=== PATIENT | female | born 1930 | race Caucasian/White ===

== ENCOUNTER 2016-10-18 18:51 | Emergency (ER) | payer MEDICARE, BC ==
[~2016-10-18 18:51] MED LIST: ALPR0.5T PO; ATOR10TA PO; CARV3.122 PO; CLON0.5T PO; CLON0.5T3 PO; DIGO125T PO; DILT180C2 PO; DILT240C2 PO; DOCU-27 PO; DULO60CA6 PO; FAMO-63 PO; FENT1PAT13 TD; FURO-69 PO; HYDR-2666 PO; HYDR-971 PO; Hydrocodone/Acetaminophen PO; IPRA3AMP NEB; LEVO100T PO; LEVO137T2 PO; LEVO150T PO; METO25TA4 PO; METO50TA2 PO; OLAN5TAB9 PO; ONDA4TAB7 PO; PANT40TA3 PO; PARO40TA45 PO; POTA20TA12 PO; PRAV40TA2 PO; PREG25CA PO; SUCR1TAB29 PO; TRAZ50TA15 PO; WARF1TAB PO; WARF2.5T PO; WARF3TAB PO
[2016-10-18] MEDS ORDERED: TRAMADOL 50 MG TABLET. PO ONE (19:30)
--- NOTE | 2016-10-18 20:33 | PHYS DOC ---
Past Medical History Past Medical History: A-Fib, Anxiety, Depression, High Cholesterol, Hypertension, TIA Additional Past Medical Histor: HOME O2 AT NIGHT Past Surgical History: Other Additional Past Surgical Histo: Thyroid Alcohol Use: None Drug Use: None Adult General Chief Complaint Chief Complaint: LOWER EXTREMITY SWELLING HPI HPI Patient is a 86 year old female with history of chronic peripheral edema, A. fib, hypertension, TIA, anxiety who presents with multiple complaints which all appear to be relatively chronic. She complains of lower extremity swelling and pain and is been going on for approximately one year. She feels short of breath intermittently, and feels short of breath with exertion. This is not really a new development. He had an episode of heartburn earlier and felt that her stomach was upset, but this feels better currently. She also complains of a hoarse voice and some nasal congestion and drainage for the last couple of weeks. She denies fever, cough, nausea, vomiting, diarrhea, dysuria, hematuria , or flank pain. Review of Systems Review of Systems Constitutional: Denies fever or chills Eyes: Denies change in visual acuity, redness, or eye pain HENT: Reports mild nasal congestion/drainage and hoarse voice. Denies sore throat. Respiratory: Denies cough. Her porch chronic intermittent shortness of breath on exertion. Cardiovascular: Denies chest pain or palpitations. GI: Denies abdominal pain, nausea, vomiting, bloody stools or diarrhea. 4 steps of heartburn earlier today that has resolved. : Denies dysuria or hematuria Musculoskeletal: Denies back pain or joint pain. Chronic lower extremity pain, worse with walking. Reports chronic lower extremity edema. Integument: Denies rash or skin lesions Neurologic: Denies headache, focal weakness or sensory changes Current Medications Current Medications Current Medications Medications (Trade) Dose Ordered Sig/Dori Start Time Stop Time Status Last Admin Dose Admin Tramadol HCl (Ultram) 50 mg 1X ONCE 10/18/16 19:30 10/18/16 19:33 DC Allergies Allergies Allergies Coded Allergies Type Severity Reaction Last Updated Verified Iodinated Contrast Media - Oral and Allergy Intermediate SWELLING 04/19/16 Yes Penicillins Allergy Intermediate Rash 04/19/16 Yes adhesive Allergy Intermediate rash 04/19/16 Yes iodine Allergy Intermediate Rash 04/19/16 Yes tramadol Allergy Intermediate 10/18/16 Yes Physical Exam Physical Exam Constitutional: Well developed, well nourished, no acute distress, non-toxic appearance. HENT: Normocephalic, atraumatic, bilateral external ears normal, oropharynx moist, no oral exudates, nose normal. Voice sounds normal Eyes: PERRLA, EOMI, conjunctiva normal, no discharge. Neck: Normal range of motion, no tenderness, supple, no stridor. No JVD. Cardiovascular: Irregularly irregular. No murmur or gallop. Lungs & Thorax: Bilateral breath sounds clear to auscultation Abdomen: Bowel sounds normal, soft, no tenderness, no masses, no pulsatile masses. Skin: Warm, dry, no erythema, no rash. Back: No tenderness, no CVA tenderness. Extremities: No tenderness, no cyanosis, no clubbing, ROM intact. Trace pitting edema bilateral lower legs. Neurologic: Alert and oriented X 3, normal motor function, normal sensory function, no focal deficits noted. Psychologic: Anxious. Current Patient Data Vital Signs Vital Signs Date Time Temp Pulse Resp B/P Pulse Ox O2 Delivery O2 Flow Rate FiO2 10/18/16 21:30 76 20 124/68 95 Room Air 10/18/16 18:53 98.8 98.8 Lab Values Laboratory Tests Test 10/18/16 20:15 White Blood Count 5.9x10^3/uL (4.0-11.0) Red Blood Count 3.95x10^6/uL (3.50-5.40) Hemoglobin 8.7g/dL (12.0-15.5) L Hematocrit 27.7% (36.0-47.0) L Mean Corpuscular Volume 70fL (79-100) L Mean Corpuscular Hemoglobin 22pg (25-35) L Mean Corpuscular Hemoglobin Concent 31g/dL (31-37) Red Cell Distribution Width 23.0% (11.5-14.5) H Platelet Count 258x10^3/uL (140-400) Neutrophils (%) (Auto) 43% (31-73) Lymphocytes (%) (Auto) 45% (24-48) Monocytes (%) (Auto) 9% (0-9) Eosinophils (%) (Auto) 3% (0-3) Basophils (%) (Auto) 0% (0-3) Neutrophils # (Auto) 2.5x10^3uL (1.8-7.7) Lymphocytes # (Auto) 2.6x10^3/uL (1.0-4.8) Monocytes # (Auto) 0.5x10^3/uL (0.0-1.1) Eosinophils # (Auto) 0.1x10^3/uL (0.0-0.7) Basophils # (Auto) 0.0x10^3/uL (0.0-0.2) Platelet Estimate Adequate (ADEQUATE) Polychromasia Slight Hypochromasia Mod Anisocytosis Mod Microcytosis Mod Ovalocytes Mod Sodium Level 143mmol/L (136-145) Potassium Level 3.9mmol/L (3.5-5.1) Chloride Level 107mmol/L (98-107) Carbon Dioxide Level 28mmol/L (21-32) Anion Gap 8 (6-14) Blood Urea Nitrogen 9mg/dL (7-20) Creatinine 0.8mg/dL (0.6-1.0) Estimated GFR (Cockcroft-Gault) 68.0 Glucose Level 96mg/dL (70-99) Calcium Level 8.4mg/dL (8.5-10.1) L Troponin I Quantitative < 0.017ng/mL (0.000-0.055) PV-Amc-C-Type Natriuretic Peptide 3565pg/mL (0-449) H Laboratory Tests 10/18/16 20:15 Laboratory Tests 10/18/16 20:15 EKG EKG EKG: Atrial fibrillation. Rate 80 bpm. Normal axis and intervals. No ST segment changes or acute abnormalities. EKG interpreted by me. Radiology/Procedures Radiology/Procedures Chest x-ray, AP single view: Cardiomegaly. Hiatal hernia. Aortic arthrosclerosis. No acute infiltrate, effusion, or pneumothorax. No acute findings in chest. X-ray interpreted by me. Course & Med Decision Making Course & Med Decision Making Pertinent Labs and Imaging studies reviewed. (See chart for details) Patient has stable vitals and looks well. She is a very anxious lady, most of her complaints seem to be chronic. She has some mild trace edema, but otherwise her exam is unremarkable. Labs are also fairly stable, she does have chronic microcytic anemia. BNP is very elevated, as it always is. There is no evidence of acute volume overload on her chest x-ray. I have advised compression stockings, feet elevation, and that she continue taking her prescribed pain medication. She has follow-up appointment on Friday with her primary physician. Patient was reassured. Return precautions were discussed and all questions were answered prior to discharge. Dragon Disclaimer Dragon Disclaimer This electronic medical record was generated, in whole or in part, using a voice recognition dictation system. Departure Departure Impression: Primary Impression: Lower extremity edema Additional Impression: Chronic pain of lower extremity, bilateral Disposition: HOME, SELF-CARE Condition: STABLE Referrals: KAMALJIT AL MD (PCP) Patient Instructions: Chronic Pain, Peripheral Edema Additional Instructions: Take your previously prescribed pain medications as directed. Wear compression stockings on her lower extremities for the next few days while you are up on her feet, and at night elevate your legs when you are resting or sleeping. Follow up with your primary doctor as scheduled next week. Problem Qualifiers Primary Impression: Lower extremity edema Laterality: bilateral Qualified Code: R60.0 - Localized edema KATJA WITT MD Oct 18, 2016 19:24
[2016-10-18 20:47] LABS: BASO % 0 % (0-3); EOS % 3 % (0-3); HEMATOCRIT 27.7 % (36.0-47.0); HEMOGLOBIN 8.7 g/dL (12.0-15.5); LYMPH # 2.6 x10^3/uL (1.0-4.8); LYMPH % 45 % (24-48); MEAN CORPUSCULAR HEMOGLOBIN 22 pg (25-35); MEAN CORPUSCULAR HGB CONC 31 g/dL (31-37); MEAN CORPUSCULAR VOLUME 70 fL (79-100); MONO % 9 % (0-9); NEUT % 43 % (31-73); PLATELET COUNT 258 x10^3/uL (140-400); RED BLOOD COUNT 3.95 x10^6/uL (3.50-5.40); WHITE BLOOD COUNT 5.9 x10^3/uL (4.0-11.0)
[2016-10-18 20:51] LABS: CALCIUM 8.4 mg/dL (8.5-10.1); CREATININE 0.8 mg/dL (0.6-1.0); POTASSIUM 3.9 mmol/L (3.5-5.1)
[2016-10-18 21:43] LABS: ANISOCYTOSIS MOD; HYPOCHROMIA MOD; MICROCYTOSIS MOD; OVALOCYTES MOD; PLT ESTIMATE ADEQUATE (ADEQUATE); POLYCHROMASIA SLIGHT
[2016-10-18 22:00] VITALS: BP 141/81
--- NOTE | 2016-10-19 08:28 | RAD ---
EXAM: Chest, single view. HISTORY: Shortness of breath. COMPARISON: 09/04/2016. FINDINGS: A frontal view of the chest is obtained. There is stable diffuse increased interstitial opacity likely due to trace congestion. There is stable cardiomegaly. There is a hiatal hernia. There is no effusion or pneumothorax. IMPRESSION: 1. Stable diffuse increased interstitial opacity suggesting trace congestion. 2. Stable cardiomegaly. 3. Hiatal hernia.
--- NOTE | 2016-10-19 09:15 | EKG ---
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
== END 2016-10-18 22:40 | disposition home or self-care (01) ==
LOC: ER 18:51
DX: G89.29 Other chronic pain (principal); R60.0 Localized edema; M79.604 Pain in right leg; M79.605 Pain in left leg; E78.00 Pure hypercholesterolemia, unspecified; I10 Essential (primary) hypertension; R06.02 Shortness of breath; Z86.73 Personal history of transient ischemic attack (TIA), and cerebral infarction without residual deficits
CPT/HCPCS: 36415; 71010; 80048; 83880; 84484; 85007; 85027; 93005; 99285-25

== ENCOUNTER 2016-11-08 15:31 | Inpatient (IN) | payer MEDICARE, BC ==
[~2016-11-08] VITALS: Ht 162.6 cm; Wt 69.1 kg
[2016-11-08 16:05] VITALS: BP 135/80
[2016-11-08] MEDS ORDERED: WARFARIN 10 MG TABLET. PO ONE (16:30)
[2016-11-08 16:46] LABS: OBC FLU VALID
[2016-11-08] MEDS ORDERED: PARO20TA2 PO (16:54)
[2016-11-08] MEDS ORDERED: HYDR7.5S PO (16:54)
[2016-11-08] MEDS ORDERED: ACET500T68 PO (16:54)
[2016-11-08] MEDS ORDERED: DIGOXIN 500 MCG/2 ML AMPUL. IV ONE (17:15)
[2016-11-08] MEDS ORDERED: FUROSEMIDE 40 MG/4 ML VIAL IVP ONE (17:15)
[2016-11-08] MEDS ORDERED: ONDANSETRON ODT 4 MG TAB.RAPDIS PO PRN (17:30)
[2016-11-08] MEDS ORDERED: ACETAMINOPHEN 325 MG TABLET. PO PRN (17:45)
--- NOTE | 2016-11-08 17:53 | EKG ---
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
[2016-11-08 17:59] LABS: INR 1.5 (0.8-1.1); PROTHROMBIN TIME PATIENT 16.9 SEC (11.7-14.0)
[2016-11-08] MEDS ORDERED: ACETAMINOPHEN 500 MG TABLET PO SCH (18:00)
--- NOTE | 2016-11-08 18:01 | PDOC ---
OBJECTIVE Vital Signs Vital Signs Date Time Temp Pulse Resp B/P Pulse Ox O2 Delivery O2 Flow Rate FiO2 11/08/16 16:05 100.3 110 20 135/80 94 Room Air 100.3 ASSESSMENT/PLAN Assessment/Plan [id number] H&P dictated Problems: COMMENT Lab Laboratory Tests Test 11/08/16 16:11 11/08/16 17:30 Influenza Type A Antigen Positive (NEGATIVE) Influenza Type B Antigen Negative (NEGATIVE) Prothrombin Time 16.9SEC (11.7-14.0) Prothromb Time International Ratio 1.5 (0.8-1.1) KAMALJIT AL MD Nov 08, 2016 18:01
[2016-11-08 18:07] VITALS: BP 121/78
[2016-11-08] MEDS: OSELTAMIVIR 75 MG CAPSULE PO SCH (18:10)
[2016-11-08 18:12] LABS: HEMATOCRIT 27.8 % (36.0-47.0); HEMOGLOBIN 8.4 g/dL (12.0-15.5); RED BLOOD COUNT 3.85 x10^6/uL (3.50-5.40); RED CELL DISTRIBUTION WIDTH 21.8 % (11.5-14.5); WHITE BLOOD COUNT 5.5 x10^3/uL (4.0-11.0)
[2016-11-08 18:22] LABS: ALBUMIN 3.4 g/dL (3.4-5.0); ALBUMIN/GLOBULIN RATIO 1.1 (1.0-1.7); CALCIUM 8.7 mg/dL (8.5-10.1); CREATININE 0.8 mg/dL (0.6-1.0); POTASSIUM 3.9 mmol/L (3.5-5.1); TOTAL BILIRUBIN 0.4 mg/dL (0.2-1.0); TOTAL PROTEIN 6.4 g/dL (6.4-8.2)
--- NOTE | 2016-11-08 19:23 | RAD ---
PROCEDURE AP chest radiograph. HISTORY Shortness of air. COMPARISON October 18, 2016. FINDINGS Cardiac silhouette appears within normal limits. There is evidence of large hiatal hernia. No pneumothorax or pleural effusion is seen. No focal consolidation is identified. Pulmonary vascularity appears near the upper limits of normal. IMPRESSION 1. No acute cardiopulmonary process. 2. Hiatal hernia. Electronically signed by: Navdeep Rhoades MD (Nov 08, 2016 19:22:56)
[2016-11-08 19:35] LABS: BACTERIA,URINE 0 /HPF (0-FEW); BILIRUBIN,URINE NEGATIVE (NEG); GLUCOSE,URINE NEGATIVE (NEG); NITRITE,URINE NEGATIVE (NEG); PROTEIN,URINE NEGATIVE (NEG-TRACE); SQUAMOUS EPITHELIAL CELL,UR OCC /LPF; UROBILINOGEN,URINE 0.2 mg/dL (0.2 mg/dL); WBC,URINE 0 /HPF (0-4)
[2016-11-08] MEDS: IPRATRPIUM/ALBUTEROL 0.5/2.5MG 3 ML NEBU. NEB SCH (20:14)
[2016-11-08] MEDS: traZODone 50 MG TABLET. PO PRN (21:05)
[2016-11-08] MEDS: ENOXAPARIN ** NOTE DOSE ** SYRINGE SQ SCH (21:05)
[2016-11-08] MEDS: ATORVASTATIN CALCIUM 10 MG TABLET. PO SCH (21:05)
[2016-11-08] MEDS: FAMOTIDINE 20 MG TABLET. PO SCH (21:05)
[2016-11-08] MEDS: ALPRAZOLAM 0.5 MG TABLET PO PRN (21:07)
[2016-11-09] VITALS (7 sets, daily range): BP systolic 96–143; BP diastolic 47–71
--- NOTE | 2016-11-09 01:06 | PREOP HP ---
DATE OF SERVICE: 11/08/2016 HISTORY OF PRESENT ILLNESS: The patient is an 86-year-old lady who was admitted to room 209. She presented to the office complaining of not feeling good. She is running a temperature, she is having headache, she is weak all over, feels pain all over. She also has been having more problem breathing and shortness of breath and increasing swelling in the lower extremities. She also complained of palpitations. PAST MEDICAL HISTORY: Significant for atrial fibrillation. She is on chronic anticoagulation and her INR was subtherapeutic. 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 She also has a history of depression and anxiety. SOCIAL HISTORY: She recently moved to assisted living. She has received her flu shot and pneumonia vaccine in the past. She does not smoke or drink alcohol or use drugs. FAMILY HISTORY: Positive for hypertension. PHYSICAL EXAMINATION: VITAL SIGNS: Her temperature was 100.3, pulse was ranging 110-130, respiratory rate 20, blood pressure 135/80. Oximetry was 94 on room air. GENERAL: She feels tired and looks exhausted. HEENT: Her tympanic membranes were clear. Pharynx is clear. NECK: Supple. LUNGS: Fairly clear to auscultation. HEART: Irregularly irregular. Rate is tachycardic. ABDOMEN: Soft, no tenderness, no organomegaly, no masses, no bruits, no ascites. EXTREMITIES: She does have +1 edema in bilateral lower extremities. IMPRESSION: 1. Acute influenza infection. 2. Upper respiratory infection due to the flu. 3. Atrial fibrillation with rapid RVR. We will increase her dose of Cardizem, give her a dose of Lanoxin, and start Lovenox is therapeutic again. 4. History of transient ischemic attack and cerebrovascular accident. 5. Congestive heart failure. 6. Hyperlipidemia. 7. Hypertension, hypertensive cardiovascular disease. 8. Large hiatal hernia. 9. Gastroesophageal reflux disease. 10. Urinary incontinence. 11. Chronic back pain. KAMALJIT AL MD DR: DAYRON/radha JOB#: [id number] / [id number]
[2016-11-09 03:05] LABS: HEMATOCRIT 28.3 % (36.0-47.0); HEMOGLOBIN 8.6 g/dL (12.0-15.5); RED BLOOD COUNT 3.93 x10^6/uL (3.50-5.40); RED CELL DISTRIBUTION WIDTH 21.8 % (11.5-14.5)
[2016-11-09 03:15] LABS: INR 1.5 (0.8-1.1); PROTHROMBIN TIME PATIENT 17.4 SEC (11.7-14.0)
[2016-11-09 03:21] LABS: ALBUMIN 3.3 g/dL (3.4-5.0); CALCIUM 8.6 mg/dL (8.5-10.1); CREATININE 0.8 mg/dL (0.6-1.0); POTASSIUM 3.2 mmol/L (3.5-5.1); TOTAL BILIRUBIN 0.4 mg/dL (0.2-1.0); TOTAL PROTEIN 6.5 g/dL (6.4-8.2)
[2016-11-09] MEDS: OSELTAMIVIR 75 MG CAPSULE PO SCH (06:14)
[2016-11-09] MEDS: ALPRAZOLAM 0.5 MG TABLET PO PRN ×2 (06:26→17:49)
[2016-11-09] MEDS: IPRATRPIUM/ALBUTEROL 0.5/2.5MG 3 ML NEBU. NEB SCH ×4 (07:41→18:56)
[2016-11-09] MEDS: LEVOTHYROXINE 137 MCG TABLET PO SCH (08:39)
[2016-11-09] MEDS: PAROXETINE 20 MG TABLET. PO SCH (08:39)
[2016-11-09] MEDS: SUCRALFATE 1 GM TABLET. PO SCH (08:39)
[2016-11-09] MEDS: POTASSIUM CHLORIDE 20 MEQ TABLET.ER. PO SCH (08:39)
[2016-11-09] MEDS: DOCUSATE SODIUM 100 MG CAPSULE PO PRN (08:40)
[2016-11-09] MEDS: FUROSEMIDE 20 MG TABLET PO SCH (08:40)
[2016-11-09] MEDS: DILTIAZEM HCL 180 MG CAP.ER.24H PO SCH (08:40)
[2016-11-09] MEDS: PANTOPRAZOLE 40 MG TABLET. PO SCH (08:41)
[2016-11-09] MEDS: ENOXAPARIN ** NOTE DOSE ** SYRINGE SQ SCH ×2 (08:41→20:09)
[2016-11-09] MEDS ORDERED: POTASSIUM CHLORIDE 20 MEQ TABLET.ER. PO ONE (08:45)
--- NOTE | 2016-11-09 08:49 | PDOC2 ---
CARDIAC CONSULT DATE OF CONSULT Date of Consult DATE: 11/09/16 TIME: 08:33 REASON FOR CONSULT Reason for Consult: AFIB REFERRING PHYSICIAN Referring Physician: Dr. Hoang SOURCE Source: Chart review, Patient HISTORY OF PRESENT ILLNESS HISTORY OF PRESENT ILLNESS This is an 86 yo female, with a history of AFIB, HTN, HLP, CHF, and CVA, who initially presented to PCP office with complaints of overall not feeling well. Patient was admitted directly to hospital from office. Patient reports non- productive cough and fevers over the last couple of days along with weakness and fatigue. Denies any CP, palpitations, dizziness, diaphoresis, syncope, orthopnea, or LE edema. Reports compliance with medications. PAST MEDICAL HISTORY Past Medical History Cardiovascular: AFIB (chronic), CHF, HTN, Hyperlipidemia Pulmonary: Other (home oxygen) CENTRAL NERVOUS SYSTEM: TIA, CVA GI: Other (hiatal hernia - large), GERD Heme/Onc: No pertinent hx Hepatobiliary: No pertinent hx Psych: Anxiety, Depression Musculoskeletal: Osteoarthritis, back pain Rheumatologic: No pertinent hx Infectious disease: No pertinent hx ENT: No pertinent hx Renal/: No pertinent hx Endocrine: hypothyroidism Dermatology: No pertinent hx PAST SURGICAL HISTORY Past Surgical History: Other (thyroidectomy ) FAMILY HISTORY Family History: Hypertension SOCIAL HISTORY Smoke: No ALCOHOL: none Drugs: None Lives: Skilled Nursing (assisted living ) CURRENT MEDICATIONS CURRENT MEDICATIONS Current Medications Medications (Trade) Dose Ordered Sig/Dori Route PRN Reason Start Time Stop Time Status Last Admin Dose Admin Alprazolam (Xanax) 0.5 mg PRN TID PRN PO ANXIETY 11/08/16 17:15 11/09/16 06:26 Atorvastatin Calcium (Lipitor) 10 mg QHS PO 11/08/16 21:00 11/08/16 21:05 Famotidine (Pepcid) 20 mg HS PO 11/08/16 21:00 11/08/16 21:05 Albuterol/ Ipratropium (Duoneb) 3 ml RTQID NEB 11/08/16 20:00 11/09/16 07:41 Trazodone HCl (Desyrel) 50 mg PRN DAILY PRN PO INSOMNIA 11/08/16 17:15 11/08/16 21:05 Enoxaparin Sodium (Lovenox 80mg Syringe) 80 mg Q12HR SQ 11/08/16 19:00 11/08/16 21:05 Warfarin Sodium (Coumadin) 10 mg 1X ONCE PO 11/08/16 16:30 11/08/16 18:04 DC 11/08/16 16:30 Furosemide (Lasix) 40 mg 1X ONCE IVP 11/08/16 17:15 11/08/16 17:48 DC 11/08/16 18:19 Digoxin (Lanoxin) 250 mcg 1X ONCE IV 11/08/16 17:15 11/08/16 17:48 DC 11/08/16 18:19 Oseltamivir Phosphate (Tamiflu) 75 mg Q12H PO 11/08/16 18:00 11/13/16 18:00 11/09/16 06:14 Acetaminophen (Tylenol) 650 mg PRN Q6HRS PRN PO MILD PAIN / TEMP 11/08/16 17:45 11/08/16 18:10 ALLERGIES ALLERGIES: Coded Allergies: Iodinated Contrast Media - Oral and (Verified Allergy, Intermediate, SWELLING, 04/19/16) Penicillins (Verified Allergy, Intermediate, Rash, 04/19/16) adhesive (Verified Allergy, Intermediate, rash, 04/19/16) iodine (Verified Allergy, Intermediate, Rash, 04/19/16) PT HAS NEVER BEEN PREMEDICATED tramadol (Verified Allergy, Intermediate, 11/09/16) Tolerates hydrocodone ROS Review of System 14 point ROS conducted with pertinent positives noted above in HPI. PHYSICAL EXAM General: Alert, Oriented X3, Cooperative, No acute distress HEENT: Atraumatic, Mucous membr. moist/pink Lungs: Other (diminised bases ) Heart: Normal S1, Normal S2, Other (IRRR; tele AFIB) Abdomen: Soft, No tenderness Extremities: No edema, Normal pulses Skin: No breakdown, No significant lesion Neuro: Normal speech, Sensation intact Psych/Mental Status: Mental status NL, Mood NL MUSCULOSKELETAL: Osteoarthritic changes both hands VITALS VITALS Vital Signs Date Time Temp Pulse Resp B/P Pulse Ox O2 Delivery O2 Flow Rate FiO2 11/09/16 07:42 95 Nasal Cannula 2.0 11/09/16 07:30 98.8 101 24 140/62 98.8 LABS Lab: Laboratory Tests Test 11/08/16 16:11 11/08/16 17:30 11/08/16 19:00 11/09/16 01:00 Influenza Type A Antigen Positive (NEGATIVE) Influenza Type B Antigen Negative (NEGATIVE) White Blood Count 5.5x10^3/uL (4.0-11.0) Red Blood Count 3.85x10^6/uL (3.50-5.40) Hemoglobin 8.4g/dL (12.0-15.5) Hematocrit 27.8% (36.0-47.0) Mean Corpuscular Volume 72fL (79-100) Mean Corpuscular Hemoglobin 22pg (25-35) Mean Corpuscular Hemoglobin Concent 30g/dL (31-37) Red Cell Distribution Width 21.8% (11.5-14.5) Platelet Count 238x10^3/uL (140-400) Prothrombin Time 16.9SEC (11.7-14.0) Prothromb Time International Ratio 1.5 (0.8-1.1) Sodium Level 141mmol/L (136-145) Potassium Level 3.9mmol/L (3.5-5.1) Chloride Level 104mmol/L (98-107) Carbon Dioxide Level 26mmol/L (21-32) Anion Gap 11 (6-14) Blood Urea Nitrogen 8mg/dL (7-20) Creatinine 0.8mg/dL (0.6-1.0) Estimated GFR (Cockcroft-Gault) 68.0 BUN/Creatinine Ratio 10 (6-20) Glucose Level 99mg/dL (70-99) Calcium Level 8.7mg/dL (8.5-10.1) Total Bilirubin 0.4mg/dL (0.2-1.0) Aspartate Amino Transf (AST/SGOT) 15U/L (15-37) Alanine Aminotransferase (ALT/SGPT) 13U/L (14-59) Alkaline Phosphatase 50U/L (46-116) Troponin I Quantitative < 0.017ng/mL (0.000-0.055) < 0.017ng/mL (0.000-0.055) CQ-Cbs-A-Type Natriuretic Peptide 4310pg/mL (0-449) Total Protein 6.4g/dL (6.4-8.2) Albumin 3.4g/dL (3.4-5.0) Albumin/Globulin Ratio 1.1 (1.0-1.7) Urine Collection Type Unknown Urine Color Yellow Urine Clarity Clear Urine pH 7.0 Urine Specific Bailey <=1.005 Urine Protein Negativemg/dL (NEG-TRACE) Urine Glucose (UA) Negativemg/dL (NEG) Urine Ketones (Stick) Negativemg/dL (NEG) Urine Blood Moderate (NEG) Urine Nitrite Negative (NEG) Urine Bilirubin Negative (NEG) Urine Urobilinogen Dipstick 0.2mg/dL (0.2 mg/dL) Urine Leukocyte Esterase Negative (NEG) Urine RBC 6-10/HPF (0-2) Urine WBC 0/HPF (0-4) Urine Squamous Epithelial Cells Occ/LPF Urine Bacteria 0/HPF (0-FEW) Test 11/09/16 02:30 White Blood Count 5.0x10^3/uL (4.0-11.0) Red Blood Count 3.93x10^6/uL (3.50-5.40) Hemoglobin 8.6g/dL (12.0-15.5) Hematocrit 28.3% (36.0-47.0) Mean Corpuscular Volume 72fL (79-100) Mean Corpuscular Hemoglobin 22pg (25-35) Mean Corpuscular Hemoglobin Concent 31g/dL (31-37) Red Cell Distribution Width 21.8% (11.5-14.5) Platelet Count 237x10^3/uL (140-400) Erythrocyte Sedimentation Rate 32 (0-25) Prothrombin Time 17.4SEC (11.7-14.0) Prothromb Time International Ratio 1.5 (0.8-1.1) Sodium Level 143mmol/L (136-145) Potassium Level 3.2mmol/L (3.5-5.1) Chloride Level 104mmol/L (98-107) Carbon Dioxide Level 31mmol/L (21-32) Anion Gap 8 (6-14) Blood Urea Nitrogen 9mg/dL (7-20) Creatinine 0.8mg/dL (0.6-1.0) Estimated GFR (Cockcroft-Gault) 68.0 BUN/Creatinine Ratio 11 (6-20) Glucose Level 91mg/dL (70-99) Calcium Level 8.6mg/dL (8.5-10.1) Total Bilirubin 0.4mg/dL (0.2-1.0) Aspartate Amino Transf (AST/SGOT) 14U/L (15-37) Alanine Aminotransferase (ALT/SGPT) 11U/L (14-59) Alkaline Phosphatase 49U/L (46-116) Total Protein 6.5g/dL (6.4-8.2) Albumin 3.3g/dL (3.4-5.0) Albumin/Globulin Ratio 1.0 (1.0-1.7) ECHOCARDIOGRAM ECHOCARDIOGRAM <Conclusion> The left ventricular systolic function is normal and the ejection fraction is within normal range. The Ejection Fraction is 55%. There is normal LV segmental wall motion. The left atrium is mild to moderately dilated. Doppler and Color Flow revealed mild aortic regurgitation. Doppler and Color Flow revealed mild mitral regurgitation. Doppler and Color Flow revealed moderate tricuspid regurgitation. The PA pressure was estimated at 50 mmHg suggestive of mild to moderate pulmonary HTN. DATE: 11/28/15 1129 STRESS TEST STRESS TEST Conclusion 1. No evidence of EKG changes with stress. 2. Normal myocardial perfusion with stress and rest. 3. Normal EF with stress. 4. Low risk study. DATE: 08/01/15 1637 ASSESSMENT/PLAN ASSESSMENT/PLAN 1. chronic atrial fib episode of RVR yesterday evening. Responded well to IV Dig. RVR likely induced by acute infectious process. TSH normal 11/2015; echo 11/2015 with preserved LVEF and mild AR and MR OAC with warfarin. rate controlled; continue Cardizem. Dig PRN for RVR 2. Mild NT Pro BNP elevated but based upon age adjustment is insignificant. CXR without significant pleural fluid. No JVD continue with routine oral diuresis 3. Influenza A 3. HTN well-controlled continue with current therapy 4. HLD continue medications 5. anxiety and depression per PCP 6. moderate pulmonary HTN PA 50 mm Hg by echo 11/2015 7. Hypokalemia replace. check Mg. Monitor lytes. 8. Subtherapeutic INR INR 1.5 Lovenox for stroke prophylaxis Problems: MEENAKSHI LIMON APRN Nov 09, 2016 08:49
[2016-11-09] MEDS: OLANZAPINE 5 MG TABLET. PO SCH (09:00)
[2016-11-09] MEDS: HYDROCODONE/APAP 7.5/325MG TABLET. PO SCH ×4 (11:35→20:10)
--- NOTE | 2016-11-09 12:54 | PDOC ---
Provider Note Provider Note low grade temp, af rate better- still diffuse wheezes- microcytic anemia same as in 08/08, she does not know etiology- check roque, same meds, watch hb on anticoags MARTHA AGUIAR MD Nov 09, 2016 12:54
[2016-11-09] MEDS ORDERED: DIGOXIN 500 MCG/2 ML AMPUL. IV PRN (13:00)
[2016-11-09] MEDS: WARFARIN 3 MG TABLET. PO SCH (17:49)
[2016-11-09] MEDS: traZODone 50 MG TABLET. PO PRN (20:09)
[2016-11-09] MEDS: FAMOTIDINE 20 MG TABLET. PO SCH (20:09)
[2016-11-09] MEDS: OSELTAMIVIR 30 MG CAPSULE PO SCH (20:09)
[2016-11-09] MEDS: ATORVASTATIN CALCIUM 10 MG TABLET. PO SCH (20:09)
[2016-11-10 03:30] VITALS: BP 100/50
[2016-11-10 04:14] LABS: HEMOGLOBIN 9.2 g/dL (12.0-15.5); RED BLOOD COUNT 4.13 x10^6/uL (3.50-5.40); RED CELL DISTRIBUTION WIDTH 21.7 % (11.5-14.5); WHITE BLOOD COUNT 4.3 x10^3/uL (4.0-11.0)
[2016-11-10 04:19] LABS: PROTHROMBIN TIME PATIENT 21.9 SEC (11.7-14.0)
[2016-11-10 07:00] VITALS: BP 126/66
[2016-11-10] MEDS: IPRATRPIUM/ALBUTEROL 0.5/2.5MG 3 ML NEBU. NEB SCH ×4 (07:16→19:11)
[2016-11-10] MEDS: LEVOTHYROXINE 137 MCG TABLET PO SCH (07:33)
[2016-11-10] MEDS: SUCRALFATE 1 GM TABLET. PO SCH (07:33)
[2016-11-10] MEDS: OSELTAMIVIR 30 MG CAPSULE PO SCH ×2 (08:27→20:28)
[2016-11-10] MEDS: DILTIAZEM HCL 180 MG CAP.ER.24H PO SCH (08:27)
[2016-11-10] MEDS: ALPRAZOLAM 0.5 MG TABLET PO PRN ×3 (08:27→20:55)
[2016-11-10] MEDS: POTASSIUM CHLORIDE 20 MEQ TABLET.ER. PO SCH ×3 (08:28→18:00)
[2016-11-10] MEDS: PANTOPRAZOLE 40 MG TABLET. PO SCH (08:28)
[2016-11-10] MEDS: FUROSEMIDE 20 MG TABLET PO SCH (08:28)
[2016-11-10] MEDS: ENOXAPARIN ** NOTE DOSE ** SYRINGE SQ SCH (08:28)
[2016-11-10] MEDS: PAROXETINE 20 MG TABLET. PO SCH (09:00)
[2016-11-10] MEDS: HYDROCODONE/APAP 7.5/325MG TABLET. PO SCH ×4 (09:00→20:32)
[2016-11-10] MEDS: OLANZAPINE 5 MG TABLET. PO SCH (09:00)
--- NOTE | 2016-11-10 09:36 | PDOC ---
Provider Note Provider Note vss, no temp, bp low but stable- inr 2 now- wK+ 3 so will repeat- AF rate better, 105 now MARTHA AGUIAR MD Nov 10, 2016 09:36
--- NOTE | 2016-11-10 09:38 | PDOC ---
Provider Note Provider Note dc lovenox re inr, kcl to bid, sleeping w/out dyspnea MARTHA AGUIAR MD Nov 10, 2016 09:38
[2016-11-10 11:00] VITALS: BP 124/56
--- NOTE | 2016-11-10 11:41 | PDOC ---
PROGRESS NOTES Subjective Subjective The patient is more comfortable today. Objective Objective Vital Signs Date Time Temp Pulse Resp B/P Pulse Ox O2 Delivery O2 Flow Rate FiO2 11/10/16 11:22 Nasal Cannula 2.0 11/10/16 11:02 18 96 11/10/16 08:27 110 126/66 11/10/16 07:00 98.1 98.1 Intake and Output 11/10/16 07:00 Intake Total 100 ml Balance 100 ml Intake Oral 100 ml # Voids 4 # Bowel Movements 1 Physical Exam Abdomen: Normal bowel sounds Heart: Regular rate General: mild distress Lungs: Other (mildly decreased breath sounds) Assessment Assessment ASSESSMENT/PLAN 1. chronic atrial fib RVR likely induced by acute infectious process. TSH normal 11/2015; echo 11/2015 with preserved LVEF and mild AR and MR OAC with warfarin. INR now 2.0. rate controlled; continue Cardizem. Dig PRN for RVR 2. Mild NT Pro BNP elevated but based upon age adjustment is insignificant. CXR without significant pleural fluid. No JVD continue with routine oral diuresis K of 3.2. KCL has been increased. 3. Influenza A 3. HTN well-controlled continue with current therapy 4. HLD continue medications 5. anxiety and depression per PCP 6. moderate pulmonary HTN PA 50 mm Hg by echo 11/2015 7. Hypokalemia replace. check Mg. Monitor lytes. Comment Review of Relevant I have reviewed the following items mignon (where applicable) has been applied. Labs Laboratory Tests Test 11/08/16 16:11 11/08/16 17:30 11/08/16 19:00 11/09/16 01:00 Influenza Type A Antigen Positive (NEGATIVE) Influenza Type B Antigen Negative (NEGATIVE) White Blood Count 5.5x10^3/uL (4.0-11.0) Red Blood Count 3.85x10^6/uL (3.50-5.40) Hemoglobin 8.4g/dL (12.0-15.5) Hematocrit 27.8% (36.0-47.0) Mean Corpuscular Volume 72fL (79-100) Mean Corpuscular Hemoglobin 22pg (25-35) Mean Corpuscular Hemoglobin Concent 30g/dL (31-37) Red Cell Distribution Width 21.8% (11.5-14.5) Platelet Count 238x10^3/uL (140-400) Prothrombin Time 16.9SEC (11.7-14.0) Prothromb Time International Ratio 1.5 (0.8-1.1) Sodium Level 141mmol/L (136-145) Potassium Level 3.9mmol/L (3.5-5.1) Chloride Level 104mmol/L (98-107) Carbon Dioxide Level 26mmol/L (21-32) Anion Gap 11 (6-14) Blood Urea Nitrogen 8mg/dL (7-20) Creatinine 0.8mg/dL (0.6-1.0) Estimated GFR (Cockcroft-Gault) 68.0 BUN/Creatinine Ratio 10 (6-20) Glucose Level 99mg/dL (70-99) Calcium Level 8.7mg/dL (8.5-10.1) Total Bilirubin 0.4mg/dL (0.2-1.0) Aspartate Amino Transf (AST/SGOT) 15U/L (15-37) Alanine Aminotransferase (ALT/SGPT) 13U/L (14-59) Alkaline Phosphatase 50U/L (46-116) Troponin I Quantitative < 0.017ng/mL (0.000-0.055) < 0.017ng/mL (0.000-0.055) VP-Tdf-I-Type Natriuretic Peptide 4310pg/mL (0-449) Total Protein 6.4g/dL (6.4-8.2) Albumin 3.4g/dL (3.4-5.0) Albumin/Globulin Ratio 1.1 (1.0-1.7) Urine Collection Type Unknown Urine Color Yellow Urine Clarity Clear Urine pH 7.0 Urine Specific [place] <=1.005 Urine Protein Negativemg/dL (NEG-TRACE) Urine Glucose (UA) Negativemg/dL (NEG) Urine Ketones (Stick) Negativemg/dL (NEG) Urine Blood Moderate (NEG) Urine Nitrite Negative (NEG) Urine Bilirubin Negative (NEG) Urine Urobilinogen Dipstick 0.2mg/dL (0.2 mg/dL) Urine Leukocyte Esterase Negative (NEG) Urine RBC 6-10/HPF (0-2) Urine WBC 0/HPF (0-4) Urine Squamous Epithelial Cells Occ/LPF Urine Bacteria 0/HPF (0-FEW) Test 11/09/16 02:30 11/10/16 03:30 White Blood Count 5.0x10^3/uL (4.0-11.0) 4.3x10^3/uL (4.0-11.0) Red Blood Count 3.93x10^6/uL (3.50-5.40) 4.13x10^6/uL (3.50-5.40) Hemoglobin 8.6g/dL (12.0-15.5) 9.2g/dL (12.0-15.5) Hematocrit 28.3% (36.0-47.0) 30.0% (36.0-47.0) Mean Corpuscular Volume 72fL (79-100) 73fL (79-100) Mean Corpuscular Hemoglobin 22pg (25-35) 22pg (25-35) Mean Corpuscular Hemoglobin Concent 31g/dL (31-37) 31g/dL (31-37) Red Cell Distribution Width 21.8% (11.5-14.5) 21.7% (11.5-14.5) Platelet Count 237x10^3/uL (140-400) 220x10^3/uL (140-400) Erythrocyte Sedimentation Rate 32 (0-25) Prothrombin Time 17.4SEC (11.7-14.0) 21.9SEC (11.7-14.0) Prothromb Time International Ratio 1.5 (0.8-1.1) 2.0 (0.8-1.1) Sodium Level 143mmol/L (136-145) Potassium Level 3.2mmol/L (3.5-5.1) Chloride Level 104mmol/L (98-107) Carbon Dioxide Level 31mmol/L (21-32) Anion Gap 8 (6-14) Blood Urea Nitrogen 9mg/dL (7-20) Creatinine 0.8mg/dL (0.6-1.0) Estimated GFR (Cockcroft-Gault) 68.0 BUN/Creatinine Ratio 11 (6-20) Glucose Level 91mg/dL (70-99) Calcium Level 8.6mg/dL (8.5-10.1) Magnesium Level 1.9mg/dL (1.8-2.4) Ferritin 18ng/mL (8-252) Total Bilirubin 0.4mg/dL (0.2-1.0) Aspartate Amino Transf (AST/SGOT) 14U/L (15-37) Alanine Aminotransferase (ALT/SGPT) 11U/L (14-59) Alkaline Phosphatase 49U/L (46-116) Total Protein 6.5g/dL (6.4-8.2) Albumin 3.3g/dL (3.4-5.0) Albumin/Globulin Ratio 1.0 (1.0-1.7) Laboratory Tests Test 11/10/16 03:30 White Blood Count 4.3x10^3/uL (4.0-11.0) Red Blood Count 4.13x10^6/uL (3.50-5.40) Hemoglobin 9.2g/dL (12.0-15.5) Hematocrit 30.0% (36.0-47.0) Mean Corpuscular Volume 73fL (79-100) Mean Corpuscular Hemoglobin 22pg (25-35) Mean Corpuscular Hemoglobin Concent 31g/dL (31-37) Red Cell Distribution Width 21.7% (11.5-14.5) Platelet Count 220x10^3/uL (140-400) Prothrombin Time 21.9SEC (11.7-14.0) Prothromb Time International Ratio 2.0 (0.8-1.1) Medications Current Medications Acetaminophen (Tylenol) 500 mg Q6HRS PO ; Start 11/08/16 at 18:00; Status Cancel Alprazolam (Xanax) 0.5 mg PRN TID PRN PO ANXIETY Last administered on 08:27; Start 11/08/16 at 17:15 Atorvastatin Calcium (Lipitor) 10 mg QHS PO Last administered on 11/09/16 20: 09; Start 11/08/16 at 21:00 Diltiazem HCl (Cardizem 24hr Cd) 360 mg DAILY PO Last administered on 08:27; Start 11/09/16 at 09:00 Docusate Sodium (Colace) 100 mg PRN BID PRN PO CONSTIPATION 1ST CHOICE Last administered on 11/09/16 08:40; Start 11/08/16 at 17:15 Famotidine (Pepcid) 20 mg HS PO Last administered on 11/09/16 20:09; Start at 21:00 Furosemide (Lasix) 40 mg DAILY PO Last administered on 11/10/16 08:28; Start 11/09/16 at 09:00 Albuterol/ Ipratropium (Duoneb) 3 ml RTQID NEB Last administered on 11/10/16 11:21; Start 11/08/16 at 20:00 Levothyroxine Sodium (Synthroid) 137 mcg DAILY PO Last administered on 07:33; Start 11/09/16 at 09:00 Olanzapine (Zyprexa) 5 mg DAILY PO ; Start 11/09/16 at 09:00 Pantoprazole Sodium (Protonix) 40 mg DAILY PO Last administered on 11/10/16 08 :28; Start 11/09/16 at 09:00 Paroxetine HCl (Paxil) 20 mg DAILY PO Last administered on 11/09/16 08:39; Start 11/09/16 at 09:00 Potassium Chloride (Klor-Con) 20 meq DAILY PO Last administered on 11/10/16 08 :28; Start 11/09/16 at 09:00; Stop 11/10/16 at 09:38; Status DC Sucralfate (Carafate) 1 gm DAILYAC PO Last administered on 11/10/16 07:33; Start 11/09/16 at 07:30 Trazodone HCl (Desyrel) 50 mg PRN DAILY PRN PO INSOMNIA Last administered on 20:09; Start 11/08/16 at 17:15 Warfarin Sodium (Coumadin) 3 mg DAILY16 PO Last administered on 11/09/16 17:49 ; Start 11/09/16 at 16:00 Ondansetron HCl (Zofran Odt) 4 mg PRN Q12HRS PRN PO NAUSEA/VOMITING; Start at 17:30 Enoxaparin Sodium (Lovenox 80mg Syringe) 80 mg Q12HR SQ Last administered on 08:28; Start 11/08/16 at 19:00; Stop 11/10/16 at 09:38; Status DC Warfarin Sodium (Coumadin) 10 mg 1X ONCE PO Last administered on 11/08/16 16: 30; Start 11/08/16 at 16:30; Stop 11/08/16 at 18:04; Status DC Furosemide (Lasix) 40 mg 1X ONCE IVP Last administered on 11/08/16 18:19; Start 11/08/16 at 17:15; Stop 11/08/16 at 17:48; Status DC Digoxin (Lanoxin) 250 mcg 1X ONCE IV Last administered on 11/08/16 18:19; Start 11/08/16 at 17:15; Stop 11/08/16 at 17:48; Status DC Oseltamivir Phosphate (Tamiflu) 75 mg Q12H PO Last administered on 11/09/16 06 :14; Start 11/08/16 at 18:00; Stop 11/09/16 at 09:08; Status DC Acetaminophen (Tylenol) 650 mg PRN Q6HRS PRN PO MILD PAIN / TEMP Last administered on 11/08/16 18:10; Start 11/08/16 at 17:45 Warfarin Sodium (Coumadin Per Physician) 1 each PRN DAILY PRN MC SEE COMMENTS Last administered on 11/09/16 09:04; Start 11/09/16 at 07:15 Potassium Chloride (Klor-Con) 20 meq 1X ONCE PO Last administered on 11:35; Start 11/09/16 at 08:45; Stop 11/09/16 at 08:46; Status DC Oseltamivir Phosphate (Tamiflu) 30 mg BID PO Last administered on 11/10/16 08: 27; Start 11/09/16 at 21:00; Stop 11/13/16 at 20:59 Acetaminophen/ Hydrocodone Bitart (Lortab 7.5/325) 1 tab [id number] PO Last administered on 11/10/16 11:02; Start 11/09/16 at 10:30 Digoxin (Lanoxin) 250 mcg 1X PRN PRN IV PER PROTOCOL; Start 11/09/16 at 13:00 Potassium Chloride (Klor-Con) 20 meq BIDAFTMEAL PO Last administered on 10:57; Start 11/10/16 at 10:00 Active Scripts Active Xanax (Alprazolam) 0.5 Mg Tablet 1 Tab PO TID PRN Zofran (Ondansetron Hcl) 4 Mg Tablet 4 Mg PO BID PRN Pepcid (Famotidine) 20 Mg Tablet 20 Mg PO HS Lyrica (Pregabalin) 25 Mg Capsule 50 Mg PO BID 28 Days Duoneb 0.5-3(2.5) Mg/3 Ml (Albuterol/Ipratropium) 3 Ml Ampul.neb 3 Ml NEB RTQID 28 Days FENTANYL 12mcg/hr (Fentanyl) 1 Each Patch.td72 1 Patch TD Q3DAYS 30 Days Colace (Docusate Sodium) 100 Mg Capsule 100 Mg PO PRN BID PRN Reported Acetaminophen 500 Mg Tablet 1 Tab PO Q6HRS Paroxetine Hcl 20 Mg Tablet 1 Tab PO DAILY Synthroid (Levothyroxine Sodium) 137 Mcg Tablet 1 Tab PO DAILY Cardizem Cd (Diltiazem Hcl) 240 Mg Cap.er.24h 1 Cap PO DAILY Lipitor (Atorvastatin Calcium) 10 Mg Tablet 1 Tab PO QHS Carafate (Sucralfate) 1 Gm Tablet 1 Tab PO DAILYAC Lasix (Furosemide) 20 Mg Tablet 1 Tab PO DAILY Coumadin (Warfarin Sodium) 3 Mg Tablet 1 Tab PO DAILY Olanzapine 5 Mg Tablet 5 Mg PO DAILY Potassium Chloride 20 Meq Tab.er.prt 1 Tab PO DAILY Trazodone Hcl 50 Mg Tablet 50 Mg PO PRN DAILY PRN Protonix (Pantoprazole Sodium) 40 Mg Tablet. 1 Tab PO DAILY Vitals/I & O Vital Sign - Last 24 Hours 11/09/16 11/09/16 11/09/16 11/09/16 11:52 15:40 16:13 17:49 Temp 97.9 97.9 Pulse 97 Resp 18 18 B/P 98/54 Pulse Ox 98 98 98 O2 Delivery Nasal Cannula Nasal Cannula Nasal Cannula Nasal Cannula O2 Flow Rate 2.0 2.0 2.0 2.0 11/09/16 11/09/16 11/09/16 11/09/16 18:53 18:58 20:00 20:10 Temp 98.0 98.0 Pulse 84 Resp 19 20 B/P 114/57 Pulse Ox 95 99 99 O2 Delivery Nasal Cannula Nasal Cannula Nasal Cannula Nasal Cannula O2 Flow Rate 2.0 2.0 2.0 2.0 11/09/16 11/09/16 11/10/16 11/10/16 21:15 23:05 03:30 07:00 Temp 98.9 98.2 98.1 98.9 98.2 98.1 Pulse 85 78 101 Resp 20 18 18 18 B/P 96/47 100/50 126/66 Pulse Ox 99 97 99 96 O2 Delivery Nasal Cannula Nasal Cannula Nasal Cannula Nasal Cannula O2 Flow Rate 2.0 2.0 2.0 2.0 11/10/16 11/10/16 11/10/16 11/10/16 07:18 08:00 08:27 11:02 Pulse 110 Resp 18 B/P 126/66 Pulse Ox 98 96 O2 Delivery Nasal Cannula Nasal Cannula Nasal Cannula O2 Flow Rate 2.0 2.0 2.0 11/10/16 11:22 O2 Delivery Nasal Cannula O2 Flow Rate 2.0 Intake and Output 11/09/16 11/09/16 11/10/16 15:00 23:00 07:00 Intake Total 100 ml Balance 100 ml AMY WHITE MD Nov 10, 2016 11:41
[2016-11-10 15:00] VITALS: BP 120/56
[2016-11-10] MEDS: WARFARIN 3 MG TABLET. PO SCH (16:14)
[2016-11-10 19:00] VITALS: BP 121/60
[2016-11-10] MEDS: ATORVASTATIN CALCIUM 10 MG TABLET. PO SCH (20:28)
[2016-11-10] MEDS: FAMOTIDINE 20 MG TABLET. PO SCH (20:28)
[2016-11-10] MEDS: traZODone 50 MG TABLET. PO PRN (20:28)
[2016-11-10 22:46] VITALS: BP 102/56
[2016-11-11] MEDS: HYDROCODONE/APAP 7.5/325MG TABLET. PO SCH ×5 (00:34→20:43)
[2016-11-11 04:00] VITALS: BP 92/56
[2016-11-11] MEDS: IPRATRPIUM/ALBUTEROL 0.5/2.5MG 3 ML NEBU. NEB SCH ×4 (07:18→18:04)
[2016-11-11 07:38] LABS: INR 2.1 (0.8-1.1); PROTHROMBIN TIME PATIENT 22.3 SEC (11.7-14.0)
[2016-11-11 07:49] VITALS: BP 123/64
[2016-11-11] MEDS: PANTOPRAZOLE 40 MG TABLET. PO SCH (08:08)
[2016-11-11] MEDS: OSELTAMIVIR 30 MG CAPSULE PO SCH ×2 (08:08→20:41)
[2016-11-11] MEDS: SUCRALFATE 1 GM TABLET. PO SCH (08:08)
[2016-11-11] MEDS: LEVOTHYROXINE 137 MCG TABLET PO SCH (08:09)
[2016-11-11] MEDS: DILTIAZEM HCL 180 MG CAP.ER.24H PO SCH (08:14)
[2016-11-11] MEDS: ALPRAZOLAM 0.5 MG TABLET PO PRN ×3 (08:42→20:47)
[2016-11-11] MEDS: DOCUSATE SODIUM 100 MG CAPSULE PO PRN (08:43)
[2016-11-11] MEDS: POTASSIUM CHLORIDE 20 MEQ TABLET.ER. PO SCH ×2 (08:43→17:37)
[2016-11-11] MEDS: OLANZAPINE 5 MG TABLET. PO SCH (08:43)
[2016-11-11] MEDS: PAROXETINE 20 MG TABLET. PO SCH (08:43)
[2016-11-11] MEDS: FUROSEMIDE 20 MG TABLET PO SCH (08:43)
--- NOTE | 2016-11-11 08:48 | PDOC ---
Provider Note Provider Note no temp, rate 90-110, feels ok- K+ was 3.2, repeat pending- inr 2.2- lungs clear, af same, i encouraged more walking in advance of likely dc 11/12 MARTHA AGUIAR MD Nov 11, 2016 08:48
[2016-11-11 10:40] VITALS: BP 113/59
--- NOTE | 2016-11-11 11:35 | PDOC ---
CARDIO Progress Notes Date and Time Date of Service 11/11/2016 Time of Evaluation 1010 Subjective Subjective: No Chest Pain, No shortness of breath, No Palpitations, No Dizziness, Other (wants to walk in hallway) Vitals Vitals Vital Signs Date Time Temp Pulse Resp B/P Pulse Ox O2 Delivery O2 Flow Rate FiO2 11/11/16 10:40 99.0 98 18 113/59 96 Nasal Cannula 2.0 99.0 Weight Weight [ ] Input and Output Intake and Output Intake and Output 11/11/16 07:00 Intake Total 1700 ml Output Total 825 ml Balance 875 ml Intake Oral 1700 ml Output Urine Total 825 ml Laboratory Labs Laboratory Tests Test 11/11/16 05:58 Prothrombin Time 22.3SEC (11.7-14.0) Prothromb Time International Ratio 2.1 (0.8-1.1) Potassium Level 4.0mmol/L (3.5-5.1) Physical Exam HEENT: Neck Supple W Full Motion Chest: Symmetric LUNGS: Clear to Auscultation Heart: S1S2, irregularly irregular Abdomen: Soft N/T Extremities: No Calf Tenderness, Other (1+ bilateral LE pitting edema) Neurology: alert, oriented, follow commands Assessment Assessment 1. Chronic atrial fib: rate controlled 80s. 2. Chronic diastolic CHF: compensated 3. Influenza A 4. HTN: controlled 5. HLD 6. Anxiety and depression Recommendations 1. Continue cardizem, warfarin, INR 2.1 2. Continue po diuretic therapy 3. Ambulate today and note HR control 4. Dig PRN 5. No further cardiac recommendation, will follow as needed. EMILY OCHOA APRN Nov 11, 2016 11:35
[2016-11-11 14:37] VITALS: BP 112/56
[2016-11-11] MEDS: WARFARIN 3 MG TABLET. PO SCH (16:13)
[2016-11-11 19:05] VITALS: BP 124/58
[2016-11-11] MEDS: FAMOTIDINE 20 MG TABLET. PO SCH (20:42)
[2016-11-11] MEDS: ATORVASTATIN CALCIUM 10 MG TABLET. PO SCH (20:42)
[2016-11-11] MEDS: traZODone 50 MG TABLET. PO PRN (21:52)
[2016-11-11 22:25] VITALS: BP 102/61
[2016-11-12 03:00] VITALS: BP 91/53
[2016-11-12] MEDS: SUCRALFATE 1 GM TABLET. PO SCH ×2 (06:12→08:50)
[2016-11-12 06:43] VITALS: BP 119/63
[2016-11-12] MEDS: IPRATRPIUM/ALBUTEROL 0.5/2.5MG 3 ML NEBU. NEB SCH ×2 (07:35→11:21)
[2016-11-12] MEDS: PANTOPRAZOLE 40 MG TABLET. PO SCH (08:51)
[2016-11-12] MEDS: OSELTAMIVIR 30 MG CAPSULE PO SCH ×2 (08:51→09:00)
[2016-11-12] MEDS: POTASSIUM CHLORIDE 20 MEQ TABLET.ER. PO SCH (08:51)
[2016-11-12] MEDS: FUROSEMIDE 20 MG TABLET PO SCH (08:51)
[2016-11-12] MEDS: OLANZAPINE 5 MG TABLET. PO SCH ×2 (08:51→09:00)
[2016-11-12] MEDS: PAROXETINE 20 MG TABLET. PO SCH (08:57)
[2016-11-12] MEDS: LEVOTHYROXINE 137 MCG TABLET PO SCH (08:58)
[2016-11-12] MEDS: HYDROCODONE/APAP 7.5/325MG TABLET. PO SCH ×2 (08:58→14:14)
[2016-11-12] MEDS: DILTIAZEM HCL 180 MG CAP.ER.24H PO SCH (08:59)
[2016-11-12] MEDS ORDERED: HYDR-2762 PO (09:21)
[2016-11-12] MEDS ORDERED: OSEL30CA PO (09:21)
[2016-11-12] MEDS ORDERED: DILT360C PO (09:21)
[2016-11-12] MEDS ORDERED: FURO40TA4 PO (09:21)
--- NOTE | 2016-11-12 09:23 | PDOC3 ---
Discharge Summary* Date of Admission: Nov 08, 2016 Date of Discharge: Nov 12, 2016 Admitting Diagnosis Problems Medical Problems: (1) Atrial fibrillation with RVR Status: Acute (2) Influenza Status: Acute Final Diagnosis 1. Acute influenza infection. 2. Upper respiratory infection due to the flu. 3. Atrial fibrillation with rapid RVR. We will increase her dose of Cardizem, give her a dose of Lanoxin, and start Lovenox is therapeutic again. 4. History of transient ischemic attack and cerebrovascular accident. 5. Congestive heart failure. 6. Hyperlipidemia. 7. Hypertension, hypertensive cardiovascular disease. 8. Large hiatal hernia. 9. Gastroesophageal reflux disease. 10. Urinary incontinence. 11. Chronic back pain. Problems Medical Problems: (1) Atrial fibrillation with RVR Status: Acute (2) Influenza Status: Acute CONSULTS cardiology Procedures CXR Brief Hospital Course Ms. Soriano is a 86 old [sex] who presented with [ ] Disposition/Orders: D/C to Another Facility CONDITION AT DISCHARGE: Improved Diet: Cardiac Scheduled Acetaminophen (Acetaminophen) 1 TAB PO Q6HRS (Reported) Atorvastatin Calcium (Lipitor) 1 TAB PO QHS (Reported) Diltiazem Hcl (Cardizem Cd) 1 CAP PO DAILY Famotidine (Pepcid) 20 MG PO HS Fentanyl (FENTANYL 12mcg/hr) 1 PATCH TD Q3DAYS Furosemide (Furosemide) 1 TAB PO DAILY Ipratropium/Albuterol Sulfate (Duoneb 0.5-3(2.5) Mg/3 Ml) 3 ML NEB RTQID Levothyroxine Sodium (Synthroid) 1 TAB PO DAILY (Reported) Olanzapine (Olanzapine) 5 MG PO DAILY (Reported) Oseltamivir Phosphate (Tamiflu) 30 MG PO BID Pantoprazole Sodium (Protonix) 1 TAB PO DAILY (Reported) Paroxetine Hcl (Paroxetine Hcl) 1 TAB PO DAILY (Reported) Potassium Chloride (Potassium Chloride) 1 TAB PO DAILY (Reported) Pregabalin (Lyrica) 50 MG PO BID Sucralfate (Carafate) 1 TAB PO DAILYAC (Reported) Warfarin Sodium (Coumadin) 1 TAB PO DAILY (Reported) Scheduled PRN Alprazolam (Xanax) 1 TAB PO TID PRN PRN ANXIETY Docusate Sodium (Colace) 100 MG PO PRN BID PRN PRN CONSTIPATION 1ST CHOICE Hydrocodone Bit/Acetaminophen (Hydrocodone-Apap 7.5-325 ) 1 TAB PO [id number] PRN PRN PAIN Ondansetron Hcl (Zofran) 4 MG PO BID PRN PRN NAUSEA/VOMITING Trazodone Hcl (Trazodone Hcl) 50 MG PO PRN DAILY PRN PRN INSOMNIA (Reported) Discontinued Medications Alprazolam (Xanax) 1 TAB PO PRN Q6HRS PRN PRN ANXIETY / AGITATION (Reported) Diltiazem Hcl (Cardizem Cd) 1 CAP PO DAILY (Reported) Furosemide (Lasix) 1 TAB PO DAILY (Reported) Hydrocodone/Acetaminophen (Hydrocodone-Acetamin 5-163/7.5) 7.5 ML PO Q6HRS PRN PRN PAIN (Reported) Hydrocodone/Apap 5-325 ([place] 5-325 Tablet) 1-2 TAB PO PRN BID PRN PRN PAIN ( Reported) Paroxetine Hcl (Paxil) 1 TAB PO DAILY (Reported) Pravastatin Sodium (Pravastatin Sodium) 1 TAB PO QHS (Reported) FOLLOW UP APPOINTMENT: [address] Al Time Spent Total time spent with patient [] minutes for coordination of care, counseling, and education. KAMALJIT AL MD Nov 12, 2016 09:23
--- NOTE | 2016-11-12 09:23 | PDOC ---
SUBJECTIVE Subjective c/o dry cough, feels better in general OBJECTIVE Vital Signs Vital Signs Date Time Temp Pulse Resp B/P Pulse Ox O2 Delivery O2 Flow Rate FiO2 11/12/16 08:59 74 119/63 11/12/16 08:58 Room Air 11/12/16 07:38 93 Room Air 11/12/16 06:43 98.5 74 16 119/63 95 Nasal Cannula 2.0 98.5 11/12/16 03:00 98.8 66 16 91/53 95 Nasal Cannula 2.0 98.8 11/11/16 22:25 98.8 89 16 102/61 96 Nasal Cannula 2.0 98.8 11/11/16 21:52 16 96 Nasal Cannula 2.0 11/11/16 20:43 16 95 Nasal Cannula 2.0 11/11/16 19:05 99.0 93 18 124/58 90 Room Air 99.0 11/11/16 19:00 Room Air 11/11/16 18:04 Room Air 11/11/16 17:00 Nasal Cannula 2.0 11/11/16 15:21 90 Room Air 11/11/16 14:37 99.4 91 20 112/56 95 Nasal Cannula 2.0 99.4 11/11/16 13:08 Nasal Cannula 2.0 11/11/16 11:48 Nasal Cannula 2.0 11/11/16 10:40 99.0 98 18 113/59 96 Nasal Cannula 2.0 99.0 I & O Intake and Output 11/12/16 07:00 Intake Total 1890 ml Output Total 1175 ml Balance 715 ml Intake Oral 1890 ml Output Urine Total 1175 ml PHYSICAL EXAM Physical Exam lungs clear heart irreg, rate ok abd soft ext no edema ASSESSMENT/PLAN Assessment/Plan INR therapeutic, Flu better, Breathing better, heart rate controlled now, home today to SNU at her assisted living facility Problems: KAMALJIT AL MD Nov 12, 2016 09:23
[2016-11-12] MEDS: ALPRAZOLAM 0.5 MG TABLET PO PRN ×2 (09:38→14:14)
[2016-11-12 10:46] VITALS: BP 117/64
== END 2016-11-12 15:28 | disposition home or self-care (01) | DRG 193 ==
LOC: 2 NORTH 15:40
PROVIDERS: ADMIT Internal Medicine; ATTEND Internal Medicine
DX: J10.1 Influenza due to other identified influenza virus with other respiratory manifestations (principal); I50.31 Acute diastolic (congestive) heart failure; I48.0 Paroxysmal atrial fibrillation; I27.2 Other secondary pulmonary hypertension; E78.5 Hyperlipidemia, unspecified; E87.6 Hypokalemia; E89.0 Postprocedural hypothyroidism; F32.9 Major depressive disorder, single episode, unspecified; F41.9 Anxiety disorder, unspecified; G89.29 Other chronic pain; I11.0 Hypertensive heart disease with heart failure; I48.2 Chronic atrial fibrillation; K21.9 Gastro-esophageal reflux disease without esophagitis; K44.9 Diaphragmatic hernia without obstruction or gangrene; E05.90 Thyrotoxicosis, unspecified without thyrotoxic crisis or storm; M54.9 Dorsalgia, unspecified; M19.90 Unspecified osteoarthritis, unspecified site; R32 Unspecified urinary incontinence; Z79.01 Long term (current) use of anticoagulants; Z82.49 Family history of ischemic heart disease and other diseases of the circulatory system; Z86.73 Personal history of transient ischemic attack (TIA), and cerebral infarction without residual deficits; Z88.5 Allergy status to narcotic agent; Z88.0 Allergy status to penicillin; Z88.8 Allergy status to other drugs, medicaments and biological substances; Z91.041 Radiographic dye allergy status
CPT/HCPCS: 36415; 71010; 80053; 81001; 82728; 83735; 83880; 84132; 84484; 85027; 85610; 85651; 87804; 93005; 94250; 94640; 94760; J1160; J1650; J1940; J7620

== ENCOUNTER 2017-09-13 02:01 | Emergency (ER) | payer MEDICARE, BC ==
[2017-09-13 02:25] LABS: ADD MAN DIFF? NO
[2017-09-13 02:27] LABS: BASO # 0.1 x10^3/uL (0.0-0.2); BASO % 1 % (0-3); EOS % 1 % (0-3); HEMATOCRIT 42.3 % (36.0-47.0); HEMOGLOBIN 14.1 g/dL (12.0-15.5); LYMPH # 2.8 x10^3/uL (1.0-4.8); LYMPH % 28 % (24-48); MEAN CORPUSCULAR HEMOGLOBIN 32 pg (25-35); MEAN CORPUSCULAR HGB CONC 33 g/dL (31-37); MEAN CORPUSCULAR VOLUME 96 fL (79-100); MONO % 8 % (0-9); NEUT % 62 % (31-73); PLATELET COUNT 252 x10^3/uL (140-400)
[2017-09-13 02:36] LABS: ANION GAP 10 (6-14); BLOOD UREA NITROGEN 12 mg/dL (7-20); BUN/CREATININE RATIO 13 (6-20); CALCIUM 8.7 mg/dL (8.5-10.1); CARBON DIOXIDE 28 mmol/L (21-32); CHLORIDE 103 mmol/L (98-107); CREATININE 0.9 mg/dL (0.6-1.0); GFR 59.2; GLUCOSE 121 mg/dL (70-99); POTASSIUM 3.7 mmol/L (3.5-5.1); SODIUM 141 mmol/L (136-145)
[2017-09-13 02:41] LABS: ALBUMIN 3.9 g/dL (3.4-5.0); ALBUMIN/GLOBULIN RATIO 1.1 (1.0-1.7); ALK PHOS 46 U/L (46-116); ALT (SGPT) 18 U/L (14-59); AST (SGOT) 16 U/L (15-37); TOTAL BILIRUBIN 0.6 mg/dL (0.2-1.0); TOTAL PROTEIN 7.4 g/dL (6.4-8.2)
[2017-09-13 03:35] LABS: BILIRUBIN,URINE NEGATIVE (NEG); GLUCOSE,URINE NEGATIVE (NEG); NITRITE,URINE NEGATIVE (NEG); PROTEIN,URINE NEGATIVE (NEG-TRACE); UROBILINOGEN,URINE 0.2 mg/dL (0.2 mg/dL)
[2017-09-13 03:40] LABS: BACTERIA,URINE 0 /HPF (0-FEW); RBC,URINE OCC /HPF (0-2); SQUAMOUS EPITHELIAL CELL,UR OCC /LPF
[2017-09-13] MEDS: ONDANSETRON PF 4 MG/2 ML VIAL. IV (04:24)
[2017-09-13] MEDS: IV NORMAL SALINE 1000ML BAG 1,000 ML IV (04:25)
== END 2017-09-13 05:02 | disposition home or self-care (01) ==
LOC: ER 02:01
DX: R10.13 Epigastric pain (principal); R11.0 Nausea; E78.00 Pure hypercholesterolemia, unspecified; I10 Essential (primary) hypertension; I48.91 Unspecified atrial fibrillation; Z86.73 Personal history of transient ischemic attack (TIA), and cerebral infarction without residual deficits; Z79.01 Long term (current) use of anticoagulants; Z88.0 Allergy status to penicillin; Z88.8 Allergy status to other drugs, medicaments and biological substances; Z88.6 Allergy status to analgesic agent; Z91.041 Radiographic dye allergy status
CPT/HCPCS: 36415; 80053; 81001; 85025; 87086; 96361; 96374; 99284-25; J2405; J7030

== ENCOUNTER 2018-04-10 20:36 | Inpatient (IN) | payer MEDICARE, BC ==
[2018-04-10 22:12] LABS: BILIRUBIN,URINE NEGATIVE (NEG); CLARITY,URINE CLEAR; COLOR,URINE YELLOW; GLUCOSE,URINE NEGATIVE (NEG); NITRITE,URINE NEGATIVE (NEG); PROTEIN,URINE NEGATIVE (NEG-TRACE); UROBILINOGEN,URINE 0.2 mg/dL (0.2 mg/dL)
[2018-04-10 22:18] LABS: RBC,URINE OCC /HPF (0-2)
[2018-04-10 22:19] LABS: BACTERIA,URINE 0 /HPF (0-FEW); SQUAMOUS EPITHELIAL CELL,UR OCC /LPF
[2018-04-10 22:25] LABS: ADD MAN DIFF? NO
[2018-04-10 22:26] LABS: BASO # 0.1 x10^3/uL (0.0-0.2); BASO % 1 % (0-3); EOS # 0.2 x10^3/uL (0.0-0.7); EOS % 2 % (0-3); HEMATOCRIT 44.8 % (36.0-47.0); HEMOGLOBIN 15.3 g/dL (12.0-15.5); LYMPH # 2.9 x10^3/uL (1.0-4.8); LYMPH % 32 % (24-48); MEAN CORPUSCULAR HEMOGLOBIN 32 pg (25-35); MEAN CORPUSCULAR HGB CONC 34 g/dL (31-37); MEAN CORPUSCULAR VOLUME 94 fL (79-100); MONO # 0.8 x10^3/uL (0.0-1.1); MONO % 9 % (0-9); NEUT % 56 % (31-73); PLATELET COUNT 225 x10^3/uL (140-400); RED BLOOD COUNT 4.78 x10^6/uL (3.50-5.40); RED CELL DISTRIBUTION WIDTH 14.2 % (11.5-14.5); WHITE BLOOD COUNT 8.9 x10^3/uL (4.0-11.0)
[2018-04-10 22:34] LABS: INR 2.7 (0.8-1.1); PROTHROMBIN TIME PATIENT 28.3 SEC (11.7-14.0)
[2018-04-10 22:36] LABS: ANION GAP 7 (6-14); BLOOD UREA NITROGEN 9 mg/dL (7-20); BUN/CREATININE RATIO 10 (6-20); CALCIUM 8.8 mg/dL (8.5-10.1); CARBON DIOXIDE 31 mmol/L (21-32); CHLORIDE 102 mmol/L (98-107); CREATININE 0.9 mg/dL (0.6-1.0); GFR 59.2; GLUCOSE 105 mg/dL (70-99); SODIUM 140 mmol/L (136-145)
[2018-04-10 22:42] LABS: ALBUMIN 3.8 g/dL (3.4-5.0); ALBUMIN/GLOBULIN RATIO 1.1 (1.0-1.7); ALK PHOS 39 U/L (46-116); ALT (SGPT) 17 U/L (14-59); AST (SGOT) 13 U/L (15-37); TOTAL BILIRUBIN 0.5 mg/dL (0.2-1.0); TOTAL PROTEIN 7.4 g/dL (6.4-8.2)
[2018-04-10 22:43] LABS: TROPONINI < 0.017 ng/mL (0.000-0.055)
[2018-04-10 23:13] LABS: CKMB MASS < 0.5 ng/mL (0.0-3.6); CREATINE KINASE 38 U/L (26-192)
[2018-04-10 23:13] LABS: NT-PRO BNP 2160 pg/mL (0-449)
[2018-04-10] MEDS ORDERED: ONDANSETRON PF 4 MG/2 ML VIAL. IV (23:15)
[2018-04-10] MEDS ORDERED: ACETAMINOPHEN 325 MG TABLET. PO (23:15)
[2018-04-11 05:16] LABS: ANION GAP 8 (6-14); BLOOD UREA NITROGEN 8 mg/dL (7-20); CALCIUM 8.7 mg/dL (8.5-10.1); CARBON DIOXIDE 29 mmol/L (21-32); CHLORIDE 105 mmol/L (98-107); CREATININE 0.7 mg/dL (0.6-1.0); GFR 79.2; GLUCOSE 93 mg/dL (70-99); POTASSIUM 3.3 mmol/L (3.5-5.1); SODIUM 142 mmol/L (136-145)
[2018-04-11] MEDS ORDERED: BISMUTH SUBSALICYLATE 262 MG/15 ML ORAL.SUSP 236ML BOTTLE. PO (11:45)
[2018-04-11] MEDS ORDERED: HYDROcodone/APAP 7.5/325MG 1 TAB TABLET PO (11:45)
[2018-04-11] MEDS ORDERED: ACETAMINOPHEN 325 MG TABLET. PO (11:45)
[2018-04-11] MEDS ORDERED: DOCUSATE SODIUM 100 MG CAPSULE. PO (11:45)
[2018-04-11] MEDS ORDERED: hydrALAZINE 20 MG/ML VIAL. IVP (11:45)
[2018-04-11] MEDS ORDERED: NON FORMULARY ITEM (Albuterol Sulfate (Proair Hfa Inhaler) 2 PUFF) INH (11:45)
[2018-04-11] MEDS ORDERED: BISACODYL 10 MG SUPP.RECT. RC (11:45)
[2018-04-11] MEDS ORDERED: ONDANSETRON PF 4 MG/2 ML VIAL. IV (11:45)
[2018-04-11] MEDS ORDERED: SODIUM PHOSPHATES 19/7GM 133 ML ENEMA. RC (11:45)
[2018-04-11] MEDS ORDERED: LOPERAMIDE 2 MG CAPSULE PO (12:00)
[2018-04-11] MEDS ORDERED: MAG HYDROX/ALUMINUM HYD/SIMETH 30 ML ORAL.SUSP PO (12:00)
[2018-04-11] MEDS ORDERED: MAGNESIUM HYDROXIDE 2,400 MG/30 ML ORAL.SUSP. PO (12:00)
[2018-04-11] MEDS ORDERED: ACETAMINOPHEN 500 MG TABLET PO (12:00)
[2018-04-11] MEDS ORDERED: ALBUTEROL SULFATE 2.5 MG/3 ML NEBU. NEB (12:15)
[2018-04-11] MEDS: PARoxetine 20 MG TABLET PO (12:52)
[2018-04-11] MEDS: SENNOSIDES 8.6 MG TABLET PO (12:52)
[2018-04-11] MEDS: CYANOCOBALAMIN (VITAMIN B-12) 1,000 MCG TABLET. PO (12:52)
[2018-04-11] MEDS: FERROUS SULFATE 325 MG TABLET. PO (12:52)
[2018-04-11] MEDS: OLANZapine 2.5 MG TABLET PO (12:52)
[2018-04-11] MEDS: LACTOBACILLUS RHAMNOSUS GG 1 CAPSULE. PO (12:53)
[2018-04-11] MEDS: POTASSIUM CHLORIDE 20 MEQ TABLET.ER. PO (12:53)
[2018-04-11] MEDS: FUROSEMIDE 40 MG TABLET. PO (12:53)
[2018-04-11] MEDS: LEVOTHYROXINE 137 MCG TABLET PO (12:53)
[2018-04-11] MEDS: PANTOPRAZOLE 40 MG TABLET.DR. PO (12:54)
[2018-04-11] MEDS: ALPRAZolam 0.5 MG TABLET PO (12:54)
[2018-04-11] MEDS: DIGOXIN 125 MCG TABLET. PO (12:54)
[2018-04-11] MEDS: POTASSIUM CHLORIDE 10 MEQ TABLET.ER. PO (12:54)
[2018-04-11] MEDS: LOSARTAN POTASSIUM 50 MG TABLET. PO (12:54)
[2018-04-11] MEDS: CHOLECALCIFEROL (VITAMIN D3) 1,000 UNIT TABLET PO (12:54)
[2018-04-11] MEDS: SUCRALFATE 1 GM TABLET. PO (17:34)
[2018-04-11] MEDS: WARFARIN 3 MG TABLET. PO (17:34)
[2018-04-11] MEDS ORDERED: ATORVASTATIN CALCIUM 10 MG TABLET. PO (21:00)
[2018-04-11] MEDS ORDERED: cefTRIAXone IV Push 1 GM VIAL. IVP (22:00)
[2018-04-13 12:15] LABS: MRSA BY PCR Positive (Negative)
== END 2018-04-11 18:35 | disposition home or self-care (01) | DRG 641 ==
LOC: ER 20:36 → 6 SOUTH 23:55
DX: E87.6 Hypokalemia (principal); J96.11 Chronic respiratory failure with hypoxia; R53.1 Weakness; I48.2 Chronic atrial fibrillation; I11.0 Hypertensive heart disease with heart failure; F41.9 Anxiety disorder, unspecified; E78.00 Pure hypercholesterolemia, unspecified; K21.9 Gastro-esophageal reflux disease without esophagitis; F32.9 Major depressive disorder, single episode, unspecified; E78.5 Hyperlipidemia, unspecified; R32 Unspecified urinary incontinence; G89.29 Other chronic pain; M54.9 Dorsalgia, unspecified; E03.9 Hypothyroidism, unspecified; I50.9 Heart failure, unspecified; Z79.01 Long term (current) use of anticoagulants; Z86.73 Personal history of transient ischemic attack (TIA), and cerebral infarction without residual deficits; Z82.49 Family history of ischemic heart disease and other diseases of the circulatory system; K44.9 Diaphragmatic hernia without obstruction or gangrene; Z88.0 Allergy status to penicillin; Z91.041 Radiographic dye allergy status; Z91.040 Latex allergy status; Z82.5 Family history of asthma and other chronic lower respiratory diseases; Z83.2 Family history of diseases of the blood and blood-forming organs and certain disorders involving the immune mechanism
CPT/HCPCS: 36415; 70450; 70551; 71045; 80048; 80053; 81001; 82553; 83735; 83880; 84484; 85025; 85610; 87086; 87641; 93005; 96365; 97161-GP; 97165-GO; 99285; 99285-25; G8978-CI-GP; G8979-CI-GP; G8980-CI-GP; G8987-CI-GO; G8988-CI-GO; G8989-CI-GO; J0690

== ENCOUNTER 2018-07-13 16:04 | Emergency (ER) | payer MEDICARE, BC ==
[~2018-07-13 16:04] MED LIST changes: +ACET500T68 PO; +BISA10SU55 RC; +BISM262O20 PO; +CHOL10003 PO; +CLON0.5T11 PO; -CLON0.5T3 PO; +CYAN10005 PO; +DILT360C PO; +DOCU-109 PO; -DOCU-27 PO; +FERR325T14 PO; +FURO40TA4 PO; -HYDR-2666 PO; +HYDR-2758 PO; +HYDR-2762 PO; +HYDR7.5S PO; -IPRA3AMP NEB; +IPRA3AMP29 NEB; +LOPE2CAP PO; +LOSA50TA7 PO; +MAG355OR11 PO; +MAGN2400 PO; -METO50TA2 PO; +METO50TA6 PO; +NA P133E2 RC; +OLAN2.5T11 PO; +OLAN7.5T5 PO; +ONDA4TAB10 SL; +OSEL30CA PO; +PARO20TA3 PO; -PARO40TA45 PO; +PARO40TA61 PO; +POTA10TA12 PO; +PROAIR HFA8.5 GM INH; +SENN-79 PO; -SUCR1TAB29 PO; +SUCR1TAB35 PO; +TRAZ-85 PO; -TRAZ50TA15 PO; -WARF1TAB PO; +WARF1TAB74 PO; -WARF2.5T PO; +WARF2.5T83 PO; -WARF3TAB PO; +WARF3TAB50 PO; +WARF3TAB54 PO; +WARF4TAB64 PO
[2018-07-13 16:15] VITALS: BP 136/91
[2018-07-13] MEDS ORDERED: ACYC800T PO (16:27)
--- NOTE | 2018-07-13 16:27 | PHYS DOC ---
Past Medical History Past Medical History: A-Fib, Anxiety, Depression, High Cholesterol, Hypertension, Hypothyroid, TIA Additional Past Medical Histor: HOME O2 AT NIGHT Past Surgical History: Other Additional Past Surgical Histo: Thyroid Alcohol Use: None Drug Use: None Adult General Chief Complaint Chief Complaint: SKIN RASH/ABSCESS HPI HPI Patient is a 87 year old female who presents with blisters to her right lower abdomen that wraps around to her right mid back. The patient states that the chest first started noting the blisters today. States she states they burn and hurt. She rates her pain a 4 out of 10. Patient denies any kind of fever or nausea or vomiting. Review of Systems Review of Systems Constitutional: Denies fever or chills [] Eyes: Denies change in visual acuity, redness, or eye pain [] HENT: Denies nasal congestion or sore throat [] Respiratory: Denies cough or shortness of breath [] Cardiovascular: No additional information not addressed in HPI [] GI: Denies abdominal pain, nausea, vomiting, bloody stools or diarrhea [] : Denies dysuria or hematuria [] Musculoskeletal: Denies back pain or joint pain [] Integument: Right lower abdomen wraps around to right lower back. Denies skin lesions [] Neurologic: Denies headache, focal weakness or sensory changes [] Endocrine: Denies polyuria or polydipsia [] All other systems were reviewed and found to be within normal limits, except as documented in this note. Allergies Allergies Allergies Coded Allergies Type Severity Reaction Last Updated Verified Iodinated Contrast- Oral and IV Dye Allergy Intermediate SWELLING 04/19/16 Yes Penicillins Allergy Intermediate Rash 04/19/16 Yes adhesive Allergy Intermediate rash 04/19/16 Yes iodine Allergy Intermediate Rash 04/19/16 Yes tramadol Allergy Intermediate 11/09/16 Yes I S O L A T I O N *CONTACT* Allergy Unknown 01/12/18 Yes latex Adverse Reaction Intermediate Rash 01/09/18 Yes Physical Exam Physical Exam Constitutional: Well developed, well nourished, no acute distress, non-toxic appearance. [] HENT: Normocephalic, atraumatic, bilateral external ears normal, oropharynx moist, no oral exudates, nose normal. [] Eyes: PERRLA, EOMI, conjunctiva normal, no discharge. [] Neck: Normal range of motion, no tenderness, supple, no stridor. [] Cardiovascular:Heart rate regular rhythm, no murmur [] Lungs & Thorax: Bilateral breath sounds clear to auscultation [] Abdomen: Bowel sounds normal, soft, no tenderness, no masses, no pulsatile masses. [] Skin: Warm, dry, no erythema, Blistery rash to right lower abdomen that wraps around low back. [] Back: No tenderness, no CVA tenderness. [] Extremities: No tenderness, no cyanosis, no clubbing, ROM intact, no edema. [] Neurologic: Alert and oriented X 3, normal motor function, normal sensory function, no focal deficits noted. [] Psychologic: Affect normal, judgement normal, mood normal. [] Current Patient Data Vital Signs Vital Signs Date Time Temp Pulse Resp B/P (MAP) Pulse Ox O2 Delivery O2 Flow Rate FiO2 07/13/18 16:15 97.9 63 18 93 Room Air 97.9 EKG EKG [] Radiology/Procedures Radiology/Procedures [] Course & Med Decision Making Course & Med Decision Making Patient is a 87 year old female who presents with blisters to her right lower abdomen that wraps around to her right mid back. The patient states that the chest first started noting the blisters today. States she states they burn and hurt. She rates her pain a 4 out of 10. Patient denies any kind of fever or nausea or vomiting. Patient states that she's had shingles last in the 1980s. Patient has had a history of chickenpox, hypertension, cholesterol, stroke, A. fib. Urgent to penicillin, iodine and tape. Lungs are clear to auscultation all lobes. Patient denies any chest pain or shortness of air. Skin is pink warm and dry. Patient does have red blisters that wraps around from her lower right abdomen to her right mid back. Patient is given a prescription for a cecal veer 800 mg and is to follow-up with her primary care doctor within 4-5 days to make sure is getting better. [] Dragon Disclaimer Dragon Disclaimer This electronic medical record was generated, in whole or in part, using a voice recognition dictation system. Departure Departure Impression: Primary Impression: Shingles Disposition: 01 HOME, SELF-CARE Condition: STABLE Referrals: CHERYL BARTON (PCP) Patient Instructions: Shingles Additional Instructions: Follow up with your primary care doctor. Take medications as prescribed. Take Tylenol for pain. Scripts Acyclovir (ACYCLOVIR) 800 Mg Tablet 1 TAB PO 5XDAY for 7 Days, #35 TAB Prov: KAMI BARR APRN 07/13/18 Problem Qualifiers Primary Impression: Shingles Herpes zoster complications: without complications Qualified Codes: B02.9 - Zoster without complications KAMI BARR APRN Jul 13, 2018 16:27
== END 2018-07-13 17:06 | disposition home or self-care (01) ==
LOC: ER 16:04
DX: B02.9 Zoster without complications (principal); I48.91 Unspecified atrial fibrillation; E78.00 Pure hypercholesterolemia, unspecified; I10 Essential (primary) hypertension; E03.9 Hypothyroidism, unspecified; Z86.73 Personal history of transient ischemic attack (TIA), and cerebral infarction without residual deficits; Z88.0 Allergy status to penicillin; Z88.5 Allergy status to narcotic agent; Z91.041 Radiographic dye allergy status; Z88.8 Allergy status to other drugs, medicaments and biological substances
CPT/HCPCS: 99283

== ENCOUNTER → 2018-12-31 | Outpatient (CLI) | payer MEDICARE, BC ==
[~2018-12-31] MED LIST changes: +ACYC800T PO; +ALBU2.5V8 INH; +CARV3.1210 PO; -CARV3.122 PO; -HYDR-2758 PO; +HYDR-2761 PO; -HYDR-2762 PO; +HYDR-2765 PO; +HYDR-3164 PO; -HYDR-971 PO; +LEVO75TA5 PO; +LOSA-73 PO; -LOSA50TA7 PO; +PREG75CA PO; -PROAIR HFA8.5 GM INH; -SENN-79 PO; +SENN-80 PO; +TRAZ-118 PO; -TRAZ-85 PO; +WARF6TAB47 PO
[2018-12-31 16:14] LABS: BASO # 0.1 x10^3/uL (0.0-0.2); BASO % 1 % (0-3); EOS # 0.2 x10^3/uL (0.0-0.7); EOS % 3 % (0-3); HEMATOCRIT 45.8 % (36.0-47.0); HEMOGLOBIN 15.5 g/dL (12.0-15.5); LYMPH # 2.9 x10^3/uL (1.0-4.8); LYMPH % 33 % (24-48); MEAN CORPUSCULAR HEMOGLOBIN 33 pg (25-35); MEAN CORPUSCULAR HGB CONC 34 g/dL (31-37); MEAN CORPUSCULAR VOLUME 96 fL (79-100); MONO # 0.8 x10^3/uL (0.0-1.1); MONO % 9 % (0-9); NEUT # 4.7 x10^3uL (1.8-7.7); NEUT % 54 % (31-73); PLATELET COUNT 218 x10^3/uL (140-400); RED BLOOD COUNT 4.77 x10^6/uL (3.50-5.40); RED CELL DISTRIBUTION WIDTH 14.5 % (11.5-14.5); WHITE BLOOD COUNT 8.7 x10^3/uL (4.0-11.0)
[2018-12-31 16:23] LABS: PROTHROMBIN TIME PATIENT 32.6 SEC (11.7-14.0)
[2018-12-31 16:47] LABS: ANION GAP 7 (6-14); BLOOD UREA NITROGEN 9 mg/dL (7-20); CALCIUM 9.4 mg/dL (8.5-10.1); CARBON DIOXIDE 33 mmol/L (21-32); CHLORIDE 100 mmol/L (98-107); CREATININE 0.8 mg/dL (0.6-1.0); DIG 0.8 ng/mL (0.9-2.0); GFR 67.7; GLUCOSE 89 mg/dL (70-99); MAGNESIUM 2.1 mg/dL (1.8-2.4); POTASSIUM 3.4 mmol/L (3.5-5.1); SODIUM 140 mmol/L (136-145)
--- NOTE | 2018-12-31 17:23 | RAD ---
CHEST PA LATERAL Clinical indications: heart failure, hypertension COMPARISON: April 10, 2018. Findings: No acute lung infiltrate or pleural effusion or pulmonary edema or lung mass or pneumothorax is seen. The heart size is enlarged but stable. Again seen is a prominent hiatal hernia. The upper mediastinum is stable. The pulmonary vasculature and both mat are unchanged. Scoliosis is seen. Methylmethacrylate treatment of lumbar spine compression fractures are evident. IMPRESSION: No acute radiographic abnormality. Electronically signed by: Myron Bass MD (12/31/2018 5:20 PM) [place] [id number]
== END | disposition home or self-care (01) ==
LOC: RAD 15:28
PROVIDERS: ATTEND Internal Medicine Cardiovascular Disease
DX: I11.0 Hypertensive heart disease with heart failure (principal); I50.9 Heart failure, unspecified; M84.48XA Pathological fracture, other site, initial encounter for fracture; K44.9 Diaphragmatic hernia without obstruction or gangrene; I48.91 Unspecified atrial fibrillation; R63.4 Abnormal weight loss; M41.84 Other forms of scoliosis, thoracic region
CPT/HCPCS: 36415; 71046; 80048; 80162; 83735; 84443; 85025; 85610

== ENCOUNTER 2019-01-06 17:08 | Inpatient (IN) | payer MEDICARE, OTHER, BC ==
[~2019-01-06] VITALS: Ht 154.9 cm; Wt 58.2 kg
[~2019-01-06 17:08] MED LIST changes: -LEVO75TA5 PO; -PREG75CA PO; -WARF6TAB47 PO
[2019-01-06] MEDS ORDERED: FAMOTIDINE 20 MG/2 ML VIAL IVP ONE (18:00)
[2019-01-06 18:04] LABS: BILIRUBIN,URINE NEGATIVE (NEG); CLARITY,URINE CLEAR; COLOR,URINE YELLOW; NITRITE,URINE NEGATIVE (NEG); PH,URINE 7.5; PROTEIN,URINE NEGATIVE (NEG-TRACE); UROBILINOGEN,URINE 0.2 mg/dL (0.2 mg/dL)
[2019-01-06 18:11] LABS: BASO # 0.1 x10^3/uL (0.0-0.2); BASO % 1 % (0-3); EOS # 0.2 x10^3/uL (0.0-0.7); EOS % 3 % (0-3); HEMATOCRIT 45.4 % (36.0-47.0); HEMOGLOBIN 15.1 g/dL (12.0-15.5); LYMPH # 2.5 x10^3/uL (1.0-4.8); LYMPH % 30 % (24-48); MEAN CORPUSCULAR HEMOGLOBIN 32 pg (25-35); MEAN CORPUSCULAR HGB CONC 33 g/dL (31-37); MEAN CORPUSCULAR VOLUME 95 fL (79-100); MONO # 0.6 x10^3/uL (0.0-1.1); MONO % 7 % (0-9); NEUT # 4.9 x10^3uL (1.8-7.7); NEUT % 59 % (31-73); PLATELET COUNT 202 x10^3/uL (140-400); RED BLOOD COUNT 4.76 x10^6/uL (3.50-5.40); RED CELL DISTRIBUTION WIDTH 14.2 % (11.5-14.5); WHITE BLOOD COUNT 8.4 x10^3/uL (4.0-11.0)
[2019-01-06 18:14] LABS: AMORPHOUS SEDIMENT,UR PRESENT /HPF; BACTERIA,URINE FEW /HPF (0-FEW); SQUAMOUS EPITHELIAL CELL,UR FEW /LPF
--- NOTE | 2019-01-06 18:14 | PHYS DOC ---
Past Medical History Past Medical History: COPD, Depression, TIA, Unknown Additional Past Medical Histor: HOME O2 AT NIGHT (BRENDAN JAQUEZ APRN) Past Surgical History: No Surgical History Additional Past Surgical Histo: Thyroid (BRENDAN JAQUEZ APRN) Alcohol Use: None Drug Use: None (BRENDAN JAQUEZ APRN) Adult General Chief Complaint Chief Complaint: ABDOMINAL PAIN HPI HPI Patient is a 88 year old female who presents from a [facility] complaining of 6 out of 10 epigastric abdominal pain for 2 weeks. Patient describes the pain as a sensation of indigestion. She states she's been burping on and off for the last 1 week. She states her bowel movements have been hard and difficult to move though she states she had a BM today. Denies any n/v/or diarrhea. Denies any fever. (BRENDAN JAQUEZ APRN) Review of Systems Review of Systems Constitutional: Denies fever or chills [] Eyes: Denies change in visual acuity, redness, or eye pain [] HENT: Denies nasal congestion or sore throat [] Respiratory: Denies cough or shortness of breath [] Cardiovascular: No additional information not addressed in HPI [] GI:Reports abdominal pain, possible constipation, denies nausea, vomiting, bloody stools or diarrhea [] : Denies dysuria or hematuria [] Musculoskeletal: Denies back pain or joint pain [] Integument: Denies rash or skin lesions [] Neurologic: Denies headache, focal weakness or sensory changes [] All other systems were reviewed and found to be within normal limits, except as documented in this note. (BRENDAN JAQUEZ APRN) Current Medications Current Medications Current Medications Medications (Trade) Dose Ordered Sig/Dori Start Time Stop Time Status Last Admin Dose Admin Ciprofloxacin/ Dextrose 200 ml @ 200 mls/hr 1X ONCE 01/06/19 18:30 01/06/19 19:29 DC 01/06/19 19:05 200 MLS/HR Famotidine (Pepcid Vial) 20 mg 1X ONCE 01/06/19 18:00 01/06/19 18:01 DC 01/06/19 18:46 20 MG Ondansetron HCl (Zofran) 4 mg 1X ONCE 01/06/19 18:15 01/06/19 18:16 DC 01/06/19 18:46 4 MG Sodium Chloride 1,000 ml @ 1,000 mls/hr 1X ONCE 01/06/19 18:30 01/06/19 19:29 DC 01/06/19 18:46 1,000 MLS/HR (JUAN MANUEL MOSLEY) Allergies Allergies Allergies Coded Allergies Type Severity Reaction Last Updated Verified Iodinated Contrast- Oral and IV Dye Allergy Intermediate SWELLING 04/19/16 Yes Penicillins Allergy Intermediate Rash 04/19/16 Yes adhesive Allergy Intermediate rash 04/19/16 Yes iodine Allergy Intermediate Rash 04/19/16 Yes tramadol Allergy Intermediate 11/09/16 Yes I S O L A T I O N *CONTACT* Allergy Unknown 01/12/18 Yes latex Adverse Reaction Intermediate Rash 01/09/18 Yes (JUAN MANUEL MOSLEY) Physical Exam Physical Exam Constitutional: Well developed, well nourished, no acute distress, non-toxic appearance. [] HENT: Normocephalic, atraumatic, bilateral external ears normal, oropharynx moist, no oral exudates, nose normal. [] Eyes: PERRLA, EOMI, conjunctiva normal, no discharge. [] Neck: Normal range of motion, no tenderness, supple, no stridor. [] Cardiovascular:Heart rate regular rhythm, no murmur [] Lungs & Thorax: Bilateral breath sounds clear to auscultation [] Abdomen: Bowel sounds normal, soft, mild epigastric tenderness, no RUQ or RLQ, no masses, no pulsatile masses. Negative Downing's sign, negative Psoas sign, patient is guarding epigastric region, no rebound tenderness. Skin: Warm, dry, no erythema, no rash. [] Back: No tenderness, no CVA tenderness. [] Extremities: No tenderness, no cyanosis, no clubbing, ROM intact, no edema. [] Neurologic: Alert and oriented X 3, normal motor function, normal sensory function, no focal deficits noted. [] Psychologic: Affect normal, judgement normal, mood normal. [] (BRENDAN JAQUEZ APRN) Current Patient Data Vital Signs Vital Signs Date Time Temp Pulse Resp B/P (MAP) Pulse Ox O2 Delivery O2 Flow Rate FiO2 01/06/19 20:00 61 18 143/73 (96) 94 Nasal Cannula 2.0 01/06/19 17:30 98.0 98.0 (JUAN MANUEL MOSLEY) Lab Values Laboratory Tests Test 01/06/19 17:28 01/06/19 18:00 Urine Collection Type Unknown Urine Color Yellow Urine Clarity Clear Urine pH 7.5 Urine Specific [place] 1.010 Urine Protein Negative mg/dL (NEG-TRACE) Urine Glucose (UA) Negative mg/dL (NEG) Urine Ketones (Stick) Negative mg/dL (NEG) Urine Blood Small (NEG) Urine Nitrite Negative (NEG) Urine Bilirubin Negative (NEG) Urine Urobilinogen Dipstick 0.2 mg/dL (0.2 mg/dL) Urine Leukocyte Esterase Large (NEG) Urine RBC 3-5 /HPF (0-2) Urine WBC 11-20 /HPF (0-4) Urine Squamous Epithelial Cells Few /LPF Urine Amorphous Sediment Present /HPF Urine Bacteria Few /HPF (0-FEW) Urine Mucus Slight /LPF White Blood Count 8.4 x10^3/uL (4.0-11.0) Red Blood Count 4.76 x10^6/uL (3.50-5.40) Hemoglobin 15.1 g/dL (12.0-15.5) Hematocrit 45.4 % (36.0-47.0) Mean Corpuscular Volume 95 fL (79-100) Mean Corpuscular Hemoglobin 32 pg (25-35) Mean Corpuscular Hemoglobin Concent 33 g/dL (31-37) Red Cell Distribution Width 14.2 % (11.5-14.5) Platelet Count 202 x10^3/uL (140-400) Neutrophils (%) (Auto) 59 % (31-73) Lymphocytes (%) (Auto) 30 % (24-48) Monocytes (%) (Auto) 7 % (0-9) Eosinophils (%) (Auto) 3 % (0-3) Basophils (%) (Auto) 1 % (0-3) Neutrophils # (Auto) 4.9 x10^3uL (1.8-7.7) Lymphocytes # (Auto) 2.5 x10^3/uL (1.0-4.8) Monocytes # (Auto) 0.6 x10^3/uL (0.0-1.1) Eosinophils # (Auto) 0.2 x10^3/uL (0.0-0.7) Basophils # (Auto) 0.1 x10^3/uL (0.0-0.2) Prothrombin Time 29.5 SEC (11.7-14.0) H Prothrombin Time INR 2.8 (0.8-1.1) H PTT 46 SEC (24-38) H Sodium Level 142 mmol/L (136-145) Potassium Level 3.6 mmol/L (3.5-5.1) Chloride Level 102 mmol/L (98-107) Carbon Dioxide Level 32 mmol/L (21-32) Anion Gap 8 (6-14) Blood Urea Nitrogen 11 mg/dL (7-20) Creatinine 0.9 mg/dL (0.6-1.0) Estimated GFR (Cockcroft-Gault) 59.1 BUN/Creatinine Ratio 12 (6-20) Glucose Level 99 mg/dL (70-99) Calcium Level 9.1 mg/dL (8.5-10.1) Magnesium Level 2.3 mg/dL (1.8-2.4) Total Bilirubin 0.7 mg/dL (0.2-1.0) Aspartate Amino Transferase (AST) 17 U/L (15-37) Alanine Aminotransferase (ALT) 15 U/L (14-59) Alkaline Phosphatase 36 U/L (46-116) L Creatine Kinase 51 U/L (26-192) Creatine Kinase MB (Mass) 0.8 ng/mL (0.0-3.6) Creatine Kinase MB Relative Index % (0-4) Troponin I Quantitative < 0.017 ng/mL (0.000-0.055) OL-Izh-M-Type Natriuretic Peptide 3978 pg/mL (0-449) H Total Protein 6.9 g/dL (6.4-8.2) Albumin 3.9 g/dL (3.4-5.0) Albumin/Globulin Ratio 1.3 (1.0-1.7) Laboratory Tests 01/06/19 18:00 Laboratory Tests 01/06/19 18:00 (JUAN MANUEL MOSLEY) Lab Values Laboratory Tests Test 01/06/19 17:28 01/06/19 18:00 Urine Collection Type Unknown Urine Color Yellow Urine Clarity Clear Urine pH 7.5 Urine Specific [place] 1.010 Urine Protein Negative mg/dL (NEG-TRACE) Urine Glucose (UA) Negative mg/dL (NEG) Urine Ketones (Stick) Negative mg/dL (NEG) Urine Blood Small (NEG) Urine Nitrite Negative (NEG) Urine Bilirubin Negative (NEG) Urine Urobilinogen Dipstick 0.2 mg/dL (0.2 mg/dL) Urine Leukocyte Esterase Large (NEG) Urine RBC 3-5 /HPF (0-2) Urine WBC 11-20 /HPF (0-4) Urine Squamous Epithelial Cells Few /LPF Urine Amorphous Sediment Present /HPF Urine Bacteria Few /HPF (0-FEW) Urine Mucus Slight /LPF White Blood Count 8.4 x10^3/uL (4.0-11.0) Red Blood Count 4.76 x10^6/uL (3.50-5.40) Hemoglobin 15.1 g/dL (12.0-15.5) Hematocrit 45.4 % (36.0-47.0) Mean Corpuscular Volume 95 fL (79-100) Mean Corpuscular Hemoglobin 32 pg (25-35) Mean Corpuscular Hemoglobin Concent 33 g/dL (31-37) Red Cell Distribution Width 14.2 % (11.5-14.5) Platelet Count 202 x10^3/uL (140-400) Neutrophils (%) (Auto) 59 % (31-73) Lymphocytes (%) (Auto) 30 % (24-48) Monocytes (%) (Auto) 7 % (0-9) Eosinophils (%) (Auto) 3 % (0-3) Basophils (%) (Auto) 1 % (0-3) Neutrophils # (Auto) 4.9 x10^3uL (1.8-7.7) Lymphocytes # (Auto) 2.5 x10^3/uL (1.0-4.8) Monocytes # (Auto) 0.6 x10^3/uL (0.0-1.1) Eosinophils # (Auto) 0.2 x10^3/uL (0.0-0.7) Basophils # (Auto) 0.1 x10^3/uL (0.0-0.2) Prothrombin Time 29.5 SEC (11.7-14.0) H Prothrombin Time INR 2.8 (0.8-1.1) H PTT 46 SEC (24-38) H Sodium Level 142 mmol/L (136-145) Potassium Level 3.6 mmol/L (3.5-5.1) Chloride Level 102 mmol/L (98-107) Carbon Dioxide Level 32 mmol/L (21-32) Anion Gap 8 (6-14) Blood Urea Nitrogen 11 mg/dL (7-20) Creatinine 0.9 mg/dL (0.6-1.0) Estimated GFR (Cockcroft-Gault) 59.1 BUN/Creatinine Ratio 12 (6-20) Glucose Level 99 mg/dL (70-99) Calcium Level 9.1 mg/dL (8.5-10.1) Magnesium Level 2.3 mg/dL (1.8-2.4) Total Bilirubin 0.7 mg/dL (0.2-1.0) Aspartate Amino Transferase (AST) 17 U/L (15-37) Alanine Aminotransferase (ALT) 15 U/L (14-59) Alkaline Phosphatase 36 U/L (46-116) L Creatine Kinase 51 U/L (26-192) Creatine Kinase MB (Mass) 0.8 ng/mL (0.0-3.6) Creatine Kinase MB Relative Index % (0-4) Troponin I Quantitative < 0.017 ng/mL (0.000-0.055) PG-Nhu-L-Type Natriuretic Peptide 3978 pg/mL (0-449) H Total Protein 6.9 g/dL (6.4-8.2) Albumin 3.9 g/dL (3.4-5.0) Albumin/Globulin Ratio 1.3 (1.0-1.7) Laboratory Tests 01/06/19 18:00 Laboratory Tests 01/06/19 18:00 (BRENDAN JAQUEZ APRN) EKG EKG [] (BRENDAN JAQUEZ APRN) EKG EKG shows irregular rhythm, no p-waves. No STEMI. compared with previous EKGs on 04/10/18. No acute changes. (JUAN MANUEL MOSLEY) Radiology/Procedures Radiology/Procedures [] (BRENDAN JAQUEZ APRN) Radiology/Procedures CT abdomen and pelvis without contrast: Reason for examination: Epigastric pain for 2 weeks. Frequent indigestion. Comparison is made to previous study dated 06/05/2016. Helical images were obtained through the abdomen and pelvis with no intravenous or oral contrast administered. Reconstruction was performed in sagittal and coronal planes. Exposure: One or more of the following individualized dose reduction techniques were utilized for this examination: 1. Automated exposure control 2. Adjustment of the mA and/or kV according to patient size 3. Use of iterative reconstruction technique. The lung bases are clear. The heart size is enlarged with no pericardial effusion seen. There is a hiatal hernia present which appears contained the stomach and lies in the right lateral inferior mediastinum. No abnormality seen at the liver, spleen, adrenal glands or pancreas. There is cholelithiasis present. The abdominal aorta and inferior vena cava show no acute abnormalities but there is arteriosclerotic vascular calcification in the aorta. No abnormality seen at the appendix. There is no evidence of diverticulosis or diverticulitis. There does appear to be some dilatation in the made small intestinal tract but the proximal jejunum and distal ileum are not dilated. No abnormality seen at the bladder. No pelvic masses are seen. No free fluid or free air is seen in the abdomen or pelvis. IMPRESSION: Large hiatal hernia containing the stomach. Cardiomegaly. Cholelithiasis. Small intestinal tract involving the mid small intestine. This could reflect ileus but early or partial small bowel obstruction cannot be excluded. Recommend follow-up. (JUAN MANUEL MOSLEY) Course & Med Decision Making Course & Med Decision Making Pertinent Labs and Imaging studies reviewed. (See chart for details) This is a 88-year-old female patient presenting to the ED today complaining of epigastric abdominal pain for 2 weeks, also complaining of constipation and frequent burping. CBC with normal WBC. Urine analysis is noted for UTI. Started on Cipro. She is allergic to multiple medications. IV fluids ordered. 1900 Care transferred to Juan Manuel ACE (BRENDAN JAQUEZ APRN) Course & Med Decision Making Discussed case with on-call hospitalist, Dr. Newton. Agrees to admission and further management patient. Patient stable for admission. Requests NPO and general surgery consult. No NG tube at this time. (JUAN MANUEL MOSLEY) Course & Med Decision Making Staff Physician Addendum: I was working in the ER during the course of this patient's visit. I was available for consultation as needed, but I was not directly involved in the care of this patient. (VIVEK NIXON MD) Dragon Disclaimer Dragon Disclaimer This electronic medical record was generated, in whole or in part, using a voice recognition dictation system. (BRENDAN JAQUEZ APRN) Departure Departure Impression: Primary Impression: Urinary tract infection Additional Impression: Epigastric abdominal pain Disposition: ADMITTED INPATIENT Admitting Physician: Other (RICHARD) (JUAN MANUEL MOSLEY) Condition: STABLE Referrals: CHERYL BARTON (PCP) Problem Qualifiers Primary Impression: Urinary tract infection Urinary tract infection type: site unspecified Hematuria presence: without hematuria Qualified Codes: N39.0 - Urinary tract infection, site not specified BRENDAN JAQUEZ APRN Jan 06, 2019 18:14 JUAN MANUEL MOSLEY Jan 06, 2019 20:11 VIVEK NIXON MD Jan 10, 2019 19:32
[2019-01-06] MEDS ORDERED: ONDANSETRON PF 4 MG/2 ML VIAL. IV ONE (18:15)
[2019-01-06 18:19] LABS: CALCIUM 9.1 mg/dL (8.5-10.1); CREATININE 0.9 mg/dL (0.6-1.0); GFR 59.1; POTASSIUM 3.6 mmol/L (3.5-5.1)
[2019-01-06 18:25] LABS: ALBUMIN 3.9 g/dL (3.4-5.0); ALBUMIN/GLOBULIN RATIO 1.3 (1.0-1.7); MAGNESIUM 2.3 mg/dL (1.8-2.4); TOTAL BILIRUBIN 0.7 mg/dL (0.2-1.0); TOTAL PROTEIN 6.9 g/dL (6.4-8.2)
[2019-01-06] MEDS ORDERED: CIPROFLOXACIN 400MG PREMIX 200 ML IV ONE (18:30)
[2019-01-06] MEDS ORDERED: IV NORMAL SALINE 1000ML BAG 1,000 ML IV ONE (18:30)
[2019-01-06 18:34] LABS: CREATINE KINASE 51 U/L (26-192)
[2019-01-06 18:39] LABS: PROTHROMBIN TIME PATIENT 29.5 SEC (11.7-14.0)
--- NOTE | 2019-01-06 20:29 | RAD ---
CT abdomen and pelvis without contrast: Reason for examination: Epigastric pain for 2 weeks. Frequent indigestion. Comparison is made to previous study dated 06/05/2016. Helical images were obtained through the abdomen and pelvis with no intravenous or oral contrast administered. Reconstruction was performed in sagittal and coronal planes. Exposure: One or more of the following individualized dose reduction techniques were utilized for this examination: 1. Automated exposure control 2. Adjustment of the mA and/or kV according to patient size 3. Use of iterative reconstruction technique. The lung bases are clear. The heart size is enlarged with no pericardial effusion seen. There is a hiatal hernia present which appears contained the stomach and lies in the right lateral inferior mediastinum. No abnormality seen at the liver, spleen, adrenal glands or pancreas. There is cholelithiasis present. The abdominal aorta and inferior vena cava show no acute abnormalities but there is arteriosclerotic vascular calcification in the aorta. No abnormality seen at the appendix. There is no evidence of diverticulosis or diverticulitis. There does appear to be some dilatation in the made small intestinal tract but the proximal jejunum and distal ileum are not dilated. No abnormality seen at the bladder. No pelvic masses are seen. No free fluid or free air is seen in the abdomen or pelvis. IMPRESSION: Large hiatal hernia containing the stomach. Cardiomegaly. Cholelithiasis. Small intestinal tract involving the mid small intestine. This could reflect ileus but early or partial small bowel obstruction cannot be excluded. Recommend follow-up. Electronically signed by: Kimberly Valencia MD (01/06/2019 8:26 PM) [facility]
[2019-01-06] MEDS ORDERED: fentaNYL PF VIAL 100 MCG/2 ML VIAL IV ONE (20:45)
[2019-01-06] MEDS ORDERED: ONDANSETRON PF 4 MG/2 ML VIAL. IV PRN (21:00)
[2019-01-06] MEDS ORDERED: fentaNYL PF VIAL 100 MCG/2 ML VIAL IV PRN (21:00)
[2019-01-06] MEDS ORDERED: MORPHINE SULFATE 2 MG/ML VIAL. IV PRN (22:30)
[2019-01-06] MEDS: ALPRAZolam 0.5 MG TABLET PO PRN (22:52)
[2019-01-06] MEDS: ATORVASTATIN CALCIUM 10 MG TABLET. PO SCH (22:52)
[2019-01-06] MEDS: HYDROcodone/APAP 7.5/325MG 1 TAB TABLET PO PRN (22:53)
[2019-01-06 23:00] VITALS: BP 107/72
[2019-01-06] MEDS: IV NORMAL SALINE 1000ML BAG 1,000 ML IV SCH (23:22)
--- NOTE | 2019-01-06 23:30 | NUR ---
The patient, SHANNAN DENNIS, 88 y/o, F admitted by IRMA RAMOS MD, was given written information regarding hospital policies and unit procedures. Pt arrived to unit at 2205 via [place] [place] on 2L O2, afebrile, and c/o moderate pain, family present on admission. Pt admission assessment complete, admit packet reviewed, home medications/allergies verified, and plan of care discussed. Pt resting in bed, call light within reach, and bed in lowest/locked position, will continue to monitor.
[2019-01-07] MEDS ORDERED: PREG75CA PO (00:35)
[2019-01-07] MEDS ORDERED: WARF6TAB47 PO (00:35)
[2019-01-07] MEDS ORDERED: DILT180C2 PO (00:35)
[2019-01-07] MEDS ORDERED: LEVO75TA5 PO (00:35)
[2019-01-07] MEDS ORDERED: PARO20TA3 PO (00:35)
[2019-01-07] MEDS ORDERED: DIGO125T PO (00:35)
[2019-01-07] MEDS ORDERED: SUCR1TAB35 PO (00:35)
[2019-01-07] MEDS ORDERED: ACET500T68 PO (00:35)
[2019-01-07] MEDS ORDERED: WARF3TAB50 PO ×2 (00:35)
[2019-01-07 03:00] VITALS: BP 108/57
[2019-01-07 04:43] LABS: BASO % 1 % (0-3); EOS # 0.2 x10^3/uL (0.0-0.7); EOS % 3 % (0-3); HEMATOCRIT 40.9 % (36.0-47.0); HEMOGLOBIN 13.6 g/dL (12.0-15.5); LYMPH # 2.9 x10^3/uL (1.0-4.8); LYMPH % 40 % (24-48); MEAN CORPUSCULAR HEMOGLOBIN 32 pg (25-35); MEAN CORPUSCULAR HGB CONC 33 g/dL (31-37); MEAN CORPUSCULAR VOLUME 96 fL (79-100); MONO # 0.7 x10^3/uL (0.0-1.1); MONO % 9 % (0-9); NEUT # 3.4 x10^3uL (1.8-7.7); NEUT % 47 % (31-73); PLATELET COUNT 183 x10^3/uL (140-400); RED BLOOD COUNT 4.26 x10^6/uL (3.50-5.40); RED CELL DISTRIBUTION WIDTH 14.6 % (11.5-14.5); WHITE BLOOD COUNT 7.2 x10^3/uL (4.0-11.0)
[2019-01-07 05:00] LABS: ALBUMIN 3.1 g/dL (3.4-5.0); ALBUMIN/GLOBULIN RATIO 1.2 (1.0-1.7); CALCIUM 8.2 mg/dL (8.5-10.1); CREATININE 0.8 mg/dL (0.6-1.0); GFR 67.7; POTASSIUM 3.5 mmol/L (3.5-5.1); TOTAL BILIRUBIN 0.6 mg/dL (0.2-1.0); TOTAL PROTEIN 5.7 g/dL (6.4-8.2)
--- NOTE | 2019-01-07 05:41 | EKG ---
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
[2019-01-07 07:00] VITALS: BP 110/60
--- NOTE | 2019-01-07 08:22 | RAD ---
2 view abdominal series and PA view chest x-ray Clinical indications: Abdominal pain. Constipation. FINDINGS: No obstructive bowel pattern is seen. No significant fecal retention is evident. Small air-fluid levels are seen. No free intraperitoneal air is evident. Methylmethacrylate treatment of compression fractures of L1 and L3 are evident. Chest x-ray is compared to a prior study dated December 31, 2018. No acute lung infiltrate or pleural effusion or pulmonary edema or pneumothorax is seen. Again seen is a large hiatal hernia. Heart size is enlarged but stable. The mediastinum and pulmonary vasculature and both mat are unremarkable. IMPRESSION: Air-fluid levels are seen. This may be seen with enterocolitis. No obstructive bowel pattern or significant fecal retention is seen. No acute lung infiltrate. Electronically signed by: Myron Bass MD (01/07/2019 8:19 AM) [id number]
--- NOTE | 2019-01-07 08:36 | PDOC2 ---
BHARTI ESCOTO [employer] 01/07/19 0836: CONSULT Date of Consult Date of Consult DATE: 01/07/19 TIME: 08:30 Reason for Consult Reason for Consult: sbo/ileus Referring Physician Referring Physician: ER Identification/Chief Complaint Chief Complaint abdominal pain Source Source: Chart review, Patient History of Present Illness Reason for Visit: Reports 2 weeks or more of lower abdominal pain, left side. Loose stools coupled with diarrhea. Decreased PO intake because causes pain, diarrhea. Denies blood in stool. Reports pants size dropped from 12 to 8 in last 2 years. Yesterday 3 small loose stools yesterday. Denies n/v. Past Medical History Cardiovascular: AFIB, HTN, Hyperlipidemia Pulmonary: Other CENTRAL NERVOUS SYSTEM: TIA GI: GERD, Gastritis, Other Heme/Onc: No pertinent hx Hepatobiliary: No pertinent hx Psych: Anxiety, Depression Musculoskeletal: Osteoarthritis Rheumatologic: No pertinent hx Infectious disease: No pertinent hx Renal/: UTI Endocrine: No pertinent hx, Hypothyroidism, Osteopenia Past Surgical History Past Surgical History: No pertinent history Family History Family History: Hypertension Social History No ALCOHOL: none Drugs: None Lives: Custodial Domestic Violence: Neg Current Problem List Problem List Problems Medical Problems: (1) Epigastric abdominal pain Status: Acute (2) Urinary tract infection Status: Acute Current Medications Current Medications Current Medications Famotidine (Pepcid Vial) 20 mg 1X ONCE IVP Last administered on 01/06/19at 18: 46; Start 01/06/19 at 18:00; Stop 01/06/19 at 18:01; Status DC Ondansetron HCl (Zofran) 4 mg 1X ONCE IV Last administered on 01/06/19at 18:46 ; Start 01/06/19 at 18:15; Stop 01/06/19 at 18:16; Status DC Ciprofloxacin/ Dextrose 200 ml @ 200 mls/hr 1X ONCE IV Last administered on at 19:05; Start 01/06/19 at 18:30; Stop 01/06/19 at 19:29; Status DC Sodium Chloride 1,000 ml @ 1,000 mls/hr 1X ONCE IV Last administered on at 18:46; Start 01/06/19 at 18:30; Stop 01/06/19 at 19:29; Status DC Fentanyl Citrate (Fentanyl 2ml Vial) 25 mcg 1X ONCE IV ; Start 01/06/19 at 20: 45; Stop 01/06/19 at 20:52; Status DC Ondansetron HCl (Zofran) 4 mg PRN Q8HRS PRN IV NAUSEA/VOMITING; Start 01/06/19 at 21:00; Stop 01/07/19 at 20:59 Fentanyl Citrate (Fentanyl 2ml Vial) 25 mcg PRN Q1HR PRN IV PAIN; Start at 21:00; Stop 01/06/19 at 21:44; Status DC Acetaminophen/ Hydrocodone Bitart (Lortab 7.5/325) 1 tab PRN Q6HRS PRN PO PAIN Last administered on 01/06/19at 22:53; Start 01/06/19 at 21:45 Morphine Sulfate (Morphine Sulfate) 2 mg PRN Q4HRS PRN IV PAIN; Start 01/06/19 at 22:30 Sodium Chloride 1,000 ml @ 50 mls/hr Q20H IV Last administered on 01/06/19at 23 :22; Start 01/07/19 at 00:00 Alprazolam (Xanax) 0.5 mg PRN TID PRN PO ANXIETY Last administered on at 22:52; Start 01/06/19 at 22:30 Atorvastatin Calcium (Lipitor) 10 mg QHS PO Last administered on 01/06/19at 22: 52; Start 01/06/19 at 23:00 Active Scripts Active Acyclovir 800 Mg Tablet 1 Tab PO 5XDAY 7 Days Zofran Odt (Ondansetron) 4 Mg Tab.rapdis 1 Tab SL Q6HRS PRN Cardizem Cd (Diltiazem Hcl) 360 Mg Cap.er.24h 1 Cap PO DAILY Furosemide 40 Mg Tablet 1 Tab PO DAILY Xanax (Alprazolam) 0.5 Mg Tablet 1 Tab PO TID PRN Reported Cardizem Cd (Diltiazem Hcl) 180 Mg Cap.er.24h 2 Cap PO DAILY Digoxin 125 Mcg Tablet 125 Mcg PO DAILY Carafate (Sucralfate) 1 Gm Tablet 1 Tab PO BIDACLD Acetaminophen 500 Mg Tablet 1 Tab PO Q4HRS PRN Warfarin Sodium 3 Mg Tablet 3 Mg PO QSA Warfarin Sodium 3 Mg Tablet 3 Mg PO QM-F Warfarin Sodium 6 Mg Tablet 6 Mg PO QSU Ferrous Sulfate 325 Mg Tablet 1 Tab PO DAILY Warfarin Sodium 3 Mg Tablet 1 Tab PO UD Olanzapine 7.5 Mg Tablet 7.5 Mg PO DAILY Proair Hfa Inhaler (Albuterol Sulfate) 8.5 Gm Hfa.aer.ad 2 Puff INH PRN Q4HRS PRN Pepto-Bismol (Bismuth Subsalicylate) 262 Mg/15 Ml Oral.susp 30 Ml PO PRN Q1HR PRN Fleet Enema (Na Phos,M-B/Na Phos,Di-Ba) 133 Ml Enema 1 Each RC PRN DAILY PRN Maalox Advanced Suspension (Mag Hydrox/Aluminum Hyd/Simeth) 355 Ml Oral.susp 30 Ml PO PRN Q1HR PRN Loperamide (Loperamide Hcl) 2 Mg Capsule 4 Mg PO UD PRN Hydrocodone-Apap 7.5-325 (Hydrocodone Bit/Acetaminophen) 1 Each Tablet 1 Tab PO PRN Q8HRS PRN Dulcolax (Bisacodyl) 10 Mg Supp.rect 10 Mg RC PRN DAILY PRN Vitamin D3 (Cholecalciferol (Vitamin D3)) 1,000 Unit Tablet 2 Tab PO DAILY Vitamin B-12 (Cyanocobalamin (Vitamin B-12)) 1,000 Mcg Tablet 1 Tab PO DAILY Carafate (Sucralfate) 1 Gm Tablet 1 Tab PO BIDBFRMEAL Senna (Sennosides) 8.6 Mg Tablet 8.6 Mg PO BID Potassium Chloride 10 Meq Tab.sr.24h 10 Meq PO DAILY Milk Of Magnesia (Magnesium Hydroxide) 2,400 Mg/10 Ml Oral.susp 30 Ml PO PRN DAILY PRN Losartan Potassium 50 Mg Tablet 50 Mg PO DAILY Digoxin 125 Mcg Tablet 1 Tab PO DAILY Acetaminophen 500 Mg Tablet 1 Tab PO Q6HRS Paroxetine Hcl 20 Mg Tablet 1 Tab PO DAILY Synthroid (Levothyroxine Sodium) 137 Mcg Tablet 1 Tab PO DAILY Lipitor (Atorvastatin Calcium) 10 Mg Tablet 1 Tab PO QHS Protonix (Pantoprazole Sodium) 40 Mg Tablet.dr 1 Tab PO DAILY Lyrica (Pregabalin) 75 Mg Capsule 1-2 Cap PO BID Paroxetine Hcl 20 Mg Tablet 1 Tab PO DAILY Levothyroxine Sodium 75 Mcg Tablet 75 Mcg PO DAILYAC Allergies Allergies: Coded Allergies: Iodinated Contrast- Oral and IV Dye (Verified Allergy, Intermediate, SWELLING, 04/19/16) Penicillins (Verified Allergy, Intermediate, Rash, 04/19/16) adhesive (Verified Allergy, Intermediate, rash, 04/19/16) iodine (Verified Allergy, Intermediate, Rash, 04/19/16) PT HAS NEVER BEEN PREMEDICATED tramadol (Verified Allergy, Intermediate, 11/09/16) Tolerates hydrocodone I S O L A T I O N *CONTACT* (Verified Allergy, Unknown, 01/12/18) mrsa latex (Verified Adverse Reaction, Intermediate, Rash, 01/09/18) ROS General: No: Chills, Other (fevers) PSYCHOLOGICAL ROS: No: Anxiety, Depression Eyes: No Blurry vision, No Double vision HEENT: No: Heacaches, Sore Throat Hematological and Lymphatic: YES: Bleeding Problems; No: Blood Clots Respiratory: No: Cough, Shortness of breath Cardiovascular: No Chest Pain, No Palpitations Gastrointestinal: Yes Other (see hpi) Genitourinary: No Dysuria, No Hematuria Musculoskeletal: Yes Muscular Weakness; No Joint Pain Neurological: No Impaired Coord/balance, No Numbness/Tingling Skin: No Pruritus, No Rash Physical Exam General: Alert, Oriented X3, Cooperative, No acute distress HEENT: PERRLA, Mucous membr. moist/pink Lungs: Clear to auscultation, Normal air movement Heart: Regular rate, Normal S1, Normal S2, No murmurs Abdomen: Soft, Other (ND, NTTP) Extremities: No clubbing, No cyanosis Skin: No rashes, No breakdown Neuro: Normal gait, Normal speech Psych/Mental Status: Mental status NL, Mood NL MUSCULOSKELETAL: No deformity, No swelling Vitals VITALS Vital Signs Date Time Temp Pulse Resp B/P (MAP) Pulse Ox O2 Delivery O2 Flow Rate FiO2 01/07/19 03:00 98.4 64 18 108/57 (74) 95 Room Air 98.4 01/06/19 23:59 2.0 Labs Labs Laboratory Tests Test 01/06/19 17:28 01/06/19 18:00 01/07/19 03:03 Urine Collection Type Unknown Urine Color Yellow Urine Clarity Clear Urine pH 7.5 Urine Specific [place] 1.010 Urine Protein Negative mg/dL (NEG-TRACE) Urine Glucose (UA) Negative mg/dL (NEG) Urine Ketones (Stick) Negative mg/dL (NEG) Urine Blood Small (NEG) Urine Nitrite Negative (NEG) Urine Bilirubin Negative (NEG) Urine Urobilinogen Dipstick 0.2 mg/dL (0.2 mg/dL) Urine Leukocyte Esterase Large (NEG) Urine RBC 3-5 /HPF (0-2) Urine WBC 11-20 /HPF (0-4) Urine Squamous Epithelial Cells Few /LPF Urine Amorphous Sediment Present /HPF Urine Bacteria Few /HPF (0-FEW) Urine Mucus Slight /LPF White Blood Count 8.4 x10^3/uL (4.0-11.0) 7.2 x10^3/uL (4.0-11.0) Red Blood Count 4.76 x10^6/uL (3.50-5.40) 4.26 x10^6/uL (3.50-5.40) Hemoglobin 15.1 g/dL (12.0-15.5) 13.6 g/dL (12.0-15.5) Hematocrit 45.4 % (36.0-47.0) 40.9 % (36.0-47.0) Mean Corpuscular Volume 95 fL (79-100) 96 fL (79-100) Mean Corpuscular Hemoglobin 32 pg (25-35) 32 pg (25-35) Mean Corpuscular Hemoglobin Concent 33 g/dL (31-37) 33 g/dL (31-37) Red Cell Distribution Width 14.2 % (11.5-14.5) 14.6 % (11.5-14.5) Platelet Count 202 x10^3/uL (140-400) 183 x10^3/uL (140-400) Neutrophils (%) (Auto) 59 % (31-73) 47 % (31-73) Lymphocytes (%) (Auto) 30 % (24-48) 40 % (24-48) Monocytes (%) (Auto) 7 % (0-9) 9 % (0-9) Eosinophils (%) (Auto) 3 % (0-3) 3 % (0-3) Basophils (%) (Auto) 1 % (0-3) 1 % (0-3) Neutrophils # (Auto) 4.9 x10^3uL (1.8-7.7) 3.4 x10^3uL (1.8-7.7) Lymphocytes # (Auto) 2.5 x10^3/uL (1.0-4.8) 2.9 x10^3/uL (1.0-4.8) Monocytes # (Auto) 0.6 x10^3/uL (0.0-1.1) 0.7 x10^3/uL (0.0-1.1) Eosinophils # (Auto) 0.2 x10^3/uL (0.0-0.7) 0.2 x10^3/uL (0.0-0.7) Basophils # (Auto) 0.1 x10^3/uL (0.0-0.2) 0.0 x10^3/uL (0.0-0.2) Prothrombin Time 29.5 SEC (11.7-14.0) Prothromb Time International Ratio 2.8 (0.8-1.1) Activated Partial Thromboplast Time 46 SEC (24-38) Sodium Level 142 mmol/L (136-145) 144 mmol/L (136-145) Potassium Level 3.6 mmol/L (3.5-5.1) 3.5 mmol/L (3.5-5.1) Chloride Level 102 mmol/L (98-107) 107 mmol/L (98-107) Carbon Dioxide Level 32 mmol/L (21-32) 31 mmol/L (21-32) Anion Gap 8 (6-14) 6 (6-14) Blood Urea Nitrogen 11 mg/dL (7-20) 10 mg/dL (7-20) Creatinine 0.9 mg/dL (0.6-1.0) 0.8 mg/dL (0.6-1.0) Estimated GFR (Cockcroft-Gault) 59.1 67.7 BUN/Creatinine Ratio 12 (6-20) 13 (6-20) Glucose Level 99 mg/dL (70-99) 87 mg/dL (70-99) Calcium Level 9.1 mg/dL (8.5-10.1) 8.2 mg/dL (8.5-10.1) Magnesium Level 2.3 mg/dL (1.8-2.4) Total Bilirubin 0.7 mg/dL (0.2-1.0) 0.6 mg/dL (0.2-1.0) Aspartate Amino Transf (AST/SGOT) 17 U/L (15-37) 14 U/L (15-37) Alanine Aminotransferase (ALT/SGPT) 15 U/L (14-59) 11 U/L (14-59) Alkaline Phosphatase 36 U/L (46-116) 28 U/L (46-116) Creatine Kinase 51 U/L (26-192) Creatine Kinase MB (Mass) 0.8 ng/mL (0.0-3.6) Creatine Kinase MB Relative Index % (0-4) Troponin I Quantitative < 0.017 ng/mL (0.000-0.055) XN-Ndu-D-Type Natriuretic Peptide 3978 pg/mL (0-449) Total Protein 6.9 g/dL (6.4-8.2) 5.7 g/dL (6.4-8.2) Albumin 3.9 g/dL (3.4-5.0) 3.1 g/dL (3.4-5.0) Albumin/Globulin Ratio 1.3 (1.0-1.7) 1.2 (1.0-1.7) Laboratory Tests Test 01/06/19 17:28 01/06/19 18:00 01/07/19 03:03 Urine Collection Type Unknown Urine Color Yellow Urine Clarity Clear Urine pH 7.5 Urine Specific [place] 1.010 Urine Protein Negative mg/dL (NEG-TRACE) Urine Glucose (UA) Negative mg/dL (NEG) Urine Ketones (Stick) Negative mg/dL (NEG) Urine Blood Small (NEG) Urine Nitrite Negative (NEG) Urine Bilirubin Negative (NEG) Urine Urobilinogen Dipstick 0.2 mg/dL (0.2 mg/dL) Urine Leukocyte Esterase Large (NEG) Urine RBC 3-5 /HPF (0-2) Urine WBC 11-20 /HPF (0-4) Urine Squamous Epithelial Cells Few /LPF Urine Amorphous Sediment Present /HPF Urine Bacteria Few /HPF (0-FEW) Urine Mucus Slight /LPF White Blood Count 8.4 x10^3/uL (4.0-11.0) 7.2 x10^3/uL (4.0-11.0) Red Blood Count 4.76 x10^6/uL (3.50-5.40) 4.26 x10^6/uL (3.50-5.40) Hemoglobin 15.1 g/dL (12.0-15.5) 13.6 g/dL (12.0-15.5) Hematocrit 45.4 % (36.0-47.0) 40.9 % (36.0-47.0) Mean Corpuscular Volume 95 fL (79-100) 96 fL (79-100) Mean Corpuscular Hemoglobin 32 pg (25-35) 32 pg (25-35) Mean Corpuscular Hemoglobin Concent 33 g/dL (31-37) 33 g/dL (31-37) Red Cell Distribution Width 14.2 % (11.5-14.5) 14.6 % (11.5-14.5) Platelet Count 202 x10^3/uL (140-400) 183 x10^3/uL (140-400) Neutrophils (%) (Auto) 59 % (31-73) 47 % (31-73) Lymphocytes (%) (Auto) 30 % (24-48) 40 % (24-48) Monocytes (%) (Auto) 7 % (0-9) 9 % (0-9) Eosinophils (%) (Auto) 3 % (0-3) 3 % (0-3) Basophils (%) (Auto) 1 % (0-3) 1 % (0-3) Neutrophils # (Auto) 4.9 x10^3uL (1.8-7.7) 3.4 x10^3uL (1.8-7.7) Lymphocytes # (Auto) 2.5 x10^3/uL (1.0-4.8) 2.9 x10^3/uL (1.0-4.8) Monocytes # (Auto) 0.6 x10^3/uL (0.0-1.1) 0.7 x10^3/uL (0.0-1.1) Eosinophils # (Auto) 0.2 x10^3/uL (0.0-0.7) 0.2 x10^3/uL (0.0-0.7) Basophils # (Auto) 0.1 x10^3/uL (0.0-0.2) 0.0 x10^3/uL (0.0-0.2) Prothrombin Time 29.5 SEC (11.7-14.0) Prothromb Time International Ratio 2.8 (0.8-1.1) Activated Partial Thromboplast Time 46 SEC (24-38) Sodium Level 142 mmol/L (136-145) 144 mmol/L (136-145) Potassium Level 3.6 mmol/L (3.5-5.1) 3.5 mmol/L (3.5-5.1) Chloride Level 102 mmol/L (98-107) 107 mmol/L (98-107) Carbon Dioxide Level 32 mmol/L (21-32) 31 mmol/L (21-32) Anion Gap 8 (6-14) 6 (6-14) Blood Urea Nitrogen 11 mg/dL (7-20) 10 mg/dL (7-20) Creatinine 0.9 mg/dL (0.6-1.0) 0.8 mg/dL (0.6-1.0) Estimated GFR (Cockcroft-Gault) 59.1 67.7 BUN/Creatinine Ratio 12 (6-20) 13 (6-20) Glucose Level 99 mg/dL (70-99) 87 mg/dL (70-99) Calcium Level 9.1 mg/dL (8.5-10.1) 8.2 mg/dL (8.5-10.1) Magnesium Level 2.3 mg/dL (1.8-2.4) Total Bilirubin 0.7 mg/dL (0.2-1.0) 0.6 mg/dL (0.2-1.0) Aspartate Amino Transf (AST/SGOT) 17 U/L (15-37) 14 U/L (15-37) Alanine Aminotransferase (ALT/SGPT) 15 U/L (14-59) 11 U/L (14-59) Alkaline Phosphatase 36 U/L (46-116) 28 U/L (46-116) Creatine Kinase 51 U/L (26-192) Creatine Kinase MB (Mass) 0.8 ng/mL (0.0-3.6) Creatine Kinase MB Relative Index % (0-4) Troponin I Quantitative < 0.017 ng/mL (0.000-0.055) PF-Yvi-V-Type Natriuretic Peptide 3978 pg/mL (0-449) Total Protein 6.9 g/dL (6.4-8.2) 5.7 g/dL (6.4-8.2) Albumin 3.9 g/dL (3.4-5.0) 3.1 g/dL (3.4-5.0) Albumin/Globulin Ratio 1.3 (1.0-1.7) 1.2 (1.0-1.7) Assessment/Plan Assessment/Plan abdominal pain, ileus vs SBO--seems has been occurring for at least a few weeks , pt unsure of time frame multiple comorbidities bowel rest will ask GI to eval send stools for cultures, cdiSTEPHEN El MD 01/07/19 0852: CONSULT Assessment/Plan Assessment/Plan Pt seen and examined. Agree with Ms. Escoto's note Pt with c/o LLQ pain. Appears to be an issues over past several weeks. Multiple previous colonoscopy, but several years since last abd soft, mild TTP LLQ will ask GI to evaluate no immediate surgical plan, and pt expresses that she would probably not be able to tolerate surgery. Thanks for consult! BHARTI ESCOTO APRN Jan 07, 2019 08:36 STEPHEN JENSEN MD Jan 07, 2019 08:52
[2019-01-07] MEDS: ALPRAZolam 0.5 MG TABLET PO PRN ×2 (09:40→20:14)
--- NOTE | 2019-01-07 09:41 | NUR ---
IP: Pt has a hx of + mrsa screen 03/2018. Pt to be in contact precautions until there are 2 negative screens 7 days apart.
[2019-01-07 11:00] VITALS: BP 113/55
--- NOTE | 2019-01-07 11:28 | PDOC2 ---
GI CONSULT Reason For Consult: Constipation/loose stools/ileus HPI: HPI: 88 y/o female who has seen Dr. Barahona in the past. Probably not the most reliable historian. She tells me she often awakes w/ LLQ pain radiating to her back - sometimes it's so severe she can't walk. She thinks it gets better w/ stooling and might get worse after eating. Has been ongoing "since before Dr. Hoang left." H/o GERD and hiatal hernia. Denies dysphagia and n/v. Often has LUQ "fullness, " belching, and early satiety. Reports alternating bowel habits - one day has to strain to pass a hard stool, the next day she has to curtis to the restroom w/ urgent/loose stools, then back to straining. With straining, occasional red blood on the toilet tissue "from my hemorrhoids." Last stooled yesterday - ? loose. No melena. Says her appetite hasn't been very good for awhile - food doesn't seem appealing. Has lost weight - says from size 12 to 8 in ~2 years. H/o RITCHIE (on PO iron and previously B12). Colonoscopy and SBCE (Dr. Rios) in 2006 revealed diverticulosis and hemorrhoids. EGD (Dr. Hernandez) in 2013 w/ large hiatal hernia w/ [place] erosions, tortuous esophagus, cratered gastric ulcer w / red spot (s/p epi and clip), and normal duodenum. 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 No GB, liver, or pancreas history. H/ o A Fib on Coumadin, denies NSAIDs. On pantoprazole Q a.m. and Carafate tablet QID. Takes "two stool softeners a day" and says she can't take Miralax (but doesn't remember why). Chart also lists Imodium and Pepto - she doesn't take these. Takes hydrocodone BID-TID. PMH: PMH: A Fib, CHF, HTN, HLD, valvular insufficiency, pulmonary HTN, TIA, CVA, anxiety, depression, OA, back pain, hypothyroidism, thyroidectomy FH: Family History: Cancer, CAD Social History: Smoke: No ALCOHOL: none Drugs: None ROS: GEN: Denies fevers, chills, sweats HEENT: Denies blurred vision, sore throat CV: Denies chest pain RESP: Denies shortness of air, cough GI: Per HPI : Denies hematuria, dysuria ENDO: +weight loss NEURO: Denies confusion, dizziness MSK: Denies weakness, joint pain/swelling SKIN: Denies jaundice, pruritus Vitals: Vitals: Vital Signs Date Time Temp Pulse Resp B/P (MAP) Pulse Ox O2 Delivery O2 Flow Rate FiO2 01/07/19 08:00 Nasal Cannula 2.0 01/07/19 07:00 98.9 64 18 110/60 (77) 98 98.9 Labs: Labs: Laboratory Tests Test 01/06/19 17:28 01/06/19 18:00 01/07/19 03:03 Urine Collection Type Unknown Urine Color Yellow Urine Clarity Clear Urine pH 7.5 Urine Specific [place] 1.010 Urine Protein Negative mg/dL (NEG-TRACE) Urine Glucose (UA) Negative mg/dL (NEG) Urine Ketones (Stick) Negative mg/dL (NEG) Urine Blood Small (NEG) Urine Nitrite Negative (NEG) Urine Bilirubin Negative (NEG) Urine Urobilinogen Dipstick 0.2 mg/dL (0.2 mg/dL) Urine Leukocyte Esterase Large (NEG) Urine RBC 3-5 /HPF (0-2) Urine WBC 11-20 /HPF (0-4) Urine Squamous Epithelial Cells Few /LPF Urine Amorphous Sediment Present /HPF Urine Bacteria Few /HPF (0-FEW) Urine Mucus Slight /LPF White Blood Count 8.4 x10^3/uL (4.0-11.0) 7.2 x10^3/uL (4.0-11.0) Red Blood Count 4.76 x10^6/uL (3.50-5.40) 4.26 x10^6/uL (3.50-5.40) Hemoglobin 15.1 g/dL (12.0-15.5) 13.6 g/dL (12.0-15.5) Hematocrit 45.4 % (36.0-47.0) 40.9 % (36.0-47.0) Mean Corpuscular Volume 95 fL (79-100) 96 fL (79-100) Mean Corpuscular Hemoglobin 32 pg (25-35) 32 pg (25-35) Mean Corpuscular Hemoglobin Concent 33 g/dL (31-37) 33 g/dL (31-37) Red Cell Distribution Width 14.2 % (11.5-14.5) 14.6 % (11.5-14.5) Platelet Count 202 x10^3/uL (140-400) 183 x10^3/uL (140-400) Neutrophils (%) (Auto) 59 % (31-73) 47 % (31-73) Lymphocytes (%) (Auto) 30 % (24-48) 40 % (24-48) Monocytes (%) (Auto) 7 % (0-9) 9 % (0-9) Eosinophils (%) (Auto) 3 % (0-3) 3 % (0-3) Basophils (%) (Auto) 1 % (0-3) 1 % (0-3) Neutrophils # (Auto) 4.9 x10^3uL (1.8-7.7) 3.4 x10^3uL (1.8-7.7) Lymphocytes # (Auto) 2.5 x10^3/uL (1.0-4.8) 2.9 x10^3/uL (1.0-4.8) Monocytes # (Auto) 0.6 x10^3/uL (0.0-1.1) 0.7 x10^3/uL (0.0-1.1) Eosinophils # (Auto) 0.2 x10^3/uL (0.0-0.7) 0.2 x10^3/uL (0.0-0.7) Basophils # (Auto) 0.1 x10^3/uL (0.0-0.2) 0.0 x10^3/uL (0.0-0.2) Prothrombin Time 29.5 SEC (11.7-14.0) Prothromb Time International Ratio 2.8 (0.8-1.1) Activated Partial Thromboplast Time 46 SEC (24-38) Sodium Level 142 mmol/L (136-145) 144 mmol/L (136-145) Potassium Level 3.6 mmol/L (3.5-5.1) 3.5 mmol/L (3.5-5.1) Chloride Level 102 mmol/L (98-107) 107 mmol/L (98-107) Carbon Dioxide Level 32 mmol/L (21-32) 31 mmol/L (21-32) Anion Gap 8 (6-14) 6 (6-14) Blood Urea Nitrogen 11 mg/dL (7-20) 10 mg/dL (7-20) Creatinine 0.9 mg/dL (0.6-1.0) 0.8 mg/dL (0.6-1.0) Estimated GFR (Cockcroft-Gault) 59.1 67.7 BUN/Creatinine Ratio 12 (6-20) 13 (6-20) Glucose Level 99 mg/dL (70-99) 87 mg/dL (70-99) Calcium Level 9.1 mg/dL (8.5-10.1) 8.2 mg/dL (8.5-10.1) Magnesium Level 2.3 mg/dL (1.8-2.4) Total Bilirubin 0.7 mg/dL (0.2-1.0) 0.6 mg/dL (0.2-1.0) Aspartate Amino Transf (AST/SGOT) 17 U/L (15-37) 14 U/L (15-37) Alanine Aminotransferase (ALT/SGPT) 15 U/L (14-59) 11 U/L (14-59) Alkaline Phosphatase 36 U/L (46-116) 28 U/L (46-116) Creatine Kinase 51 U/L (26-192) Creatine Kinase MB (Mass) 0.8 ng/mL (0.0-3.6) Creatine Kinase MB Relative Index % (0-4) Troponin I Quantitative < 0.017 ng/mL (0.000-0.055) VY-Yua-F-Type Natriuretic Peptide 3978 pg/mL (0-449) Total Protein 6.9 g/dL (6.4-8.2) 5.7 g/dL (6.4-8.2) Albumin 3.9 g/dL (3.4-5.0) 3.1 g/dL (3.4-5.0) Albumin/Globulin Ratio 1.3 (1.0-1.7) 1.2 (1.0-1.7) Allergies: Coded Allergies: Iodinated Contrast- Oral and IV Dye (Verified Allergy, Intermediate, SWELLING, 7/29/16) Penicillins (Verified Allergy, Intermediate, Rash, 04/19/16) adhesive (Verified Allergy, Intermediate, rash, 04/19/16) iodine (Verified Allergy, Intermediate, Rash, 04/19/16) PT HAS NEVER BEEN PREMEDICATED tramadol (Verified Allergy, Intermediate, 11/09/16) Tolerates hydrocodone I S O L A T I O N *CONTACT* (Verified Allergy, Unknown, 01/12/18) mrsa latex (Verified Adverse Reaction, Intermediate, Rash, 01/09/18) Medications: Current Medications Medications (Trade) Dose Ordered Sig/Dori Route PRN Reason Start Time Stop Time Status Last Admin Dose Admin Famotidine (Pepcid Vial) 20 mg 1X ONCE IVP 01/06/19 18:00 01/06/19 18:01 DC 01/06/19 18:46 Ondansetron HCl (Zofran) 4 mg 1X ONCE IV 01/06/19 18:15 01/06/19 18:16 DC 01/06/19 18:46 Ciprofloxacin/ Dextrose 200 ml @ 200 mls/hr 1X ONCE IV 01/06/19 18:30 01/06/19 19:29 DC 01/06/19 19:05 Sodium Chloride 1,000 ml @ 1,000 mls/hr 1X ONCE IV 01/06/19 18:30 01/06/19 19:29 DC 01/06/19 18:46 Acetaminophen/ Hydrocodone Bitart (Lortab 7.5/325) 1 tab PRN Q6HRS PRN PO PAIN 01/06/19 21:45 01/06/19 22:53 Sodium Chloride 1,000 ml @ 50 mls/hr Q20H IV 01/07/19 00:00 01/06/19 23:22 Alprazolam (Xanax) 0.5 mg PRN TID PRN PO ANXIETY 01/06/19 22:30 01/07/19 09:40 Atorvastatin Calcium (Lipitor) 10 mg QHS PO 01/06/19 23:00 01/06/19 22:52 Imaging: Imaging: [facility] 01/06 IMPRESSION: Air-fluid levels are seen. This may be seen with enterocolitis. No obstructive bowel pattern or significant fecal retention is seen. No acute lung infiltrate. CT A/P 01/06 (w/o contrast) The lung bases are clear. The heart size is enlarged with no pericardial effusion seen. There is a hiatal hernia present which appears contained the stomach and lies in the right lateral inferior mediastinum. No abnormality seen at the liver, spleen, adrenal glands or pancreas. There is cholelithiasis present. The abdominal aorta and inferior vena cava show no acute abnormalities but there is arteriosclerotic vascular calcification in the aorta. No abnormality seen at the appendix. There is no evidence of diverticulosis or diverticulitis. There does appear to be some dilatation in the made small intestinal tract but the proximal jejunum and distal ileum are not dilated. No abnormality seen at the bladder. No pelvic masses are seen. No free fluid or free air is seen in the abdomen or pelvis. IMPRESSION: Large hiatal hernia containing the stomach. Cardiomegaly. Cholelithiasis. Small intestinal tract involving the mid small intestine. This could reflect ileus but early or partial small bowel obstruction cannot be excluded. Recommend follow-up. PE: GEN: NAD HEENT: Atraumatic, PERRL LUNGS: CTAB HEART: RRR ABD: NABS, S/ND, RLQ pinpoint tenderness EXTREMITY: No edema SKIN: No rashes, no jaundice NEURO/PSYCH: A & O 3, probably forgetful A/P: A/P: Chronic LLQ pain (though RLQ discomfort on exam today) Irregular bowel habits, decreased appetite/early satiety and weight loss Abnormal CT - large hiatal hernia containing stomach, possible ileus/PSBO H/o GERD, , large hiatal hernia w/ Haider lesions - last EGD 2013 Presbyesophagus CRC screen - last in 2006 Diverticulosis, hemorrhoids Cholelithiasis ?UTI - d/w Dr. Newton H/o A Fib on Coumadin Chronic pain on hydrocodone -- Previous GI eval per HPI. Plans to try clears and also orders for stool studies. Will restart PPI and return later w/ Dr. Barahona. ?still needs Carafate - can be constipating ?retry Miralax ?fiber GUMARO-SHELLI SOTOMAYOR Jan 07, 2019 11:28
[2019-01-07] MEDS ORDERED: NON FORMULARY ITEM (Warfarin Sodium 1 TAB) PO SCH (12:41)
[2019-01-07] MEDS ORDERED: NON FORMULARY ITEM (Warfarin Sodium 3 MG) PO SCH (12:41)
[2019-01-07] MEDS ORDERED: ONDANSETRON ODT 4 MG TAB.RAPDIS. PO PRN (12:45)
[2019-01-07] MEDS ORDERED: BISMUTH SUBSALICYLATE 262 MG/15 ML ORAL.SUSP 236ML BOTTLE. PO PRN (12:45)
[2019-01-07] MEDS ORDERED: ALBUTEROL SULFATE 2.5 MG/3 ML NEBU. INH PRN (12:45)
[2019-01-07] MEDS: PANTOPRAZOLE 40 MG TABLET.DR. PO SCH (12:46)
[2019-01-07] MEDS: HYDROcodone/APAP 7.5/325MG 1 TAB TABLET PO PRN ×2 (12:47→20:13)
--- NOTE | 2019-01-07 13:54 | PDOC1 ---
History and Physical Date of Admission Date of Admission DATE: 01/07/19 TIME: 13:32 Identification/Chief Complaint Chief Complaint abdominal pain History of Present Illness History of Present Illness 88 year hx of GERD and hiatal hernia, hx of RITCHIE, hx of afib on coumadin, old with several months f LLQ pain with diarrhea. Patient has had PO intake due to diarrhea. no blood in stool. has Decreased PO intake because causes pain, diarrhea. Denies blood in stool. Reports weight loss, unclear amount. Denies n/v. 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 CT showed dodenitis and UA concerning for UTI so patient admitted for further evaluation and treatment. Past Medical History Cardiovascular: AFIB, HTN, Hyperlipidemia Pulmonary: Other CENTRAL NERVOUS SYSTEM: TIA GI: GERD, Gastritis, Other Heme/Onc: No pertinent hx Hepatobiliary: No pertinent hx Psych: Anxiety, Depression Musculoskeletal: Osteoarthritis Rheumatologic: No pertinent hx Infectious disease: No pertinent hx Renal/: UTI Endocrine: No pertinent hx, Hypothyroidism, Osteopenia Past Surgical History Past Surgical History: No pertinent history Family History Family History: Hypertension Social History Smoke: No ALCOHOL: none Drugs: None Current Problem List Problem List Problems Medical Problems: (1) Epigastric abdominal pain Status: Acute (2) Urinary tract infection Status: Acute Current Medications Current Medications Current Medications Famotidine (Pepcid Vial) 20 mg 1X ONCE IVP Last administered on 01/06/19at 18: 46; Start 01/06/19 at 18:00; Stop 01/06/19 at 18:01; Status DC Ondansetron HCl (Zofran) 4 mg 1X ONCE IV Last administered on 01/06/19at 18:46 ; Start 01/06/19 at 18:15; Stop 01/06/19 at 18:16; Status DC Ciprofloxacin/ Dextrose 200 ml @ 200 mls/hr 1X ONCE IV Last administered on at 19:05; Start 01/06/19 at 18:30; Stop 01/06/19 at 19:29; Status DC Sodium Chloride 1,000 ml @ 1,000 mls/hr 1X ONCE IV Last administered on at 18:46; Start 01/06/19 at 18:30; Stop 01/06/19 at 19:29; Status DC Fentanyl Citrate (Fentanyl 2ml Vial) 25 mcg 1X ONCE IV ; Start 01/06/19 at 20: 45; Stop 01/06/19 at 20:52; Status DC Ondansetron HCl (Zofran) 4 mg PRN Q8HRS PRN IV NAUSEA/VOMITING; Start 01/06/19 at 21:00; Stop 01/07/19 at 20:59 Fentanyl Citrate (Fentanyl 2ml Vial) 25 mcg PRN Q1HR PRN IV PAIN; Start at 21:00; Stop 01/06/19 at 21:44; Status DC Acetaminophen/ Hydrocodone Bitart (Lortab 7.5/325) 1 tab PRN Q6HRS PRN PO PAIN Last administered on 01/07/19at 12:47; Start 01/06/19 at 21:45 Morphine Sulfate (Morphine Sulfate) 2 mg PRN Q4HRS PRN IV PAIN; Start 01/06/19 at 22:30 Sodium Chloride 1,000 ml @ 50 mls/hr Q20H IV Last administered on 01/06/19at 23 :22; Start 01/07/19 at 00:00 Alprazolam (Xanax) 0.5 mg PRN TID PRN PO ANXIETY Last administered on at 09:40; Start 01/06/19 at 22:30 Atorvastatin Calcium (Lipitor) 10 mg QHS PO Last administered on 01/06/19at 22: 52; Start 01/06/19 at 23:00 Pantoprazole Sodium (Protonix) 40 mg DAILYAC PO Last administered on 01/07/19at 12:46; Start 01/07/19 at 11:30 Albuterol Sulfate (Ventolin Neb Soln) 1 mg PRN Q4HRS PRN INH SHORTNESS OF BREATH; Start 01/07/19 at 12:45; Status UNV Bismuth Subsalicylate (Pepto-Bismol) 524 mg PRN Q1HR PRN PO DIARRHEA; Start at 12:45; Status UNV Vitamin D (Vitamin D3) 2,000 unit DAILY PO ; Start 01/08/19 at 09:00; Status UNV Cyanocobalamin (Vitamin B-12) 1,000 mcg DAILY PO ; Start 01/08/19 at 09:00; Status UNV Digoxin (Lanoxin) 125 mcg DAILY PO ; Start 01/08/19 at 09:00; Status UNV Digoxin (Lanoxin) 125 mcg DAILY PO ; Start 01/08/19 at 09:00; Status UNV Ferrous Sulfate (Feosol) 325 mg DAILY PO ; Start 01/08/19 at 09:00; Status UNV Acetaminophen/ Hydrocodone Bitart (Lortab 7.5/325) 1 tab PRN Q8HRS PRN PO PAIN ; Start 01/07/19 at 12:45; Status UNV Levothyroxine Sodium (Synthroid) 75 mcg DAILYAC PO ; Start 01/08/19 at 07:30; Status UNV Levothyroxine Sodium (Synthroid) 137 mcg DAILY PO ; Start 01/08/19 at 09:00; Status UNV Ondansetron HCl (Zofran Odt) 4 mg Q6HRS PRN PO NAUSEA; Start 01/07/19 at 12:45 ; Status UNV Pantoprazole Sodium (Protonix) 40 mg DAILY PO ; Start 01/08/19 at 09:00; Status UNV Pregabalin (Lyrica) 75 mg BID PO ; Start 01/07/19 at 21:00; Status UNV Non-Formulary Medication (Diltiazem Hcl (Cardizem Cd)) 2 cap DAILY PO ; Start at 09:00; Status UNV Non-Formulary Medication (Magnesium Hydroxide (Milk Of Magnesia)) 30 ml PRN DAILY PRN PO CONSTIPATION; Start 01/07/19 at 12:45; Status UNV Non-Formulary Medication (Olanzapine ) 7.5 mg DAILY PO ; Start 01/08/19 at 09:00 ; Status UNV Non-Formulary Medication (Paroxetine Hcl ) 1 tab DAILY PO ; Start 01/08/19 at 09 :00; Status UNV Non-Formulary Medication (Sennosides (Senna)) 8.6 mg BID PO ; Start 01/07/19 at 21:00; Status UNV Non-Formulary Medication (Sucralfate (Carafate)) 1 tab BIDACLD PO ; Start at 16:30; Status UNV Non-Formulary Medication (Sucralfate (Carafate)) 1 tab BIDBFRMEAL PO ; Start at 16:30; Status UNV Non-Formulary Medication (Warfarin Sodium ) 1 tab UD PO ; Start 01/07/19 at 12: 41; Status UNV Non-Formulary Medication (Warfarin Sodium ) 3 mg QM-F PO ; Start 01/07/19 at 12: 41; Status UNV Non-Formulary Medication (Warfarin Sodium ) 3 mg QSA PO ; Start 01/07/19 at 12: 41; Status UNV Non-Formulary Medication (Warfarin Sodium ) 6 mg QSU PO ; Start 01/10/19 at 16: 00; Status UNV Active Scripts Active Acyclovir 800 Mg Tablet 1 Tab PO 5XDAY 7 Days Zofran Odt (Ondansetron) 4 Mg Tab.rapdis 1 Tab SL Q6HRS PRN Cardizem Cd (Diltiazem Hcl) 360 Mg Cap.er.24h 1 Cap PO DAILY Furosemide 40 Mg Tablet 1 Tab PO DAILY Xanax (Alprazolam) 0.5 Mg Tablet 1 Tab PO TID PRN Reported Lyrica (Pregabalin) 75 Mg Capsule 1-2 Cap PO BID Paroxetine Hcl 20 Mg Tablet 1 Tab PO DAILY Levothyroxine Sodium 75 Mcg Tablet 75 Mcg PO DAILYAC Cardizem Cd (Diltiazem Hcl) 180 Mg Cap.er.24h 2 Cap PO DAILY Digoxin 125 Mcg Tablet 125 Mcg PO DAILY Carafate (Sucralfate) 1 Gm Tablet 1 Tab PO BIDACLD Acetaminophen 500 Mg Tablet 1 Tab PO Q4HRS PRN Warfarin Sodium 3 Mg Tablet 3 Mg PO QSA Warfarin Sodium 3 Mg Tablet 3 Mg PO QM-F Warfarin Sodium 6 Mg Tablet 6 Mg PO QSU Ferrous Sulfate 325 Mg Tablet 1 Tab PO DAILY Warfarin Sodium 3 Mg Tablet 1 Tab PO UD Olanzapine 7.5 Mg Tablet 7.5 Mg PO DAILY Proair Hfa Inhaler (Albuterol Sulfate) 8.5 Gm Hfa.aer.ad 2 Puff INH PRN Q4HRS PRN Pepto-Bismol (Bismuth Subsalicylate) 262 Mg/15 Ml Oral.susp 30 Ml PO PRN Q1HR PRN Fleet Enema (Na Phos,M-B/Na Phos,Di-Ba) 133 Ml Enema 1 Each RC PRN DAILY PRN Maalox Advanced Suspension (Mag Hydrox/Aluminum Hyd/Simeth) 355 Ml Oral.susp 30 Ml PO PRN Q1HR PRN Loperamide (Loperamide Hcl) 2 Mg Capsule 4 Mg PO UD PRN Hydrocodone-Apap 7.5-325 (Hydrocodone Bit/Acetaminophen) 1 Each Tablet 1 Tab PO PRN Q8HRS PRN Dulcolax (Bisacodyl) 10 Mg Supp.rect 10 Mg RC PRN DAILY PRN Vitamin D3 (Cholecalciferol (Vitamin D3)) 1,000 Unit Tablet 2 Tab PO DAILY Vitamin B-12 (Cyanocobalamin (Vitamin B-12)) 1,000 Mcg Tablet 1 Tab PO DAILY Carafate (Sucralfate) 1 Gm Tablet 1 Tab PO BIDBFRMEAL Senna (Sennosides) 8.6 Mg Tablet 8.6 Mg PO BID Potassium Chloride 10 Meq Tab.sr.24h 10 Meq PO DAILY Milk Of Magnesia (Magnesium Hydroxide) 2,400 Mg/10 Ml Oral.susp 30 Ml PO PRN DAILY PRN Losartan Potassium 50 Mg Tablet 50 Mg PO DAILY Digoxin 125 Mcg Tablet 1 Tab PO DAILY Acetaminophen 500 Mg Tablet 1 Tab PO Q6HRS Paroxetine Hcl 20 Mg Tablet 1 Tab PO DAILY Synthroid (Levothyroxine Sodium) 137 Mcg Tablet 1 Tab PO DAILY Lipitor (Atorvastatin Calcium) 10 Mg Tablet 1 Tab PO QHS Protonix (Pantoprazole Sodium) 40 Mg Tablet. 1 Tab PO DAILY Allergies Allergies: Coded Allergies: Iodinated Contrast- Oral and IV Dye (Verified Allergy, Intermediate, SWELLING, 04/19/16) Penicillins (Verified Allergy, Intermediate, Rash, 04/19/16) adhesive (Verified Allergy, Intermediate, rash, 04/19/16) iodine (Verified Allergy, Intermediate, Rash, 04/19/16) PT HAS NEVER BEEN PREMEDICATED tramadol (Verified Allergy, Intermediate, 11/09/16) Tolerates hydrocodone I S O L A T I O N *CONTACT* (Verified Allergy, Unknown, 01/12/18) mrsa latex (Verified Adverse Reaction, Intermediate, Rash, 01/09/18) ROS Review of System CONSTITUTIONAL: No fever or chills EYES: No recent changes SKIN: No rash or itching CARDIOVASCULAR: No chest pain, syncope, palpitations, or edema RESPIRATORY: No SOB or cough GASTROINTESTINAL: No nausea, vomiting or abdominal pain NEUROLOGICAL: No headaches or weakness ENDOCRINE: No cold or heat intolerance GENITOURINARY: No urgency or frequency of urination MUSCULOSKELETAL: No back pain or joint pain LYMPHATICS: No enlarged lymph nodes PSYCHIATRIC: No anxiety or depression Physical Exam Physical Exam GENERAL: No apparent distress. Alert and oriented. HEENT: Head normocephalic, atraumatic. NECK: Supple LUNGS: Clear to auscultation. HEART: irregular irregular ABDOMEN: Soft, positive bowel sounds. EXTREMITIES: No cyanosis or edema. NEUROLOGIC: Normal speech, normal tone PSYCHIATRIC: Normal affect, normal mood. SKIN: No ulceration. Vitals Vitals Vital Signs Date Time Temp Pulse Resp B/P (MAP) Pulse Ox O2 Delivery O2 Flow Rate FiO2 01/07/19 12:47 16 Room Air 01/07/19 11:00 97.6 56 113/55 (74) 97 97.6 01/07/19 08:00 2.0 Labs Labs Laboratory Tests Test 01/06/19 17:28 01/06/19 18:00 01/07/19 03:03 Urine Collection Type Unknown Urine Color Yellow Urine Clarity Clear Urine pH 7.5 Urine Specific [place] 1.010 Urine Protein Negative mg/dL (NEG-TRACE) Urine Glucose (UA) Negative mg/dL (NEG) Urine Ketones (Stick) Negative mg/dL (NEG) Urine Blood Small (NEG) Urine Nitrite Negative (NEG) Urine Bilirubin Negative (NEG) Urine Urobilinogen Dipstick 0.2 mg/dL (0.2 mg/dL) Urine Leukocyte Esterase Large (NEG) Urine RBC 3-5 /HPF (0-2) Urine WBC 11-20 /HPF (0-4) Urine Squamous Epithelial Cells Few /LPF Urine Amorphous Sediment Present /HPF Urine Bacteria Few /HPF (0-FEW) Urine Mucus Slight /LPF White Blood Count 8.4 x10^3/uL (4.0-11.0) 7.2 x10^3/uL (4.0-11.0) Red Blood Count 4.76 x10^6/uL (3.50-5.40) 4.26 x10^6/uL (3.50-5.40) Hemoglobin 15.1 g/dL (12.0-15.5) 13.6 g/dL (12.0-15.5) Hematocrit 45.4 % (36.0-47.0) 40.9 % (36.0-47.0) Mean Corpuscular Volume 95 fL (79-100) 96 fL (79-100) Mean Corpuscular Hemoglobin 32 pg (25-35) 32 pg (25-35) Mean Corpuscular Hemoglobin Concent 33 g/dL (31-37) 33 g/dL (31-37) Red Cell Distribution Width 14.2 % (11.5-14.5) 14.6 % (11.5-14.5) Platelet Count 202 x10^3/uL (140-400) 183 x10^3/uL (140-400) Neutrophils (%) (Auto) 59 % (31-73) 47 % (31-73) Lymphocytes (%) (Auto) 30 % (24-48) 40 % (24-48) Monocytes (%) (Auto) 7 % (0-9) 9 % (0-9) Eosinophils (%) (Auto) 3 % (0-3) 3 % (0-3) Basophils (%) (Auto) 1 % (0-3) 1 % (0-3) Neutrophils # (Auto) 4.9 x10^3uL (1.8-7.7) 3.4 x10^3uL (1.8-7.7) Lymphocytes # (Auto) 2.5 x10^3/uL (1.0-4.8) 2.9 x10^3/uL (1.0-4.8) Monocytes # (Auto) 0.6 x10^3/uL (0.0-1.1) 0.7 x10^3/uL (0.0-1.1) Eosinophils # (Auto) 0.2 x10^3/uL (0.0-0.7) 0.2 x10^3/uL (0.0-0.7) Basophils # (Auto) 0.1 x10^3/uL (0.0-0.2) 0.0 x10^3/uL (0.0-0.2) Prothrombin Time 29.5 SEC (11.7-14.0) Prothromb Time International Ratio 2.8 (0.8-1.1) Activated Partial Thromboplast Time 46 SEC (24-38) Sodium Level 142 mmol/L (136-145) 144 mmol/L (136-145) Potassium Level 3.6 mmol/L (3.5-5.1) 3.5 mmol/L (3.5-5.1) Chloride Level 102 mmol/L (98-107) 107 mmol/L (98-107) Carbon Dioxide Level 32 mmol/L (21-32) 31 mmol/L (21-32) Anion Gap 8 (6-14) 6 (6-14) Blood Urea Nitrogen 11 mg/dL (7-20) 10 mg/dL (7-20) Creatinine 0.9 mg/dL (0.6-1.0) 0.8 mg/dL (0.6-1.0) Estimated GFR (Cockcroft-Gault) 59.1 67.7 BUN/Creatinine Ratio 12 (6-20) 13 (6-20) Glucose Level 99 mg/dL (70-99) 87 mg/dL (70-99) Calcium Level 9.1 mg/dL (8.5-10.1) 8.2 mg/dL (8.5-10.1) Magnesium Level 2.3 mg/dL (1.8-2.4) Total Bilirubin 0.7 mg/dL (0.2-1.0) 0.6 mg/dL (0.2-1.0) Aspartate Amino Transf (AST/SGOT) 17 U/L (15-37) 14 U/L (15-37) Alanine Aminotransferase (ALT/SGPT) 15 U/L (14-59) 11 U/L (14-59) Alkaline Phosphatase 36 U/L (46-116) 28 U/L (46-116) Creatine Kinase 51 U/L (26-192) Creatine Kinase MB (Mass) 0.8 ng/mL (0.0-3.6) Creatine Kinase MB Relative Index % (0-4) Troponin I Quantitative < 0.017 ng/mL (0.000-0.055) GD-Vll-E-Type Natriuretic Peptide 3978 pg/mL (0-449) Total Protein 6.9 g/dL (6.4-8.2) 5.7 g/dL (6.4-8.2) Albumin 3.9 g/dL (3.4-5.0) 3.1 g/dL (3.4-5.0) Albumin/Globulin Ratio 1.3 (1.0-1.7) 1.2 (1.0-1.7) Laboratory Tests Test 01/06/19 17:28 01/06/19 18:00 01/07/19 03:03 Urine Collection Type Unknown Urine Color Yellow Urine Clarity Clear Urine pH 7.5 Urine Specific [place] 1.010 Urine Protein Negative mg/dL (NEG-TRACE) Urine Glucose (UA) Negative mg/dL (NEG) Urine Ketones (Stick) Negative mg/dL (NEG) Urine Blood Small (NEG) Urine Nitrite Negative (NEG) Urine Bilirubin Negative (NEG) Urine Urobilinogen Dipstick 0.2 mg/dL (0.2 mg/dL) Urine Leukocyte Esterase Large (NEG) Urine RBC 3-5 /HPF (0-2) Urine WBC 11-20 /HPF (0-4) Urine Squamous Epithelial Cells Few /LPF Urine Amorphous Sediment Present /HPF Urine Bacteria Few /HPF (0-FEW) Urine Mucus Slight /LPF White Blood Count 8.4 x10^3/uL (4.0-11.0) 7.2 x10^3/uL (4.0-11.0) Red Blood Count 4.76 x10^6/uL (3.50-5.40) 4.26 x10^6/uL (3.50-5.40) Hemoglobin 15.1 g/dL (12.0-15.5) 13.6 g/dL (12.0-15.5) Hematocrit 45.4 % (36.0-47.0) 40.9 % (36.0-47.0) Mean Corpuscular Volume 95 fL (79-100) 96 fL (79-100) Mean Corpuscular Hemoglobin 32 pg (25-35) 32 pg (25-35) Mean Corpuscular Hemoglobin Concent 33 g/dL (31-37) 33 g/dL (31-37) Red Cell Distribution Width 14.2 % (11.5-14.5) 14.6 % (11.5-14.5) Platelet Count 202 x10^3/uL (140-400) 183 x10^3/uL (140-400) Neutrophils (%) (Auto) 59 % (31-73) 47 % (31-73) Lymphocytes (%) (Auto) 30 % (24-48) 40 % (24-48) Monocytes (%) (Auto) 7 % (0-9) 9 % (0-9) Eosinophils (%) (Auto) 3 % (0-3) 3 % (0-3) Basophils (%) (Auto) 1 % (0-3) 1 % (0-3) Neutrophils # (Auto) 4.9 x10^3uL (1.8-7.7) 3.4 x10^3uL (1.8-7.7) Lymphocytes # (Auto) 2.5 x10^3/uL (1.0-4.8) 2.9 x10^3/uL (1.0-4.8) Monocytes # (Auto) 0.6 x10^3/uL (0.0-1.1) 0.7 x10^3/uL (0.0-1.1) Eosinophils # (Auto) 0.2 x10^3/uL (0.0-0.7) 0.2 x10^3/uL (0.0-0.7) Basophils # (Auto) 0.1 x10^3/uL (0.0-0.2) 0.0 x10^3/uL (0.0-0.2) Prothrombin Time 29.5 SEC (11.7-14.0) Prothromb Time International Ratio 2.8 (0.8-1.1) Activated Partial Thromboplast Time 46 SEC (24-38) Sodium Level 142 mmol/L (136-145) 144 mmol/L (136-145) Potassium Level 3.6 mmol/L (3.5-5.1) 3.5 mmol/L (3.5-5.1) Chloride Level 102 mmol/L (98-107) 107 mmol/L (98-107) Carbon Dioxide Level 32 mmol/L (21-32) 31 mmol/L (21-32) Anion Gap 8 (6-14) 6 (6-14) Blood Urea Nitrogen 11 mg/dL (7-20) 10 mg/dL (7-20) Creatinine 0.9 mg/dL (0.6-1.0) 0.8 mg/dL (0.6-1.0) Estimated GFR (Cockcroft-Gault) 59.1 67.7 BUN/Creatinine Ratio 12 (6-20) 13 (6-20) Glucose Level 99 mg/dL (70-99) 87 mg/dL (70-99) Calcium Level 9.1 mg/dL (8.5-10.1) 8.2 mg/dL (8.5-10.1) Magnesium Level 2.3 mg/dL (1.8-2.4) Total Bilirubin 0.7 mg/dL (0.2-1.0) 0.6 mg/dL (0.2-1.0) Aspartate Amino Transf (AST/SGOT) 17 U/L (15-37) 14 U/L (15-37) Alanine Aminotransferase (ALT/SGPT) 15 U/L (14-59) 11 U/L (14-59) Alkaline Phosphatase 36 U/L (46-116) 28 U/L (46-116) Creatine Kinase 51 U/L (26-192) Creatine Kinase MB (Mass) 0.8 ng/mL (0.0-3.6) Creatine Kinase MB Relative Index % (0-4) Troponin I Quantitative < 0.017 ng/mL (0.000-0.055) PL-Xvd-O-Type Natriuretic Peptide 3978 pg/mL (0-449) Total Protein 6.9 g/dL (6.4-8.2) 5.7 g/dL (6.4-8.2) Albumin 3.9 g/dL (3.4-5.0) 3.1 g/dL (3.4-5.0) Albumin/Globulin Ratio 1.3 (1.0-1.7) 1.2 (1.0-1.7) VTE Prophylaxis Ordered VTE Prophylaxis Devices: No VTE Pharmacological Prophylaxi: Yes Assessment/Plan Assessment/Plan ASSESSMENT Chronic LLQ pain with large hiatal hernia containing stomach, possible ileus/ PSBO H/o GERD,/Gastric Ulcer Cholelithiasis UTI H/o A Fib on Coumadin Chronic pain multiple previous colos Hypothyroidism Hx of CHF HLD elevated BNP PLAN: start clears check stool studies continue PPI therapy apprec GI and gen sx no plans for sx continue home meds. hold lasix and lisinopril given low normal BP continue cardizem for rate control continue comadin for thromboembolic ppx normal echo 01/07. check echo given elevated BNP dvt ppx: coumadin full code -- IRMA RAMOS MD Jan 07, 2019 13:54
[2019-01-07] MEDS: DIGOXIN 125 MCG TABLET. PO SCH (14:00)
[2019-01-07] MEDS: OLANZapine 5 MG TABLET PO SCH (14:15)
[2019-01-07] MEDS: PARoxetine 20 MG TABLET PO SCH (14:53)
[2019-01-07] MEDS: CYANOCOBALAMIN (VITAMIN B-12) 1,000 MCG TABLET. PO SCH (14:53)
[2019-01-07] MEDS: CHOLECALCIFEROL (VITAMIN D3) 1,000 UNIT TABLET PO SCH (14:53)
[2019-01-07] MEDS: FERROUS SULFATE 325 MG TABLET. PO SCH (14:57)
[2019-01-07 15:00] VITALS: BP 109/57
[2019-01-07] MEDS ORDERED: WARFARIN 3 MG TABLET. PO SCH (16:00)
[2019-01-07] MEDS: SUCRALFATE 1 GM TABLET. PO SCH (16:05)
[2019-01-07] MEDS ORDERED: PANTOPRAZOLE 40 MG TABLET.DR. PO SCH (16:30)
[2019-01-07] MEDS ORDERED: SUCRALFATE PO SCH (16:30)
[2019-01-07 19:15] VITALS: BP 120/58
[2019-01-07] MEDS: IV NORMAL SALINE 1000ML BAG 1,000 ML IV SCH (20:00)
[2019-01-07] MEDS: PREGABALIN 75 MG CAPSULE PO SCH (20:13)
[2019-01-07] MEDS: ATORVASTATIN CALCIUM 10 MG TABLET. PO SCH (20:13)
[2019-01-07] MEDS: CALCIUM POLYCARBOPHIL 625 MG TABLET PO SCH (20:13)
[2019-01-07] MEDS: SMZ/TMP 800/160MG TABLET. PO SCH (20:14)
[2019-01-07] MEDS: SENNOSIDES 8.6 MG TABLET PO SCH (20:14)
[2019-01-07 23:03] VITALS: BP 102/46
[2019-01-08 03:08] VITALS: BP 105/48
[2019-01-08 04:49] LABS: BASO # 0.1 x10^3/uL (0.0-0.2); BASO % 1 % (0-3); EOS # 0.3 x10^3/uL (0.0-0.7); EOS % 5 % (0-3); HEMATOCRIT 41.1 % (36.0-47.0); HEMOGLOBIN 13.5 g/dL (12.0-15.5); LYMPH # 2.5 x10^3/uL (1.0-4.8); LYMPH % 42 % (24-48); MEAN CORPUSCULAR HEMOGLOBIN 32 pg (25-35); MEAN CORPUSCULAR HGB CONC 33 g/dL (31-37); MEAN CORPUSCULAR VOLUME 96 fL (79-100); MONO # 0.6 x10^3/uL (0.0-1.1); MONO % 9 % (0-9); NEUT # 2.5 x10^3uL (1.8-7.7); NEUT % 43 % (31-73); PLATELET COUNT 173 x10^3/uL (140-400); RED BLOOD COUNT 4.26 x10^6/uL (3.50-5.40); RED CELL DISTRIBUTION WIDTH 14.2 % (11.5-14.5); WHITE BLOOD COUNT 5.9 x10^3/uL (4.0-11.0)
[2019-01-08 05:02] LABS: CALCIUM 8.3 mg/dL (8.5-10.1); CREATININE 0.8 mg/dL (0.6-1.0); GFR 67.7; POTASSIUM 3.5 mmol/L (3.5-5.1)
[2019-01-08 05:03] LABS: PROTHROMBIN TIME PATIENT 30.1 SEC (11.7-14.0)
[2019-01-08] MEDS: LEVOTHYROXINE 75 MCG TABLET PO SCH (05:59)
[2019-01-08] MEDS: PANTOPRAZOLE 40 MG TABLET.DR. PO SCH (05:59)
[2019-01-08 07:00] VITALS: BP 123/58
--- NOTE | 2019-01-08 08:23 | PDOC ---
SURGICAL PROGRESS NOTE Subjective Pt feels sleepy this AM, rohit clears, no flatus or stool Vital Signs Vital Signs Date Time Temp Pulse Resp B/P (MAP) Pulse Ox O2 Delivery O2 Flow Rate FiO2 01/08/19 03:08 98.1 48 18 105/48 (67) 93 Nasal Cannula 2.0 98.1 I&O Intake and Output 01/08/19 07:00 Intake Total 980 ml Balance 980 ml Intake Oral 980 ml # Voids 2 General: Alert, Oriented X3, Cooperative, No acute distress Abdomen: Soft, No tenderness Labs Laboratory Tests Test 01/06/19 17:28 01/06/19 18:00 01/06/19 23:12 01/07/19 03:03 Urine Collection Type Unknown Urine Color Yellow Urine Clarity Clear Urine pH 7.5 Urine Specific [place] 1.010 Urine Protein Negative mg/dL (NEG-TRACE) Urine Glucose (UA) Negative mg/dL (NEG) Urine Ketones (Stick) Negative mg/dL (NEG) Urine Blood Small (NEG) Urine Nitrite Negative (NEG) Urine Bilirubin Negative (NEG) Urine Urobilinogen Dipstick 0.2 mg/dL (0.2 mg/dL) Urine Leukocyte Esterase Large (NEG) Urine RBC 3-5 /HPF (0-2) Urine WBC 11-20 /HPF (0-4) Urine Squamous Epithelial Cells Few /LPF Urine Amorphous Sediment Present /HPF Urine Bacteria Few /HPF (0-FEW) Urine Mucus Slight /LPF White Blood Count 8.4 x10^3/uL (4.0-11.0) 7.2 x10^3/uL (4.0-11.0) Red Blood Count 4.76 x10^6/uL (3.50-5.40) 4.26 x10^6/uL (3.50-5.40) Hemoglobin 15.1 g/dL (12.0-15.5) 13.6 g/dL (12.0-15.5) Hematocrit 45.4 % (36.0-47.0) 40.9 % (36.0-47.0) Mean Corpuscular Volume 95 fL (79-100) 96 fL (79-100) Mean Corpuscular Hemoglobin 32 pg (25-35) 32 pg (25-35) Mean Corpuscular Hemoglobin Concent 33 g/dL (31-37) 33 g/dL (31-37) Red Cell Distribution Width 14.2 % (11.5-14.5) 14.6 % (11.5-14.5) Platelet Count 202 x10^3/uL (140-400) 183 x10^3/uL (140-400) Neutrophils (%) (Auto) 59 % (31-73) 47 % (31-73) Lymphocytes (%) (Auto) 30 % (24-48) 40 % (24-48) Monocytes (%) (Auto) 7 % (0-9) 9 % (0-9) Eosinophils (%) (Auto) 3 % (0-3) 3 % (0-3) Basophils (%) (Auto) 1 % (0-3) 1 % (0-3) Neutrophils # (Auto) 4.9 x10^3uL (1.8-7.7) 3.4 x10^3uL (1.8-7.7) Lymphocytes # (Auto) 2.5 x10^3/uL (1.0-4.8) 2.9 x10^3/uL (1.0-4.8) Monocytes # (Auto) 0.6 x10^3/uL (0.0-1.1) 0.7 x10^3/uL (0.0-1.1) Eosinophils # (Auto) 0.2 x10^3/uL (0.0-0.7) 0.2 x10^3/uL (0.0-0.7) Basophils # (Auto) 0.1 x10^3/uL (0.0-0.2) 0.0 x10^3/uL (0.0-0.2) Prothrombin Time 29.5 SEC (11.7-14.0) Prothromb Time International Ratio 2.8 (0.8-1.1) Activated Partial Thromboplast Time 46 SEC (24-38) Sodium Level 142 mmol/L (136-145) 144 mmol/L (136-145) Potassium Level 3.6 mmol/L (3.5-5.1) 3.5 mmol/L (3.5-5.1) Chloride Level 102 mmol/L (98-107) 107 mmol/L (98-107) Carbon Dioxide Level 32 mmol/L (21-32) 31 mmol/L (21-32) Anion Gap 8 (6-14) 6 (6-14) Blood Urea Nitrogen 11 mg/dL (7-20) 10 mg/dL (7-20) Creatinine 0.9 mg/dL (0.6-1.0) 0.8 mg/dL (0.6-1.0) Estimated GFR (Cockcroft-Gault) 59.1 67.7 BUN/Creatinine Ratio 12 (6-20) 13 (6-20) Glucose Level 99 mg/dL (70-99) 87 mg/dL (70-99) Calcium Level 9.1 mg/dL (8.5-10.1) 8.2 mg/dL (8.5-10.1) Magnesium Level 2.3 mg/dL (1.8-2.4) Total Bilirubin 0.7 mg/dL (0.2-1.0) 0.6 mg/dL (0.2-1.0) Aspartate Amino Transf (AST/SGOT) 17 U/L (15-37) 14 U/L (15-37) Alanine Aminotransferase (ALT/SGPT) 15 U/L (14-59) 11 U/L (14-59) Alkaline Phosphatase 36 U/L (46-116) 28 U/L (46-116) Creatine Kinase 51 U/L (26-192) Creatine Kinase MB (Mass) 0.8 ng/mL (0.0-3.6) Creatine Kinase MB Relative Index % (0-4) Troponin I Quantitative < 0.017 ng/mL (0.000-0.055) MP-Ekm-L-Type Natriuretic Peptide 3978 pg/mL (0-449) Total Protein 6.9 g/dL (6.4-8.2) 5.7 g/dL (6.4-8.2) Albumin 3.9 g/dL (3.4-5.0) 3.1 g/dL (3.4-5.0) Albumin/Globulin Ratio 1.3 (1.0-1.7) 1.2 (1.0-1.7) Nasal Screen MRSA (PCR) Positive (Negative) Test 01/08/19 04:00 White Blood Count 5.9 x10^3/uL (4.0-11.0) Red Blood Count 4.26 x10^6/uL (3.50-5.40) Hemoglobin 13.5 g/dL (12.0-15.5) Hematocrit 41.1 % (36.0-47.0) Mean Corpuscular Volume 96 fL (79-100) Mean Corpuscular Hemoglobin 32 pg (25-35) Mean Corpuscular Hemoglobin Concent 33 g/dL (31-37) Red Cell Distribution Width 14.2 % (11.5-14.5) Platelet Count 173 x10^3/uL (140-400) Neutrophils (%) (Auto) 43 % (31-73) Lymphocytes (%) (Auto) 42 % (24-48) Monocytes (%) (Auto) 9 % (0-9) Eosinophils (%) (Auto) 5 % (0-3) Basophils (%) (Auto) 1 % (0-3) Neutrophils # (Auto) 2.5 x10^3uL (1.8-7.7) Lymphocytes # (Auto) 2.5 x10^3/uL (1.0-4.8) Monocytes # (Auto) 0.6 x10^3/uL (0.0-1.1) Eosinophils # (Auto) 0.3 x10^3/uL (0.0-0.7) Basophils # (Auto) 0.1 x10^3/uL (0.0-0.2) Prothrombin Time 30.1 SEC (11.7-14.0) Prothromb Time International Ratio 2.9 (0.8-1.1) Sodium Level 142 mmol/L (136-145) Potassium Level 3.5 mmol/L (3.5-5.1) Chloride Level 105 mmol/L (98-107) Carbon Dioxide Level 33 mmol/L (21-32) Anion Gap 4 (6-14) Blood Urea Nitrogen 7 mg/dL (7-20) Creatinine 0.8 mg/dL (0.6-1.0) Estimated GFR (Cockcroft-Gault) 67.7 Glucose Level 88 mg/dL (70-99) Calcium Level 8.3 mg/dL (8.5-10.1) Laboratory Tests Test 01/08/19 04:00 White Blood Count 5.9 x10^3/uL (4.0-11.0) Red Blood Count 4.26 x10^6/uL (3.50-5.40) Hemoglobin 13.5 g/dL (12.0-15.5) Hematocrit 41.1 % (36.0-47.0) Mean Corpuscular Volume 96 fL (79-100) Mean Corpuscular Hemoglobin 32 pg (25-35) Mean Corpuscular Hemoglobin Concent 33 g/dL (31-37) Red Cell Distribution Width 14.2 % (11.5-14.5) Platelet Count 173 x10^3/uL (140-400) Neutrophils (%) (Auto) 43 % (31-73) Lymphocytes (%) (Auto) 42 % (24-48) Monocytes (%) (Auto) 9 % (0-9) Eosinophils (%) (Auto) 5 % (0-3) Basophils (%) (Auto) 1 % (0-3) Neutrophils # (Auto) 2.5 x10^3uL (1.8-7.7) Lymphocytes # (Auto) 2.5 x10^3/uL (1.0-4.8) Monocytes # (Auto) 0.6 x10^3/uL (0.0-1.1) Eosinophils # (Auto) 0.3 x10^3/uL (0.0-0.7) Basophils # (Auto) 0.1 x10^3/uL (0.0-0.2) Prothrombin Time 30.1 SEC (11.7-14.0) Prothromb Time International Ratio 2.9 (0.8-1.1) Sodium Level 142 mmol/L (136-145) Potassium Level 3.5 mmol/L (3.5-5.1) Chloride Level 105 mmol/L (98-107) Carbon Dioxide Level 33 mmol/L (21-32) Anion Gap 4 (6-14) Blood Urea Nitrogen 7 mg/dL (7-20) Creatinine 0.8 mg/dL (0.6-1.0) Estimated GFR (Cockcroft-Gault) 67.7 Glucose Level 88 mg/dL (70-99) Calcium Level 8.3 mg/dL (8.5-10.1) Problem List Problems Medical Problems: (1) Epigastric abdominal pain Status: Acute (2) Urinary tract infection Status: Acute Assessment/Plan SBO vs ileus cont clears appreciate GI await bowel fxn consider SBFT if not improved soon STEPHEN JENSEN MD Jan 08, 2019 08:23
[2019-01-08] MEDS ORDERED: DIGOXIN 125 MCG TABLET. PO SCH (09:00)
[2019-01-08] MEDS: PREGABALIN 75 MG CAPSULE PO SCH ×3 (09:00→21:00)
[2019-01-08] MEDS: CALCIUM POLYCARBOPHIL 625 MG TABLET PO SCH ×2 (09:00→20:29)
[2019-01-08] MEDS ORDERED: LEVOTHYROXINE 137 MCG TABLET PO SCH (09:00)
[2019-01-08] MEDS: DIGOXIN 125 MCG TABLET. PO SCH (09:23)
[2019-01-08] MEDS: FERROUS SULFATE 325 MG TABLET. PO SCH (09:23)
[2019-01-08] MEDS: PARoxetine 20 MG TABLET PO SCH (09:24)
[2019-01-08] MEDS: SMZ/TMP 800/160MG TABLET. PO SCH ×2 (09:25→20:29)
[2019-01-08] MEDS: SENNOSIDES 8.6 MG TABLET PO SCH ×2 (09:25→20:29)
[2019-01-08] MEDS: OLANZapine 5 MG TABLET PO SCH (09:27)
[2019-01-08] MEDS: CYANOCOBALAMIN (VITAMIN B-12) 1,000 MCG TABLET. PO SCH (09:27)
[2019-01-08] MEDS: CHOLECALCIFEROL (VITAMIN D3) 1,000 UNIT TABLET PO SCH (09:36)
--- NOTE | 2019-01-08 09:41 | CARD ---
MR#: [id number] Date of Study: 01/08/2019 Ordering Physician: IRMA RAMOS, Referring Physician: IRMA RAMOS Tech: Sailaja Collins [facility] APPROVED REPORT EXAM: Two-dimensional and M-mode echocardiogram with Doppler and color Doppler. Other Information Quality : AverageHR: 66bpm Rhythm : NSR INDICATION Elevated BNP 2D DIMENSIONS RVDd4.0 (2.9-3.5cm)Left Atrium(2D)4.6 (1.6-4.0cm) IVSd1.2 (0.7-1.1cm)Aortic Root(2D)2.6 (2.0-3.7cm) LVDd4.7 (3.9-5.9cm)LVOT Diameter1.9 (1.8-2.4cm) PWd0.9 (0.7-1.1cm)LVDs3.3 (2.5-4.0cm) FS (%) 29.6 %SV57.7 ml LVEF(%)56.6 (>50%) M-Mode DIMENSIONS Left Atrium(MM)5.49 (2.5-4.0cm)Aortic Root3.11 (2.2-3.7cm) Aortic Valve AoV Peak Yahir.136.0cm/sAoV VTI27.1cm AO Peak GR.7.4mmHgLVOT Peak Yahir.112.0cm/s AO Mean GR.4mmHgAVA (VMAX)2.41cm2 CHAMP (VTI)2.44pl7FX P 1/2 [id number] Mitral Valve MV E Mwyzikcn898.6cm/sMV E Peak Gr.7mmHg MV DECEL [id number] A Shjromwn14.6cm/s MV E Mean Gr.2mmHgE/A Ratio5.2 Pulmonary Valve PV Peak Pdiiulpe066.4cm/s Tricuspid Valve TR P. Xdrzsoys577xk/sRAP [id number] TR Peak Gr.67kwFsYWCS77xlZt LEFT VENTRICLE The left ventricle is normal size. Proximal septal thickening is noted. The left ventricular systolic function is normal and the ejection fraction is within normal range. The Ejection Fraction is 55-60% . There is normal LV segmental wall motion. Transmitral Doppler flow pattern is Grade III-reversible restrictive diastolic dysfunction. RIGHT VENTRICLE The right ventricle is severely dilated. There is normal right ventricular wall thickness. The right ventricular systolic function is normal. ATRIA The left atrium is moderately dilated. The right atrium is severely dilated. The interatrial septum i s intact with no evidence for an atrial septal defect or patent foramen ovale as noted on 2-D or Dopp ler imaging. AORTIC VALVE The aortic valve is calcified but opens well. The aortic valve is trileaflet. Doppler and Color Flow revealed mild aortic regurgitation. There is no significant aortic valvular stenosis. There is no aor tic valvular vegetation. MITRAL VALVE The anterior mitral valve leaflet appears myxomatous. There is no evidence of mitral valve prolapse. There is no mitral valve stenosis. Doppler and Color-flow revealed mild mitral regurgitation. TRICUSPID VALVE The tricuspid valve is normal in structure and function. Doppler and Color Flow revealed moderate tri cuspid regurgitation. There is moderate pulmonary hypertension. The PA pressure was estimated at 53 m mHg. There is no tricuspid valve prolapse or vegetation. There is no tricuspid valve stenosis. PULMONIC VALVE The pulmonary valve is normal in structure and function. Doppler and Color Flow revealed trace pulmon ic valvular regurgitation. There is no pulmonic valvular stenosis. GREAT VESSELS The aortic root is normal in size. The ascending aorta is normal in size. There is mild to moderate p ulmonary artery dilatation. PERICARDIAL EFFUSION There is no evidence of significant pericardial effusion. Critical Notification Critical Value: No <Conclusion> The left ventricular systolic function is normal and the ejection fraction is within normal range. Th e Ejection Fraction is 55-60%. There is normal LV segmental wall motion. Transmitral Doppler flow pattern is Grade III-reversible restrictive diastolic dysfunction. The right ventricle is severely dilated. The right ventricular systolic function is normal. Doppler and Color Flow revealed moderate tricuspid regurgitation. There is moderate pulmonary hyperte nsion. The PA pressure was estimated at 53 mmHg. There is mild to moderate pulmonary artery dilatation. Signed by : Andrea Guzman, Electronically Approved : 01/08/2019 09:41:23
[2019-01-08 11:00] VITALS: BP 127/62
--- NOTE | 2019-01-08 11:00 | PDOC ---
Subjective: Subjective: Doing okay she thinks. Tolerating liquids. Passed a little flatus. No stool. I asked about pain - gives a vague answer, points to left abdomen and says "it gathers here sometimes." Objective: Objective: D/w RN earlier - gave okay to have coffee. Reviewed surgery note - recs to keep to clears. Vital Signs: Vital Signs Date Time Temp Pulse Resp B/P (MAP) Pulse Ox O2 Delivery O2 Flow Rate FiO2 01/08/19 09:23 53 123/58 01/08/19 07:00 97.7 16 93 Nasal Cannula 2.0 97.7 Labs: Laboratory Tests Test 01/08/19 04:00 White Blood Count 5.9 x10^3/uL Red Blood Count 4.26 x10^6/uL Hemoglobin 13.5 g/dL Hematocrit 41.1 % Mean Corpuscular Volume 96 fL Mean Corpuscular Hemoglobin 32 pg Mean Corpuscular Hemoglobin Concent 33 g/dL Red Cell Distribution Width 14.2 % Platelet Count 173 x10^3/uL Neutrophils (%) (Auto) 43 % Lymphocytes (%) (Auto) 42 % Monocytes (%) (Auto) 9 % Eosinophils (%) (Auto) 5 % Basophils (%) (Auto) 1 % Neutrophils # (Auto) 2.5 x10^3uL Lymphocytes # (Auto) 2.5 x10^3/uL Monocytes # (Auto) 0.6 x10^3/uL Eosinophils # (Auto) 0.3 x10^3/uL Basophils # (Auto) 0.1 x10^3/uL Prothrombin Time 30.1 SEC Prothromb Time International Ratio 2.9 Sodium Level 142 mmol/L Potassium Level 3.5 mmol/L Chloride Level 105 mmol/L Carbon Dioxide Level 33 mmol/L Anion Gap 4 Blood Urea Nitrogen 7 mg/dL Creatinine 0.8 mg/dL Estimated GFR (Cockcroft-Gault) 67.7 Glucose Level 88 mg/dL Calcium Level 8.3 mg/dL PE: GEN: NAD LUNGS: CTAB HEART: RRR ABD: BS+ - a bit more quiet today, soft, non-tender NEURO/PSYCH: A & O 3 A/P: Abnormal CT - large hiatal hernia containing stomach, possible ileus/PSBO Chronic GI issues -h/o GERD, IBS, PUD, large hiatal hernia w/ [place] lesions, presbyesophagus, diverticulosis, hemorrhoids -on PPI and Carafate, started fiber yesterday H/o anemia -Hgb currently normal, on iron and B12 -- Continue same for now. SHELLI CORDERO Jan 08, 2019 11:00
[2019-01-08] MEDS: SUCRALFATE 1 GM TABLET. PO SCH ×2 (11:30→16:30)
--- NOTE | 2019-01-08 12:45 | PDOC ---
PROGRESS NOTES Chief Complaint Chief Complaint CC: Abdominal pain History of Present Illness History of Present Illness Pt is a 88yo F who presented for abdominal pain. Pt seen and examined this morning. States she is still having some abdominal pain on the left side of her abdomen. Tolerating CLD. Vitals Vitals Vital Signs Date Time Temp Pulse Resp B/P (MAP) Pulse Ox O2 Delivery O2 Flow Rate FiO2 01/08/19 09:23 53 123/58 01/08/19 07:00 97.7 16 93 Nasal Cannula 2.0 97.7 Physical Exam General: Alert, Oriented X3, Cooperative, No acute distress Heart: Regular rate, Normal S1, Normal S2, No murmurs, Other (Bradycardia) Lungs: Clear, Other (No crackles or wheezes) Abdomen: Soft, Other (mild abdominal pain ) Extremities: No clubbing, No cyanosis, Normal pulses Skin: No rashes, No breakdown Labs LABS Laboratory Tests Test 01/08/19 04:00 White Blood Count 5.9 x10^3/uL (4.0-11.0) Red Blood Count 4.26 x10^6/uL (3.50-5.40) Hemoglobin 13.5 g/dL (12.0-15.5) Hematocrit 41.1 % (36.0-47.0) Mean Corpuscular Volume 96 fL (79-100) Mean Corpuscular Hemoglobin 32 pg (25-35) Mean Corpuscular Hemoglobin Concent 33 g/dL (31-37) Red Cell Distribution Width 14.2 % (11.5-14.5) Platelet Count 173 x10^3/uL (140-400) Neutrophils (%) (Auto) 43 % (31-73) Lymphocytes (%) (Auto) 42 % (24-48) Monocytes (%) (Auto) 9 % (0-9) Eosinophils (%) (Auto) 5 % (0-3) Basophils (%) (Auto) 1 % (0-3) Neutrophils # (Auto) 2.5 x10^3uL (1.8-7.7) Lymphocytes # (Auto) 2.5 x10^3/uL (1.0-4.8) Monocytes # (Auto) 0.6 x10^3/uL (0.0-1.1) Eosinophils # (Auto) 0.3 x10^3/uL (0.0-0.7) Basophils # (Auto) 0.1 x10^3/uL (0.0-0.2) Prothrombin Time 30.1 SEC (11.7-14.0) Prothromb Time International Ratio 2.9 (0.8-1.1) Sodium Level 142 mmol/L (136-145) Potassium Level 3.5 mmol/L (3.5-5.1) Chloride Level 105 mmol/L (98-107) Carbon Dioxide Level 33 mmol/L (21-32) Anion Gap 4 (6-14) Blood Urea Nitrogen 7 mg/dL (7-20) Creatinine 0.8 mg/dL (0.6-1.0) Estimated GFR (Cockcroft-Gault) 67.7 Glucose Level 88 mg/dL (70-99) Calcium Level 8.3 mg/dL (8.5-10.1) Review of Systems Review of Systems Denies Fevers/Chills Denies Nausea/Vomiting Denies Chest pain, Shortness of Air Assessment and Plan Assessmemt and Plan Assessment: Large hiatal hernia/pSBO? Presbyesophagus GERD UTI Hypothyroidism Osteopenia A-fib: on Coumadin Hx of TIA Anxiety Depression Hemorrhoids Diverticulosis Cholelithiasis Plan: Passing flatus, awaiting BM, appreciate general surgery input D/c to [facility] when okay w/ surgery Cardizem dose reduced to 120 po Qd, 2/2 bradycardia Tolerating CLD, ADAT Pain management Recheck labs in am PT/OT orders Warfarin for a-fib Problems Medical Problems: (1) Epigastric abdominal pain Status: Acute (2) Urinary tract infection Status: Acute Comment Review of Relevant I have reviewed the following items mignon (where applicable) has been applied. Labs Laboratory Tests Test 01/06/19 17:28 01/06/19 18:00 01/06/19 23:12 01/07/19 03:03 Urine Collection Type Unknown Urine Color Yellow Urine Clarity Clear Urine pH 7.5 Urine Specific [place] 1.010 Urine Protein Negative mg/dL (NEG-TRACE) Urine Glucose (UA) Negative mg/dL (NEG) Urine Ketones (Stick) Negative mg/dL (NEG) Urine Blood Small (NEG) Urine Nitrite Negative (NEG) Urine Bilirubin Negative (NEG) Urine Urobilinogen Dipstick 0.2 mg/dL (0.2 mg/dL) Urine Leukocyte Esterase Large (NEG) Urine RBC 3-5 /HPF (0-2) Urine WBC 11-20 /HPF (0-4) Urine Squamous Epithelial Cells Few /LPF Urine Amorphous Sediment Present /HPF Urine Bacteria Few /HPF (0-FEW) Urine Mucus Slight /LPF White Blood Count 8.4 x10^3/uL (4.0-11.0) 7.2 x10^3/uL (4.0-11.0) Red Blood Count 4.76 x10^6/uL (3.50-5.40) 4.26 x10^6/uL (3.50-5.40) Hemoglobin 15.1 g/dL (12.0-15.5) 13.6 g/dL (12.0-15.5) Hematocrit 45.4 % (36.0-47.0) 40.9 % (36.0-47.0) Mean Corpuscular Volume 95 fL (79-100) 96 fL (79-100) Mean Corpuscular Hemoglobin 32 pg (25-35) 32 pg (25-35) Mean Corpuscular Hemoglobin Concent 33 g/dL (31-37) 33 g/dL (31-37) Red Cell Distribution Width 14.2 % (11.5-14.5) 14.6 % (11.5-14.5) Platelet Count 202 x10^3/uL (140-400) 183 x10^3/uL (140-400) Neutrophils (%) (Auto) 59 % (31-73) 47 % (31-73) Lymphocytes (%) (Auto) 30 % (24-48) 40 % (24-48) Monocytes (%) (Auto) 7 % (0-9) 9 % (0-9) Eosinophils (%) (Auto) 3 % (0-3) 3 % (0-3) Basophils (%) (Auto) 1 % (0-3) 1 % (0-3) Neutrophils # (Auto) 4.9 x10^3uL (1.8-7.7) 3.4 x10^3uL (1.8-7.7) Lymphocytes # (Auto) 2.5 x10^3/uL (1.0-4.8) 2.9 x10^3/uL (1.0-4.8) Monocytes # (Auto) 0.6 x10^3/uL (0.0-1.1) 0.7 x10^3/uL (0.0-1.1) Eosinophils # (Auto) 0.2 x10^3/uL (0.0-0.7) 0.2 x10^3/uL (0.0-0.7) Basophils # (Auto) 0.1 x10^3/uL (0.0-0.2) 0.0 x10^3/uL (0.0-0.2) Prothrombin Time 29.5 SEC (11.7-14.0) Prothromb Time International Ratio 2.8 (0.8-1.1) Activated Partial Thromboplast Time 46 SEC (24-38) Sodium Level 142 mmol/L (136-145) 144 mmol/L (136-145) Potassium Level 3.6 mmol/L (3.5-5.1) 3.5 mmol/L (3.5-5.1) Chloride Level 102 mmol/L (98-107) 107 mmol/L (98-107) Carbon Dioxide Level 32 mmol/L (21-32) 31 mmol/L (21-32) Anion Gap 8 (6-14) 6 (6-14) Blood Urea Nitrogen 11 mg/dL (7-20) 10 mg/dL (7-20) Creatinine 0.9 mg/dL (0.6-1.0) 0.8 mg/dL (0.6-1.0) Estimated GFR (Cockcroft-Gault) 59.1 67.7 BUN/Creatinine Ratio 12 (6-20) 13 (6-20) Glucose Level 99 mg/dL (70-99) 87 mg/dL (70-99) Calcium Level 9.1 mg/dL (8.5-10.1) 8.2 mg/dL (8.5-10.1) Magnesium Level 2.3 mg/dL (1.8-2.4) Total Bilirubin 0.7 mg/dL (0.2-1.0) 0.6 mg/dL (0.2-1.0) Aspartate Amino Transf (AST/SGOT) 17 U/L (15-37) 14 U/L (15-37) Alanine Aminotransferase (ALT/SGPT) 15 U/L (14-59) 11 U/L (14-59) Alkaline Phosphatase 36 U/L (46-116) 28 U/L (46-116) Creatine Kinase 51 U/L (26-192) Creatine Kinase MB (Mass) 0.8 ng/mL (0.0-3.6) Creatine Kinase MB Relative Index % (0-4) Troponin I Quantitative < 0.017 ng/mL (0.000-0.055) UZ-Mui-L-Type Natriuretic Peptide 3978 pg/mL (0-449) Total Protein 6.9 g/dL (6.4-8.2) 5.7 g/dL (6.4-8.2) Albumin 3.9 g/dL (3.4-5.0) 3.1 g/dL (3.4-5.0) Albumin/Globulin Ratio 1.3 (1.0-1.7) 1.2 (1.0-1.7) Nasal Screen MRSA (PCR) Positive (Negative) Test 01/08/19 04:00 White Blood Count 5.9 x10^3/uL (4.0-11.0) Red Blood Count 4.26 x10^6/uL (3.50-5.40) Hemoglobin 13.5 g/dL (12.0-15.5) Hematocrit 41.1 % (36.0-47.0) Mean Corpuscular Volume 96 fL (79-100) Mean Corpuscular Hemoglobin 32 pg (25-35) Mean Corpuscular Hemoglobin Concent 33 g/dL (31-37) Red Cell Distribution Width 14.2 % (11.5-14.5) Platelet Count 173 x10^3/uL (140-400) Neutrophils (%) (Auto) 43 % (31-73) Lymphocytes (%) (Auto) 42 % (24-48) Monocytes (%) (Auto) 9 % (0-9) Eosinophils (%) (Auto) 5 % (0-3) Basophils (%) (Auto) 1 % (0-3) Neutrophils # (Auto) 2.5 x10^3uL (1.8-7.7) Lymphocytes # (Auto) 2.5 x10^3/uL (1.0-4.8) Monocytes # (Auto) 0.6 x10^3/uL (0.0-1.1) Eosinophils # (Auto) 0.3 x10^3/uL (0.0-0.7) Basophils # (Auto) 0.1 x10^3/uL (0.0-0.2) Prothrombin Time 30.1 SEC (11.7-14.0) Prothromb Time International Ratio 2.9 (0.8-1.1) Sodium Level 142 mmol/L (136-145) Potassium Level 3.5 mmol/L (3.5-5.1) Chloride Level 105 mmol/L (98-107) Carbon Dioxide Level 33 mmol/L (21-32) Anion Gap 4 (6-14) Blood Urea Nitrogen 7 mg/dL (7-20) Creatinine 0.8 mg/dL (0.6-1.0) Estimated GFR (Cockcroft-Gault) 67.7 Glucose Level 88 mg/dL (70-99) Calcium Level 8.3 mg/dL (8.5-10.1) Laboratory Tests Test 01/08/19 04:00 White Blood Count 5.9 x10^3/uL (4.0-11.0) Red Blood Count 4.26 x10^6/uL (3.50-5.40) Hemoglobin 13.5 g/dL (12.0-15.5) Hematocrit 41.1 % (36.0-47.0) Mean Corpuscular Volume 96 fL (79-100) Mean Corpuscular Hemoglobin 32 pg (25-35) Mean Corpuscular Hemoglobin Concent 33 g/dL (31-37) Red Cell Distribution Width 14.2 % (11.5-14.5) Platelet Count 173 x10^3/uL (140-400) Neutrophils (%) (Auto) 43 % (31-73) Lymphocytes (%) (Auto) 42 % (24-48) Monocytes (%) (Auto) 9 % (0-9) Eosinophils (%) (Auto) 5 % (0-3) Basophils (%) (Auto) 1 % (0-3) Neutrophils # (Auto) 2.5 x10^3uL (1.8-7.7) Lymphocytes # (Auto) 2.5 x10^3/uL (1.0-4.8) Monocytes # (Auto) 0.6 x10^3/uL (0.0-1.1) Eosinophils # (Auto) 0.3 x10^3/uL (0.0-0.7) Basophils # (Auto) 0.1 x10^3/uL (0.0-0.2) Prothrombin Time 30.1 SEC (11.7-14.0) Prothromb Time International Ratio 2.9 (0.8-1.1) Sodium Level 142 mmol/L (136-145) Potassium Level 3.5 mmol/L (3.5-5.1) Chloride Level 105 mmol/L (98-107) Carbon Dioxide Level 33 mmol/L (21-32) Anion Gap 4 (6-14) Blood Urea Nitrogen 7 mg/dL (7-20) Creatinine 0.8 mg/dL (0.6-1.0) Estimated GFR (Cockcroft-Gault) 67.7 Glucose Level 88 mg/dL (70-99) Calcium Level 8.3 mg/dL (8.5-10.1) Medications Current Medications Famotidine (Pepcid Vial) 20 mg 1X ONCE IVP Last administered on 01/06/19at 18: 46; Start 01/06/19 at 18:00; Stop 01/06/19 at 18:01; Status DC Ondansetron HCl (Zofran) 4 mg 1X ONCE IV Last administered on 01/06/19at 18:46 ; Start 01/06/19 at 18:15; Stop 01/06/19 at 18:16; Status DC Ciprofloxacin/ Dextrose 200 ml @ 200 mls/hr 1X ONCE IV Last administered on at 19:05; Start 01/06/19 at 18:30; Stop 01/06/19 at 19:29; Status DC Sodium Chloride 1,000 ml @ 1,000 mls/hr 1X ONCE IV Last administered on at 18:46; Start 01/06/19 at 18:30; Stop 01/06/19 at 19:29; Status DC Fentanyl Citrate (Fentanyl 2ml Vial) 25 mcg 1X ONCE IV ; Start 01/06/19 at 20: 45; Stop 01/06/19 at 20:52; Status DC Ondansetron HCl (Zofran) 4 mg PRN Q8HRS PRN IV NAUSEA/VOMITING; Start 01/06/19 at 21:00; Stop 01/07/19 at 20:59; Status DC Fentanyl Citrate (Fentanyl 2ml Vial) 25 mcg PRN Q1HR PRN IV PAIN; Start at 21:00; Stop 01/06/19 at 21:44; Status DC Acetaminophen/ Hydrocodone Bitart (Lortab 7.5/325) 1 tab PRN Q6HRS PRN PO PAIN Last administered on 01/07/19 12:47; Start 01/06/19 at 21:45; Stop 01/07/19 at 18:30; Status DC Morphine Sulfate (Morphine Sulfate) 2 mg PRN Q4HRS PRN IV PAIN; Start 01/06/19 at 22:30 Sodium Chloride 1,000 ml @ 50 mls/hr Q20H IV Last administered on 01/06/19 23 :22; Start 01/07/19 at 00:00 Alprazolam (Xanax) 0.5 mg PRN TID PRN PO ANXIETY Last administered on 20:14; Start 01/06/19 at 22:30 Atorvastatin Calcium (Lipitor) 10 mg QHS PO Last administered on 01/07/19 20: 13; Start 01/06/19 at 23:00 Pantoprazole Sodium (Protonix) 40 mg DAILYAC PO Last administered on 01/08/19 05:59; Start 01/07/19 at 11:30 Albuterol Sulfate (Ventolin Neb Soln) 2.5 mg PRN Q4HRS PRN INH SHORTNESS OF BREATH; Start 01/07/19 at 12:45 Bismuth Subsalicylate (Pepto-Bismol) 524 mg PRN Q1HR PRN PO DIARRHEA; Start at 12:45 Vitamin D (Vitamin D3) 2,000 unit DAILY PO Last administered on 01/08/19 09:36 ; Start 01/07/19 at 14:00 Cyanocobalamin (Vitamin B-12) 1,000 mcg DAILY PO Last administered on 09:27; Start 01/07/19 at 14:00 Digoxin (Lanoxin) 125 mcg DAILY PO ; Start 01/08/19 at 09:00; Stop 01/08/19 at 09:00; Status DC Digoxin (Lanoxin) 125 mcg DAILY PO Last administered on 01/08/19 09:23; Start 01/07/19 at 14:00 Ferrous Sulfate (Feosol) 325 mg DAILY08 PO Last administered on 01/08/19 09:23 ; Start 01/07/19 at 14:00 Acetaminophen/ Hydrocodone Bitart (Lortab 7.5/325) 1 tab PRN Q8HRS PRN PO MODERATE PAIN Last administered on 01/07/19 20:13; Start 01/07/19 at 12:45 Levothyroxine Sodium (Synthroid) 75 mcg DAILY06 PO Last administered on 05:59; Start 01/08/19 at 06:00 Levothyroxine Sodium (Synthroid) 137 mcg DAILY PO ; Start 01/08/19 at 09:00; Status UNV Ondansetron HCl (Zofran Odt) 4 mg PRN Q6HRS PRN PO NAUSEA; Start 01/07/19 at 12 :45 Pantoprazole Sodium (Protonix) 40 mg DAILY PO Last administered on 01/07/19 16 :05; Start 01/07/19 at 16:30; Stop 01/07/19 at 18:33; Status DC Pregabalin (Lyrica) 75 mg BID PO Last administered on 01/07/19 20:13; Start at 21:00 Diltiazem HCl (Cardizem 24hr Cd) 360 mg DAILY PO ; Start 01/08/19 at 14:15 Magnesium Hydroxide (Milk Of Magnesia) 2,400 mg PRN DAILY PRN PO CONSTIPATION; Start 01/07/19 at 14:15 Olanzapine (ZyPREXA) 7.5 mg DAILY PO Last administered on 01/08/19 09:27; Start 01/07/19 at 14:15 Paroxetine HCl (Paxil) 20 mg DAILY PO Last administered on 01/08/19 09:24; Start 01/07/19 at 14:15 Sennosides (Senna) 8.6 mg BID PO Last administered on 01/08/19 09:25; Start at 21:00 Sucralfate (Carafate) 1 gm BIDACLD PO Last administered on 4/18/19at 16:05; Start 01/07/19 at 16:30 Non-Formulary Medication (Sucralfate (Carafate)) 1 tab BIDBFRMEAL PO ; Start at 16:30; Status UNV Non-Formulary Medication (Warfarin Sodium ) 1 tab UD PO ; Start 01/07/19 at 12: 41; Status UNV Warfarin Sodium (Coumadin) 3 mg MoTuWeThFrSa PO Last administered on 01/07/19at 16:06; Start 01/07/19 at 16:00 Non-Formulary Medication (Warfarin Sodium ) 3 mg QSA PO ; Start 01/07/19 at 12: 41; Status UNV Warfarin Sodium (Coumadin) 6 mg Suero PO ; Start 01/10/19 at 16:00 Warfarin Sodium (Coumadin Per Physician) 1 each PRN DAILY PRN MC SEE COMMENTS Last administered on 01/07/19at 18:38; Start 01/07/19 at 14:00 Trimethoprim/ Sulfamethoxazole (Bactrim Ds) 1 tab BID PO Last administered on at 09:25; Start 01/07/19 at 21:00 Calcium Polycarbophil (Fibercon) 625 mg BID PO Last administered on 01/07/19at 20:13; Start 01/07/19 at 21:00 Active Scripts Active Acyclovir 800 Mg Tablet 1 Tab PO 5XDAY 7 Days Zofran Odt (Ondansetron) 4 Mg Tab.rapdis 1 Tab SL Q6HRS PRN Cardizem Cd (Diltiazem Hcl) 360 Mg Cap.er.24h 1 Cap PO DAILY Furosemide 40 Mg Tablet 1 Tab PO DAILY Xanax (Alprazolam) 0.5 Mg Tablet 1 Tab PO TID PRN Reported Lyrica (Pregabalin) 75 Mg Capsule 1-2 Cap PO BID Paroxetine Hcl 20 Mg Tablet 1 Tab PO DAILY Levothyroxine Sodium 75 Mcg Tablet 75 Mcg PO DAILYAC Cardizem Cd (Diltiazem Hcl) 180 Mg Cap.er.24h 2 Cap PO DAILY Digoxin 125 Mcg Tablet 125 Mcg PO DAILY Carafate (Sucralfate) 1 Gm Tablet 1 Tab PO BIDACLD Acetaminophen 500 Mg Tablet 1 Tab PO Q4HRS PRN Warfarin Sodium 3 Mg Tablet 3 Mg PO QSA Warfarin Sodium 3 Mg Tablet 3 Mg PO QM-F Warfarin Sodium 6 Mg Tablet 6 Mg PO QSU Ferrous Sulfate 325 Mg Tablet 1 Tab PO DAILY Warfarin Sodium 3 Mg Tablet 1 Tab PO UD Olanzapine 7.5 Mg Tablet 7.5 Mg PO DAILY Proair Hfa Inhaler (Albuterol Sulfate) 8.5 Gm Hfa.aer.ad 2 Puff INH PRN Q4HRS PRN Pepto-Bismol (Bismuth Subsalicylate) 262 Mg/15 Ml Oral.susp 30 Ml PO PRN Q1HR PRN Fleet Enema (Na Phos,M-B/Na Phos,Di-Ba) 133 Ml Enema 1 Each RC PRN DAILY PRN Maalox Advanced Suspension (Mag Hydrox/Aluminum Hyd/Simeth) 355 Ml Oral.susp 30 Ml PO PRN Q1HR PRN Loperamide (Loperamide Hcl) 2 Mg Capsule 4 Mg PO UD PRN Hydrocodone-Apap 7.5-325 (Hydrocodone Bit/Acetaminophen) 1 Each Tablet 1 Tab PO PRN Q8HRS PRN Dulcolax (Bisacodyl) 10 Mg Supp.rect 10 Mg RC PRN DAILY PRN Vitamin D3 (Cholecalciferol (Vitamin D3)) 1,000 Unit Tablet 2 Tab PO DAILY Vitamin B-12 (Cyanocobalamin (Vitamin B-12)) 1,000 Mcg Tablet 1 Tab PO DAILY Carafate (Sucralfate) 1 Gm Tablet 1 Tab PO BIDBFRMEAL Senna (Sennosides) 8.6 Mg Tablet 8.6 Mg PO BID Potassium Chloride 10 Meq Tab.sr.24h 10 Meq PO DAILY Milk Of Magnesia (Magnesium Hydroxide) 2,400 Mg/10 Ml Oral.susp 30 Ml PO PRN DAILY PRN Losartan Potassium 50 Mg Tablet 50 Mg PO DAILY Digoxin 125 Mcg Tablet 1 Tab PO DAILY Acetaminophen 500 Mg Tablet 1 Tab PO Q6HRS Paroxetine Hcl 20 Mg Tablet 1 Tab PO DAILY Synthroid (Levothyroxine Sodium) 137 Mcg Tablet 1 Tab PO DAILY Lipitor (Atorvastatin Calcium) 10 Mg Tablet 1 Tab PO QHS Protonix (Pantoprazole Sodium) 40 Mg Tablet.dr 1 Tab PO DAILY Vitals/I & O Vital Sign - Last 24 Hours 01/07/19 01/07/19 01/07/19 01/07/19 12:47 14:00 14:59 15:00 Temp 97.8 97.8 Pulse 56 56 Resp 16 16 18 B/P (MAP) 113/55 109/57 (74) Pulse Ox 94 O2 Delivery Room Air Room Air Room Air 01/07/19 01/07/19 01/07/19 01/07/19 19:15 19:52 20:13 21:15 Temp 98.2 98.2 Pulse 52 Resp 18 B/P (MAP) 120/58 (78) Pulse Ox 89 O2 Delivery Room Air Room Air Room Air Room Air 01/07/19 01/08/19 01/08/19 01/08/19 23:03 03:08 07:00 09:23 Temp 98.0 98.1 97.7 98.0 98.1 97.7 Pulse 63 48 53 53 Resp 18 18 16 B/P (MAP) 102/46 (64) 105/48 (67) 123/58 (79) 123/58 Pulse Ox 92 93 93 O2 Delivery Nasal Cannula Nasal Cannula Nasal Cannula O2 Flow Rate 2.0 2.0 2.0 Intake and Output 01/07/19 01/07/19 01/08/19 15:00 23:00 07:00 Intake Total 300 ml 320 ml 360 ml Balance 300 ml 320 ml 360 ml Nutrition Consultation Dietary Evaluation: Recommendations by RD: Increase Calorie Intake, Protein supplementation Comments: Recommend advance diet as tolerated Recommend Ensure clear BID for added calories/protein while on CLD Once diet advances, encourage P.O. intake-provide snack on unit when requested Expected Outcomes/Goals: P.O. intake to meet >75% estimated energy needs Malnutrition Findings: Food and Nutrition Intake (Sev: <50% est energy req 5days Body Fat Depletion (Non Severe: Mild Depletion Weight Status: Overweight CASTLE,NIAL K III DO Jan 08, 2019 12:45
--- NOTE | 2019-01-08 14:38 | NUR ---
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 Due to interaction with Bactrim, will give a slightly lower dose today. Target range for this patient is: 2 - 3 P: Warfarin dose: 2.5 mg Today at 1600 Bridge Therapy: None Next INR due 01/09/19 Pharmacy anticoagulation service will continue to follow. LIZBET BLANCO [facility], 01/08/19 [id number]
[2019-01-08 15:00] VITALS: BP 122/60
[2019-01-08] MEDS ORDERED: WARFARIN 2.5 MG TABLET. PO ONE (16:00)
[2019-01-08] MEDS: IV NORMAL SALINE 1000ML BAG 1,000 ML IV SCH (16:00)
[2019-01-08 19:00] VITALS: BP 150/71
[2019-01-08] MEDS: MAGNESIUM HYDROXIDE 2,400 MG/30 ML ORAL.SUSP. PO PRN (20:29)
[2019-01-08] MEDS: ATORVASTATIN CALCIUM 10 MG TABLET. PO SCH (20:29)
[2019-01-08 22:46] VITALS: BP 114/62
[2019-01-09 02:44] VITALS: BP 148/65
[2019-01-09] MEDS: PANTOPRAZOLE 40 MG TABLET.DR. PO SCH (06:08)
[2019-01-09 06:09] LABS: CALCIUM 8.7 mg/dL (8.5-10.1); CREATININE 0.8 mg/dL (0.6-1.0); GFR 67.7; POTASSIUM 3.5 mmol/L (3.5-5.1)
[2019-01-09] MEDS: LEVOTHYROXINE 75 MCG TABLET PO SCH (06:09)
[2019-01-09 06:13] LABS: BASO % 1 % (0-3); EOS # 0.3 x10^3/uL (0.0-0.7); EOS % 5 % (0-3); HEMATOCRIT 43.3 % (36.0-47.0); HEMOGLOBIN 14.8 g/dL (12.0-15.5); LYMPH # 1.7 x10^3/uL (1.0-4.8); LYMPH % 28 % (24-48); MEAN CORPUSCULAR HEMOGLOBIN 33 pg (25-35); MEAN CORPUSCULAR HGB CONC 34 g/dL (31-37); MEAN CORPUSCULAR VOLUME 97 fL (79-100); MONO # 0.5 x10^3/uL (0.0-1.1); MONO % 9 % (0-9); NEUT # 3.5 x10^3uL (1.8-7.7); NEUT % 58 % (31-73); PLATELET COUNT 176 x10^3/uL (140-400); RED BLOOD COUNT 4.48 x10^6/uL (3.50-5.40); RED CELL DISTRIBUTION WIDTH 14.7 % (11.5-14.5); WHITE BLOOD COUNT 5.9 x10^3/uL (4.0-11.0)
[2019-01-09 07:00] VITALS: BP 141/65
--- NOTE | 2019-01-09 08:18 | NUR ---
Pt. c/o numbness to L face, pt appears anxious. NIHSS performed with a score of 3. Dec. sensation to L face and LLE, slight drift to LLE.
--- NOTE | 2019-01-09 08:20 | NUR ---
Dr. Rowley notified of sx and TIA/CVA hx, orders received. Kati, electric repair supervisor also notfied of pt's symptoms. Bedside swallow performed, nko deficit noted in swallow, am medications administered without difficulty. Pt. asking for Xanax.
[2019-01-09] MEDS: SMZ/TMP 800/160MG TABLET. PO SCH ×2 (08:29→20:52)
[2019-01-09] MEDS: PARoxetine 20 MG TABLET PO SCH (08:30)
[2019-01-09] MEDS: FERROUS SULFATE 325 MG TABLET. PO SCH (08:30)
[2019-01-09] MEDS: DIGOXIN 125 MCG TABLET. PO SCH (08:30)
[2019-01-09] MEDS: SENNOSIDES 8.6 MG TABLET PO SCH ×2 (08:30→20:52)
[2019-01-09] MEDS: CYANOCOBALAMIN (VITAMIN B-12) 1,000 MCG TABLET. PO SCH (08:30)
[2019-01-09] MEDS: CALCIUM POLYCARBOPHIL 625 MG TABLET PO SCH ×2 (08:30→20:51)
[2019-01-09] MEDS: OLANZapine 5 MG TABLET PO SCH (08:31)
[2019-01-09] MEDS: CHOLECALCIFEROL (VITAMIN D3) 1,000 UNIT TABLET PO SCH (08:31)
[2019-01-09] MEDS: ALPRAZolam 0.5 MG TABLET PO PRN ×2 (08:31→21:57)
[2019-01-09] MEDS: PREGABALIN 75 MG CAPSULE PO SCH ×2 (08:34→20:52)
--- NOTE | 2019-01-09 08:35 | NUR ---
Pt. refused Lyrica, states she does not take it. Pt. then stated "now my right side feels funny". Asking for the Dr, informed he is not yet at the hospital but that RN has been in contact with him. Pt. refusing to drink CLD at this time.
--- NOTE | 2019-01-09 08:52 | NUR ---
Pt. 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
[2019-01-09 11:00] VITALS: BP 136/67
[2019-01-09] MEDS: SUCRALFATE 1 GM TABLET. PO SCH ×2 (11:44→16:21)
--- NOTE | 2019-01-09 11:51 | PDOC ---
PROGRESS NOTES Subjective Subjective pt sleeping, I did not wake her Objective Objective Vital Signs Date Time Temp Pulse Resp B/P (MAP) Pulse Ox O2 Delivery O2 Flow Rate FiO2 01/09/19 08:30 84 141/65 01/09/19 07:20 Room Air 01/09/19 07:00 97.9 18 94 97.9 01/08/19 19:00 2.0 Intake and Output 01/09/19 06:59 Intake Total 200 ml Balance 200 ml Intake Oral 200 ml # Voids 7 Assessment Assessment Problems Medical Problems: (1) Epigastric abdominal pain Status: Acute (2) Urinary tract infection Status: Acute Plan Plan of Care continue on clears Comment Review of Relevant I have reviewed the following items mignon (where applicable) has been applied. Labs Laboratory Tests Test 01/08/19 04:00 01/09/19 05:00 White Blood Count 5.9 x10^3/uL (4.0-11.0) 5.9 x10^3/uL (4.0-11.0) Red Blood Count 4.26 x10^6/uL (3.50-5.40) 4.48 x10^6/uL (3.50-5.40) Hemoglobin 13.5 g/dL (12.0-15.5) 14.8 g/dL (12.0-15.5) Hematocrit 41.1 % (36.0-47.0) 43.3 % (36.0-47.0) Mean Corpuscular Volume 96 fL (79-100) 97 fL (79-100) Mean Corpuscular Hemoglobin 32 pg (25-35) 33 pg (25-35) Mean Corpuscular Hemoglobin Concent 33 g/dL (31-37) 34 g/dL (31-37) Red Cell Distribution Width 14.2 % (11.5-14.5) 14.7 % (11.5-14.5) Platelet Count 173 x10^3/uL (140-400) 176 x10^3/uL (140-400) Neutrophils (%) (Auto) 43 % (31-73) 58 % (31-73) Lymphocytes (%) (Auto) 42 % (24-48) 28 % (24-48) Monocytes (%) (Auto) 9 % (0-9) 9 % (0-9) Eosinophils (%) (Auto) 5 % (0-3) 5 % (0-3) Basophils (%) (Auto) 1 % (0-3) 1 % (0-3) Neutrophils # (Auto) 2.5 x10^3uL (1.8-7.7) 3.5 x10^3uL (1.8-7.7) Lymphocytes # (Auto) 2.5 x10^3/uL (1.0-4.8) 1.7 x10^3/uL (1.0-4.8) Monocytes # (Auto) 0.6 x10^3/uL (0.0-1.1) 0.5 x10^3/uL (0.0-1.1) Eosinophils # (Auto) 0.3 x10^3/uL (0.0-0.7) 0.3 x10^3/uL (0.0-0.7) Basophils # (Auto) 0.1 x10^3/uL (0.0-0.2) 0.0 x10^3/uL (0.0-0.2) Prothrombin Time 30.1 SEC (11.7-14.0) Prothromb Time International Ratio 2.9 (0.8-1.1) Sodium Level 142 mmol/L (136-145) 145 mmol/L (136-145) Potassium Level 3.5 mmol/L (3.5-5.1) 3.5 mmol/L (3.5-5.1) Chloride Level 105 mmol/L (98-107) 107 mmol/L (98-107) Carbon Dioxide Level 33 mmol/L (21-32) 32 mmol/L (21-32) Anion Gap 4 (6-14) 6 (6-14) Blood Urea Nitrogen 7 mg/dL (7-20) 8 mg/dL (7-20) Creatinine 0.8 mg/dL (0.6-1.0) 0.8 mg/dL (0.6-1.0) Estimated GFR (Cockcroft-Gault) 67.7 67.7 Glucose Level 88 mg/dL (70-99) 84 mg/dL (70-99) Calcium Level 8.3 mg/dL (8.5-10.1) 8.7 mg/dL (8.5-10.1) Laboratory Tests Test 01/09/19 05:00 White Blood Count 5.9 x10^3/uL (4.0-11.0) Red Blood Count 4.48 x10^6/uL (3.50-5.40) Hemoglobin 14.8 g/dL (12.0-15.5) Hematocrit 43.3 % (36.0-47.0) Mean Corpuscular Volume 97 fL (79-100) Mean Corpuscular Hemoglobin 33 pg (25-35) Mean Corpuscular Hemoglobin Concent 34 g/dL (31-37) Red Cell Distribution Width 14.7 % (11.5-14.5) Platelet Count 176 x10^3/uL (140-400) Neutrophils (%) (Auto) 58 % (31-73) Lymphocytes (%) (Auto) 28 % (24-48) Monocytes (%) (Auto) 9 % (0-9) Eosinophils (%) (Auto) 5 % (0-3) Basophils (%) (Auto) 1 % (0-3) Neutrophils # (Auto) 3.5 x10^3uL (1.8-7.7) Lymphocytes # (Auto) 1.7 x10^3/uL (1.0-4.8) Monocytes # (Auto) 0.5 x10^3/uL (0.0-1.1) Eosinophils # (Auto) 0.3 x10^3/uL (0.0-0.7) Basophils # (Auto) 0.0 x10^3/uL (0.0-0.2) Sodium Level 145 mmol/L (136-145) Potassium Level 3.5 mmol/L (3.5-5.1) Chloride Level 107 mmol/L (98-107) Carbon Dioxide Level 32 mmol/L (21-32) Anion Gap 6 (6-14) Blood Urea Nitrogen 8 mg/dL (7-20) Creatinine 0.8 mg/dL (0.6-1.0) Estimated GFR (Cockcroft-Gault) 67.7 Glucose Level 84 mg/dL (70-99) Calcium Level 8.7 mg/dL (8.5-10.1) Microbiology 01/06/19 Urine Culture - Final, Complete 01/06/19 Urine Culture Result 1 (YODIT) - Final, Complete Medications Current Medications Famotidine (Pepcid Vial) 20 mg 1X ONCE IVP Last administered on 01/06/19at 18: 46; Start 01/06/19 at 18:00; Stop 01/06/19 at 18:01; Status DC Ondansetron HCl (Zofran) 4 mg 1X ONCE IV Last administered on 01/06/19at 18:46 ; Start 01/06/19 at 18:15; Stop 01/06/19 at 18:16; Status DC Ciprofloxacin/ Dextrose 200 ml @ 200 mls/hr 1X ONCE IV Last administered on at 19:05; Start 01/06/19 at 18:30; Stop 01/06/19 at 19:29; Status DC Sodium Chloride 1,000 ml @ 1,000 mls/hr 1X ONCE IV Last administered on at 18:46; Start 01/06/19 at 18:30; Stop 01/06/19 at 19:29; Status DC Fentanyl Citrate (Fentanyl 2ml Vial) 25 mcg 1X ONCE IV ; Start 01/06/19 at 20: 45; Stop 01/06/19 at 20:52; Status DC Ondansetron HCl (Zofran) 4 mg PRN Q8HRS PRN IV NAUSEA/VOMITING; Start 01/06/19 at 21:00; Stop 01/07/19 at 20:59; Status DC Fentanyl Citrate (Fentanyl 2ml Vial) 25 mcg PRN Q1HR PRN IV PAIN; Start at 21:00; Stop 01/06/19 at 21:44; Status DC Acetaminophen/ Hydrocodone Bitart (Lortab 7.5/325) 1 tab PRN Q6HRS PRN PO PAIN Last administered on 01/07/19at 12:47; Start 01/06/19 at 21:45; Stop 01/07/19 at 18:30; Status DC Morphine Sulfate (Morphine Sulfate) 2 mg PRN Q4HRS PRN IV PAIN; Start 01/06/19 at 22:30 Sodium Chloride 1,000 ml @ 50 mls/hr Q20H IV Last administered on 01/06/19at 23 :22; Start 01/07/19 at 00:00; Stop 01/08/19 at 18:39; Status DC Alprazolam (Xanax) 0.5 mg PRN TID PRN PO ANXIETY Last administered on 08:31; Start 01/06/19 at 22:30 Atorvastatin Calcium (Lipitor) 10 mg QHS PO Last administered on 01/08/19 20: 29; Start 01/06/19 at 23:00 Pantoprazole Sodium (Protonix) 40 mg DAILYAC PO Last administered on 01/09/19 06:08; Start 01/07/19 at 11:30 Albuterol Sulfate (Ventolin Neb Soln) 2.5 mg PRN Q4HRS PRN INH SHORTNESS OF BREATH; Start 01/07/19 at 12:45 Bismuth Subsalicylate (Pepto-Bismol) 524 mg PRN Q1HR PRN PO DIARRHEA; Start at 12:45 Vitamin D (Vitamin D3) 2,000 unit DAILY PO Last administered on 01/09/19 08:31 ; Start 01/07/19 at 14:00 Cyanocobalamin (Vitamin B-12) 1,000 mcg DAILY PO Last administered on 08:30; Start 01/07/19 at 14:00 Digoxin (Lanoxin) 125 mcg DAILY PO ; Start 01/08/19 at 09:00; Stop 01/08/19 at 09:00; Status DC Digoxin (Lanoxin) 125 mcg DAILY PO Last administered on 01/09/19 08:30; Start 01/07/19 at 14:00 Ferrous Sulfate (Feosol) 325 mg DAILY08 PO Last administered on 01/09/19 08:30 ; Start 01/07/19 at 14:00 Acetaminophen/ Hydrocodone Bitart (Lortab 7.5/325) 1 tab PRN Q8HRS PRN PO MODERATE PAIN Last administered on 01/07/19 20:13; Start 01/07/19 at 12:45 Levothyroxine Sodium (Synthroid) 75 mcg DAILY06 PO Last administered on 06:09; Start 01/08/19 at 06:00 Levothyroxine Sodium (Synthroid) 137 mcg DAILY PO ; Start 01/08/19 at 09:00; Status UNV Ondansetron HCl (Zofran Odt) 4 mg PRN Q6HRS PRN PO NAUSEA; Start 01/07/19 at 12 :45 Pantoprazole Sodium (Protonix) 40 mg DAILY PO Last administered on 01/07/19 16 :05; Start 01/07/19 at 16:30; Stop 01/07/19 at 18:33; Status DC Pregabalin (Lyrica) 75 mg BID PO Last administered on 01/07/19at 20:13; Start at 21:00 Diltiazem HCl (Cardizem 24hr Cd) 360 mg DAILY PO ; Start 01/08/19 at 14:15; Stop 01/08/19 at 14:15; Status DC Magnesium Hydroxide (Milk Of Magnesia) 2,400 mg PRN DAILY PRN PO CONSTIPATION Last administered on 01/08/19 20:29; Start 01/07/19 at 14:15 Olanzapine (ZyPREXA) 7.5 mg DAILY PO Last administered on 01/09/19 08:31; Start 01/07/19 at 14:15 Paroxetine HCl (Paxil) 20 mg DAILY PO Last administered on 01/09/19 08:30; Start 01/07/19 at 14:15 Sennosides (Senna) 8.6 mg BID PO Last administered on 01/09/19 08:30; Start at 21:00 Sucralfate (Carafate) 1 gm BIDACLD PO Last administered on 01/09/19at 11:44; Start 01/07/19 at 16:30 Non-Formulary Medication (Sucralfate (Carafate)) 1 tab BIDBFRMEAL PO ; Start at 16:30; Status UNV Non-Formulary Medication (Warfarin Sodium ) 1 tab UD PO ; Start 01/07/19 at 12: 41; Status UNV Warfarin Sodium (Coumadin) 3 mg MoTuWeThFrSa PO Last administered on 01/07/19at 16:06; Start 01/07/19 at 16:00; Stop 01/08/19 at 14:33; Status DC Non-Formulary Medication (Warfarin Sodium ) 3 mg QSA PO ; Start 01/07/19 at 12: 41; Status UNV Warfarin Sodium (Coumadin) 6 mg Suero PO ; Start 01/10/19 at 16:00; Stop 01/10/19 at 16:00; Status DC Warfarin Sodium (Coumadin Per Physician) 1 each PRN DAILY PRN MC SEE COMMENTS Last administered on 01/07/19 18:38; Start 01/07/19 at 14:00; Stop 01/08/19 at 14:33; Status DC Trimethoprim/ Sulfamethoxazole (Bactrim Ds) 1 tab BID PO Last administered on 08:29; Start 01/07/19 at 21:00 Calcium Polycarbophil (Fibercon) 625 mg BID PO Last administered on 01/09/19 08:30; Start 01/07/19 at 21:00 Diltiazem HCl (Cardizem 24hr Cd) 120 mg DAILY PO Last administered on 08:29; Start 01/08/19 at 13:00 Warfarin Sodium (Coumadin Per Pharmacy) 1 each PRN DAILY PRN MC SEE COMMENTS Last administered on 01/08/19at 14:36; Start 01/08/19 at 14:45 Warfarin Sodium (Coumadin) 2.5 mg 1X WARF ONCE PO Last administered on 18:55; Start 01/08/19 at 16:00; Stop 01/08/19 at 16:01; Status DC Active Scripts Active Acyclovir 800 Mg Tablet 1 Tab PO 5XDAY 7 Days Zofran Odt (Ondansetron) 4 Mg Tab.rapdis 1 Tab SL Q6HRS PRN Cardizem Cd (Diltiazem Hcl) 360 Mg Cap.er.24h 1 Cap PO DAILY Furosemide 40 Mg Tablet 1 Tab PO DAILY Xanax (Alprazolam) 0.5 Mg Tablet 1 Tab PO TID PRN Reported Lyrica (Pregabalin) 75 Mg Capsule 1-2 Cap PO BID Paroxetine Hcl 20 Mg Tablet 1 Tab PO DAILY Levothyroxine Sodium 75 Mcg Tablet 75 Mcg PO DAILYAC Cardizem Cd (Diltiazem Hcl) 180 Mg Cap.er.24h 2 Cap PO DAILY Digoxin 125 Mcg Tablet 125 Mcg PO DAILY Carafate (Sucralfate) 1 Gm Tablet 1 Tab PO BIDACLD Acetaminophen 500 Mg Tablet 1 Tab PO Q4HRS PRN Warfarin Sodium 3 Mg Tablet 3 Mg PO QSA Warfarin Sodium 3 Mg Tablet 3 Mg PO QM-F Warfarin Sodium 6 Mg Tablet 6 Mg PO QSU Ferrous Sulfate 325 Mg Tablet 1 Tab PO DAILY Warfarin Sodium 3 Mg Tablet 1 Tab PO UD Olanzapine 7.5 Mg Tablet 7.5 Mg PO DAILY Proair Hfa Inhaler (Albuterol Sulfate) 8.5 Gm Hfa.aer.ad 2 Puff INH PRN Q4HRS PRN Pepto-Bismol (Bismuth Subsalicylate) 262 Mg/15 Ml Oral.susp 30 Ml PO PRN Q1HR PRN Fleet Enema (Na Phos,M-B/Na Phos,Di-Ba) 133 Ml Enema 1 Each RC PRN DAILY PRN Maalox Advanced Suspension (Mag Hydrox/Aluminum Hyd/Simeth) 355 Ml Oral.susp 30 Ml PO PRN Q1HR PRN Loperamide (Loperamide Hcl) 2 Mg Capsule 4 Mg PO UD PRN Hydrocodone-Apap 7.5-325 (Hydrocodone Bit/Acetaminophen) 1 Each Tablet 1 Tab PO PRN Q8HRS PRN Dulcolax (Bisacodyl) 10 Mg Supp.rect 10 Mg RC PRN DAILY PRN Vitamin D3 (Cholecalciferol (Vitamin D3)) 1,000 Unit Tablet 2 Tab PO DAILY Vitamin B-12 (Cyanocobalamin (Vitamin B-12)) 1,000 Mcg Tablet 1 Tab PO DAILY Carafate (Sucralfate) 1 Gm Tablet 1 Tab PO BIDBFRMEAL Senna (Sennosides) 8.6 Mg Tablet 8.6 Mg PO BID Potassium Chloride 10 Meq Tab.sr.24h 10 Meq PO DAILY Milk Of Magnesia (Magnesium Hydroxide) 2,400 Mg/10 Ml Oral.susp 30 Ml PO PRN DAILY PRN Losartan Potassium 50 Mg Tablet 50 Mg PO DAILY Digoxin 125 Mcg Tablet 1 Tab PO DAILY Acetaminophen 500 Mg Tablet 1 Tab PO Q6HRS Paroxetine Hcl 20 Mg Tablet 1 Tab PO DAILY Synthroid (Levothyroxine Sodium) 137 Mcg Tablet 1 Tab PO DAILY Lipitor (Atorvastatin Calcium) 10 Mg Tablet 1 Tab PO QHS Protonix (Pantoprazole Sodium) 40 Mg Tablet. 1 Tab PO DAILY Vitals/I & O Vital Sign - Last 24 Hours 01/08/19 01/08/19 01/08/19 01/08/19 15:00 19:00 20:00 22:46 Temp 97.9 97.7 98.6 97.9 97.7 98.6 Pulse 60 63 63 Resp 18 14 16 B/P (MAP) 122/60 (80) 150/71 (97) 114/62 (79) Pulse Ox 93 90 90 O2 Delivery Nasal Cannula Nasal Cannula Room Air Room Air O2 Flow Rate 2.0 2.0 01/09/19 01/09/19 01/09/19 01/09/19 02:44 07:00 07:20 08:29 Temp 97.9 97.9 97.9 97.9 Pulse 57 59 84 Resp 16 18 B/P (MAP) 148/65 (92) 141/65 (90) 141/65 Pulse Ox 96 94 O2 Delivery Room Air Room Air Room Air 01/09/19 08:30 Pulse 84 B/P (MAP) 141/65 Intake and Output 01/08/19 01/08/19 01/09/19 14:59 22:59 06:59 Intake Total 200 ml Balance 200 ml Nutrition Consultation Dietary Evaluation: Recommendations by RD: Increase Calorie Intake, Protein supplementation Comments: Recommend advance diet as tolerated Recommend Ensure clear BID for added calories/protein while on CLD Once diet advances, encourage P.O. intake-provide snack on unit when requested Expected Outcomes/Goals: P.O. intake to meet >75% estimated energy needs Malnutrition Findings: Food and Nutrition Intake (Sev: <50% est energy req 5days Body Fat Depletion (Non Severe: Mild Depletion Weight Status: Overweight KRISTEN RAMIREZ MD Jan 09, 2019 11:51
--- NOTE | 2019-01-09 12:22 | NUR ---
Pharmacy Warfarin Dosing Note S:Pharmacy consulted to assist with anticoagulation therapy started with target INR: 2 -3 O:SHANNAN DENNIS is a 88 year old F with Atrial Fibrillation LABS: Last INR: 2.9 Last HGB: 13.5 Last HCT: 41.1 Last PLT: 173 Last dose of 2.5 mg given on 01/08/19 at 1855 Previous Regimen: 3 mg daily except 6 mg on Sundays Vitamin K given: N Drug Interaction Changes: New Interacting Drug Ongoing Drug Interactions: Bactrim (new), Paxil (block captain), Synthroid (block captain) A:INR of 2.9 is within desired range. Target range for this patient is: 2 -3 P: Warfarin dose: 2.5 mg Today at 1600 Bridge Therapy: None Next INR due in am Pharmacy anticoagulation service will continue to follow. OSCAR SWEET [facility], 01/09/19 [id number]
--- NOTE | 2019-01-09 12:56 | PDOC ---
PROGRESS NOTES Chief Complaint Chief Complaint CC: Abdominal pain History of Present Illness History of Present Illness Pt is a 88yo F who presented for abdominal pain. Pt seen and examined this morning. Pt reporting b/l fascial numbness to nursing this morning, denies any other neurologic symptoms Denies passing flatus or having a BM Tolerating CLD. Vitals Vitals Vital Signs Date Time Temp Pulse Resp B/P (MAP) Pulse Ox O2 Delivery O2 Flow Rate FiO2 01/09/19 08:30 84 141/65 01/09/19 07:20 Room Air 01/09/19 07:00 97.9 18 94 97.9 01/08/19 19:00 2.0 Physical Exam General: Alert, Oriented X3, Cooperative, No acute distress, Other (cn 2-12 grossly intact) Heart: Normal S1, Normal S2, No murmurs, Other (Bradycardia) Lungs: Clear, Other (No crackles or wheezes) Abdomen: Soft, Other (mild abdominal tenderness, BS present) Extremities: No clubbing, No cyanosis, Normal pulses, Other (moving all extremities ) Skin: No rashes, No breakdown Labs LABS Laboratory Tests Test 01/09/19 05:00 White Blood Count 5.9 x10^3/uL (4.0-11.0) Red Blood Count 4.48 x10^6/uL (3.50-5.40) Hemoglobin 14.8 g/dL (12.0-15.5) Hematocrit 43.3 % (36.0-47.0) Mean Corpuscular Volume 97 fL (79-100) Mean Corpuscular Hemoglobin 33 pg (25-35) Mean Corpuscular Hemoglobin Concent 34 g/dL (31-37) Red Cell Distribution Width 14.7 % (11.5-14.5) Platelet Count 176 x10^3/uL (140-400) Neutrophils (%) (Auto) 58 % (31-73) Lymphocytes (%) (Auto) 28 % (24-48) Monocytes (%) (Auto) 9 % (0-9) Eosinophils (%) (Auto) 5 % (0-3) Basophils (%) (Auto) 1 % (0-3) Neutrophils # (Auto) 3.5 x10^3uL (1.8-7.7) Lymphocytes # (Auto) 1.7 x10^3/uL (1.0-4.8) Monocytes # (Auto) 0.5 x10^3/uL (0.0-1.1) Eosinophils # (Auto) 0.3 x10^3/uL (0.0-0.7) Basophils # (Auto) 0.0 x10^3/uL (0.0-0.2) Sodium Level 145 mmol/L (136-145) Potassium Level 3.5 mmol/L (3.5-5.1) Chloride Level 107 mmol/L (98-107) Carbon Dioxide Level 32 mmol/L (21-32) Anion Gap 6 (6-14) Blood Urea Nitrogen 8 mg/dL (7-20) Creatinine 0.8 mg/dL (0.6-1.0) Estimated GFR (Cockcroft-Gault) 67.7 Glucose Level 84 mg/dL (70-99) Calcium Level 8.7 mg/dL (8.5-10.1) Review of Systems Review of Systems Denies N/V Denies CP/SOA Denies changes in bowel habits Assessment and Plan Assessmemt and Plan Assessment: Large hiatal hernia/pSBO? Presbyesophagus GERD UTI Hypothyroidism Osteopenia A-fib: on Coumadin Hx of TIA Anxiety Depression Hemorrhoids Diverticulosis Cholelithiasis Plan: Consulted Neurology for b/l fascial numbness Awaiting return of bowel function, possible need for SBFT, appreciate general surgery input Tolerating CLD w ensure BID, encouraged to increased PO intake, ADAT D/c disposition to [facility] when okay w/ surgery Cardizem dose reduced to 120 po Qd, 2/2 bradycardia Pharmacy to dose Warfarin Pain management Recheck labs in am PT/OT orders Problems Medical Problems: (1) Epigastric abdominal pain Status: Acute (2) Urinary tract infection Status: Acute Comment Review of Relevant I have reviewed the following items mignon (where applicable) has been applied. Labs Laboratory Tests Test 01/08/19 04:00 01/09/19 05:00 White Blood Count 5.9 x10^3/uL (4.0-11.0) 5.9 x10^3/uL (4.0-11.0) Red Blood Count 4.26 x10^6/uL (3.50-5.40) 4.48 x10^6/uL (3.50-5.40) Hemoglobin 13.5 g/dL (12.0-15.5) 14.8 g/dL (12.0-15.5) Hematocrit 41.1 % (36.0-47.0) 43.3 % (36.0-47.0) Mean Corpuscular Volume 96 fL (79-100) 97 fL (79-100) Mean Corpuscular Hemoglobin 32 pg (25-35) 33 pg (25-35) Mean Corpuscular Hemoglobin Concent 33 g/dL (31-37) 34 g/dL (31-37) Red Cell Distribution Width 14.2 % (11.5-14.5) 14.7 % (11.5-14.5) Platelet Count 173 x10^3/uL (140-400) 176 x10^3/uL (140-400) Neutrophils (%) (Auto) 43 % (31-73) 58 % (31-73) Lymphocytes (%) (Auto) 42 % (24-48) 28 % (24-48) Monocytes (%) (Auto) 9 % (0-9) 9 % (0-9) Eosinophils (%) (Auto) 5 % (0-3) 5 % (0-3) Basophils (%) (Auto) 1 % (0-3) 1 % (0-3) Neutrophils # (Auto) 2.5 x10^3uL (1.8-7.7) 3.5 x10^3uL (1.8-7.7) Lymphocytes # (Auto) 2.5 x10^3/uL (1.0-4.8) 1.7 x10^3/uL (1.0-4.8) Monocytes # (Auto) 0.6 x10^3/uL (0.0-1.1) 0.5 x10^3/uL (0.0-1.1) Eosinophils # (Auto) 0.3 x10^3/uL (0.0-0.7) 0.3 x10^3/uL (0.0-0.7) Basophils # (Auto) 0.1 x10^3/uL (0.0-0.2) 0.0 x10^3/uL (0.0-0.2) Prothrombin Time 30.1 SEC (11.7-14.0) Prothromb Time International Ratio 2.9 (0.8-1.1) Sodium Level 142 mmol/L (136-145) 145 mmol/L (136-145) Potassium Level 3.5 mmol/L (3.5-5.1) 3.5 mmol/L (3.5-5.1) Chloride Level 105 mmol/L (98-107) 107 mmol/L (98-107) Carbon Dioxide Level 33 mmol/L (21-32) 32 mmol/L (21-32) Anion Gap 4 (6-14) 6 (6-14) Blood Urea Nitrogen 7 mg/dL (7-20) 8 mg/dL (7-20) Creatinine 0.8 mg/dL (0.6-1.0) 0.8 mg/dL (0.6-1.0) Estimated GFR (Cockcroft-Gault) 67.7 67.7 Glucose Level 88 mg/dL (70-99) 84 mg/dL (70-99) Calcium Level 8.3 mg/dL (8.5-10.1) 8.7 mg/dL (8.5-10.1) Laboratory Tests Test 01/09/19 05:00 White Blood Count 5.9 x10^3/uL (4.0-11.0) Red Blood Count 4.48 x10^6/uL (3.50-5.40) Hemoglobin 14.8 g/dL (12.0-15.5) Hematocrit 43.3 % (36.0-47.0) Mean Corpuscular Volume 97 fL (79-100) Mean Corpuscular Hemoglobin 33 pg (25-35) Mean Corpuscular Hemoglobin Concent 34 g/dL (31-37) Red Cell Distribution Width 14.7 % (11.5-14.5) Platelet Count 176 x10^3/uL (140-400) Neutrophils (%) (Auto) 58 % (31-73) Lymphocytes (%) (Auto) 28 % (24-48) Monocytes (%) (Auto) 9 % (0-9) Eosinophils (%) (Auto) 5 % (0-3) Basophils (%) (Auto) 1 % (0-3) Neutrophils # (Auto) 3.5 x10^3uL (1.8-7.7) Lymphocytes # (Auto) 1.7 x10^3/uL (1.0-4.8) Monocytes # (Auto) 0.5 x10^3/uL (0.0-1.1) Eosinophils # (Auto) 0.3 x10^3/uL (0.0-0.7) Basophils # (Auto) 0.0 x10^3/uL (0.0-0.2) Sodium Level 145 mmol/L (136-145) Potassium Level 3.5 mmol/L (3.5-5.1) Chloride Level 107 mmol/L (98-107) Carbon Dioxide Level 32 mmol/L (21-32) Anion Gap 6 (6-14) Blood Urea Nitrogen 8 mg/dL (7-20) Creatinine 0.8 mg/dL (0.6-1.0) Estimated GFR (Cockcroft-Gault) 67.7 Glucose Level 84 mg/dL (70-99) Calcium Level 8.7 mg/dL (8.5-10.1) Microbiology 01/06/19 Urine Culture - Final, Complete 01/06/19 Urine Culture Result 1 (YODIT) - Final, Complete Medications Current Medications Famotidine (Pepcid Vial) 20 mg 1X ONCE IVP Last administered on 01/06/19at 18: 46; Start 01/06/19 at 18:00; Stop 01/06/19 at 18:01; Status DC Ondansetron HCl (Zofran) 4 mg 1X ONCE IV Last administered on 01/06/19at 18:46 ; Start 01/06/19 at 18:15; Stop 01/06/19 at 18:16; Status DC Ciprofloxacin/ Dextrose 200 ml @ 200 mls/hr 1X ONCE IV Last administered on at 19:05; Start 01/06/19 at 18:30; Stop 01/06/19 at 19:29; Status DC Sodium Chloride 1,000 ml @ 1,000 mls/hr 1X ONCE IV Last administered on at 18:46; Start 01/06/19 at 18:30; Stop 01/06/19 at 19:29; Status DC Fentanyl Citrate (Fentanyl 2ml Vial) 25 mcg 1X ONCE IV ; Start 01/06/19 at 20: 45; Stop 01/06/19 at 20:52; Status DC Ondansetron HCl (Zofran) 4 mg PRN Q8HRS PRN IV NAUSEA/VOMITING; Start 01/06/19 at 21:00; Stop 01/07/19 at 20:59; Status DC Fentanyl Citrate (Fentanyl 2ml Vial) 25 mcg PRN Q1HR PRN IV PAIN; Start at 21:00; Stop 01/06/19 at 21:44; Status DC Acetaminophen/ Hydrocodone Bitart (Lortab 7.5/325) 1 tab PRN Q6HRS PRN PO PAIN Last administered on 01/07/19at 12:47; Start 01/06/19 at 21:45; Stop 01/07/19 at 18:30; Status DC Morphine Sulfate (Morphine Sulfate) 2 mg PRN Q4HRS PRN IV PAIN; Start 01/06/19 at 22:30 Sodium Chloride 1,000 ml @ 50 mls/hr Q20H IV Last administered on 01/06/19at 23 :22; Start 01/07/19 at 00:00; Stop 01/08/19 at 18:39; Status DC Alprazolam (Xanax) 0.5 mg PRN TID PRN PO ANXIETY Last administered on 08:31; Start 01/06/19 at 22:30 Atorvastatin Calcium (Lipitor) 10 mg QHS PO Last administered on 01/08/19at 20: 29; Start 01/06/19 at 23:00 Pantoprazole Sodium (Protonix) 40 mg DAILYAC PO Last administered on 01/09/19 06:08; Start 01/07/19 at 11:30 Albuterol Sulfate (Ventolin Neb Soln) 2.5 mg PRN Q4HRS PRN INH SHORTNESS OF BREATH; Start 01/07/19 at 12:45 Bismuth Subsalicylate (Pepto-Bismol) 524 mg PRN Q1HR PRN PO DIARRHEA; Start at 12:45 Vitamin D (Vitamin D3) 2,000 unit DAILY PO Last administered on 01/09/19 08:31 ; Start 01/07/19 at 14:00 Cyanocobalamin (Vitamin B-12) 1,000 mcg DAILY PO Last administered on at 08:30; Start 01/07/19 at 14:00 Digoxin (Lanoxin) 125 mcg DAILY PO ; Start 01/08/19 at 09:00; Stop 01/08/19 at 09:00; Status DC Digoxin (Lanoxin) 125 mcg DAILY PO Last administered on 01/09/19 08:30; Start 01/07/19 at 14:00 Ferrous Sulfate (Feosol) 325 mg DAILY08 PO Last administered on 01/09/19 08:30 ; Start 01/07/19 at 14:00 Acetaminophen/ Hydrocodone Bitart (Lortab 7.5/325) 1 tab PRN Q8HRS PRN PO MODERATE PAIN Last administered on 01/07/19 20:13; Start 01/07/19 at 12:45 Levothyroxine Sodium (Synthroid) 75 mcg DAILY06 PO Last administered on 06:09; Start 01/08/19 at 06:00 Levothyroxine Sodium (Synthroid) 137 mcg DAILY PO ; Start 01/08/19 at 09:00; Status UNV Ondansetron HCl (Zofran Odt) 4 mg PRN Q6HRS PRN PO NAUSEA; Start 01/07/19 at 12 :45 Pantoprazole Sodium (Protonix) 40 mg DAILY PO Last administered on 01/07/19 16 :05; Start 01/07/19 at 16:30; Stop 01/07/19 at 18:33; Status DC Pregabalin (Lyrica) 75 mg BID PO Last administered on 01/07/19at 20:13; Start at 21:00 Diltiazem HCl (Cardizem 24hr Cd) 360 mg DAILY PO ; Start 01/08/19 at 14:15; Stop 01/08/19 at 14:15; Status DC Magnesium Hydroxide (Milk Of Magnesia) 2,400 mg PRN DAILY PRN PO CONSTIPATION Last administered on 01/08/19 20:29; Start 01/07/19 at 14:15 Olanzapine (ZyPREXA) 7.5 mg DAILY PO Last administered on 01/09/19 08:31; Start 01/07/19 at 14:15 Paroxetine HCl (Paxil) 20 mg DAILY PO Last administered on 01/09/19 08:30; Start 01/07/19 at 14:15 Sennosides (Senna) 8.6 mg BID PO Last administered on 01/09/19 08:30; Start at 21:00 Sucralfate (Carafate) 1 gm BIDACLD PO Last administered on 01/09/19 11:44; Start 01/07/19 at 16:30 Non-Formulary Medication (Sucralfate (Carafate)) 1 tab BIDBFRMEAL PO ; Start at 16:30; Status UNV Non-Formulary Medication (Warfarin Sodium ) 1 tab UD PO ; Start 01/07/19 at 12: 41; Status UNV Warfarin Sodium (Coumadin) 3 mg MoTuWeThFrSa PO Last administered on 01/07/19 16:06; Start 01/07/19 at 16:00; Stop 01/08/19 at 14:33; Status DC Non-Formulary Medication (Warfarin Sodium ) 3 mg QSA PO ; Start 01/07/19 at 12: 41; Status UNV Warfarin Sodium (Coumadin) 6 mg Suero PO ; Start 01/10/19 at 16:00; Stop 01/10/19 at 16:00; Status DC Warfarin Sodium (Coumadin Per Physician) 1 each PRN DAILY PRN MC SEE COMMENTS Last administered on 01/07/19 18:38; Start 01/07/19 at 14:00; Stop 01/08/19 at 14:33; Status DC Trimethoprim/ Sulfamethoxazole (Bactrim Ds) 1 tab BID PO Last administered on 08:29; Start 01/07/19 at 21:00 Calcium Polycarbophil (Fibercon) 625 mg BID PO Last administered on 01/09/19 08:30; Start 01/07/19 at 21:00 Diltiazem HCl (Cardizem 24hr Cd) 120 mg DAILY PO Last administered on 08:29; Start 01/08/19 at 13:00 Warfarin Sodium (Coumadin Per Pharmacy) 1 each PRN DAILY PRN MC SEE COMMENTS Last administered on 01/09/19 12:21; Start 01/08/19 at 14:45 Warfarin Sodium (Coumadin) 2.5 mg 1X WARF ONCE PO Last administered on 18:55; Start 01/08/19 at 16:00; Stop 01/08/19 at 16:01; Status DC Warfarin Sodium (Coumadin) 2.5 mg 1X WARF ONCE PO ; Start 01/09/19 at 16:00; Stop 01/09/19 at 16:01 Lactobacillus Rhamnosus (Culturelle) 1 cap BID PO ; Start 01/09/19 at 14:00 Active Scripts Active Acyclovir 800 Mg Tablet 1 Tab PO 5XDAY 7 Days Zofran Odt (Ondansetron) 4 Mg Tab.rapdis 1 Tab SL Q6HRS PRN Cardizem Cd (Diltiazem Hcl) 360 Mg Cap.er.24h 1 Cap PO DAILY Furosemide 40 Mg Tablet 1 Tab PO DAILY Xanax (Alprazolam) 0.5 Mg Tablet 1 Tab PO TID PRN Reported Lyrica (Pregabalin) 75 Mg Capsule 1-2 Cap PO BID Paroxetine Hcl 20 Mg Tablet 1 Tab PO DAILY Levothyroxine Sodium 75 Mcg Tablet 75 Mcg PO DAILYAC Cardizem Cd (Diltiazem Hcl) 180 Mg Cap.er.24h 2 Cap PO DAILY Digoxin 125 Mcg Tablet 125 Mcg PO DAILY Carafate (Sucralfate) 1 Gm Tablet 1 Tab PO BIDACLD Acetaminophen 500 Mg Tablet 1 Tab PO Q4HRS PRN Warfarin Sodium 3 Mg Tablet 3 Mg PO QSA Warfarin Sodium 3 Mg Tablet 3 Mg PO QM-F Warfarin Sodium 6 Mg Tablet 6 Mg PO QSU Ferrous Sulfate 325 Mg Tablet 1 Tab PO DAILY Warfarin Sodium 3 Mg Tablet 1 Tab PO UD Olanzapine 7.5 Mg Tablet 7.5 Mg PO DAILY Proair Hfa Inhaler (Albuterol Sulfate) 8.5 Gm Hfa.aer.ad 2 Puff INH PRN Q4HRS PRN Pepto-Bismol (Bismuth Subsalicylate) 262 Mg/15 Ml Oral.susp 30 Ml PO PRN Q1HR PRN Fleet Enema (Na Phos,M-B/Na Phos,Di-Ba) 133 Ml Enema 1 Each RC PRN DAILY PRN Maalox Advanced Suspension (Mag Hydrox/Aluminum Hyd/Simeth) 355 Ml Oral.susp 30 Ml PO PRN Q1HR PRN Loperamide (Loperamide Hcl) 2 Mg Capsule 4 Mg PO UD PRN Hydrocodone-Apap 7.5-325 (Hydrocodone Bit/Acetaminophen) 1 Each Tablet 1 Tab PO PRN Q8HRS PRN Dulcolax (Bisacodyl) 10 Mg Supp.rect 10 Mg RC PRN DAILY PRN Vitamin D3 (Cholecalciferol (Vitamin D3)) 1,000 Unit Tablet 2 Tab PO DAILY Vitamin B-12 (Cyanocobalamin (Vitamin B-12)) 1,000 Mcg Tablet 1 Tab PO DAILY Carafate (Sucralfate) 1 Gm Tablet 1 Tab PO BIDBFRMEAL Senna (Sennosides) 8.6 Mg Tablet 8.6 Mg PO BID Potassium Chloride 10 Meq Tab.sr.24h 10 Meq PO DAILY Milk Of Magnesia (Magnesium Hydroxide) 2,400 Mg/10 Ml Oral.susp 30 Ml PO PRN DAILY PRN Losartan Potassium 50 Mg Tablet 50 Mg PO DAILY Digoxin 125 Mcg Tablet 1 Tab PO DAILY Acetaminophen 500 Mg Tablet 1 Tab PO Q6HRS Paroxetine Hcl 20 Mg Tablet 1 Tab PO DAILY Synthroid (Levothyroxine Sodium) 137 Mcg Tablet 1 Tab PO DAILY Lipitor (Atorvastatin Calcium) 10 Mg Tablet 1 Tab PO QHS Protonix (Pantoprazole Sodium) 40 Mg Tablet. 1 Tab PO DAILY Vitals/I & O Vital Sign - Last 24 Hours 01/08/19 01/08/19 01/08/19 01/08/19 15:00 19:00 20:00 22:46 Temp 97.9 97.7 98.6 97.9 97.7 98.6 Pulse 60 63 63 Resp 18 14 16 B/P (MAP) 122/60 (80) 150/71 (97) 114/62 (79) Pulse Ox 93 90 90 O2 Delivery Nasal Cannula Nasal Cannula Room Air Room Air O2 Flow Rate 2.0 2.0 01/09/19 01/09/19 01/09/19 01/09/19 02:44 07:00 07:20 08:29 Temp 97.9 97.9 97.9 97.9 Pulse 57 59 84 Resp 16 18 B/P (MAP) 148/65 (92) 141/65 (90) 141/65 Pulse Ox 96 94 O2 Delivery Room Air Room Air Room Air 01/09/19 08:30 Pulse 84 B/P (MAP) 141/65 Intake and Output 01/08/19 01/08/19 01/09/19 14:59 22:59 06:59 Intake Total 200 ml Balance 200 ml Nutrition Consultation Dietary Evaluation: Recommendations by RD: Increase Calorie Intake, Protein supplementation Comments: Recommend advance diet as tolerated Recommend Ensure clear BID for added calories/protein while on CLD Once diet advances, encourage P.O. intake-provide snack on unit when requested Expected Outcomes/Goals: P.O. intake to meet >75% estimated energy needs Malnutrition Findings: Food and Nutrition Intake (Sev: <50% est energy req 5days Body Fat Depletion (Non Severe: Mild Depletion Weight Status: Overweight CATRACHITA SAVAGE III DO Jan 09, 2019 12:56
--- NOTE | 2019-01-09 14:23 | RAD ---
Exam performed: MRI brain without contrast. History: [ Left-sided facial numbness] Date of service: [01/09/2019]. Comparison: [MRI brain without contrast from 04/11/2018] Technique: Routine multiplanar and multipulse sequence imaging of the brain is performed without IV contrast. Findings: There are no areas of restricted diffusion to suggest an area of acute ischemia. Mild prominence of cortical sulci and ventricular system is noted consistent with mild age related atrophy. There are areas of increased signal in both periventricular and subcortical deep white matter suggesting small vessel ischemic changes. Normal bahena-white differentiation is maintained. There is no extra axial fluid collection, parenchymal hemorrhage, mass or acute infarct. Sagittal images demonstrate normal midline structures without evidence of tonsillar ectopia. Visualized orbits, paranasal sinuses and the mastoid air cells are clear. Impression: 1. No acute intracranial process detected. 2. Age-related atrophy and bilateral periventricular small vessel ischemic changes are noted. Electronically signed by: Chanda Cordova MD (01/09/2019 2:21 PM) [facility]
[2019-01-09] MEDS: LACTOBACILLUS RHAMNOSUS GG 1 CAPSULE. PO SCH ×2 (14:25→20:50)
[2019-01-09 15:00] VITALS: BP 137/74
--- NOTE | 2019-01-09 15:41 | PDOC2 ---
NEUROLOGY CONSULT Date of Admission Date of Admission DATE: 01/09/19 TIME: 15:24 Reason for Consult Reason for Consult: IMPRESSION: Left side face and tongue numbness x 2 days. Large hiatal hernia. Cholelithiasis. Ileus? AFib on Coumadin. COPD. UTI. HLD. UTI. Cardiomegaly. Cognitive impairment. No evidence of acute CVA this time. RECOMMENDATIONS/PLAN: She has been on Coumadin. Continue medical and surgical treatment. Discussed with her son at bedside on 01/09/19. HISTORY OF THE PRESENT ILLNESS: This is an 88-y-old female patient with above medical and surgical diseases for admission this time. She complained symptoms of numbness in her left side face and tongue on 01/08 for a while, then recurred on 01/09/19. No motor deficits. Neurology was requested for consultation on 01/09/19. Past Medical History Cardiovascular: AFIB, HTN, Hyperlipidemia Pulmonary: Other CENTRAL NERVOUS SYSTEM: TIA GI: GERD, Gastritis, Other Heme/Onc: No pertinent hx Hepatobiliary: No pertinent hx Psych: Anxiety, Depression Musculoskeletal: Osteoarthritis Rheumatologic: No pertinent hx Infectious disease: No pertinent hx Renal/: UTI Endocrine: No pertinent hx, Hypothyroidism, Osteopenia Past Surgical History No pertinent history Family History Hypertension Social History ALCOHOL: none Drugs: None Lives: Long-Term Domestic Violence: Neg Allergies Coded Allergies: Iodinated Contrast- Oral and IV Dye (Verified Allergy, Intermediate, SWELLING, 04/19/16) Penicillins (Verified Allergy, Intermediate, Rash, 04/19/16) adhesive (Verified Allergy, Intermediate, rash, 04/19/16) iodine (Verified Allergy, Intermediate, Rash, 04/19/16) PT HAS NEVER BEEN PREMEDICATED tramadol (Verified Allergy, Intermediate, 11/09/16) Tolerates hydrocodone I S O L A T I O N *CONTACT* (Verified Allergy, Unknown, 01/12/18) mrsa latex (Verified Adverse Reaction, Intermediate, Rash, 01/09/18) MEDICATIONS: Refer to MAR REVIEW OF SYSTEMS: Constitutional: No malnutrition, weight loss, cachexia. Head: No traumatic brain or head injury. Skin: No edema, or rash. Ear: No infection. Eyes: No vision loss or color blindness. Nose: No bleeding or purulent discharges. Hearing: Hearing decrease. Neck: No injury. Breast: No history of cancer, masses,or discharges. Cardiac: AFib. Pulmonary: COPD. GI: GERD. Urinary/genital: UTI. Endocrinologic: No cousin face, craniofacial dysmorphism, polydactyly. Skeletomuscular: No muscular atrophy, deformity. Neurological: see HP. Psychiatric: Denies drug use/abuse. Otherwise, not [id number] review of systems. PHYSICAL EXAMINATION: General appearance is in subacute distress. HEENT: Normocephalic and nontraumatic. Eyes, nose, ears, and throat are unremarkable. Neck is supple. No lymphadenopathy. No bruits are heard over the carotid artery. No crepitus. Cardiovascular: S1, S2, irregular rate and rhythm. Pulmonary: Clear to auscultation bilaterally. Abdomen: Bowel sounds are positive. Extremities: No rash, lesions, or edema. No restriction of range of motion NEUROLOGICAL EXAMINATION: Awake. Partially oriented to time, but knew place and person. PERRL. EOMI. CN: no focal findings. Muscle tone: within normal. Muscle strength: 5 DTR: 2 Plantar reflex: Flexor response bilaterally Gait: not examined in bed. Sensory exam: no abnormal findings. No cerebellar signs elicited. F-T-N test sine. Current Medications Current Medications Current Medications Famotidine (Pepcid Vial) 20 mg 1X ONCE IVP Last administered on 01/06/19at 18: 46; Start 01/06/19 at 18:00; Stop 01/06/19 at 18:01; Status DC Ondansetron HCl (Zofran) 4 mg 1X ONCE IV Last administered on 01/06/19at 18:46 ; Start 01/06/19 at 18:15; Stop 01/06/19 at 18:16; Status DC Ciprofloxacin/ Dextrose 200 ml @ 200 mls/hr 1X ONCE IV Last administered on at 19:05; Start 01/06/19 at 18:30; Stop 01/06/19 at 19:29; Status DC Sodium Chloride 1,000 ml @ 1,000 mls/hr 1X ONCE IV Last administered on at 18:46; Start 01/06/19 at 18:30; Stop 01/06/19 at 19:29; Status DC Fentanyl Citrate (Fentanyl 2ml Vial) 25 mcg 1X ONCE IV ; Start 01/06/19 at 20: 45; Stop 01/06/19 at 20:52; Status DC Ondansetron HCl (Zofran) 4 mg PRN Q8HRS PRN IV NAUSEA/VOMITING; Start 01/06/19 at 21:00; Stop 01/07/19 at 20:59; Status DC Fentanyl Citrate (Fentanyl 2ml Vial) 25 mcg PRN Q1HR PRN IV PAIN; Start at 21:00; Stop 01/06/19 at 21:44; Status DC Acetaminophen/ Hydrocodone Bitart (Lortab 7.5/325) 1 tab PRN Q6HRS PRN PO PAIN Last administered on 01/07/19at 12:47; Start 01/06/19 at 21:45; Stop 01/07/19 at 18:30; Status DC Morphine Sulfate (Morphine Sulfate) 2 mg PRN Q4HRS PRN IV PAIN; Start 01/06/19 at 22:30 Sodium Chloride 1,000 ml @ 50 mls/hr Q20H IV Last administered on 01/06/19at 23 :22; Start 01/07/19 at 00:00; Stop 01/08/19 at 18:39; Status DC Alprazolam (Xanax) 0.5 mg PRN TID PRN PO ANXIETY Last administered on 08:31; Start 01/06/19 at 22:30 Atorvastatin Calcium (Lipitor) 10 mg QHS PO Last administered on 01/08/19at 20: 29; Start 01/06/19 at 23:00 Pantoprazole Sodium (Protonix) 40 mg DAILYAC PO Last administered on 01/09/19at 06:08; Start 01/07/19 at 11:30 Albuterol Sulfate (Ventolin Neb Soln) 2.5 mg PRN Q4HRS PRN INH SHORTNESS OF BREATH; Start 01/07/19 at 12:45 Bismuth Subsalicylate (Pepto-Bismol) 524 mg PRN Q1HR PRN PO DIARRHEA; Start at 12:45 Vitamin D (Vitamin D3) 2,000 unit DAILY PO Last administered on 01/09/19at 08:31 ; Start 01/07/19 at 14:00 Cyanocobalamin (Vitamin B-12) 1,000 mcg DAILY PO Last administered on at 08:30; Start 01/07/19 at 14:00 Digoxin (Lanoxin) 125 mcg DAILY PO ; Start 01/08/19 at 09:00; Stop 01/08/19 at 09:00; Status DC Digoxin (Lanoxin) 125 mcg DAILY PO Last administered on 01/09/19 08:30; Start 01/07/19 at 14:00 Ferrous Sulfate (Feosol) 325 mg DAILY08 PO Last administered on 01/09/19 08:30 ; Start 01/07/19 at 14:00 Acetaminophen/ Hydrocodone Bitart (Lortab 7.5/325) 1 tab PRN Q8HRS PRN PO MODERATE PAIN Last administered on 01/07/19 20:13; Start 01/07/19 at 12:45 Levothyroxine Sodium (Synthroid) 75 mcg DAILY06 PO Last administered on 06:09; Start 01/08/19 at 06:00 Levothyroxine Sodium (Synthroid) 137 mcg DAILY PO ; Start 01/08/19 at 09:00; Status UNV Ondansetron HCl (Zofran Odt) 4 mg PRN Q6HRS PRN PO NAUSEA; Start 01/07/19 at 12 :45 Pantoprazole Sodium (Protonix) 40 mg DAILY PO Last administered on 01/07/19at 16 :05; Start 01/07/19 at 16:30; Stop 01/07/19 at 18:33; Status DC Pregabalin (Lyrica) 75 mg BID PO Last administered on 01/07/19at 20:13; Start at 21:00 Diltiazem HCl (Cardizem 24hr Cd) 360 mg DAILY PO ; Start 01/08/19 at 14:15; Stop 01/08/19 at 14:15; Status DC Magnesium Hydroxide (Milk Of Magnesia) 2,400 mg PRN DAILY PRN PO CONSTIPATION Last administered on 01/08/19 20:29; Start 01/07/19 at 14:15 Olanzapine (ZyPREXA) 7.5 mg DAILY PO Last administered on 01/09/19 08:31; Start 01/07/19 at 14:15 Paroxetine HCl (Paxil) 20 mg DAILY PO Last administered on 01/09/19 08:30; Start 01/07/19 at 14:15 Sennosides (Senna) 8.6 mg BID PO Last administered on 01/09/19 08:30; Start at 21:00 Sucralfate (Carafate) 1 gm BIDACLD PO Last administered on 01/09/19 11:44; Start 01/07/19 at 16:30 Non-Formulary Medication (Sucralfate (Carafate)) 1 tab BIDBFRMEAL PO ; Start at 16:30; Status UNV Non-Formulary Medication (Warfarin Sodium ) 1 tab UD PO ; Start 01/07/19 at 12: 41; Status UNV Warfarin Sodium (Coumadin) 3 mg [id number] PO Last administered on 01/07/19 16:06; Start 01/07/19 at 16:00; Stop 01/08/19 at 14:33; Status DC Non-Formulary Medication (Warfarin Sodium ) 3 mg QSA PO ; Start 01/07/19 at 12: 41; Status UNV Warfarin Sodium (Coumadin) 6 mg Suero PO ; Start 01/10/19 at 16:00; Stop 01/10/19 at 16:00; Status DC Warfarin Sodium (Coumadin Per Physician) 1 each PRN DAILY PRN MC SEE COMMENTS Last administered on 01/07/19 18:38; Start 01/07/19 at 14:00; Stop 01/08/19 at 14:33; Status DC Trimethoprim/ Sulfamethoxazole (Bactrim Ds) 1 tab BID PO Last administered on 08:29; Start 01/07/19 at 21:00 Calcium Polycarbophil (Fibercon) 625 mg BID PO Last administered on 01/09/19 08:30; Start 01/07/19 at 21:00 Diltiazem HCl (Cardizem 24hr Cd) 120 mg DAILY PO Last administered on 08:29; Start 01/08/19 at 13:00 Warfarin Sodium (Coumadin Per Pharmacy) 1 each PRN DAILY PRN MC SEE COMMENTS Last administered on 01/09/19 12:21; Start 01/08/19 at 14:45 Warfarin Sodium (Coumadin) 2.5 mg 1X WARF ONCE PO Last administered on 18:55; Start 01/08/19 at 16:00; Stop 01/08/19 at 16:01; Status DC Warfarin Sodium (Coumadin) 2.5 mg 1X WARF ONCE PO ; Start 01/09/19 at 16:00; Stop 01/09/19 at 16:01 Lactobacillus Rhamnosus (Culturelle) 1 cap BID PO Last administered on at 14:25; Start 01/09/19 at 14:00 Active Scripts Active Acyclovir 800 Mg Tablet 1 Tab PO 5XDAY 7 Days Zofran Odt (Ondansetron) 4 Mg Tab.rapdis 1 Tab SL Q6HRS PRN Cardizem Cd (Diltiazem Hcl) 360 Mg Cap.er.24h 1 Cap PO DAILY Furosemide 40 Mg Tablet 1 Tab PO DAILY Xanax (Alprazolam) 0.5 Mg Tablet 1 Tab PO TID PRN Reported Lyrica (Pregabalin) 75 Mg Capsule 1-2 Cap PO BID Paroxetine Hcl 20 Mg Tablet 1 Tab PO DAILY Levothyroxine Sodium 75 Mcg Tablet 75 Mcg PO DAILYAC Cardizem Cd (Diltiazem Hcl) 180 Mg Cap.er.24h 2 Cap PO DAILY Digoxin 125 Mcg Tablet 125 Mcg PO DAILY Carafate (Sucralfate) 1 Gm Tablet 1 Tab PO BIDACLD Acetaminophen 500 Mg Tablet 1 Tab PO Q4HRS PRN Warfarin Sodium 3 Mg Tablet 3 Mg PO QSA Warfarin Sodium 3 Mg Tablet 3 Mg PO QM-F Warfarin Sodium 6 Mg Tablet 6 Mg PO QSU Ferrous Sulfate 325 Mg Tablet 1 Tab PO DAILY Warfarin Sodium 3 Mg Tablet 1 Tab PO UD Olanzapine 7.5 Mg Tablet 7.5 Mg PO DAILY Proair Hfa Inhaler (Albuterol Sulfate) 8.5 Gm Hfa.aer.ad 2 Puff INH PRN Q4HRS PRN Pepto-Bismol (Bismuth Subsalicylate) 262 Mg/15 Ml Oral.susp 30 Ml PO PRN Q1HR PRN Fleet Enema (Na Phos,M-B/Na Phos,Di-Ba) 133 Ml Enema 1 Each RC PRN DAILY PRN Maalox Advanced Suspension (Mag Hydrox/Aluminum Hyd/Simeth) 355 Ml Oral.susp 30 Ml PO PRN Q1HR PRN Loperamide (Loperamide Hcl) 2 Mg Capsule 4 Mg PO UD PRN Hydrocodone-Apap 7.5-325 (Hydrocodone Bit/Acetaminophen) 1 Each Tablet 1 Tab PO PRN Q8HRS PRN Dulcolax (Bisacodyl) 10 Mg Supp.rect 10 Mg RC PRN DAILY PRN Vitamin D3 (Cholecalciferol (Vitamin D3)) 1,000 Unit Tablet 2 Tab PO DAILY Vitamin B-12 (Cyanocobalamin (Vitamin B-12)) 1,000 Mcg Tablet 1 Tab PO DAILY Carafate (Sucralfate) 1 Gm Tablet 1 Tab PO BIDBFRMEAL Senna (Sennosides) 8.6 Mg Tablet 8.6 Mg PO BID Potassium Chloride 10 Meq Tab.sr.24h 10 Meq PO DAILY Milk Of Magnesia (Magnesium Hydroxide) 2,400 Mg/10 Ml Oral.susp 30 Ml PO PRN DAILY PRN Losartan Potassium 50 Mg Tablet 50 Mg PO DAILY Digoxin 125 Mcg Tablet 1 Tab PO DAILY Acetaminophen 500 Mg Tablet 1 Tab PO Q6HRS Paroxetine Hcl 20 Mg Tablet 1 Tab PO DAILY Synthroid (Levothyroxine Sodium) 137 Mcg Tablet 1 Tab PO DAILY Lipitor (Atorvastatin Calcium) 10 Mg Tablet 1 Tab PO QHS Protonix (Pantoprazole Sodium) 40 Mg Tablet. 1 Tab PO DAILY Allergies Allergies: Allergies Coded Allergies Type Severity Reaction Last Updated Verified Iodinated Contrast- Oral and IV Dye Allergy Intermediate SWELLING 04/19/16 Yes Penicillins Allergy Intermediate Rash 04/19/16 Yes adhesive Allergy Intermediate rash 04/19/16 Yes iodine Allergy Intermediate Rash 04/19/16 Yes tramadol Allergy Intermediate 11/09/16 Yes I S O L A T I O N *CONTACT* Allergy Unknown 01/12/18 Yes latex Adverse Reaction Intermediate Rash 01/09/18 Yes ROS Review of System The patient denies any associated fevers, chills, headache, ear pain, rhinorrhea , sore throat, stiff neck, productive cough, chest pain, shortness of breath, back or flank pain, abdominal pain, nausea, vomiting, diarrhea, constipation, dysuria, rash, numbness, weakness, tingling, incontinence, difficulty ambulating, or diaphoresis. Physical Exam Physical Exam General: Well developed, well nourished, no acute distress, well appearing HEENT: Pupils equally round and reactive to light, EOMI, no discharge, normal conjunctiva Neck: Supple, no nuchal rigidity, no JVD, trachea midline, no tenderness Cardiac: RRR, no murmurs, no gallops, no rubs Chest/Lungs: CTAB, no wheeze, no rhonchi, no crackles Abdomen: soft, non-distended, no guarding, no peritoneal signs, non-tender Back: No tenderness Extremities: no edema, pulses intact, non-tender,capillary refill <3 sec bilateral upper and lower extremities, Neuro: Alert and oriented x 4, no focal deficits, normal speech Vitals Vitals: Vital Signs Date Time Temp Pulse Resp B/P (MAP) Pulse Ox O2 Delivery O2 Flow Rate FiO2 01/09/19 11:00 98.2 75 16 136/67 (90) 94 Room Air 98.2 01/08/19 19:00 2.0 Labs Labs Laboratory Tests Test 01/08/19 04:00 01/09/19 05:00 White Blood Count 5.9 x10^3/uL (4.0-11.0) 5.9 x10^3/uL (4.0-11.0) Red Blood Count 4.26 x10^6/uL (3.50-5.40) 4.48 x10^6/uL (3.50-5.40) Hemoglobin 13.5 g/dL (12.0-15.5) 14.8 g/dL (12.0-15.5) Hematocrit 41.1 % (36.0-47.0) 43.3 % (36.0-47.0) Mean Corpuscular Volume 96 fL (79-100) 97 fL (79-100) Mean Corpuscular Hemoglobin 32 pg (25-35) 33 pg (25-35) Mean Corpuscular Hemoglobin Concent 33 g/dL (31-37) 34 g/dL (31-37) Red Cell Distribution Width 14.2 % (11.5-14.5) 14.7 % (11.5-14.5) Platelet Count 173 x10^3/uL (140-400) 176 x10^3/uL (140-400) Neutrophils (%) (Auto) 43 % (31-73) 58 % (31-73) Lymphocytes (%) (Auto) 42 % (24-48) 28 % (24-48) Monocytes (%) (Auto) 9 % (0-9) 9 % (0-9) Eosinophils (%) (Auto) 5 % (0-3) 5 % (0-3) Basophils (%) (Auto) 1 % (0-3) 1 % (0-3) Neutrophils # (Auto) 2.5 x10^3uL (1.8-7.7) 3.5 x10^3uL (1.8-7.7) Lymphocytes # (Auto) 2.5 x10^3/uL (1.0-4.8) 1.7 x10^3/uL (1.0-4.8) Monocytes # (Auto) 0.6 x10^3/uL (0.0-1.1) 0.5 x10^3/uL (0.0-1.1) Eosinophils # (Auto) 0.3 x10^3/uL (0.0-0.7) 0.3 x10^3/uL (0.0-0.7) Basophils # (Auto) 0.1 x10^3/uL (0.0-0.2) 0.0 x10^3/uL (0.0-0.2) Prothrombin Time 30.1 SEC (11.7-14.0) Prothromb Time International Ratio 2.9 (0.8-1.1) Sodium Level 142 mmol/L (136-145) 145 mmol/L (136-145) Potassium Level 3.5 mmol/L (3.5-5.1) 3.5 mmol/L (3.5-5.1) Chloride Level 105 mmol/L (98-107) 107 mmol/L (98-107) Carbon Dioxide Level 33 mmol/L (21-32) 32 mmol/L (21-32) Anion Gap 4 (6-14) 6 (6-14) Blood Urea Nitrogen 7 mg/dL (7-20) 8 mg/dL (7-20) Creatinine 0.8 mg/dL (0.6-1.0) 0.8 mg/dL (0.6-1.0) Estimated GFR (Cockcroft-Gault) 67.7 67.7 Glucose Level 88 mg/dL (70-99) 84 mg/dL (70-99) Calcium Level 8.3 mg/dL (8.5-10.1) 8.7 mg/dL (8.5-10.1) Laboratory Tests Test 01/09/19 05:00 White Blood Count 5.9 x10^3/uL (4.0-11.0) Red Blood Count 4.48 x10^6/uL (3.50-5.40) Hemoglobin 14.8 g/dL (12.0-15.5) Hematocrit 43.3 % (36.0-47.0) Mean Corpuscular Volume 97 fL (79-100) Mean Corpuscular Hemoglobin 33 pg (25-35) Mean Corpuscular Hemoglobin Concent 34 g/dL (31-37) Red Cell Distribution Width 14.7 % (11.5-14.5) Platelet Count 176 x10^3/uL (140-400) Neutrophils (%) (Auto) 58 % (31-73) Lymphocytes (%) (Auto) 28 % (24-48) Monocytes (%) (Auto) 9 % (0-9) Eosinophils (%) (Auto) 5 % (0-3) Basophils (%) (Auto) 1 % (0-3) Neutrophils # (Auto) 3.5 x10^3uL (1.8-7.7) Lymphocytes # (Auto) 1.7 x10^3/uL (1.0-4.8) Monocytes # (Auto) 0.5 x10^3/uL (0.0-1.1) Eosinophils # (Auto) 0.3 x10^3/uL (0.0-0.7) Basophils # (Auto) 0.0 x10^3/uL (0.0-0.2) Sodium Level 145 mmol/L (136-145) Potassium Level 3.5 mmol/L (3.5-5.1) Chloride Level 107 mmol/L (98-107) Carbon Dioxide Level 32 mmol/L (21-32) Anion Gap 6 (6-14) Blood Urea Nitrogen 8 mg/dL (7-20) Creatinine 0.8 mg/dL (0.6-1.0) Estimated GFR (Cockcroft-Gault) 67.7 Glucose Level 84 mg/dL (70-99) Calcium Level 8.7 mg/dL (8.5-10.1) RUBI SERNA MD Jan 09, 2019 15:41
[2019-01-09] MEDS ORDERED: WARFARIN 2.5 MG TABLET. PO ONE (16:00)
[2019-01-09] MEDS: MAGNESIUM HYDROXIDE 2,400 MG/30 ML ORAL.SUSP. PO PRN (16:24)
[2019-01-09 19:00] VITALS: BP 147/74
[2019-01-09] MEDS: HYDROcodone/APAP 7.5/325MG 1 TAB TABLET PO PRN (20:52)
[2019-01-09] MEDS: ATORVASTATIN CALCIUM 10 MG TABLET. PO SCH (20:52)
[2019-01-09 23:02] VITALS: BP 118/64
[2019-01-10 03:00] VITALS: BP 106/57
[2019-01-10 05:33] LABS: BASO % 1 % (0-3); EOS # 0.3 x10^3/uL (0.0-0.7); EOS % 5 % (0-3); HEMATOCRIT 39.7 % (36.0-47.0); HEMOGLOBIN 13.8 g/dL (12.0-15.5); LYMPH # 2.3 x10^3/uL (1.0-4.8); LYMPH % 41 % (24-48); MEAN CORPUSCULAR HEMOGLOBIN 33 pg (25-35); MEAN CORPUSCULAR HGB CONC 35 g/dL (31-37); MEAN CORPUSCULAR VOLUME 96 fL (79-100); MONO # 0.5 x10^3/uL (0.0-1.1); MONO % 9 % (0-9); NEUT # 2.6 x10^3uL (1.8-7.7); NEUT % 45 % (31-73); PLATELET COUNT 169 x10^3/uL (140-400); PROTHROMBIN TIME PATIENT 45.7 SEC (11.7-14.0); RED BLOOD COUNT 4.15 x10^6/uL (3.50-5.40); RED CELL DISTRIBUTION WIDTH 14.7 % (11.5-14.5); WHITE BLOOD COUNT 5.8 x10^3/uL (4.0-11.0)
[2019-01-10 05:35] LABS: CALCIUM 8.5 mg/dL (8.5-10.1); GFR 52.3; POTASSIUM 3.4 mmol/L (3.5-5.1)
[2019-01-10] MEDS: LEVOTHYROXINE 75 MCG TABLET PO SCH (05:54)
[2019-01-10 07:01] VITALS: BP 118/61
--- NOTE | 2019-01-10 07:56 | PDOC ---
PROGRESS NOTES Chief Complaint Chief Complaint CC: Abdominal pain History of Present Illness History of Present Illness Pt is a 88yo F who presented for abdominal pain. Pt seen and examined this morning. Pt reporting b/l fascial numbness to nursing this morning, denies any other neurologic symptoms Denies passing flatus or having a BM Tolerating CLD - will advance diet Vitals Vitals Vital Signs Date Time Temp Pulse Resp B/P (MAP) Pulse Ox O2 Delivery O2 Flow Rate FiO2 01/10/19 07:01 97.7 58 18 118/61 (80) 94 Nasal Cannula 2.0 97.7 Physical Exam General: Alert, Oriented X3, Cooperative, No acute distress, Other (cn 2-12 grossly intact) Heart: Normal S1, Normal S2, No murmurs, Other (Bradycardia) Lungs: Clear, Other (No crackles or wheezes) Abdomen: Soft, Other (mild abdominal tenderness, BS present) Extremities: No clubbing, No cyanosis, Normal pulses, Other (moving all extremities ) Skin: No rashes, No breakdown Labs LABS Laboratory Tests Test 01/10/19 04:40 White Blood Count 5.8 x10^3/uL (4.0-11.0) Red Blood Count 4.15 x10^6/uL (3.50-5.40) Hemoglobin 13.8 g/dL (12.0-15.5) Hematocrit 39.7 % (36.0-47.0) Mean Corpuscular Volume 96 fL (79-100) Mean Corpuscular Hemoglobin 33 pg (25-35) Mean Corpuscular Hemoglobin Concent 35 g/dL (31-37) Red Cell Distribution Width 14.7 % (11.5-14.5) Platelet Count 169 x10^3/uL (140-400) Neutrophils (%) (Auto) 45 % (31-73) Lymphocytes (%) (Auto) 41 % (24-48) Monocytes (%) (Auto) 9 % (0-9) Eosinophils (%) (Auto) 5 % (0-3) Basophils (%) (Auto) 1 % (0-3) Neutrophils # (Auto) 2.6 x10^3uL (1.8-7.7) Lymphocytes # (Auto) 2.3 x10^3/uL (1.0-4.8) Monocytes # (Auto) 0.5 x10^3/uL (0.0-1.1) Eosinophils # (Auto) 0.3 x10^3/uL (0.0-0.7) Basophils # (Auto) 0.0 x10^3/uL (0.0-0.2) Prothrombin Time 45.7 SEC (11.7-14.0) Prothromb Time International Ratio 4.9 (0.8-1.1) Sodium Level 143 mmol/L (136-145) Potassium Level 3.4 mmol/L (3.5-5.1) Chloride Level 107 mmol/L (98-107) Carbon Dioxide Level 29 mmol/L (21-32) Anion Gap 7 (6-14) Blood Urea Nitrogen 7 mg/dL (7-20) Creatinine 1.0 mg/dL (0.6-1.0) Estimated GFR (Cockcroft-Gault) 52.3 Glucose Level 84 mg/dL (70-99) Calcium Level 8.5 mg/dL (8.5-10.1) Assessment and Plan Assessmemt and Plan Problems Medical Problems: (1) Epigastric abdominal pain Status: Acute (2) Urinary tract infection Status: Acute Comment Review of Relevant I have reviewed the following items mignon (where applicable) has been applied. Labs Laboratory Tests Test 01/09/19 05:00 01/10/19 04:40 White Blood Count 5.9 x10^3/uL (4.0-11.0) 5.8 x10^3/uL (4.0-11.0) Red Blood Count 4.48 x10^6/uL (3.50-5.40) 4.15 x10^6/uL (3.50-5.40) Hemoglobin 14.8 g/dL (12.0-15.5) 13.8 g/dL (12.0-15.5) Hematocrit 43.3 % (36.0-47.0) 39.7 % (36.0-47.0) Mean Corpuscular Volume 97 fL (79-100) 96 fL (79-100) Mean Corpuscular Hemoglobin 33 pg (25-35) 33 pg (25-35) Mean Corpuscular Hemoglobin Concent 34 g/dL (31-37) 35 g/dL (31-37) Red Cell Distribution Width 14.7 % (11.5-14.5) 14.7 % (11.5-14.5) Platelet Count 176 x10^3/uL (140-400) 169 x10^3/uL (140-400) Neutrophils (%) (Auto) 58 % (31-73) 45 % (31-73) Lymphocytes (%) (Auto) 28 % (24-48) 41 % (24-48) Monocytes (%) (Auto) 9 % (0-9) 9 % (0-9) Eosinophils (%) (Auto) 5 % (0-3) 5 % (0-3) Basophils (%) (Auto) 1 % (0-3) 1 % (0-3) Neutrophils # (Auto) 3.5 x10^3uL (1.8-7.7) 2.6 x10^3uL (1.8-7.7) Lymphocytes # (Auto) 1.7 x10^3/uL (1.0-4.8) 2.3 x10^3/uL (1.0-4.8) Monocytes # (Auto) 0.5 x10^3/uL (0.0-1.1) 0.5 x10^3/uL (0.0-1.1) Eosinophils # (Auto) 0.3 x10^3/uL (0.0-0.7) 0.3 x10^3/uL (0.0-0.7) Basophils # (Auto) 0.0 x10^3/uL (0.0-0.2) 0.0 x10^3/uL (0.0-0.2) Sodium Level 145 mmol/L (136-145) 143 mmol/L (136-145) Potassium Level 3.5 mmol/L (3.5-5.1) 3.4 mmol/L (3.5-5.1) Chloride Level 107 mmol/L (98-107) 107 mmol/L (98-107) Carbon Dioxide Level 32 mmol/L (21-32) 29 mmol/L (21-32) Anion Gap 6 (6-14) 7 (6-14) Blood Urea Nitrogen 8 mg/dL (7-20) 7 mg/dL (7-20) Creatinine 0.8 mg/dL (0.6-1.0) 1.0 mg/dL (0.6-1.0) Estimated GFR (Cockcroft-Gault) 67.7 52.3 Glucose Level 84 mg/dL (70-99) 84 mg/dL (70-99) Calcium Level 8.7 mg/dL (8.5-10.1) 8.5 mg/dL (8.5-10.1) Prothrombin Time 45.7 SEC (11.7-14.0) Prothromb Time International Ratio 4.9 (0.8-1.1) Laboratory Tests Test 01/10/19 04:40 White Blood Count 5.8 x10^3/uL (4.0-11.0) Red Blood Count 4.15 x10^6/uL (3.50-5.40) Hemoglobin 13.8 g/dL (12.0-15.5) Hematocrit 39.7 % (36.0-47.0) Mean Corpuscular Volume 96 fL (79-100) Mean Corpuscular Hemoglobin 33 pg (25-35) Mean Corpuscular Hemoglobin Concent 35 g/dL (31-37) Red Cell Distribution Width 14.7 % (11.5-14.5) Platelet Count 169 x10^3/uL (140-400) Neutrophils (%) (Auto) 45 % (31-73) Lymphocytes (%) (Auto) 41 % (24-48) Monocytes (%) (Auto) 9 % (0-9) Eosinophils (%) (Auto) 5 % (0-3) Basophils (%) (Auto) 1 % (0-3) Neutrophils # (Auto) 2.6 x10^3uL (1.8-7.7) Lymphocytes # (Auto) 2.3 x10^3/uL (1.0-4.8) Monocytes # (Auto) 0.5 x10^3/uL (0.0-1.1) Eosinophils # (Auto) 0.3 x10^3/uL (0.0-0.7) Basophils # (Auto) 0.0 x10^3/uL (0.0-0.2) Prothrombin Time 45.7 SEC (11.7-14.0) Prothromb Time International Ratio 4.9 (0.8-1.1) Sodium Level 143 mmol/L (136-145) Potassium Level 3.4 mmol/L (3.5-5.1) Chloride Level 107 mmol/L (98-107) Carbon Dioxide Level 29 mmol/L (21-32) Anion Gap 7 (6-14) Blood Urea Nitrogen 7 mg/dL (7-20) Creatinine 1.0 mg/dL (0.6-1.0) Estimated GFR (Cockcroft-Gault) 52.3 Glucose Level 84 mg/dL (70-99) Calcium Level 8.5 mg/dL (8.5-10.1) Microbiology 01/06/19 Urine Culture - Final, Complete 01/06/19 Urine Culture Result 1 (YODIT) - Final, Complete Medications Current Medications Famotidine (Pepcid Vial) 20 mg 1X ONCE IVP Last administered on 01/06/19at 18: 46; Start 01/06/19 at 18:00; Stop 01/06/19 at 18:01; Status DC Ondansetron HCl (Zofran) 4 mg 1X ONCE IV Last administered on 01/06/19at 18:46 ; Start 01/06/19 at 18:15; Stop 01/06/19 at 18:16; Status DC Ciprofloxacin/ Dextrose 200 ml @ 200 mls/hr 1X ONCE IV Last administered on at 19:05; Start 01/06/19 at 18:30; Stop 01/06/19 at 19:29; Status DC Sodium Chloride 1,000 ml @ 1,000 mls/hr 1X ONCE IV Last administered on at 18:46; Start 01/06/19 at 18:30; Stop 01/06/19 at 19:29; Status DC Fentanyl Citrate (Fentanyl 2ml Vial) 25 mcg 1X ONCE IV ; Start 01/06/19 at 20: 45; Stop 01/06/19 at 20:52; Status DC Ondansetron HCl (Zofran) 4 mg PRN Q8HRS PRN IV NAUSEA/VOMITING; Start 01/06/19 at 21:00; Stop 01/07/19 at 20:59; Status DC Fentanyl Citrate (Fentanyl 2ml Vial) 25 mcg PRN Q1HR PRN IV PAIN; Start at 21:00; Stop 01/06/19 at 21:44; Status DC Acetaminophen/ Hydrocodone Bitart (Lortab 7.5/325) 1 tab PRN Q6HRS PRN PO PAIN Last administered on 01/07/19 12:47; Start 01/06/19 at 21:45; Stop 01/07/19 at 18:30; Status DC Morphine Sulfate (Morphine Sulfate) 2 mg PRN Q4HRS PRN IV PAIN; Start 01/06/19 at 22:30 Sodium Chloride 1,000 ml @ 50 mls/hr Q20H IV Last administered on 01/06/19 23 :22; Start 01/07/19 at 00:00; Stop 01/08/19 at 18:39; Status DC Alprazolam (Xanax) 0.5 mg PRN TID PRN PO ANXIETY Last administered on 21:57; Start 01/06/19 at 22:30 Atorvastatin Calcium (Lipitor) 10 mg QHS PO Last administered on 01/09/19 20: 52; Start 01/06/19 at 23:00 Pantoprazole Sodium (Protonix) 40 mg DAILYAC PO Last administered on 01/09/19 06:08; Start 01/07/19 at 11:30 Albuterol Sulfate (Ventolin Neb Soln) 2.5 mg PRN Q4HRS PRN INH SHORTNESS OF BREATH; Start 01/07/19 at 12:45 Bismuth Subsalicylate (Pepto-Bismol) 524 mg PRN Q1HR PRN PO DIARRHEA; Start at 12:45 Vitamin D (Vitamin D3) 2,000 unit DAILY PO Last administered on 01/09/19 08:31 ; Start 01/07/19 at 14:00 Cyanocobalamin (Vitamin B-12) 1,000 mcg DAILY PO Last administered on 08:30; Start 01/07/19 at 14:00 Digoxin (Lanoxin) 125 mcg DAILY PO ; Start 01/08/19 at 09:00; Stop 01/08/19 at 09:00; Status DC Digoxin (Lanoxin) 125 mcg DAILY PO Last administered on 01/09/19 08:30; Start 01/07/19 at 14:00 Ferrous Sulfate (Feosol) 325 mg DAILY08 PO Last administered on 01/09/19 08:30 ; Start 01/07/19 at 14:00 Acetaminophen/ Hydrocodone Bitart (Lortab 7.5/325) 1 tab PRN Q8HRS PRN PO MODERATE PAIN Last administered on 01/09/19 20:52; Start 01/07/19 at 12:45 Levothyroxine Sodium (Synthroid) 75 mcg DAILY06 PO Last administered on 05:54; Start 01/08/19 at 06:00 Levothyroxine Sodium (Synthroid) 137 mcg DAILY PO ; Start 01/08/19 at 09:00; Status UNV Ondansetron HCl (Zofran Odt) 4 mg PRN Q6HRS PRN PO NAUSEA; Start 01/07/19 at 12 :45 Pantoprazole Sodium (Protonix) 40 mg DAILY PO Last administered on 01/07/19 16 :05; Start 01/07/19 at 16:30; Stop 01/07/19 at 18:33; Status DC Pregabalin (Lyrica) 75 mg BID PO Last administered on 01/09/19 20:52; Start at 21:00 Diltiazem HCl (Cardizem 24hr Cd) 360 mg DAILY PO ; Start 01/08/19 at 14:15; Stop 01/08/19 at 14:15; Status DC Magnesium Hydroxide (Milk Of Magnesia) 2,400 mg PRN DAILY PRN PO CONSTIPATION Last administered on 01/09/19 16:24; Start 01/07/19 at 14:15 Olanzapine (ZyPREXA) 7.5 mg DAILY PO Last administered on 01/09/19 08:31; Start 01/07/19 at 14:15 Paroxetine HCl (Paxil) 20 mg DAILY PO Last administered on 01/09/19 08:30; Start 01/07/19 at 14:15 Sennosides (Senna) 8.6 mg BID PO Last administered on 01/09/19 20:52; Start at 21:00 Sucralfate (Carafate) 1 gm BIDACLD PO Last administered on 01/09/19 16:21; Start 01/07/19 at 16:30 Non-Formulary Medication (Sucralfate (Carafate)) 1 tab BIDBFRMEAL PO ; Start at 16:30; Status UNV Non-Formulary Medication (Warfarin Sodium ) 1 tab UD PO ; Start 01/07/19 at 12: 41; Status UNV Warfarin Sodium (Coumadin) 3 mg MoTuWeThFrSa PO Last administered on 01/07/19at 16:06; Start 01/07/19 at 16:00; Stop 01/08/19 at 14:33; Status DC Non-Formulary Medication (Warfarin Sodium ) 3 mg QSA PO ; Start 01/07/19 at 12: 41; Status UNV Warfarin Sodium (Coumadin) 6 mg Suero PO ; Start 01/10/19 at 16:00; Stop 01/10/19 at 16:00; Status DC Warfarin Sodium (Coumadin Per Physician) 1 each PRN DAILY PRN MC SEE COMMENTS Last administered on 01/07/19 18:38; Start 01/07/19 at 14:00; Stop 01/08/19 at 14:33; Status DC Trimethoprim/ Sulfamethoxazole (Bactrim Ds) 1 tab BID PO Last administered on 20:52; Start 01/07/19 at 21:00 Calcium Polycarbophil (Fibercon) 625 mg BID PO Last administered on 01/09/19 20:51; Start 01/07/19 at 21:00 Diltiazem HCl (Cardizem 24hr Cd) 120 mg DAILY PO Last administered on 08:29; Start 01/08/19 at 13:00 Warfarin Sodium (Coumadin Per Pharmacy) 1 each PRN DAILY PRN MC SEE COMMENTS Last administered on 01/09/19 12:21; Start 01/08/19 at 14:45 Warfarin Sodium (Coumadin) 2.5 mg 1X WARF ONCE PO Last administered on 18:55; Start 01/08/19 at 16:00; Stop 01/08/19 at 16:01; Status DC Warfarin Sodium (Coumadin) 2.5 mg 1X WARF ONCE PO Last administered on 16:21; Start 01/09/19 at 16:00; Stop 01/09/19 at 16:01; Status DC Lactobacillus Rhamnosus (Culturelle) 1 cap BID PO Last administered on at 20:50; Start 01/09/19 at 14:00 Active Scripts Active Acyclovir 800 Mg Tablet 1 Tab PO 5XDAY 7 Days Zofran Odt (Ondansetron) 4 Mg Tab.rapdis 1 Tab SL Q6HRS PRN Cardizem Cd (Diltiazem Hcl) 360 Mg Cap.er.24h 1 Cap PO DAILY Furosemide 40 Mg Tablet 1 Tab PO DAILY Xanax (Alprazolam) 0.5 Mg Tablet 1 Tab PO TID PRN Reported Lyrica (Pregabalin) 75 Mg Capsule 1-2 Cap PO BID Paroxetine Hcl 20 Mg Tablet 1 Tab PO DAILY Levothyroxine Sodium 75 Mcg Tablet 75 Mcg PO DAILYAC Cardizem Cd (Diltiazem Hcl) 180 Mg Cap.er.24h 2 Cap PO DAILY Digoxin 125 Mcg Tablet 125 Mcg PO DAILY Carafate (Sucralfate) 1 Gm Tablet 1 Tab PO BIDACLD Acetaminophen 500 Mg Tablet 1 Tab PO Q4HRS PRN Warfarin Sodium 3 Mg Tablet 3 Mg PO QSA Warfarin Sodium 3 Mg Tablet 3 Mg PO QM-F Warfarin Sodium 6 Mg Tablet 6 Mg PO QSU Ferrous Sulfate 325 Mg Tablet 1 Tab PO DAILY Warfarin Sodium 3 Mg Tablet 1 Tab PO UD Olanzapine 7.5 Mg Tablet 7.5 Mg PO DAILY Proair Hfa Inhaler (Albuterol Sulfate) 8.5 Gm Hfa.aer.ad 2 Puff INH PRN Q4HRS PRN Pepto-Bismol (Bismuth Subsalicylate) 262 Mg/15 Ml Oral.susp 30 Ml PO PRN Q1HR PRN Fleet Enema (Na Phos,M-B/Na Phos,Di-Ba) 133 Ml Enema 1 Each RC PRN DAILY PRN Maalox Advanced Suspension (Mag Hydrox/Aluminum Hyd/Simeth) 355 Ml Oral.susp 30 Ml PO PRN Q1HR PRN Loperamide (Loperamide Hcl) 2 Mg Capsule 4 Mg PO UD PRN Hydrocodone-Apap 7.5-325 (Hydrocodone Bit/Acetaminophen) 1 Each Tablet 1 Tab PO PRN Q8HRS PRN Dulcolax (Bisacodyl) 10 Mg Supp.rect 10 Mg RC PRN DAILY PRN Vitamin D3 (Cholecalciferol (Vitamin D3)) 1,000 Unit Tablet 2 Tab PO DAILY Vitamin B-12 (Cyanocobalamin (Vitamin B-12)) 1,000 Mcg Tablet 1 Tab PO DAILY Carafate (Sucralfate) 1 Gm Tablet 1 Tab PO BIDBFRMEAL Senna (Sennosides) 8.6 Mg Tablet 8.6 Mg PO BID Potassium Chloride 10 Meq Tab.sr.24h 10 Meq PO DAILY Milk Of Magnesia (Magnesium Hydroxide) 2,400 Mg/10 Ml Oral.susp 30 Ml PO PRN DAILY PRN Losartan Potassium 50 Mg Tablet 50 Mg PO DAILY Digoxin 125 Mcg Tablet 1 Tab PO DAILY Acetaminophen 500 Mg Tablet 1 Tab PO Q6HRS Paroxetine Hcl 20 Mg Tablet 1 Tab PO DAILY Synthroid (Levothyroxine Sodium) 137 Mcg Tablet 1 Tab PO DAILY Lipitor (Atorvastatin Calcium) 10 Mg Tablet 1 Tab PO QHS Protonix (Pantoprazole Sodium) 40 Mg Tablet. 1 Tab PO DAILY Vitals/I & O Vital Sign - Last 24 Hours 01/09/19 01/09/19 01/09/19 01/09/19 08:29 08:30 11:00 15:00 Temp 98.2 98.1 98.2 98.1 Pulse 84 84 75 58 Resp 16 16 B/P (MAP) 141/65 141/65 136/67 (90) 137/74 (95) Pulse Ox 94 93 O2 Delivery Room Air Room Air 01/09/19 01/09/19 01/09/19 01/09/19 19:00 20:05 20:52 21:52 Temp 98.2 98.2 Pulse 73 Resp 18 18 16 B/P (MAP) 147/74 (98) Pulse Ox 94 O2 Delivery Room Air Room Air Room Air Room Air O2 Flow Rate 2.0 01/09/19 01/10/19 01/10/19 23:02 03:00 07:01 Temp 97.8 97.6 97.7 97.8 97.6 97.7 Pulse 59 53 58 Resp 18 18 18 B/P (MAP) 118/64 (82) 106/57 (73) 118/61 (80) Pulse Ox 93 93 94 O2 Delivery Room Air Nasal Cannula Nasal Cannula O2 Flow Rate 2.0 2.0 Nutrition Consultation Dietary Evaluation: Recommendations by RD: Increase Calorie Intake, Protein supplementation Comments: Recommend advance diet as tolerated Recommend Ensure clear BID for added calories/protein while on CLD Once diet advances, encourage P.O. intake-provide snack on unit when requested Expected Outcomes/Goals: P.O. intake to meet >75% estimated energy needs Malnutrition Findings: Food and Nutrition Intake (Sev: <50% est energy req 5days Body Fat Depletion (Non Severe: Mild Depletion Weight Status: Overweight ANGELINA KEY MD Jan 10, 2019 07:56
[2019-01-10] MEDS ORDERED: POTASSIUM CHLORIDE 20 MEQ/15 ML ORAL LIQUID. PO ONE (08:30)
[2019-01-10] MEDS: PANTOPRAZOLE 40 MG TABLET.DR. PO SCH (08:55)
[2019-01-10] MEDS: CALCIUM POLYCARBOPHIL 625 MG TABLET PO SCH ×2 (08:56→20:49)
[2019-01-10] MEDS: OLANZapine 5 MG TABLET PO SCH (08:56)
[2019-01-10] MEDS: FERROUS SULFATE 325 MG TABLET. PO SCH (08:56)
[2019-01-10] MEDS: CYANOCOBALAMIN (VITAMIN B-12) 1,000 MCG TABLET. PO SCH (08:57)
[2019-01-10] MEDS: SMZ/TMP 800/160MG TABLET. PO SCH ×2 (08:57→20:51)
[2019-01-10] MEDS: DIGOXIN 125 MCG TABLET. PO SCH (08:57)
[2019-01-10] MEDS: LACTOBACILLUS RHAMNOSUS GG 1 CAPSULE. PO SCH ×2 (08:57→20:49)
[2019-01-10] MEDS: SENNOSIDES 8.6 MG TABLET PO SCH ×2 (08:58→20:50)
[2019-01-10] MEDS: PARoxetine 20 MG TABLET PO SCH (08:58)
[2019-01-10] MEDS: CHOLECALCIFEROL (VITAMIN D3) 1,000 UNIT TABLET PO SCH (08:58)
[2019-01-10] MEDS: PREGABALIN 75 MG CAPSULE PO SCH ×2 (09:00→20:50)
--- NOTE | 2019-01-10 09:35 | PDOC ---
PROGRESS NOTES Subjective Subjective no pain, rohit clears, no stool, small flatus Objective Objective Vital Signs Date Time Temp Pulse Resp B/P (MAP) Pulse Ox O2 Delivery O2 Flow Rate FiO2 01/10/19 08:58 64 118/61 01/10/19 07:54 Nasal Cannula 2.0 01/10/19 07:01 97.7 18 94 97.7 Intake and Output 01/10/19 07:00 # Voids 4 Physical Exam Abdomen: Soft, No tenderness Heart: Regular rate Extremities: No clubbing General: Alert, Oriented X3 Neuro: Normal speech Psych/Mental Status: Mental status NL Assessment Assessment Problems Medical Problems: (1) Epigastric abdominal pain Status: Acute (2) Urinary tract infection Status: Acute Plan Plan of Care Keep on clears for now, await more robust bowel function Comment Review of Relevant I have reviewed the following items mignon (where applicable) has been applied. Labs Laboratory Tests Test 01/09/19 05:00 01/10/19 04:40 White Blood Count 5.9 x10^3/uL (4.0-11.0) 5.8 x10^3/uL (4.0-11.0) Red Blood Count 4.48 x10^6/uL (3.50-5.40) 4.15 x10^6/uL (3.50-5.40) Hemoglobin 14.8 g/dL (12.0-15.5) 13.8 g/dL (12.0-15.5) Hematocrit 43.3 % (36.0-47.0) 39.7 % (36.0-47.0) Mean Corpuscular Volume 97 fL (79-100) 96 fL (79-100) Mean Corpuscular Hemoglobin 33 pg (25-35) 33 pg (25-35) Mean Corpuscular Hemoglobin Concent 34 g/dL (31-37) 35 g/dL (31-37) Red Cell Distribution Width 14.7 % (11.5-14.5) 14.7 % (11.5-14.5) Platelet Count 176 x10^3/uL (140-400) 169 x10^3/uL (140-400) Neutrophils (%) (Auto) 58 % (31-73) 45 % (31-73) Lymphocytes (%) (Auto) 28 % (24-48) 41 % (24-48) Monocytes (%) (Auto) 9 % (0-9) 9 % (0-9) Eosinophils (%) (Auto) 5 % (0-3) 5 % (0-3) Basophils (%) (Auto) 1 % (0-3) 1 % (0-3) Neutrophils # (Auto) 3.5 x10^3uL (1.8-7.7) 2.6 x10^3uL (1.8-7.7) Lymphocytes # (Auto) 1.7 x10^3/uL (1.0-4.8) 2.3 x10^3/uL (1.0-4.8) Monocytes # (Auto) 0.5 x10^3/uL (0.0-1.1) 0.5 x10^3/uL (0.0-1.1) Eosinophils # (Auto) 0.3 x10^3/uL (0.0-0.7) 0.3 x10^3/uL (0.0-0.7) Basophils # (Auto) 0.0 x10^3/uL (0.0-0.2) 0.0 x10^3/uL (0.0-0.2) Sodium Level 145 mmol/L (136-145) 143 mmol/L (136-145) Potassium Level 3.5 mmol/L (3.5-5.1) 3.4 mmol/L (3.5-5.1) Chloride Level 107 mmol/L (98-107) 107 mmol/L (98-107) Carbon Dioxide Level 32 mmol/L (21-32) 29 mmol/L (21-32) Anion Gap 6 (6-14) 7 (6-14) Blood Urea Nitrogen 8 mg/dL (7-20) 7 mg/dL (7-20) Creatinine 0.8 mg/dL (0.6-1.0) 1.0 mg/dL (0.6-1.0) Estimated GFR (Cockcroft-Gault) 67.7 52.3 Glucose Level 84 mg/dL (70-99) 84 mg/dL (70-99) Calcium Level 8.7 mg/dL (8.5-10.1) 8.5 mg/dL (8.5-10.1) Prothrombin Time 45.7 SEC (11.7-14.0) Prothromb Time International Ratio 4.9 (0.8-1.1) Laboratory Tests Test 01/10/19 04:40 White Blood Count 5.8 x10^3/uL (4.0-11.0) Red Blood Count 4.15 x10^6/uL (3.50-5.40) Hemoglobin 13.8 g/dL (12.0-15.5) Hematocrit 39.7 % (36.0-47.0) Mean Corpuscular Volume 96 fL (79-100) Mean Corpuscular Hemoglobin 33 pg (25-35) Mean Corpuscular Hemoglobin Concent 35 g/dL (31-37) Red Cell Distribution Width 14.7 % (11.5-14.5) Platelet Count 169 x10^3/uL (140-400) Neutrophils (%) (Auto) 45 % (31-73) Lymphocytes (%) (Auto) 41 % (24-48) Monocytes (%) (Auto) 9 % (0-9) Eosinophils (%) (Auto) 5 % (0-3) Basophils (%) (Auto) 1 % (0-3) Neutrophils # (Auto) 2.6 x10^3uL (1.8-7.7) Lymphocytes # (Auto) 2.3 x10^3/uL (1.0-4.8) Monocytes # (Auto) 0.5 x10^3/uL (0.0-1.1) Eosinophils # (Auto) 0.3 x10^3/uL (0.0-0.7) Basophils # (Auto) 0.0 x10^3/uL (0.0-0.2) Prothrombin Time 45.7 SEC (11.7-14.0) Prothromb Time International Ratio 4.9 (0.8-1.1) Sodium Level 143 mmol/L (136-145) Potassium Level 3.4 mmol/L (3.5-5.1) Chloride Level 107 mmol/L (98-107) Carbon Dioxide Level 29 mmol/L (21-32) Anion Gap 7 (6-14) Blood Urea Nitrogen 7 mg/dL (7-20) Creatinine 1.0 mg/dL (0.6-1.0) Estimated GFR (Cockcroft-Gault) 52.3 Glucose Level 84 mg/dL (70-99) Calcium Level 8.5 mg/dL (8.5-10.1) Microbiology 01/06/19 Urine Culture - Final, Complete 01/06/19 Urine Culture Result 1 (YODIT) - Final, Complete Medications Current Medications Famotidine (Pepcid Vial) 20 mg 1X ONCE IVP Last administered on 01/06/19at 18: 46; Start 01/06/19 at 18:00; Stop 01/06/19 at 18:01; Status DC Ondansetron HCl (Zofran) 4 mg 1X ONCE IV Last administered on 01/06/19at 18:46 ; Start 01/06/19 at 18:15; Stop 01/06/19 at 18:16; Status DC Ciprofloxacin/ Dextrose 200 ml @ 200 mls/hr 1X ONCE IV Last administered on at 19:05; Start 01/06/19 at 18:30; Stop 01/06/19 at 19:29; Status DC Sodium Chloride 1,000 ml @ 1,000 mls/hr 1X ONCE IV Last administered on at 18:46; Start 01/06/19 at 18:30; Stop 01/06/19 at 19:29; Status DC Fentanyl Citrate (Fentanyl 2ml Vial) 25 mcg 1X ONCE IV ; Start 01/06/19 at 20: 45; Stop 01/06/19 at 20:52; Status DC Ondansetron HCl (Zofran) 4 mg PRN Q8HRS PRN IV NAUSEA/VOMITING; Start 01/06/19 at 21:00; Stop 01/07/19 at 20:59; Status DC Fentanyl Citrate (Fentanyl 2ml Vial) 25 mcg PRN Q1HR PRN IV PAIN; Start at 21:00; Stop 01/06/19 at 21:44; Status DC Acetaminophen/ Hydrocodone Bitart (Lortab 7.5/325) 1 tab PRN Q6HRS PRN PO PAIN Last administered on 01/07/19at 12:47; Start 01/06/19 at 21:45; Stop 01/07/19 at 18:30; Status DC Morphine Sulfate (Morphine Sulfate) 2 mg PRN Q4HRS PRN IV PAIN; Start 01/06/19 at 22:30 Sodium Chloride 1,000 ml @ 50 mls/hr Q20H IV Last administered on 01/06/19 23 :22; Start 01/07/19 at 00:00; Stop 01/08/19 at 18:39; Status DC Alprazolam (Xanax) 0.5 mg PRN TID PRN PO ANXIETY Last administered on 21:57; Start 01/06/19 at 22:30 Atorvastatin Calcium (Lipitor) 10 mg QHS PO Last administered on 01/09/19 20: 52; Start 01/06/19 at 23:00 Pantoprazole Sodium (Protonix) 40 mg DAILYAC PO Last administered on 01/10/19 08:55; Start 01/07/19 at 11:30 Albuterol Sulfate (Ventolin Neb Soln) 2.5 mg PRN Q4HRS PRN INH SHORTNESS OF BREATH; Start 01/07/19 at 12:45 Bismuth Subsalicylate (Pepto-Bismol) 524 mg PRN Q1HR PRN PO DIARRHEA; Start at 12:45 Vitamin D (Vitamin D3) 2,000 unit DAILY PO Last administered on 01/10/19 08:58 ; Start 01/07/19 at 14:00 Cyanocobalamin (Vitamin B-12) 1,000 mcg DAILY PO Last administered on 08:57; Start 01/07/19 at 14:00 Digoxin (Lanoxin) 125 mcg DAILY PO ; Start 01/08/19 at 09:00; Stop 01/08/19 at 09:00; Status DC Digoxin (Lanoxin) 125 mcg DAILY PO Last administered on 01/10/19 08:57; Start 01/07/19 at 14:00 Ferrous Sulfate (Feosol) 325 mg DAILY08 PO Last administered on 01/10/19 08:56 ; Start 01/07/19 at 14:00 Acetaminophen/ Hydrocodone Bitart (Lortab 7.5/325) 1 tab PRN Q8HRS PRN PO MODERATE PAIN Last administered on 01/09/19 20:52; Start 01/07/19 at 12:45 Levothyroxine Sodium (Synthroid) 75 mcg DAILY06 PO Last administered on 05:54; Start 01/08/19 at 06:00 Levothyroxine Sodium (Synthroid) 137 mcg DAILY PO ; Start 01/08/19 at 09:00; Status UNV Ondansetron HCl (Zofran Odt) 4 mg PRN Q6HRS PRN PO NAUSEA; Start 01/07/19 at 12 :45 Pantoprazole Sodium (Protonix) 40 mg DAILY PO Last administered on 01/07/19 16 :05; Start 01/07/19 at 16:30; Stop 01/07/19 at 18:33; Status DC Pregabalin (Lyrica) 75 mg BID PO Last administered on 01/09/19 20:52; Start at 21:00 Diltiazem HCl (Cardizem 24hr Cd) 360 mg DAILY PO ; Start 01/08/19 at 14:15; Stop 01/08/19 at 14:15; Status DC Magnesium Hydroxide (Milk Of Magnesia) 2,400 mg PRN DAILY PRN PO CONSTIPATION Last administered on 01/09/19 16:24; Start 01/07/19 at 14:15 Olanzapine (ZyPREXA) 7.5 mg DAILY PO Last administered on 01/10/19 08:56; Start 01/07/19 at 14:15 Paroxetine HCl (Paxil) 20 mg DAILY PO Last administered on 01/10/19 08:58; Start 01/07/19 at 14:15 Sennosides (Senna) 8.6 mg BID PO Last administered on 01/10/19 08:58; Start at 21:00 Sucralfate (Carafate) 1 gm BIDACLD PO Last administered on 01/09/19 16:21; Start 01/07/19 at 16:30 Non-Formulary Medication (Sucralfate (Carafate)) 1 tab BIDBFRMEAL PO ; Start at 16:30; Status UNV Non-Formulary Medication (Warfarin Sodium ) 1 tab UD PO ; Start 01/07/19 at 12: 41; Status UNV Warfarin Sodium (Coumadin) 3 mg MoTuWeThFrSa PO Last administered on 01/07/19 16:06; Start 01/07/19 at 16:00; Stop 01/08/19 at 14:33; Status DC Non-Formulary Medication (Warfarin Sodium ) 3 mg QSA PO ; Start 01/07/19 at 12: 41; Status UNV Warfarin Sodium (Coumadin) 6 mg Suero PO ; Start 01/10/19 at 16:00; Stop 01/10/19 at 16:00; Status DC Warfarin Sodium (Coumadin Per Physician) 1 each PRN DAILY PRN MC SEE COMMENTS Last administered on 01/07/19at 18:38; Start 01/07/19 at 14:00; Stop 01/08/19 at 14:33; Status DC Trimethoprim/ Sulfamethoxazole (Bactrim Ds) 1 tab BID PO Last administered on 08:57; Start 01/07/19 at 21:00 Calcium Polycarbophil (Fibercon) 625 mg BID PO Last administered on 01/10/19 08:56; Start 01/07/19 at 21:00 Diltiazem HCl (Cardizem 24hr Cd) 120 mg DAILY PO Last administered on 08:58; Start 01/08/19 at 13:00 Warfarin Sodium (Coumadin Per Pharmacy) 1 each PRN DAILY PRN MC SEE COMMENTS Last administered on 01/09/19at 12:21; Start 01/08/19 at 14:45 Warfarin Sodium (Coumadin) 2.5 mg 1X WARF ONCE PO Last administered on 18:55; Start 01/08/19 at 16:00; Stop 01/08/19 at 16:01; Status DC Warfarin Sodium (Coumadin) 2.5 mg 1X WARF ONCE PO Last administered on at 16:21; Start 01/09/19 at 16:00; Stop 01/09/19 at 16:01; Status DC Lactobacillus Rhamnosus (Culturelle) 1 cap BID PO Last administered on 08:57; Start 01/09/19 at 14:00 Potassium Chloride (KCl Oral Soln) 40 meq 1X ONCE PO Last administered on 01/10 08:55; Start 01/10/19 at 08:30; Stop 01/10/19 at 08:31; Status DC Active Scripts Active Acyclovir 800 Mg Tablet 1 Tab PO 5XDAY 7 Days Zofran Odt (Ondansetron) 4 Mg Tab.rapdis 1 Tab SL Q6HRS PRN Cardizem Cd (Diltiazem Hcl) 360 Mg Cap.er.24h 1 Cap PO DAILY Furosemide 40 Mg Tablet 1 Tab PO DAILY Xanax (Alprazolam) 0.5 Mg Tablet 1 Tab PO TID PRN Reported Lyrica (Pregabalin) 75 Mg Capsule 1-2 Cap PO BID Paroxetine Hcl 20 Mg Tablet 1 Tab PO DAILY Levothyroxine Sodium 75 Mcg Tablet 75 Mcg PO DAILYAC Cardizem Cd (Diltiazem Hcl) 180 Mg Cap.er.24h 2 Cap PO DAILY Digoxin 125 Mcg Tablet 125 Mcg PO DAILY Carafate (Sucralfate) 1 Gm Tablet 1 Tab PO BIDACLD Acetaminophen 500 Mg Tablet 1 Tab PO Q4HRS PRN Warfarin Sodium 3 Mg Tablet 3 Mg PO QSA Warfarin Sodium 3 Mg Tablet 3 Mg PO QM-F Warfarin Sodium 6 Mg Tablet 6 Mg PO QSU Ferrous Sulfate 325 Mg Tablet 1 Tab PO DAILY Warfarin Sodium 3 Mg Tablet 1 Tab PO UD Olanzapine 7.5 Mg Tablet 7.5 Mg PO DAILY Proair Hfa Inhaler (Albuterol Sulfate) 8.5 Gm Hfa.aer.ad 2 Puff INH PRN Q4HRS PRN Pepto-Bismol (Bismuth Subsalicylate) 262 Mg/15 Ml Oral.susp 30 Ml PO PRN Q1HR PRN Fleet Enema (Na Phos,M-B/Na Phos,Di-Ba) 133 Ml Enema 1 Each RC PRN DAILY PRN Maalox Advanced Suspension (Mag Hydrox/Aluminum Hyd/Simeth) 355 Ml Oral.susp 30 Ml PO PRN Q1HR PRN Loperamide (Loperamide Hcl) 2 Mg Capsule 4 Mg PO UD PRN Hydrocodone-Apap 7.5-325 (Hydrocodone Bit/Acetaminophen) 1 Each Tablet 1 Tab PO PRN Q8HRS PRN Dulcolax (Bisacodyl) 10 Mg Supp.rect 10 Mg RC PRN DAILY PRN Vitamin D3 (Cholecalciferol (Vitamin D3)) 1,000 Unit Tablet 2 Tab PO DAILY Vitamin B-12 (Cyanocobalamin (Vitamin B-12)) 1,000 Mcg Tablet 1 Tab PO DAILY Carafate (Sucralfate) 1 Gm Tablet 1 Tab PO BIDBFRMEAL Senna (Sennosides) 8.6 Mg Tablet 8.6 Mg PO BID Potassium Chloride 10 Meq Tab.sr.24h 10 Meq PO DAILY Milk Of Magnesia (Magnesium Hydroxide) 2,400 Mg/10 Ml Oral.susp 30 Ml PO PRN DAILY PRN Losartan Potassium 50 Mg Tablet 50 Mg PO DAILY Digoxin 125 Mcg Tablet 1 Tab PO DAILY Acetaminophen 500 Mg Tablet 1 Tab PO Q6HRS Paroxetine Hcl 20 Mg Tablet 1 Tab PO DAILY Synthroid (Levothyroxine Sodium) 137 Mcg Tablet 1 Tab PO DAILY Lipitor (Atorvastatin Calcium) 10 Mg Tablet 1 Tab PO QHS Protonix (Pantoprazole Sodium) 40 Mg Tablet. 1 Tab PO DAILY Vitals/I & O Vital Sign - Last 24 Hours 01/09/19 01/09/19 01/09/19 01/09/19 11:00 15:00 19:00 20:05 Temp 98.2 98.1 98.2 98.2 98.1 98.2 Pulse 75 58 73 Resp 16 16 18 B/P (MAP) 136/67 (90) 137/74 (95) 147/74 (98) Pulse Ox 94 93 94 O2 Delivery Room Air Room Air Room Air Room Air O2 Flow Rate 2.0 01/09/19 01/09/19 01/09/19 01/10/19 20:52 21:52 23:02 03:00 Temp 97.8 97.6 97.8 97.6 Pulse 59 53 Resp 18 16 18 18 B/P (MAP) 118/64 (82) 106/57 (73) Pulse Ox 93 93 O2 Delivery Room Air Room Air Room Air Nasal Cannula O2 Flow Rate 2.0 01/10/19 01/10/19 01/10/19 01/10/19 07:01 07:54 08:57 08:58 Temp 97.7 97.7 Pulse 58 64 64 Resp 18 B/P (MAP) 118/61 (80) 118/61 118/61 Pulse Ox 94 O2 Delivery Nasal Cannula Nasal Cannula O2 Flow Rate 2.0 2.0 Nutrition Consultation Dietary Evaluation: Recommendations by RD: Increase Calorie Intake, Protein supplementation Comments: Recommend advance diet as tolerated Recommend Ensure clear BID for added calories/protein while on CLD Once diet advances, encourage P.O. intake-provide snack on unit when requested Expected Outcomes/Goals: P.O. intake to meet >75% estimated energy needs Malnutrition Findings: Food and Nutrition Intake (Sev: <50% est energy req 5days Body Fat Depletion (Non Severe: Mild Depletion Weight Status: Overweight KRISTEN RAMIREZ MD Jan 10, 2019 09:34
[2019-01-10 11:00] VITALS: BP 134/68
[2019-01-10] MEDS: SUCRALFATE 1 GM TABLET. PO SCH ×2 (11:39→16:54)
--- NOTE | 2019-01-10 11:55 | NUR ---
Pharmacy Warfarin Dosing Note S:Pharmacy consulted to assist with anticoagulation therapy started with target INR: 2 -3 O:SHANNAN DENNIS P is a 88 year old F with Atrial Fibrillation LABS: Last INR: 4.9 Last HGB: 13.8 Last HCT: 39.7 Last PLT: 169 Last dose of 2.5 mg given on 01/09/19 at 1625 Previous Regimen: 3 mg daily except 6 mg on Sundays Vitamin K given: N Drug Interaction Changes: New Interacting Drug Ongoing Drug Interactions: Bactrim (new), Paxil (river captain), Synthroid (river captain) A:INR of 4.9 is above desired range. Target range for this patient is: 2 -3 P: Warfarin dose: Hold Today at 1600 Bridge Therapy: None Next INR due IN AM Pharmacy anticoagulation service will continue to follow. [facility], 01/10/19 [id number]
--- NOTE | 2019-01-10 12:20 | PDOC ---
PROGRESS NOTES Assessment Assessment Left side face and tongue numbness x 2 days, then resolved. Large hiatal hernia. Cholelithiasis. Ileus? AFib on Coumadin. COPD. UTI. HLD. UTI. Cardiomegaly. Cognitive impairment. No evidence of acute CVA this time. RECOMMENDATIONS/PLAN: She has been on Coumadin. Continue medical and surgical treatment. Discussed with her son at bedside on 01/09/19. HISTORY OF THE PRESENT ILLNESS: This is an 88-y-old female patient with above medical and surgical diseases for admission this time. She complained symptoms of numbness in her left side face and tongue on 01/08 for a while, then recurred on 01/09/19. No motor deficits. Neurology was requested for consultation on 01/09/19. She stated on 01/10/19 that she did not know if she still had numbness in her left side of face and tongue, but she guess she did not have symptoms anymore. Past Medical History Cardiovascular: AFIB, HTN, Hyperlipidemia Pulmonary: Other CENTRAL NERVOUS SYSTEM: TIA GI: GERD, Gastritis, Other Heme/Onc: No pertinent hx Hepatobiliary: No pertinent hx Psych: Anxiety, Depression Musculoskeletal: Osteoarthritis Rheumatologic: No pertinent hx Infectious disease: No pertinent hx Renal/: UTI Endocrine: No pertinent hx, Hypothyroidism, Osteopenia Past Surgical History No pertinent history Family History Hypertension Social History ALCOHOL: none Drugs: None Lives: Shelter Domestic Violence: Neg Allergies Coded Allergies: Iodinated Contrast- Oral and IV Dye (Verified Allergy, Intermediate, SWELLING, 04/19/16) Penicillins (Verified Allergy, Intermediate, Rash, 04/19/16) adhesive (Verified Allergy, Intermediate, rash, 04/19/16) iodine (Verified Allergy, Intermediate, Rash, 04/19/16) PT HAS NEVER BEEN PREMEDICATED tramadol (Verified Allergy, Intermediate, 11/09/16) Tolerates hydrocodone I S O L A T I O N *CONTACT* (Verified Allergy, Unknown, 01/12/18) mrsa latex (Verified Adverse Reaction, Intermediate, Rash, 01/09/18) MEDICATIONS: Refer to [facility] REVIEW OF SYSTEMS: Constitutional: No malnutrition, weight loss, cachexia. Head: No traumatic brain or head injury. Skin: No edema, or rash. Ear: No infection. Eyes: No vision loss or color blindness. Nose: No bleeding or purulent discharges. Hearing: Hearing decrease. Neck: No injury. Breast: No history of cancer, masses,or discharges. Cardiac: AFib. Pulmonary: COPD. GI: GERD. Urinary/genital: UTI. Endocrinologic: No cousin face, craniofacial dysmorphism, polydactyly. Skeletomuscular: No muscular atrophy, deformity. Neurological: see HP. Psychiatric: Denies drug use/abuse. Otherwise, not [id number] review of systems. PHYSICAL EXAMINATION: General appearance is in subacute distress. HEENT: Normocephalic and nontraumatic. Eyes, nose, ears, and throat are unremarkable. Neck is supple. No lymphadenopathy. No bruits are heard over the carotid artery. No crepitus. Cardiovascular: S1, S2, irregular rate and rhythm. Pulmonary: Clear to auscultation bilaterally. Abdomen: Bowel sounds are positive. Extremities: No rash, lesions, or edema. No restriction of range of motion NEUROLOGICAL EXAMINATION: Sleep but arousable. Partially oriented to time, knew place and person. PERRL. EOMI. CN: no focal findings. Muscle tone: within normal. Muscle strength: 5- DTR: 2 Plantar reflex: Flexor response bilaterally Gait: not examined in bed. Sensory exam: no abnormal findings. No cerebellar signs elicited. F-T-N test sine. Objective Objective Vital Signs Date Time Temp Pulse Resp B/P (MAP) Pulse Ox O2 Delivery O2 Flow Rate FiO2 01/10/19 11:00 98.0 64 18 134/68 (90) 96 Nasal Cannula 2.0 98.0 Intake and Output 01/10/19 07:00 # Voids 4 Vitals Signs Vitals VS - Last 72 Hours, by Label Date Time Temp Pulse Resp B/P (MAP) Pulse Ox O2 Delivery O2 Flow Rate FiO2 01/10/19 11:00 98.0 64 18 134/68 (90) 96 Nasal Cannula 2.0 98.0 01/10/19 08:58 64 118/61 01/10/19 08:57 64 118/61 01/10/19 07:54 Nasal Cannula 2.0 01/10/19 07:01 97.7 58 18 118/61 (80) 94 Nasal Cannula 2.0 97.7 01/10/19 03:00 97.6 53 18 106/57 (73) 93 Nasal Cannula 2.0 97.6 01/09/19 23:02 97.8 59 18 118/64 (82) 93 Room Air 97.8 01/09/19 21:52 16 Room Air 01/09/19 20:52 18 Room Air 01/09/19 20:05 Room Air 2.0 01/09/19 19:00 98.2 73 18 147/74 (98) 94 Room Air 98.2 01/09/19 15:00 98.1 58 16 137/74 (95) 93 Room Air 98.1 01/09/19 11:00 98.2 75 16 136/67 (90) 94 Room Air 98.2 01/09/19 08:30 84 141/65 01/09/19 08:29 84 141/65 01/09/19 07:20 Room Air 01/09/19 07:00 97.9 59 18 141/65 (90) 94 Room Air 97.9 Laboratory Laboratory Laboratory Tests Test 01/10/19 04:40 White Blood Count 5.8 x10^3/uL (4.0-11.0) Red Blood Count 4.15 x10^6/uL (3.50-5.40) Hemoglobin 13.8 g/dL (12.0-15.5) Hematocrit 39.7 % (36.0-47.0) Mean Corpuscular Volume 96 fL (79-100) Mean Corpuscular Hemoglobin 33 pg (25-35) Mean Corpuscular Hemoglobin Concent 35 g/dL (31-37) Red Cell Distribution Width 14.7 % (11.5-14.5) Platelet Count 169 x10^3/uL (140-400) Neutrophils (%) (Auto) 45 % (31-73) Lymphocytes (%) (Auto) 41 % (24-48) Monocytes (%) (Auto) 9 % (0-9) Eosinophils (%) (Auto) 5 % (0-3) Basophils (%) (Auto) 1 % (0-3) Neutrophils # (Auto) 2.6 x10^3uL (1.8-7.7) Lymphocytes # (Auto) 2.3 x10^3/uL (1.0-4.8) Monocytes # (Auto) 0.5 x10^3/uL (0.0-1.1) Eosinophils # (Auto) 0.3 x10^3/uL (0.0-0.7) Basophils # (Auto) 0.0 x10^3/uL (0.0-0.2) Prothrombin Time 45.7 SEC (11.7-14.0) Prothromb Time International Ratio 4.9 (0.8-1.1) Sodium Level 143 mmol/L (136-145) Potassium Level 3.4 mmol/L (3.5-5.1) Chloride Level 107 mmol/L (98-107) Carbon Dioxide Level 29 mmol/L (21-32) Anion Gap 7 (6-14) Blood Urea Nitrogen 7 mg/dL (7-20) Creatinine 1.0 mg/dL (0.6-1.0) Estimated GFR (Cockcroft-Gault) 52.3 Glucose Level 84 mg/dL (70-99) Calcium Level 8.5 mg/dL (8.5-10.1) Microbiology 01/06/19 Urine Culture - Final, Complete 01/06/19 Urine Culture Result 1 (YODIT) - Final, Complete Medication Medications Current Medications Lactobacillus Rhamnosus (Culturelle) 1 cap BID PO Last administered on at 08:57; Start 01/09/19 at 14:00 Potassium Chloride (KCl Oral Soln) 40 meq 1X ONCE PO Last administered on 01/10at 08:55; Start 01/10/19 at 08:30; Stop 01/10/19 at 08:31; Status DC Warfarin Sodium (Coumadin - No Dose Today) 1 each 1X WARF ONCE MC ; Start 01/10 at 16:00; Stop 01/10/19 at 16:01 Warfarin Sodium (Coumadin) 2.5 mg 1X WARF ONCE PO Last administered on at 16:21; Start 01/09/19 at 16:00; Stop 01/09/19 at 16:01; Status DC Warfarin Sodium (Coumadin) 6 mg Suero PO ; Start 01/10/19 at 16:00; Stop 01/10/19 at 16:00; Status DC Comment Review of Relevant I have reviewed the following items mignon (where applicable) has been applied. RUBI SERNA MD Jan 10, 2019 12:19
[2019-01-10] MEDS: ALPRAZolam 0.5 MG TABLET PO PRN ×2 (13:50→20:51)
[2019-01-10 15:00] VITALS: BP 106/45
[2019-01-10] MEDS ORDERED: WARFARIN 3 MG TABLET. PO SCH (16:00)
[2019-01-10 19:00] VITALS: BP 144/70
[2019-01-10] MEDS: ATORVASTATIN CALCIUM 10 MG TABLET. PO SCH (20:51)
[2019-01-10 23:00] VITALS: BP 118/55
[2019-01-11] VITALS (7 sets, daily range): BP systolic 98–138; BP diastolic 48–92
[2019-01-11] MEDS: LEVOTHYROXINE 75 MCG TABLET PO SCH (06:00)
--- NOTE | 2019-01-11 06:14 | NUR ---
Pt. is having an acute abd series and is npo. Held her am medication. Will continue to monitor.
[2019-01-11 07:03] LABS: BASO % 1 % (0-3); EOS # 0.3 x10^3/uL (0.0-0.7); EOS % 4 % (0-3); HEMOGLOBIN 14.3 g/dL (12.0-15.5); LYMPH # 2.1 x10^3/uL (1.0-4.8); LYMPH % 31 % (24-48); MEAN CORPUSCULAR HEMOGLOBIN 32 pg (25-35); MEAN CORPUSCULAR HGB CONC 33 g/dL (31-37); MEAN CORPUSCULAR VOLUME 96 fL (79-100); MONO # 0.6 x10^3/uL (0.0-1.1); MONO % 9 % (0-9); NEUT # 3.9 x10^3uL (1.8-7.7); NEUT % 56 % (31-73); PLATELET COUNT 177 x10^3/uL (140-400); RED BLOOD COUNT 4.47 x10^6/uL (3.50-5.40); RED CELL DISTRIBUTION WIDTH 14.9 % (11.5-14.5)
[2019-01-11 07:15] LABS: CALCIUM 8.7 mg/dL (8.5-10.1); CREATININE 0.8 mg/dL (0.6-1.0); GFR 67.7
[2019-01-11] MEDS: CYANOCOBALAMIN (VITAMIN B-12) 1,000 MCG TABLET. PO SCH (08:26)
[2019-01-11] MEDS: CALCIUM POLYCARBOPHIL 625 MG TABLET PO SCH ×2 (08:26→20:52)
[2019-01-11] MEDS: LACTOBACILLUS RHAMNOSUS GG 1 CAPSULE. PO SCH ×2 (08:26→20:52)
[2019-01-11] MEDS: CHOLECALCIFEROL (VITAMIN D3) 1,000 UNIT TABLET PO SCH (08:26)
[2019-01-11] MEDS: OLANZapine 5 MG TABLET PO SCH (08:26)
[2019-01-11] MEDS: SMZ/TMP 800/160MG TABLET. PO SCH ×2 (08:27→20:51)
[2019-01-11] MEDS: SENNOSIDES 8.6 MG TABLET PO SCH ×2 (08:28→20:52)
[2019-01-11] MEDS: PARoxetine 20 MG TABLET PO SCH (08:28)
[2019-01-11] MEDS: FERROUS SULFATE 325 MG TABLET. PO SCH (08:28)
[2019-01-11] MEDS: PANTOPRAZOLE 40 MG TABLET.DR. PO SCH (08:28)
[2019-01-11] MEDS: PREGABALIN 75 MG CAPSULE PO SCH ×2 (08:28→21:00)
[2019-01-11] MEDS: ALPRAZolam 0.5 MG TABLET PO PRN ×2 (08:28→20:54)
[2019-01-11] MEDS: DIGOXIN 125 MCG TABLET. PO SCH (08:29)
--- NOTE | 2019-01-11 08:58 | PDOC ---
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 01/11/19 0857: SURGICAL PROGRESS NOTE Subjective no pain no nausea had a soft diet last night + flatus, but no stool Vital Signs Vital Signs Date Time Temp Pulse Resp B/P (MAP) Pulse Ox O2 Delivery O2 Flow Rate FiO2 01/11/19 08:29 60 138/63 01/11/19 07:00 97.4 18 96 Room Air 97.4 01/10/19 15:00 2.0 I&O Intake and Output 01/11/19 07:00 Intake Total 280 ml Balance 280 ml Intake Oral 280 ml # Voids 4 General: Alert, Oriented X3, Cooperative, No acute distress Abdomen: Soft, No tenderness Labs Laboratory Tests Test 01/10/19 04:40 01/11/19 06:11 White Blood Count 5.8 x10^3/uL (4.0-11.0) 7.0 x10^3/uL (4.0-11.0) Red Blood Count 4.15 x10^6/uL (3.50-5.40) 4.47 x10^6/uL (3.50-5.40) Hemoglobin 13.8 g/dL (12.0-15.5) 14.3 g/dL (12.0-15.5) Hematocrit 39.7 % (36.0-47.0) 43.0 % (36.0-47.0) Mean Corpuscular Volume 96 fL (79-100) 96 fL (79-100) Mean Corpuscular Hemoglobin 33 pg (25-35) 32 pg (25-35) Mean Corpuscular Hemoglobin Concent 35 g/dL (31-37) 33 g/dL (31-37) Red Cell Distribution Width 14.7 % (11.5-14.5) 14.9 % (11.5-14.5) Platelet Count 169 x10^3/uL (140-400) 177 x10^3/uL (140-400) Neutrophils (%) (Auto) 45 % (31-73) 56 % (31-73) Lymphocytes (%) (Auto) 41 % (24-48) 31 % (24-48) Monocytes (%) (Auto) 9 % (0-9) 9 % (0-9) Eosinophils (%) (Auto) 5 % (0-3) 4 % (0-3) Basophils (%) (Auto) 1 % (0-3) 1 % (0-3) Neutrophils # (Auto) 2.6 x10^3uL (1.8-7.7) 3.9 x10^3uL (1.8-7.7) Lymphocytes # (Auto) 2.3 x10^3/uL (1.0-4.8) 2.1 x10^3/uL (1.0-4.8) Monocytes # (Auto) 0.5 x10^3/uL (0.0-1.1) 0.6 x10^3/uL (0.0-1.1) Eosinophils # (Auto) 0.3 x10^3/uL (0.0-0.7) 0.3 x10^3/uL (0.0-0.7) Basophils # (Auto) 0.0 x10^3/uL (0.0-0.2) 0.0 x10^3/uL (0.0-0.2) Prothrombin Time 45.7 SEC (11.7-14.0) Prothromb Time International Ratio 4.9 (0.8-1.1) Sodium Level 143 mmol/L (136-145) 142 mmol/L (136-145) Potassium Level 3.4 mmol/L (3.5-5.1) 4.0 mmol/L (3.5-5.1) Chloride Level 107 mmol/L (98-107) 108 mmol/L (98-107) Carbon Dioxide Level 29 mmol/L (21-32) 29 mmol/L (21-32) Anion Gap 7 (6-14) 5 (6-14) Blood Urea Nitrogen 7 mg/dL (7-20) 7 mg/dL (7-20) Creatinine 1.0 mg/dL (0.6-1.0) 0.8 mg/dL (0.6-1.0) Estimated GFR (Cockcroft-Gault) 52.3 67.7 Glucose Level 84 mg/dL (70-99) 87 mg/dL (70-99) Calcium Level 8.5 mg/dL (8.5-10.1) 8.7 mg/dL (8.5-10.1) Laboratory Tests Test 01/11/19 06:11 White Blood Count 7.0 x10^3/uL (4.0-11.0) Red Blood Count 4.47 x10^6/uL (3.50-5.40) Hemoglobin 14.3 g/dL (12.0-15.5) Hematocrit 43.0 % (36.0-47.0) Mean Corpuscular Volume 96 fL (79-100) Mean Corpuscular Hemoglobin 32 pg (25-35) Mean Corpuscular Hemoglobin Concent 33 g/dL (31-37) Red Cell Distribution Width 14.9 % (11.5-14.5) Platelet Count 177 x10^3/uL (140-400) Neutrophils (%) (Auto) 56 % (31-73) Lymphocytes (%) (Auto) 31 % (24-48) Monocytes (%) (Auto) 9 % (0-9) Eosinophils (%) (Auto) 4 % (0-3) Basophils (%) (Auto) 1 % (0-3) Neutrophils # (Auto) 3.9 x10^3uL (1.8-7.7) Lymphocytes # (Auto) 2.1 x10^3/uL (1.0-4.8) Monocytes # (Auto) 0.6 x10^3/uL (0.0-1.1) Eosinophils # (Auto) 0.3 x10^3/uL (0.0-0.7) Basophils # (Auto) 0.0 x10^3/uL (0.0-0.2) Sodium Level 142 mmol/L (136-145) Potassium Level 4.0 mmol/L (3.5-5.1) Chloride Level 108 mmol/L (98-107) Carbon Dioxide Level 29 mmol/L (21-32) Anion Gap 5 (6-14) Blood Urea Nitrogen 7 mg/dL (7-20) Creatinine 0.8 mg/dL (0.6-1.0) Estimated GFR (Cockcroft-Gault) 67.7 Glucose Level 87 mg/dL (70-99) Calcium Level 8.7 mg/dL (8.5-10.1) Problem List Problems Medical Problems: (1) Epigastric abdominal pain Status: Acute (2) Urinary tract infection Status: Acute Assessment/Plan xrays pending STEPHEN JENSEN MD 01/11/19 0956: SURGICAL PROGRESS NOTE Assessment/Plan Pt seen and examined. Agree with Ms. Escoto's note Pt feels OK, flatus but no stools rohit reg diet XR pending consider SBFT if not improved BHARTI ESCOTO APRN Jan 11, 2019 08:57 STEPHEN JENSEN MD Jan 11, 2019 09:56
--- NOTE | 2019-01-11 10:56 | PDOC ---
Subjective: Subjective: Tolerating PO, denies abd pain, hasn't stooled. Objective: Vital Signs: Vital Signs Date Time Temp Pulse Resp B/P (MAP) Pulse Ox O2 Delivery O2 Flow Rate FiO2 01/11/19 10:46 98.2 54 17 120/51 (74) Room Air 98.2 01/11/19 07:00 96 01/10/19 15:00 2.0 Labs: Laboratory Tests Test 01/11/19 06:11 White Blood Count 7.0 x10^3/uL Red Blood Count 4.47 x10^6/uL Hemoglobin 14.3 g/dL Hematocrit 43.0 % Mean Corpuscular Volume 96 fL Mean Corpuscular Hemoglobin 32 pg Mean Corpuscular Hemoglobin Concent 33 g/dL Red Cell Distribution Width 14.9 % Platelet Count 177 x10^3/uL Neutrophils (%) (Auto) 56 % Lymphocytes (%) (Auto) 31 % Monocytes (%) (Auto) 9 % Eosinophils (%) (Auto) 4 % Basophils (%) (Auto) 1 % Neutrophils # (Auto) 3.9 x10^3uL Lymphocytes # (Auto) 2.1 x10^3/uL Monocytes # (Auto) 0.6 x10^3/uL Eosinophils # (Auto) 0.3 x10^3/uL Basophils # (Auto) 0.0 x10^3/uL Sodium Level 142 mmol/L Potassium Level 4.0 mmol/L Chloride Level 108 mmol/L Carbon Dioxide Level 29 mmol/L Anion Gap 5 Blood Urea Nitrogen 7 mg/dL Creatinine 0.8 mg/dL Estimated GFR (Cockcroft-Gault) 67.7 Glucose Level 87 mg/dL Calcium Level 8.7 mg/dL URINE CULTURE Final Final report URINE CULTURE RES 1 Final Comment Culture shows less than 10,000 colony forming units of bacteria per milliliter of urine. Imaging: Brain MRI 01/09 Impression: 1. No acute intracranial process detected. 2. Age-related atrophy and bilateral periventricular small vessel ischemic changes are noted. AAS 01/11 pending PE: GEN: NAD - sitting on edge of bed, was doing leg exercised w/ therapy LUNGS: CTAB HEART: RRR ABD: NABS, S/ND/NT NEURO/PSYCH: A & O 3 A/P: Possible ileus/PSBO Chronic GI issues -h/o GERD, IBS, PUD, large hiatal hernia w/ Haider lesions, presbyesophagus, diverticulosis, hemorrhoids -on PPI, Carafate, fiber, MoM, Senna, hydrocodone, iron Coumadin coagulopathy -- Now tolerating regular diet but hasn't stooled. X-rays pending. SHELLI CORDERO Jan 11, 2019 10:56
[2019-01-11] MEDS: SUCRALFATE 1 GM TABLET. PO SCH ×2 (11:41→16:39)
--- NOTE | 2019-01-11 13:10 | PDOC ---
PROGRESS NOTES Chief Complaint Chief Complaint CC: Abdominal pain History of Present Illness History of Present Illness Pt is a 88yo F who presented for abdominal pain. Pt seen and examined this morning, states she is passing flatus, denies BM States fascial numbness resolved Tolerating diet, ate aprox 1/2 of lunch No new complaints Vitals Vitals Vital Signs Date Time Temp Pulse Resp B/P (MAP) Pulse Ox O2 Delivery O2 Flow Rate FiO2 01/11/19 12:50 96.6 61 17 115/54 (74) Nasal Cannula 2.0 96.6 01/11/19 10:46 89 Physical Exam General: Alert, Oriented X3, Cooperative, No acute distress Heart: Regular rate, Normal S1, Normal S2, No murmurs Lungs: Clear, Other (No crackles or wheezes) Abdomen: Soft, No tenderness, No masses Extremities: No clubbing, Normal pulses Skin: No rashes, No breakdown, No significant lesion Labs LABS Laboratory Tests Test 01/11/19 06:11 White Blood Count 7.0 x10^3/uL (4.0-11.0) Red Blood Count 4.47 x10^6/uL (3.50-5.40) Hemoglobin 14.3 g/dL (12.0-15.5) Hematocrit 43.0 % (36.0-47.0) Mean Corpuscular Volume 96 fL (79-100) Mean Corpuscular Hemoglobin 32 pg (25-35) Mean Corpuscular Hemoglobin Concent 33 g/dL (31-37) Red Cell Distribution Width 14.9 % (11.5-14.5) Platelet Count 177 x10^3/uL (140-400) Neutrophils (%) (Auto) 56 % (31-73) Lymphocytes (%) (Auto) 31 % (24-48) Monocytes (%) (Auto) 9 % (0-9) Eosinophils (%) (Auto) 4 % (0-3) Basophils (%) (Auto) 1 % (0-3) Neutrophils # (Auto) 3.9 x10^3uL (1.8-7.7) Lymphocytes # (Auto) 2.1 x10^3/uL (1.0-4.8) Monocytes # (Auto) 0.6 x10^3/uL (0.0-1.1) Eosinophils # (Auto) 0.3 x10^3/uL (0.0-0.7) Basophils # (Auto) 0.0 x10^3/uL (0.0-0.2) Sodium Level 142 mmol/L (136-145) Potassium Level 4.0 mmol/L (3.5-5.1) Chloride Level 108 mmol/L (98-107) Carbon Dioxide Level 29 mmol/L (21-32) Anion Gap 5 (6-14) Blood Urea Nitrogen 7 mg/dL (7-20) Creatinine 0.8 mg/dL (0.6-1.0) Estimated GFR (Cockcroft-Gault) 67.7 Glucose Level 87 mg/dL (70-99) Calcium Level 8.7 mg/dL (8.5-10.1) Review of Systems Review of Systems Denies F/C Denies N/V Denies CP or SOA Assessment and Plan Assessmemt and Plan Assessment: Large hiatal hernia/pSBO/ileus? Presbyesophagus GERD UTI Hypothyroidism Osteopenia A-fib: on Coumadin Hx of TIA Anxiety Depression Hemorrhoids Diverticulosis Cholelithiasis Plan: Reviewed films showing gaseous distension, awaiting official ready of abdominal series, endorses flatus, denies BM possible need for SBFT pending XR results, appreciate general surgery recommendations Tolerating diet D/c disposition to [facility] when medically stable, ? possibly tomorrow b/l fascial numbness resolved, MRI (-) for acute process, appreciate recommendations Cardizem dose reduced to 120 po Qd, 2/2 bradycardia Pharmacy to dose Warfarin, INR 4.9 Bactrim DS Pain management Recheck labs in am PT/OT orders Problems Medical Problems: (1) Epigastric abdominal pain Status: Acute (2) Urinary tract infection Status: Acute Comment Review of Relevant I have reviewed the following items mignon (where applicable) has been applied. Labs Laboratory Tests Test 01/10/19 04:40 01/11/19 06:11 White Blood Count 5.8 x10^3/uL (4.0-11.0) 7.0 x10^3/uL (4.0-11.0) Red Blood Count 4.15 x10^6/uL (3.50-5.40) 4.47 x10^6/uL (3.50-5.40) Hemoglobin 13.8 g/dL (12.0-15.5) 14.3 g/dL (12.0-15.5) Hematocrit 39.7 % (36.0-47.0) 43.0 % (36.0-47.0) Mean Corpuscular Volume 96 fL (79-100) 96 fL (79-100) Mean Corpuscular Hemoglobin 33 pg (25-35) 32 pg (25-35) Mean Corpuscular Hemoglobin Concent 35 g/dL (31-37) 33 g/dL (31-37) Red Cell Distribution Width 14.7 % (11.5-14.5) 14.9 % (11.5-14.5) Platelet Count 169 x10^3/uL (140-400) 177 x10^3/uL (140-400) Neutrophils (%) (Auto) 45 % (31-73) 56 % (31-73) Lymphocytes (%) (Auto) 41 % (24-48) 31 % (24-48) Monocytes (%) (Auto) 9 % (0-9) 9 % (0-9) Eosinophils (%) (Auto) 5 % (0-3) 4 % (0-3) Basophils (%) (Auto) 1 % (0-3) 1 % (0-3) Neutrophils # (Auto) 2.6 x10^3uL (1.8-7.7) 3.9 x10^3uL (1.8-7.7) Lymphocytes # (Auto) 2.3 x10^3/uL (1.0-4.8) 2.1 x10^3/uL (1.0-4.8) Monocytes # (Auto) 0.5 x10^3/uL (0.0-1.1) 0.6 x10^3/uL (0.0-1.1) Eosinophils # (Auto) 0.3 x10^3/uL (0.0-0.7) 0.3 x10^3/uL (0.0-0.7) Basophils # (Auto) 0.0 x10^3/uL (0.0-0.2) 0.0 x10^3/uL (0.0-0.2) Prothrombin Time 45.7 SEC (11.7-14.0) Prothromb Time International Ratio 4.9 (0.8-1.1) Sodium Level 143 mmol/L (136-145) 142 mmol/L (136-145) Potassium Level 3.4 mmol/L (3.5-5.1) 4.0 mmol/L (3.5-5.1) Chloride Level 107 mmol/L (98-107) 108 mmol/L (98-107) Carbon Dioxide Level 29 mmol/L (21-32) 29 mmol/L (21-32) Anion Gap 7 (6-14) 5 (6-14) Blood Urea Nitrogen 7 mg/dL (7-20) 7 mg/dL (7-20) Creatinine 1.0 mg/dL (0.6-1.0) 0.8 mg/dL (0.6-1.0) Estimated GFR (Cockcroft-Gault) 52.3 67.7 Glucose Level 84 mg/dL (70-99) 87 mg/dL (70-99) Calcium Level 8.5 mg/dL (8.5-10.1) 8.7 mg/dL (8.5-10.1) Laboratory Tests Test 01/11/19 06:11 White Blood Count 7.0 x10^3/uL (4.0-11.0) Red Blood Count 4.47 x10^6/uL (3.50-5.40) Hemoglobin 14.3 g/dL (12.0-15.5) Hematocrit 43.0 % (36.0-47.0) Mean Corpuscular Volume 96 fL (79-100) Mean Corpuscular Hemoglobin 32 pg (25-35) Mean Corpuscular Hemoglobin Concent 33 g/dL (31-37) Red Cell Distribution Width 14.9 % (11.5-14.5) Platelet Count 177 x10^3/uL (140-400) Neutrophils (%) (Auto) 56 % (31-73) Lymphocytes (%) (Auto) 31 % (24-48) Monocytes (%) (Auto) 9 % (0-9) Eosinophils (%) (Auto) 4 % (0-3) Basophils (%) (Auto) 1 % (0-3) Neutrophils # (Auto) 3.9 x10^3uL (1.8-7.7) Lymphocytes # (Auto) 2.1 x10^3/uL (1.0-4.8) Monocytes # (Auto) 0.6 x10^3/uL (0.0-1.1) Eosinophils # (Auto) 0.3 x10^3/uL (0.0-0.7) Basophils # (Auto) 0.0 x10^3/uL (0.0-0.2) Sodium Level 142 mmol/L (136-145) Potassium Level 4.0 mmol/L (3.5-5.1) Chloride Level 108 mmol/L (98-107) Carbon Dioxide Level 29 mmol/L (21-32) Anion Gap 5 (6-14) Blood Urea Nitrogen 7 mg/dL (7-20) Creatinine 0.8 mg/dL (0.6-1.0) Estimated GFR (Cockcroft-Gault) 67.7 Glucose Level 87 mg/dL (70-99) Calcium Level 8.7 mg/dL (8.5-10.1) Microbiology 01/06/19 Urine Culture - Final, Complete 01/06/19 Urine Culture Result 1 (YODIT) - Final, Complete Medications Current Medications Famotidine (Pepcid Vial) 20 mg 1X ONCE IVP Last administered on 01/06/19at 18:46; Start 01/06/19 at 18:00; Stop 01/06/19 at 18:01; Status DC Ondansetron HCl (Zofran) 4 mg 1X ONCE IV Last administered on 01/06/19at 18:46; Start 01/06/19 at 18:15; Stop 01/06/19 at 18:16; Status DC Ciprofloxacin/ Dextrose 200 ml @ 200 mls/hr 1X ONCE IV Last administered on 01/06/19at 19:05; Start 01/06/19 at 18:30; Stop 01/06/19 at 19:29; Status DC Sodium Chloride 1,000 ml @ 1,000 mls/hr 1X ONCE IV Last administered on 01/06/19at 18:46; Start 01/06/19 at 18:30; Stop 01/06/19 at 19:29; Status DC Fentanyl Citrate (Fentanyl 2ml Vial) 25 mcg 1X ONCE IV ; Start 01/06/19 at 20:45; Stop 01/06/19 at 20:52; Status DC Ondansetron HCl (Zofran) 4 mg PRN Q8HRS PRN IV NAUSEA/VOMITING; Start 01/06/19 at 21:00; Stop 01/07/19 at 20:59; Status DC Fentanyl Citrate (Fentanyl 2ml Vial) 25 mcg PRN Q1HR PRN IV PAIN; Start 01/06/19 at 21:00; Stop 01/06/19 at 21:44; Status DC Acetaminophen/ Hydrocodone Bitart (Lortab 7.5/325) 1 tab PRN Q6HRS PRN PO PAIN Last administered on 01/07/19at 12:47; Start 01/06/19 at 21:45; Stop 01/07/19 at 18:30; Status DC Morphine Sulfate (Morphine Sulfate) 2 mg PRN Q4HRS PRN IV PAIN; Start 01/06/19 at 22:30 Sodium Chloride 1,000 ml @ 50 mls/hr Q20H IV Last administered on 01/06/19at 23:22; Start 01/07/19 at 00:00; Stop 01/08/19 at 18:39; Status DC Alprazolam (Xanax) 0.5 mg PRN TID PRN PO ANXIETY Last administered on 01/11/19 08:28; Start 01/06/19 at 22:30 Atorvastatin Calcium (Lipitor) 10 mg QHS PO Last administered on 01/10/19 20:51; Start 01/06/19 at 23:00 Pantoprazole Sodium (Protonix) 40 mg DAILYAC PO Last administered on 01/11/19 08:28; Start 01/07/19 at 11:30 Albuterol Sulfate (Ventolin Neb Soln) 2.5 mg PRN Q4HRS PRN INH SHORTNESS OF BREATH; Start 01/07/19 at 12:45 Bismuth Subsalicylate (Pepto-Bismol) 524 mg PRN Q1HR PRN PO DIARRHEA; Start 01/07/19 at 12:45 Vitamin D (Vitamin D3) 2,000 unit DAILY PO Last administered on 01/11/19 08:26; Start 01/07/19 at 14:00 Cyanocobalamin (Vitamin B-12) 1,000 mcg DAILY PO Last administered on 01/11/19 08:26; Start 01/07/19 at 14:00 Digoxin (Lanoxin) 125 mcg DAILY PO ; Start 01/08/19 at 09:00; Stop 01/08/19 at 09:00; Status DC Digoxin (Lanoxin) 125 mcg DAILY PO Last administered on 01/10/19 08:57; Start 01/07/19 at 14:00 Ferrous Sulfate (Feosol) 325 mg DAILY08 PO Last administered on 01/11/19 08:28; Start 01/07/19 at 14:00 Acetaminophen/ Hydrocodone Bitart (Lortab 7.5/325) 1 tab PRN Q8HRS PRN PO MODERATE PAIN Last administered on 01/09/19 20:52; Start 01/07/19 at 12:45 Levothyroxine Sodium (Synthroid) 75 mcg DAILY06 PO Last administered on 01/10/19 05:54; Start 01/08/19 at 06:00 Levothyroxine Sodium (Synthroid) 137 mcg DAILY PO ; Start 01/08/19 at 09:00; Status UNV Ondansetron HCl (Zofran Odt) 4 mg PRN Q6HRS PRN PO NAUSEA; Start 01/07/19 at 12:45 Pantoprazole Sodium (Protonix) 40 mg DAILY PO Last administered on 01/07/19 16:05; Start 01/07/19 at 16:30; Stop 01/07/19 at 18:33; Status DC Pregabalin (Lyrica) 75 mg BID PO Last administered on 01/11/19 08:28; Start 01/07/19 at 21:00 Diltiazem HCl (Cardizem 24hr Cd) 360 mg DAILY PO ; Start 01/08/19 at 14:15; Stop 01/08/19 at 14:15; Status DC Magnesium Hydroxide (Milk Of Magnesia) 2,400 mg PRN DAILY PRN PO CONSTIPATION Last administered on 01/09/19 16:24; Start 01/07/19 at 14:15 Olanzapine (ZyPREXA) 7.5 mg DAILY PO Last administered on 01/11/19 08:26; Start 01/07/19 at 14:15 Paroxetine HCl (Paxil) 20 mg DAILY PO Last administered on 01/11/19 08:28; St art 01/07/19 at 14:15 Sennosides (Senna) 8.6 mg BID PO Last administered on 01/11/19 08:28; Start 01/07/19 at 21:00 Sucralfate (Carafate) 1 gm BIDACLD PO Last administered on 01/11/19 11:41; Start 01/07/19 at 16:30 Non-Formulary Medication (Sucralfate (Carafate)) 1 tab BIDBFRMEAL PO ; Start 01/07/19 at 16:30; Status UNV Non-Formulary Medication (Warfarin Sodium ) 1 tab UD PO ; Start 01/07/19 at 12:41; Status UNV Warfarin Sodium (Coumadin) 3 mg MoTuWeThFrSa PO Last administered on 01/07/19 16:06; Start 01/07/19 at 16:00; Stop 01/08/19 at 14:33; Status DC Non-Formulary Medication (Warfarin Sodium ) 3 mg QSA PO ; Start 01/07/19 at 12:41; Status UNV Warfarin Sodium (Coumadin) 6 mg Suero PO ; Start 01/10/19 at 16:00; Stop 01/10/19 at 16:00; Status DC Warfarin Sodium (Coumadin Per Physician) 1 each PRN DAILY PRN MC SEE COMMENTS Last administered on 01/07/19 18:38; Start 01/07/19 at 14:00; Stop 01/08/19 at 14:33; Status DC Trimethoprim/ Sulfamethoxazole (Bactrim Ds) 1 tab BID PO Last administered on 01/11/19 08:27; Start 01/07/19 at 21:00 Calcium Polycarbophil (Fibercon) 625 mg BID PO Last administered on 01/11/19 08:26; Start 01/07/19 at 21:00 Diltiazem HCl (Cardizem 24hr Cd) 120 mg DAILY PO Last administered on 01/11/19 08:27; Start 01/08/19 at 13:00 Warfarin Sodium (Coumadin Per Pharmacy) 1 each PRN DAILY PRN MC SEE COMMENTS Last administered on 01/10/19 11:54; Start 01/08/19 at 14:45 Warfarin Sodium (Coumadin) 2.5 mg 1X WARF ONCE PO Last administered on 01/08/19 18:55; Start 01/08/19 at 16:00; Stop 01/08/19 at 16:01; Status DC Warfarin Sodium (Coumadin) 2.5 mg 1X WARF ONCE PO Last administered on 01/09/19at 16:21; Start 01/09/19 at 16:00; Stop 01/09/19 at 16:01; Status DC Lactobacillus Rhamnosus (Culturelle) 1 cap BID PO Last administered on 01/11/19at 08:26; Start 01/09/19 at 14:00 Potassium Chloride (KCl Oral Soln) 40 meq 1X ONCE PO Last administered on 01/10/19at 08:55; Start 01/10/19 at 08:30; Stop 01/10/19 at 08:31; Status DC Warfarin Sodium (Coumadin - No Dose Today) 1 each 1X WARF ONCE MC Last administered on 01/10/19at 16:00; Start 01/10/19 at 16:00; Stop 01/10/19 at 16:01; Status DC Active Scripts Active Acyclovir 800 Mg Tablet 1 Tab PO 5XDAY 7 Days Zofran Odt (Ondansetron) 4 Mg Tab.rapdis 1 Tab SL Q6HRS PRN Cardizem Cd (Diltiazem Hcl) 360 Mg Cap.er.24h 1 Cap PO DAILY Furosemide 40 Mg Tablet 1 Tab PO DAILY Xanax (Alprazolam) 0.5 Mg Tablet 1 Tab PO TID PRN Reported Lyrica (Pregabalin) 75 Mg Capsule 1-2 Cap PO BID Paroxetine Hcl 20 Mg Tablet 1 Tab PO DAILY Levothyroxine Sodium 75 Mcg Tablet 75 Mcg PO DAILYAC Cardizem Cd (Diltiazem Hcl) 180 Mg Cap.er.24h 2 Cap PO DAILY Digoxin 125 Mcg Tablet 125 Mcg PO DAILY Carafate (Sucralfate) 1 Gm Tablet 1 Tab PO BIDACLD Acetaminophen 500 Mg Tablet 1 Tab PO Q4HRS PRN Warfarin Sodium 3 Mg Tablet 3 Mg PO QSA Warfarin Sodium 3 Mg Tablet 3 Mg PO QM-F Warfarin Sodium 6 Mg Tablet 6 Mg PO QSU Ferrous Sulfate 325 Mg Tablet 1 Tab PO DAILY Warfarin Sodium 3 Mg Tablet 1 Tab PO UD Olanzapine 7.5 Mg Tablet 7.5 Mg PO DAILY Proair Hfa Inhaler (Albuterol Sulfate) 8.5 Gm Hfa.aer.ad 2 Puff INH PRN Q4HRS PRN Pepto-Bismol (Bismuth Subsalicylate) 262 Mg/15 Ml Oral.susp 30 Ml PO PRN Q1HR PRN Fleet Enema (Na Phos,M-B/Na Phos,Di-Ba) 133 Ml Enema 1 Each RC PRN DAILY PRN Maalox Advanced Suspension (Mag Hydrox/Aluminum Hyd/Simeth) 355 Ml Oral.susp 30 Ml PO PRN Q1HR PRN Loperamide (Loperamide Hcl) 2 Mg Capsule 4 Mg PO UD PRN Hydrocodone-Apap 7.5-325 (Hydrocodone Bit/Acetaminophen) 1 Each Tablet 1 Tab PO PRN Q8HRS PRN Dulcolax (Bisacodyl) 10 Mg Supp.rect 10 Mg RC PRN DAILY PRN Vitamin D3 (Cholecalciferol (Vitamin D3)) 1,000 Unit Tablet 2 Tab PO DAILY Vitamin B-12 (Cyanocobalamin (Vitamin B-12)) 1,000 Mcg Tablet 1 Tab PO DAILY Carafate (Sucralfate) 1 Gm Tablet 1 Tab PO BIDBFRMEAL Senna (Sennosides) 8.6 Mg Tablet 8.6 Mg PO BID Potassium Chloride 10 Meq Tab.sr.24h 10 Meq PO DAILY Milk Of Magnesia (Magnesium Hydroxide) 2,400 Mg/10 Ml Oral.susp 30 Ml PO PRN DAILY PRN Losartan Potassium 50 Mg Tablet 50 Mg PO DAILY Digoxin 125 Mcg Tablet 1 Tab PO DAILY Acetaminophen 500 Mg Tablet 1 Tab PO Q6HRS Paroxetine Hcl 20 Mg Tablet 1 Tab PO DAILY Synthroid (Levothyroxine Sodium) 137 Mcg Tablet 1 Tab PO DAILY Lipitor (Atorvastatin Calcium) 10 Mg Tablet 1 Tab PO QHS Protonix (Pantoprazole Sodium) 40 Mg Tablet. 1 Tab PO DAILY Vitals/I & O Vital Sign - Last 24 Hours 01/10/19 01/10/19 01/10/19 01/10/19 15:00 19:00 20:00 23:00 Temp 97.8 97.7 97.5 97.8 97.7 97.5 Pulse 65 75 64 Resp 18 18 18 B/P (MAP) 106/45 (65) 144/70 (94) 118/55 (76) Pulse Ox 91 93 93 O2 Delivery Nasal Cannula Room Air Room Air Nasal Cannula O2 Flow Rate 2.0 01/11/19 01/11/19 01/11/19 01/11/19 03:13 07:00 08:00 08:27 Temp 97.4 97.4 97.4 97.4 Pulse 53 60 60 Resp 16 18 B/P (MAP) 123/64 (83) 138/63 (88) 138/63 Pulse Ox 93 96 O2 Delivery Room Air Room Air Nasal Cannula O2 Flow Rate 2.0 01/11/19 01/11/19 01/11/19 08:29 10:46 12:50 Temp 98.2 96.6 98.2 96.6 Pulse 60 54 61 Resp 17 17 B/P (MAP) 138/63 120/51 (74) 115/54 (74) Pulse Ox 89 O2 Delivery Room Air Nasal Cannula O2 Flow Rate 2.0 Intake and Output 01/10/19 01/10/19 01/11/19 14:59 22:59 06:59 Intake Total 280 ml 0 ml Balance 280 ml 0 ml Nutrition Consultation Dietary Evaluation: Recommendations by RD: Increase Calorie Intake, Protein supplementation Comments: Recommend advance diet as tolerated Recommend Ensure clear BID for added calories/protein while on CLD Once diet advances, encourage P.O. intake-provide snack on unit when requested Expected Outcomes/Goals: P.O. intake to meet >75% estimated energy needs Malnutrition Findings: Food and Nutrition Intake (Sev: <50% est energy req 5days Body Fat Depletion (Non Severe: Mild Depletion Weight Status: Overweight CATRACHITA SAVAGE III DO Jan 11, 2019 13:10
--- NOTE | 2019-01-11 13:12 | RAD ---
Acute abdominal series compared to CT scan of the abdomen and pelvis dated January 06, 2019 for small bowel obstruction. FINDINGS: Lungs are hyperinflated. Heart is enlarged. No focal parenchymal abnormalities are seen within the lungs. There is no free air beneath the diaphragm. There is scattered abdominal bowel gas throughout the colon to the level the rectum, with a relative paucity of small bowel gas. Bowel gas pattern is nonspecific, and is grossly unchanged from the prior CT scan. Prior kyphoplasty is noted at 2 levels in the lumbar spine. IMPRESSION: 1. Hyperinflation and coarse interstitial lung changes, likely due to chronic COPD. 2. Stable cardiomegaly. 3. Stable nonobstructive nonspecific abdominal bowel gas pattern. 4. Prior kyphoplasty of the lumbar spine x2. Electronically signed by: Juan Manuel Aburto MD (01/11/2019 1:09 PM) [id number]
--- NOTE | 2019-01-11 14:07 | PDOC ---
PROGRESS NOTES Assessment Assessment Left side face and tongue numbness x 2 days, then resolved. Large hiatal hernia. Cholelithiasis. Ileus? AFib on Coumadin. COPD. UTI. HLD. UTI. Cardiomegaly. Cognitive impairment. No evidence of acute CVA this time. RECOMMENDATIONS/PLAN: She has been on Coumadin. Continue medical and surgical treatment. Discussed with her son at bedside on 01/09/19. HISTORY OF THE PRESENT ILLNESS: This is an 88-y-old female patient with above medical and surgical diseases for admission this time. She complained symptoms of numbness in her left side face and tongue on 01/08 for a while, then recurred on 01/09/19. No motor deficits. Neurology was requested for consultation on 01/09/19. She stated on 01/10/19 that she did not know if she still had numbness in her left side of face and tongue, but she guess she did not have symptoms anymore. Past Medical History Cardiovascular: AFIB, HTN, Hyperlipidemia Pulmonary: Other CENTRAL NERVOUS SYSTEM: TIA GI: GERD, Gastritis, Other Heme/Onc: No pertinent hx Hepatobiliary: No pertinent hx Psych: Anxiety, Depression Musculoskeletal: Osteoarthritis Rheumatologic: No pertinent hx Infectious disease: No pertinent hx Renal/: UTI Endocrine: No pertinent hx, Hypothyroidism, Osteopenia Past Surgical History No pertinent history Family History Hypertension Social History ALCOHOL: none Drugs: None [place]: [place] Domestic Violence: Neg Allergies Coded Allergies: Iodinated Contrast- Oral and IV Dye (Verified Allergy, Intermediate, SWELLING, 04/19/16) Penicillins (Verified Allergy, Intermediate, Rash, 04/19/16) adhesive (Verified Allergy, Intermediate, rash, 04/19/16) iodine (Verified Allergy, Intermediate, Rash, 04/19/16) PT HAS NEVER BEEN PREMEDICATED tramadol (Verified Allergy, Intermediate, 11/09/16) Tolerates hydrocodone I S O L A T I O N *CONTACT* (Verified Allergy, Unknown, 01/12/18) mrsa latex (Verified Adverse Reaction, Intermediate, Rash, 01/09/18) MEDICATIONS: Refer to [facility] REVIEW OF SYSTEMS: Constitutional: No malnutrition, weight loss, cachexia. Head: No traumatic brain or head injury. Skin: No edema, or rash. Ear: No infection. Eyes: No vision loss or color blindness. Nose: No bleeding or purulent discharges. Hearing: Hearing decrease. Neck: No injury. Breast: No history of cancer, masses,or discharges. Cardiac: AFib. Pulmonary: COPD. GI: GERD. Urinary/genital: UTI. Endocrinologic: No cousin face, craniofacial dysmorphism, polydactyly. Skeletomuscular: No muscular atrophy, deformity. Neurological: see HP. Psychiatric: Denies drug use/abuse. Otherwise, not [id number] review of systems. PHYSICAL EXAMINATION: General appearance is in subacute distress. HEENT: Normocephalic and nontraumatic. Eyes, nose, ears, and throat are unremarkable. Neck is supple. No lymphadenopathy. No bruits are heard over the carotid artery. No crepitus. Cardiovascular: S1, S2, irregular rate and rhythm. Pulmonary: Clear to auscultation bilaterally. Abdomen: Bowel sounds are positive. Extremities: No rash, lesions, or edema. No restriction of range of motion NEUROLOGICAL EXAMINATION: Sleep but arousable. Partially oriented to time, knew place and person. PERRL. EOMI. CN: no focal findings. Muscle tone: within normal. Muscle strength: 5- DTR: 2 Plantar reflex: Flexor response bilaterally Gait: not examined in bed. Sensory exam: no abnormal findings. No cerebellar signs elicited. F-T-N test sine. Objective Objective Vital Signs Date Time Temp Pulse Resp B/P (MAP) Pulse Ox O2 Delivery O2 Flow Rate FiO2 01/11/19 12:50 96.6 61 17 115/54 (74) Nasal Cannula 2.0 96.6 01/11/19 10:46 89 Intake and Output 01/11/19 06:59 Intake Total 280 ml Balance 280 ml Intake Oral 280 ml # Voids 4 Vitals Signs Vitals VS - Last 72 Hours, by Label Date Time Temp Pulse Resp B/P (MAP) Pulse Ox O2 Delivery O2 Flow Rate FiO2 01/11/19 12:50 96.6 61 17 115/54 (74) Nasal Cannula 2.0 96.6 01/11/19 10:46 98.2 54 17 120/51 (74) 89 Room Air 98.2 01/11/19 08:29 60 138/63 01/11/19 08:27 60 138/63 01/11/19 08:00 Nasal Cannula 2.0 01/11/19 07:00 97.4 60 18 138/63 (88) 96 Room Air 97.4 01/11/19 03:13 97.4 53 16 123/64 (83) 93 Room Air 97.4 01/10/19 23:00 97.5 64 18 118/55 (76) 93 Nasal Cannula 97.5 01/10/19 20:00 Room Air 01/10/19 19:00 97.7 75 18 144/70 (94) 93 Room Air 97.7 01/10/19 15:00 97.8 65 18 106/45 (65) 91 Nasal Cannula 2.0 97.8 01/10/19 11:00 98.0 64 18 134/68 (90) 96 Nasal Cannula 2.0 98.0 01/10/19 08:58 64 118/61 01/10/19 08:57 64 118/61 01/10/19 07:54 Nasal Cannula 2.0 01/10/19 07:01 97.7 58 18 118/61 (80) 94 Nasal Cannula 2.0 97.7 Laboratory Laboratory Laboratory Tests Test 01/11/19 06:11 White Blood Count 7.0 x10^3/uL (4.0-11.0) Red Blood Count 4.47 x10^6/uL (3.50-5.40) Hemoglobin 14.3 g/dL (12.0-15.5) Hematocrit 43.0 % (36.0-47.0) Mean Corpuscular Volume 96 fL (79-100) Mean Corpuscular Hemoglobin 32 pg (25-35) Mean Corpuscular Hemoglobin Concent 33 g/dL (31-37) Red Cell Distribution Width 14.9 % (11.5-14.5) Platelet Count 177 x10^3/uL (140-400) Neutrophils (%) (Auto) 56 % (31-73) Lymphocytes (%) (Auto) 31 % (24-48) Monocytes (%) (Auto) 9 % (0-9) Eosinophils (%) (Auto) 4 % (0-3) Basophils (%) (Auto) 1 % (0-3) Neutrophils # (Auto) 3.9 x10^3uL (1.8-7.7) Lymphocytes # (Auto) 2.1 x10^3/uL (1.0-4.8) Monocytes # (Auto) 0.6 x10^3/uL (0.0-1.1) Eosinophils # (Auto) 0.3 x10^3/uL (0.0-0.7) Basophils # (Auto) 0.0 x10^3/uL (0.0-0.2) Sodium Level 142 mmol/L (136-145) Potassium Level 4.0 mmol/L (3.5-5.1) Chloride Level 108 mmol/L (98-107) Carbon Dioxide Level 29 mmol/L (21-32) Anion Gap 5 (6-14) Blood Urea Nitrogen 7 mg/dL (7-20) Creatinine 0.8 mg/dL (0.6-1.0) Estimated GFR (Cockcroft-Gault) 67.7 Glucose Level 87 mg/dL (70-99) Calcium Level 8.7 mg/dL (8.5-10.1) Microbiology 01/06/19 Urine Culture - Final, Complete 01/06/19 Urine Culture Result 1 (YODIT) - Final, Complete Medication Medications Current Medications Warfarin Sodium (Coumadin - No Dose Today) 1 each 1X WARF ONCE MC Last administered on 01/10/19at 16:00; Start 01/10/19 at 16:00; Stop 01/10/19 at 16:01; Status DC Warfarin Sodium (Coumadin) 6 mg Suero PO ; Start 01/10/19 at 16:00; Stop 01/10/19 at 16:00; Status DC Comment Review of Relevant I have reviewed the following items mignon (where applicable) has been applied. RUBI SERNA MD Jan 11, 2019 14:07
[2019-01-11 14:46] LABS: PROTHROMBIN TIME PATIENT 38.4 SEC (11.7-14.0)
[2019-01-11 18:39] LABS: FREE T4 1.12 ng/dL (0.76-1.46); THYROID STIM HORMONE (TSH) 4.266 uIU/mL (0.358-3.74)
[2019-01-11] MEDS: ATORVASTATIN CALCIUM 10 MG TABLET. PO SCH (20:53)
[2019-01-12 03:00] VITALS: BP 116/64
[2019-01-12 05:12] LABS: BASO % 1 % (0-3); EOS # 0.3 x10^3/uL (0.0-0.7); EOS % 5 % (0-3); HEMATOCRIT 43.9 % (36.0-47.0); HEMOGLOBIN 14.4 g/dL (12.0-15.5); LYMPH # 2.4 x10^3/uL (1.0-4.8); LYMPH % 38 % (24-48); MEAN CORPUSCULAR HEMOGLOBIN 32 pg (25-35); MEAN CORPUSCULAR HGB CONC 33 g/dL (31-37); MEAN CORPUSCULAR VOLUME 97 fL (79-100); MONO # 0.5 x10^3/uL (0.0-1.1); MONO % 8 % (0-9); NEUT # 3.1 x10^3uL (1.8-7.7); NEUT % 48 % (31-73); PLATELET COUNT 187 x10^3/uL (140-400); RED BLOOD COUNT 4.54 x10^6/uL (3.50-5.40); RED CELL DISTRIBUTION WIDTH 14.8 % (11.5-14.5); WHITE BLOOD COUNT 6.4 x10^3/uL (4.0-11.0)
[2019-01-12 05:27] LABS: CALCIUM 8.8 mg/dL (8.5-10.1); GFR 52.3; POTASSIUM 3.9 mmol/L (3.5-5.1)
[2019-01-12] MEDS: LEVOTHYROXINE 75 MCG TABLET PO SCH (05:42)
[2019-01-12 07:00] VITALS: BP 86/39
[2019-01-12] MEDS: OLANZapine 5 MG TABLET PO SCH (08:39)
[2019-01-12] MEDS: PREGABALIN 75 MG CAPSULE PO SCH ×2 (09:00→21:00)
[2019-01-12] MEDS: DIGOXIN 125 MCG TABLET. PO SCH (09:00)
[2019-01-12] MEDS: LACTOBACILLUS RHAMNOSUS GG 1 CAPSULE. PO SCH ×2 (09:02→21:49)
[2019-01-12] MEDS: FERROUS SULFATE 325 MG TABLET. PO SCH (09:02)
[2019-01-12] MEDS: CALCIUM POLYCARBOPHIL 625 MG TABLET PO SCH ×2 (09:02→21:50)
[2019-01-12] MEDS: SMZ/TMP 800/160MG TABLET. PO SCH ×2 (09:04→21:49)
[2019-01-12] MEDS: CYANOCOBALAMIN (VITAMIN B-12) 1,000 MCG TABLET. PO SCH (09:05)
[2019-01-12] MEDS: CHOLECALCIFEROL (VITAMIN D3) 1,000 UNIT TABLET PO SCH (09:05)
[2019-01-12] MEDS: PANTOPRAZOLE 40 MG TABLET.DR. PO SCH (09:06)
[2019-01-12] MEDS: PARoxetine 20 MG TABLET PO SCH (09:06)
[2019-01-12] MEDS: SENNOSIDES 8.6 MG TABLET PO SCH ×2 (09:07→21:49)
[2019-01-12] MEDS: ALPRAZolam 0.5 MG TABLET PO PRN ×2 (09:12→21:49)
--- NOTE | 2019-01-12 09:26 | PDOC ---
BHARTI ESCOTO [employer] STITCHER 01/12/19 0926: SURGICAL PROGRESS NOTE Subjective tolerating diet no emesis flatus, however no stool Vital Signs Vital Signs Date Time Temp Pulse Resp B/P (MAP) Pulse Ox O2 Delivery O2 Flow Rate FiO2 01/12/19 09:00 65 86/39 01/12/19 07:00 97.9 16 91 Room Air 97.9 01/11/19 19:50 2.0 I&O Intake and Output 01/12/19 07:00 Intake Total 120 ml Balance 120 ml Intake Oral 120 ml # Voids 2 General: Alert, Oriented X3, Cooperative, No acute distress Abdomen: Soft, No tenderness Labs Laboratory Tests Test 01/11/19 06:11 01/12/19 04:30 White Blood Count 7.0 x10^3/uL (4.0-11.0) 6.4 x10^3/uL (4.0-11.0) Red Blood Count 4.47 x10^6/uL (3.50-5.40) 4.54 x10^6/uL (3.50-5.40) Hemoglobin 14.3 g/dL (12.0-15.5) 14.4 g/dL (12.0-15.5) Hematocrit 43.0 % (36.0-47.0) 43.9 % (36.0-47.0) Mean Corpuscular Volume 96 fL (79-100) 97 fL (79-100) Mean Corpuscular Hemoglobin 32 pg (25-35) 32 pg (25-35) Mean Corpuscular Hemoglobin Concent 33 g/dL (31-37) 33 g/dL (31-37) Red Cell Distribution Width 14.9 % (11.5-14.5) 14.8 % (11.5-14.5) Platelet Count 177 x10^3/uL (140-400) 187 x10^3/uL (140-400) Neutrophils (%) (Auto) 56 % (31-73) 48 % (31-73) Lymphocytes (%) (Auto) 31 % (24-48) 38 % (24-48) Monocytes (%) (Auto) 9 % (0-9) 8 % (0-9) Eosinophils (%) (Auto) 4 % (0-3) 5 % (0-3) Basophils (%) (Auto) 1 % (0-3) 1 % (0-3) Neutrophils # (Auto) 3.9 x10^3uL (1.8-7.7) 3.1 x10^3uL (1.8-7.7) Lymphocytes # (Auto) 2.1 x10^3/uL (1.0-4.8) 2.4 x10^3/uL (1.0-4.8) Monocytes # (Auto) 0.6 x10^3/uL (0.0-1.1) 0.5 x10^3/uL (0.0-1.1) Eosinophils # (Auto) 0.3 x10^3/uL (0.0-0.7) 0.3 x10^3/uL (0.0-0.7) Basophils # (Auto) 0.0 x10^3/uL (0.0-0.2) 0.0 x10^3/uL (0.0-0.2) Prothrombin Time 38.4 SEC (11.7-14.0) 27.0 SEC (11.7-14.0) Prothromb Time International Ratio 3.9 (0.8-1.1) 2.5 (0.8-1.1) Sodium Level 142 mmol/L (136-145) 144 mmol/L (136-145) Potassium Level 4.0 mmol/L (3.5-5.1) 3.9 mmol/L (3.5-5.1) Chloride Level 108 mmol/L (98-107) 108 mmol/L (98-107) Carbon Dioxide Level 29 mmol/L (21-32) 26 mmol/L (21-32) Anion Gap 5 (6-14) 10 (6-14) Blood Urea Nitrogen 7 mg/dL (7-20) 8 mg/dL (7-20) Creatinine 0.8 mg/dL (0.6-1.0) 1.0 mg/dL (0.6-1.0) Estimated GFR (Cockcroft-Gault) 67.7 52.3 Glucose Level 87 mg/dL (70-99) 107 mg/dL (70-99) Calcium Level 8.7 mg/dL (8.5-10.1) 8.8 mg/dL (8.5-10.1) Thyroid Stimulating Hormone (TSH) 4.266 uIU/mL (0.358-3.74) Free Thyroxine 1.12 ng/dL (0.76-1.46) Free Triiodothyronine (T3) pg/mL 1.34 pg/mL (2.18-3.98) Laboratory Tests Test 01/12/19 04:30 White Blood Count 6.4 x10^3/uL (4.0-11.0) Red Blood Count 4.54 x10^6/uL (3.50-5.40) Hemoglobin 14.4 g/dL (12.0-15.5) Hematocrit 43.9 % (36.0-47.0) Mean Corpuscular Volume 97 fL (79-100) Mean Corpuscular Hemoglobin 32 pg (25-35) Mean Corpuscular Hemoglobin Concent 33 g/dL (31-37) Red Cell Distribution Width 14.8 % (11.5-14.5) Platelet Count 187 x10^3/uL (140-400) Neutrophils (%) (Auto) 48 % (31-73) Lymphocytes (%) (Auto) 38 % (24-48) Monocytes (%) (Auto) 8 % (0-9) Eosinophils (%) (Auto) 5 % (0-3) Basophils (%) (Auto) 1 % (0-3) Neutrophils # (Auto) 3.1 x10^3uL (1.8-7.7) Lymphocytes # (Auto) 2.4 x10^3/uL (1.0-4.8) Monocytes # (Auto) 0.5 x10^3/uL (0.0-1.1) Eosinophils # (Auto) 0.3 x10^3/uL (0.0-0.7) Basophils # (Auto) 0.0 x10^3/uL (0.0-0.2) Prothrombin Time 27.0 SEC (11.7-14.0) Prothromb Time International Ratio 2.5 (0.8-1.1) Sodium Level 144 mmol/L (136-145) Potassium Level 3.9 mmol/L (3.5-5.1) Chloride Level 108 mmol/L (98-107) Carbon Dioxide Level 26 mmol/L (21-32) Anion Gap 10 (6-14) Blood Urea Nitrogen 8 mg/dL (7-20) Creatinine 1.0 mg/dL (0.6-1.0) Estimated GFR (Cockcroft-Gault) 52.3 Glucose Level 107 mg/dL (70-99) Calcium Level 8.8 mg/dL (8.5-10.1) Problem List Problems Medical Problems: (1) Epigastric abdominal pain Status: Acute (2) Urinary tract infection Status: Acute Assessment/Plan xrays nonobstructing appears stable, if no stool consider SBFT in next day or so--will review with STEPHEN Bergeron MD 01/12/19 1653: SURGICAL PROGRESS NOTE Assessment/Plan Pt seen and examined. Agree with Ms. Escoto's note Pt without c/o, abd soft, ND, NTTP XR reassuring will try suppository BHARTI ESCOTO APRN Jan 12, 2019 09:26 STEPHEN JENSEN MD Jan 12, 2019 16:53
[2019-01-12] MEDS ORDERED: IV NORMAL SALINE 500ML BAG 500 ML IV ONE (10:00)
--- NOTE | 2019-01-12 10:58 | PDOC ---
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 Objective: Objective: No stools charted. Vital Signs: Vital Signs Date Time Temp Pulse Resp B/P (MAP) Pulse Ox O2 Delivery O2 Flow Rate FiO2 01/12/19 09:00 65 86/39 01/12/19 07:00 97.9 16 91 Room Air 97.9 01/11/19 19:50 2.0 Labs: Laboratory Tests Test 01/12/19 04:30 White Blood Count 6.4 x10^3/uL Red Blood Count 4.54 x10^6/uL Hemoglobin 14.4 g/dL Hematocrit 43.9 % Mean Corpuscular Volume 97 fL Mean Corpuscular Hemoglobin 32 pg Mean Corpuscular Hemoglobin Concent 33 g/dL Red Cell Distribution Width 14.8 % Platelet Count 187 x10^3/uL Neutrophils (%) (Auto) 48 % Lymphocytes (%) (Auto) 38 % Monocytes (%) (Auto) 8 % Eosinophils (%) (Auto) 5 % Basophils (%) (Auto) 1 % Neutrophils # (Auto) 3.1 x10^3uL Lymphocytes # (Auto) 2.4 x10^3/uL Monocytes # (Auto) 0.5 x10^3/uL Eosinophils # (Auto) 0.3 x10^3/uL Basophils # (Auto) 0.0 x10^3/uL Prothrombin Time 27.0 SEC Prothromb Time International Ratio 2.5 Sodium Level 144 mmol/L Potassium Level 3.9 mmol/L Chloride Level 108 mmol/L Carbon Dioxide Level 26 mmol/L Anion Gap 10 Blood Urea Nitrogen 8 mg/dL Creatinine 1.0 mg/dL Estimated GFR (Cockcroft-Gault) 52.3 Glucose Level 107 mg/dL Calcium Level 8.8 mg/dL Imaging: [facility]AS 01/11 IMPRESSION: 1. Hyperinflation and coarse interstitial lung changes, likely due to chronic COPD. 2. Stable cardiomegaly. 3. Stable nonobstructive nonspecific abdominal bowel gas pattern. 4. Prior kyphoplasty of the lumbar spine x2. PE: GEN: NAD - talking on the phone ABD: soft, non-tender NEURO/PSYCH: A & O 3 A/P: Possible ileus/PSBO - tolerating PO, passing flatus, no stool Chronic GI issues -- Other per Dr. Barahona. SHELLI CORDERO Jan 12, 2019 10:58
[2019-01-12 11:00] VITALS: BP 107/52
--- NOTE | 2019-01-12 11:18 | NUR ---
Pharmacy Warfarin Dosing Note S:Pharmacy consulted to assist with anticoagulation therapy started with target INR: 2 -3 O:SHANNAN DENNIS is a 88 year old F with Atrial Fibrillation LABS: Last INR: 2.5 Last HGB: 14.4 Last HCT: 43.9 Last PLT: 187 Last dose of Hold given on 01/11/19 at 1625 Previous Regimen: 3 mg daily except 6 mg on Sundays Vitamin K given: N Drug Interaction Changes: New Interacting Drug Ongoing Drug Interactions: Bactrim (new), Paxil (captain's assistant), Synthroid (captain's assistant) A:INR of 2.5 is within desired range. Target range for this patient is: 2 -3 P: Warfarin dose: 2 mg Today at 1600 Bridge Therapy: None Next INR due 01/13/19 Pharmacy anticoagulation service will continue to follow. MEENAKSHI COOPER RPH, 01/12/19 [id number]
--- NOTE | 2019-01-12 11:34 | NUR ---
SW following for discharge planning. Discussed with RN, pt SNU referral sent to [facility] yesterday, however [facility] is unable to take pt's at this time. SW met with pt to discuss other facilities, pt would like referral sent to [facility]. SW phoned and faxed referral. Pt possibly having a small bowel follow through. SW will continue to follow and await acceptance for [facility].
--- NOTE | 2019-01-12 11:41 | PDOC ---
PROGRESS NOTES Chief Complaint Chief Complaint CC: Abdominal pain History of Present Illness History of Present Illness Pt is a 88yo F who presented for abdominal pain. Pt seen and examined this morning, Per RN pt passed flatus yesterday but still denies BM States fascial numbness resolved Discussed care with [employer] manager No new complaints Vitals Vitals Vital Signs Date Time Temp Pulse Resp B/P (MAP) Pulse Ox O2 Delivery O2 Flow Rate FiO2 01/12/19 09:00 65 86/39 01/12/19 07:00 97.9 16 91 Room Air 97.9 01/11/19 19:50 2.0 Physical Exam General: Alert, Oriented X3, Cooperative, No acute distress Heart: Regular rate, Normal S1, Normal S2, No murmurs Lungs: Clear, Other (No crackles or wheezes) Abdomen: Soft, No tenderness Extremities: No clubbing, Normal pulses Skin: No rashes, No breakdown, No significant lesion Labs LABS Laboratory Tests Test 01/12/19 04:30 White Blood Count 6.4 x10^3/uL (4.0-11.0) Red Blood Count 4.54 x10^6/uL (3.50-5.40) Hemoglobin 14.4 g/dL (12.0-15.5) Hematocrit 43.9 % (36.0-47.0) Mean Corpuscular Volume 97 fL (79-100) Mean Corpuscular Hemoglobin 32 pg (25-35) Mean Corpuscular Hemoglobin Concent 33 g/dL (31-37) Red Cell Distribution Width 14.8 % (11.5-14.5) Platelet Count 187 x10^3/uL (140-400) Neutrophils (%) (Auto) 48 % (31-73) Lymphocytes (%) (Auto) 38 % (24-48) Monocytes (%) (Auto) 8 % (0-9) Eosinophils (%) (Auto) 5 % (0-3) Basophils (%) (Auto) 1 % (0-3) Neutrophils # (Auto) 3.1 x10^3uL (1.8-7.7) Lymphocytes # (Auto) 2.4 x10^3/uL (1.0-4.8) Monocytes # (Auto) 0.5 x10^3/uL (0.0-1.1) Eosinophils # (Auto) 0.3 x10^3/uL (0.0-0.7) Basophils # (Auto) 0.0 x10^3/uL (0.0-0.2) Prothrombin Time 27.0 SEC (11.7-14.0) Prothromb Time International Ratio 2.5 (0.8-1.1) Sodium Level 144 mmol/L (136-145) Potassium Level 3.9 mmol/L (3.5-5.1) Chloride Level 108 mmol/L (98-107) Carbon Dioxide Level 26 mmol/L (21-32) Anion Gap 10 (6-14) Blood Urea Nitrogen 8 mg/dL (7-20) Creatinine 1.0 mg/dL (0.6-1.0) Estimated GFR (Cockcroft-Gault) 52.3 Glucose Level 107 mg/dL (70-99) Calcium Level 8.8 mg/dL (8.5-10.1) Review of Systems Review of Systems Denies F/C, Denies CP or SOA Assessment and Plan Assessmemt and Plan Assessment: Large hiatal hernia/pSBO/ileus?; Abdominal series: nonobstructing gas pattern Presbyesophagus GERD UTI Hypothyroidism Osteopenia A-fib: on Coumadin Hx of TIA Anxiety Depression Hemorrhoids Diverticulosis Cholelithiasis Plan: 500cc NS bolus, NS @ 75cc/hr Abdominal series showing non-obstructing gas pattern,endorses flatus yesterday, denies BM Possible need for SBFT, appreciate general surgery recommendations Discussed care with Caul Puller, D/c to [facility] when medically stable Encourage PO intake, Tolerating diet Ensure BID for calories/protein b/l fascial numbness resolved, MRI (-) for acute process, appreciate recommendations Cardizem dose reduced to 120 po Qd, 2/2 bradycardia Pharmacy to dose Warfarin, INR 2.5 Bactrim DS Pain management Recheck labs in am Home Rx PT/OT orders Problems Medical Problems: (1) Epigastric abdominal pain Status: Acute (2) Urinary tract infection Status: Acute Comment Review of Relevant I have reviewed the following items mignon (where applicable) has been applied. Labs Laboratory Tests Test 01/11/19 06:11 01/12/19 04:30 White Blood Count 7.0 x10^3/uL (4.0-11.0) 6.4 x10^3/uL (4.0-11.0) Red Blood Count 4.47 x10^6/uL (3.50-5.40) 4.54 x10^6/uL (3.50-5.40) Hemoglobin 14.3 g/dL (12.0-15.5) 14.4 g/dL (12.0-15.5) Hematocrit 43.0 % (36.0-47.0) 43.9 % (36.0-47.0) Mean Corpuscular Volume 96 fL (79-100) 97 fL (79-100) Mean Corpuscular Hemoglobin 32 pg (25-35) 32 pg (25-35) Mean Corpuscular Hemoglobin Concent 33 g/dL (31-37) 33 g/dL (31-37) Red Cell Distribution Width 14.9 % (11.5-14.5) 14.8 % (11.5-14.5) Platelet Count 177 x10^3/uL (140-400) 187 x10^3/uL (140-400) Neutrophils (%) (Auto) 56 % (31-73) 48 % (31-73) Lymphocytes (%) (Auto) 31 % (24-48) 38 % (24-48) Monocytes (%) (Auto) 9 % (0-9) 8 % (0-9) Eosinophils (%) (Auto) 4 % (0-3) 5 % (0-3) Basophils (%) (Auto) 1 % (0-3) 1 % (0-3) Neutrophils # (Auto) 3.9 x10^3uL (1.8-7.7) 3.1 x10^3uL (1.8-7.7) Lymphocytes # (Auto) 2.1 x10^3/uL (1.0-4.8) 2.4 x10^3/uL (1.0-4.8) Monocytes # (Auto) 0.6 x10^3/uL (0.0-1.1) 0.5 x10^3/uL (0.0-1.1) Eosinophils # (Auto) 0.3 x10^3/uL (0.0-0.7) 0.3 x10^3/uL (0.0-0.7) Basophils # (Auto) 0.0 x10^3/uL (0.0-0.2) 0.0 x10^3/uL (0.0-0.2) Prothrombin Time 38.4 SEC (11.7-14.0) 27.0 SEC (11.7-14.0) Prothromb Time International Ratio 3.9 (0.8-1.1) 2.5 (0.8-1.1) Sodium Level 142 mmol/L (136-145) 144 mmol/L (136-145) Potassium Level 4.0 mmol/L (3.5-5.1) 3.9 mmol/L (3.5-5.1) Chloride Level 108 mmol/L (98-107) 108 mmol/L (98-107) Carbon Dioxide Level 29 mmol/L (21-32) 26 mmol/L (21-32) Anion Gap 5 (6-14) 10 (6-14) Blood Urea Nitrogen 7 mg/dL (7-20) 8 mg/dL (7-20) Creatinine 0.8 mg/dL (0.6-1.0) 1.0 mg/dL (0.6-1.0) Estimated GFR (Cockcroft-Gault) 67.7 52.3 Glucose Level 87 mg/dL (70-99) 107 mg/dL (70-99) Calcium Level 8.7 mg/dL (8.5-10.1) 8.8 mg/dL (8.5-10.1) Thyroid Stimulating Hormone (TSH) 4.266 uIU/mL (0.358-3.74) Free Thyroxine 1.12 ng/dL (0.76-1.46) Free Triiodothyronine (T3) pg/mL 1.34 pg/mL (2.18-3.98) Laboratory Tests Test 01/12/19 04:30 White Blood Count 6.4 x10^3/uL (4.0-11.0) Red Blood Count 4.54 x10^6/uL (3.50-5.40) Hemoglobin 14.4 g/dL (12.0-15.5) Hematocrit 43.9 % (36.0-47.0) Mean Corpuscular Volume 97 fL (79-100) Mean Corpuscular Hemoglobin 32 pg (25-35) Mean Corpuscular Hemoglobin Concent 33 g/dL (31-37) Red Cell Distribution Width 14.8 % (11.5-14.5) Platelet Count 187 x10^3/uL (140-400) Neutrophils (%) (Auto) 48 % (31-73) Lymphocytes (%) (Auto) 38 % (24-48) Monocytes (%) (Auto) 8 % (0-9) Eosinophils (%) (Auto) 5 % (0-3) Basophils (%) (Auto) 1 % (0-3) Neutrophils # (Auto) 3.1 x10^3uL (1.8-7.7) Lymphocytes # (Auto) 2.4 x10^3/uL (1.0-4.8) Monocytes # (Auto) 0.5 x10^3/uL (0.0-1.1) Eosinophils # (Auto) 0.3 x10^3/uL (0.0-0.7) Basophils # (Auto) 0.0 x10^3/uL (0.0-0.2) Prothrombin Time 27.0 SEC (11.7-14.0) Prothromb Time International Ratio 2.5 (0.8-1.1) Sodium Level 144 mmol/L (136-145) Potassium Level 3.9 mmol/L (3.5-5.1) Chloride Level 108 mmol/L (98-107) Carbon Dioxide Level 26 mmol/L (21-32) Anion Gap 10 (6-14) Blood Urea Nitrogen 8 mg/dL (7-20) Creatinine 1.0 mg/dL (0.6-1.0) Estimated GFR (Cockcroft-Gault) 52.3 Glucose Level 107 mg/dL (70-99) Calcium Level 8.8 mg/dL (8.5-10.1) Microbiology 01/06/19 Urine Culture - Final, Complete 01/06/19 Urine Culture Result 1 (YODIT) - Final, Complete Medications Current Medications Famotidine (Pepcid Vial) 20 mg 1X ONCE IVP Last administered on 01/06/19at 18:46; Start 01/06/19 at 18:00; Stop 01/06/19 at 18:01; Status DC Ondansetron HCl (Zofran) 4 mg 1X ONCE IV Last administered on 01/06/19at 18:46; Start 01/06/19 at 18:15; Stop 01/06/19 at 18:16; Status DC Ciprofloxacin/ Dextrose 200 ml @ 200 mls/hr 1X ONCE IV Last administered on 01/06/19at 19:05; Start 01/06/19 at 18:30; Stop 01/06/19 at 19:29; Status DC Sodium Chloride 1,000 ml @ 1,000 mls/hr 1X ONCE IV Last administered on 01/06/19at 18:46; Start 01/06/19 at 18:30; Stop 01/06/19 at 19:29; Status DC Fentanyl Citrate (Fentanyl 2ml Vial) 25 mcg 1X ONCE IV ; Start 01/06/19 at 20:45; Stop 01/06/19 at 20:52; Status DC Ondansetron HCl (Zofran) 4 mg PRN Q8HRS PRN IV NAUSEA/VOMITING; Start 01/06/19 at 21:00; Stop 01/07/19 at 20:59; Status DC Fentanyl Citrate (Fentanyl 2ml Vial) 25 mcg PRN Q1HR PRN IV PAIN; Start 01/06/19 at 21:00; Stop 01/06/19 at 21:44; Status DC Acetaminophen/ Hydrocodone Bitart (Lortab 7.5/325) 1 tab PRN Q6HRS PRN PO PAIN Last administered on 01/07/19at 12:47; Start 01/06/19 at 21:45; Stop 01/07/19 at 18:30; Status DC Morphine Sulfate (Morphine Sulfate) 2 mg PRN Q4HRS PRN IV PAIN; Start 01/06/19 at 22:30 Sodium Chloride 1,000 ml @ 50 mls/hr Q20H IV Last administered on 01/06/19at 23:22; Start 01/07/19 at 00:00; Stop 01/08/19 at 18:39; Status DC Alprazolam (Xanax) 0.5 mg PRN TID PRN PO ANXIETY Last administered on 01/12/19at 09:12; Start 01/06/19 at 22:30 Atorvastatin Calcium (Lipitor) 10 mg QHS PO Last administered on 01/11/19at 20:53; Start 01/06/19 at 23:00 Pantoprazole Sodium (Protonix) 40 mg DAILYAC PO Last administered on 01/12/19 09:06; Start 01/07/19 at 11:30 Albuterol Sulfate (Ventolin Neb Soln) 2.5 mg PRN Q4HRS PRN INH SHORTNESS OF BREATH; Start 01/07/19 at 12:45 Bismuth Subsalicylate (Pepto-Bismol) 524 mg PRN Q1HR PRN PO DIARRHEA; Start 01/07/19 at 12:45 Vitamin D (Vitamin D3) 2,000 unit DAILY PO Last administered on 01/12/19 09:05; Start 01/07/19 at 14:00 Cyanocobalamin (Vitamin B-12) 1,000 mcg DAILY PO Last administered on 01/12/19 09:05; Start 01/07/19 at 14:00 Digoxin (Lanoxin) 125 mcg DAILY PO ; Start 01/08/19 at 09:00; Stop 01/08/19 at 09:00; Status DC Digoxin (Lanoxin) 125 mcg DAILY PO Last administered on 01/10/19 08:57; Start 01/07/19 at 14:00 Ferrous Sulfate (Feosol) 325 mg DAILY08 PO Last administered on 01/12/19 09:02; Start 01/07/19 at 14:00 Acetaminophen/ Hydrocodone Bitart (Lortab 7.5/325) 1 tab PRN Q8HRS PRN PO MODERATE PAIN Last administered on 01/09/19 20:52; Start 01/07/19 at 12:45 Levothyroxine Sodium (Synthroid) 75 mcg DAILY06 PO Last administered on 01/12/19 05:42; Start 01/08/19 at 06:00 Levothyroxine Sodium (Synthroid) 137 mcg DAILY PO ; Start 01/08/19 at 09:00; Status UNV Ondansetron HCl (Zofran Odt) 4 mg PRN Q6HRS PRN PO NAUSEA; Start 01/07/19 at 12:45 Pantoprazole Sodium (Protonix) 40 mg DAILY PO Last administered on 01/07/19 16:05; Start 01/07/19 at 16:30; Stop 01/07/19 at 18:33; Status DC Pregabalin (Lyrica) 75 mg BID PO Last administered on 01/11/19 08:28; Start 01/07/19 at 21:00 Diltiazem HCl (Cardizem 24hr Cd) 360 mg DAILY PO ; Start 01/08/19 at 14:15; Stop 01/08/19 at 14:15; Status DC Magnesium Hydroxide (Milk Of Magnesia) 2,400 mg PRN DAILY PRN PO CONSTIPATION Last administered on 01/09/19 16:24; Start 01/07/19 at 14:15 Olanzapine (ZyPREXA) 7.5 mg DAILY PO Last administered on 01/11/19 08:26; Start 01/07/19 at 14:15 Paroxetine HCl (Paxil) 20 mg DAILY PO Last administered on 01/12/19 09:06; Start 01/07/19 at 14:15 Sennosides (Senna) 8.6 mg BID PO Last administered on 01/12/19 09:07; Start 01/07/19 at 21:00 Sucralfate (Carafate) 1 gm BIDACLD PO Last administered on 01/11/19 16:39; Start 01/07/19 at 16:30 Non-Formulary Medication (Sucralfate (Carafate)) 1 tab BIDBFRMEAL PO ; Start 01/07/19 at 16:30; Status UNV Non-Formulary Medication (Warfarin Sodium ) 1 tab UD PO ; Start 01/07/19 at 12: 41; Status UNV Warfarin Sodium (Coumadin) 3 mg [id number] PO Last administered on 01/07/19 16:06; Start 01/07/19 at 16:00; Stop 01/08/19 at 14:33; Status DC Non-Formulary Medication (Warfarin Sodium ) 3 mg QSA PO ; Start 01/07/19 at 12:41; Status UNV Warfarin Sodium (Coumadin) 6 mg Suero PO ; Start 01/10/19 at 16:00; Stop 01/10/19 at 16:00; Status DC Warfarin Sodium (Coumadin Per Physician) 1 each PRN DAILY PRN MC SEE COMMENTS Last administered on 01/07/19 18:38; Start 01/07/19 at 14:00; Stop 01/08/19 at 14:33; Status DC Trimethoprim/ Sulfamethoxazole (Bactrim Ds) 1 tab BID PO Last administered on 01/12/19 09:04; Start 01/07/19 at 21:00 Calcium Polycarbophil (Fibercon) 625 mg BID PO Last administered on 01/12/19 09:02; Start 01/07/19 at 21:00 Diltiazem HCl (Cardizem 24hr Cd) 120 mg DAILY PO Last administered on 01/11/19 08:27; Start 01/08/19 at 13:00 Warfarin Sodium (Coumadin Per Pharmacy) 1 each PRN DAILY PRN MC SEE COMMENTS Last administered on 01/12/19 11:17; Start 01/08/19 at 14:45 Warfarin Sodium (Coumadin) 2.5 mg 1X WARF ONCE PO Last administered on 01/08/19 18:55; Start 01/08/19 at 16:00; Stop 01/08/19 at 16:01; Status DC Warfarin Sodium (Coumadin) 2.5 mg 1X WARF ONCE PO Last administered on 01/09/19 16:21; Start 01/09/19 at 16:00; Stop 01/09/19 at 16:01; Status DC Lactobacillus Rhamnosus (Culturelle) 1 cap BID PO Last administered on 01/12/19 09:02; Start 01/09/19 at 14:00 Potassium Chloride (KCl Oral Soln) 40 meq 1X ONCE PO Last administered on 01/10/19 08:55; Start 01/10/19 at 08:30; Stop 01/10/19 at 08:31; Status DC Warfarin Sodium (Coumadin - No Dose Today) 1 each 1X WARF ONCE MC Last administered on 01/10/19at 16:00; Start 01/10/19 at 16:00; Stop 01/10/19 at 16:01; Status DC Warfarin Sodium (Coumadin - No Dose Today) 1 each 1X WARF ONCE MC ; Start 01/12/19 at 16:00; Stop 01/12/19 at 16:00; Status DC Warfarin Sodium (Coumadin) 2 mg 1X WARF ONCE PO ; Start 01/12/19 at 16:00; Stop 01/12/19 at 16:01 Active Scripts Active Acyclovir 800 Mg Tablet 1 Tab PO 5XDAY 7 Days Zofran Odt (Ondansetron) 4 Mg Tab.rapdis 1 Tab SL Q6HRS PRN Cardizem Cd (Diltiazem Hcl) 360 Mg Cap.er.24h 1 Cap PO DAILY Furosemide 40 Mg Tablet 1 Tab PO DAILY Xanax (Alprazolam) 0.5 Mg Tablet 1 Tab PO TID PRN Reported Lyrica (Pregabalin) 75 Mg Capsule 1-2 Cap PO BID Paroxetine Hcl 20 Mg Tablet 1 Tab PO DAILY Levothyroxine Sodium 75 Mcg Tablet 75 Mcg PO DAILYAC Cardizem Cd (Diltiazem Hcl) 180 Mg Cap.er.24h 2 Cap PO DAILY Digoxin 125 Mcg Tablet 125 Mcg PO DAILY Carafate (Sucralfate) 1 Gm Tablet 1 Tab PO BIDACLD Acetaminophen 500 Mg Tablet 1 Tab PO Q4HRS PRN Warfarin Sodium 3 Mg Tablet 3 Mg PO QSA Warfarin Sodium 3 Mg Tablet 3 Mg PO QM-F Warfarin Sodium 6 Mg Tablet 6 Mg PO QSU Ferrous Sulfate 325 Mg Tablet 1 Tab PO DAILY Warfarin Sodium 3 Mg Tablet 1 Tab PO UD Olanzapine 7.5 Mg Tablet 7.5 Mg PO DAILY Proair Hfa Inhaler (Albuterol Sulfate) 8.5 Gm Hfa.aer.ad 2 Puff INH PRN Q4HRS PRN Pepto-Bismol (Bismuth Subsalicylate) 262 Mg/15 Ml Oral.susp 30 Ml PO PRN Q1HR P RN Fleet Enema (Na Phos,M-B/Na Phos,Di-Ba) 133 Ml Enema 1 Each RC PRN DAILY PRN Maalox Advanced Suspension (Mag Hydrox/Aluminum Hyd/Simeth) 355 Ml Oral.susp 30 Ml PO PRN Q1HR PRN Loperamide (Loperamide Hcl) 2 Mg Capsule 4 Mg PO UD PRN Hydrocodone-Apap 7.5-325 (Hydrocodone Bit/Acetaminophen) 1 Each Tablet 1 Tab PO PRN Q8HRS PRN Dulcolax (Bisacodyl) 10 Mg Supp.rect 10 Mg RC PRN DAILY PRN Vitamin D3 (Cholecalciferol (Vitamin D3)) 1,000 Unit Tablet 2 Tab PO DAILY Vitamin B-12 (Cyanocobalamin (Vitamin B-12)) 1,000 Mcg Tablet 1 Tab PO DAILY Carafate (Sucralfate) 1 Gm Tablet 1 Tab PO BIDBFRMEAL Senna (Sennosides) 8.6 Mg Tablet 8.6 Mg PO BID Potassium Chloride 10 Meq Tab.sr.24h 10 Meq PO DAILY Milk Of Magnesia (Magnesium Hydroxide) 2,400 Mg/10 Ml Oral.susp 30 Ml PO PRN DAILY PRN Losartan Potassium 50 Mg Tablet 50 Mg PO DAILY Digoxin 125 Mcg Tablet 1 Tab PO DAILY Acetaminophen 500 Mg Tablet 1 Tab PO Q6HRS Paroxetine Hcl 20 Mg Tablet 1 Tab PO DAILY Synthroid (Levothyroxine Sodium) 137 Mcg Tablet 1 Tab PO DAILY Lipitor (Atorvastatin Calcium) 10 Mg Tablet 1 Tab PO QHS Protonix (Pantoprazole Sodium) 40 Mg Tablet.dr 1 Tab PO DAILY Vitals/I & O Vital Sign - Last 24 Hours 01/11/19 01/11/19 01/11/19 01/11/19 12:50 14:49 19:00 19:50 Temp 96.6 96.0 97.5 96.6 96.0 97.5 Pulse 61 56 65 Resp 17 16 16 B/P (MAP) 115/54 (74) 98/48 (65) 127/65 (85) Pulse Ox 95 93 O2 Delivery Nasal Cannula Nasal Cannula Nasal Cannula Nasal Cannula O2 Flow Rate 2.0 2.0 01/11/19 01/12/19 01/12/19 01/12/19 23:00 03:00 07:00 09:00 Temp 97.4 97.5 97.9 97.4 97.5 97.9 Pulse 57 66 65 65 Resp 16 16 16 B/P (MAP) 118/92 (101) 116/64 (81) 86/39 (55) 86/39 Pulse Ox 98 96 91 O2 Delivery Nasal Cannula Nasal Cannula Room Air 01/12/19 09:00 Pulse 65 B/P (MAP) 86/39 Intake and Output 01/11/19 01/11/19 01/12/19 15:00 23:00 07:00 Intake Total 120 ml Balance 120 ml Nutrition Consultation Dietary Evaluation: Recommendations by RD: Increase Calorie Intake, Protein supplementation Comments: Recommend advance diet as tolerated Recommend Ensure clear BID for added calories/protein while on CLD Once diet advances, encourage P.O. intake-provide snack on unit when requested Expected Outcomes/Goals: P.O. intake to meet >75% estimated energy needs Malnutrition Findings: Food and Nutrition Intake (Sev: <50% est energy req 5days Body Fat Depletion (Non Severe: Mild Depletion Weight Status: Overweight CASTLE,NIAL K III DO Jan 12, 2019 11:41
[2019-01-12] MEDS: SUCRALFATE 1 GM TABLET. PO SCH ×2 (13:36→18:34)
[2019-01-12 15:00] VITALS: BP 135/60
[2019-01-12] MEDS ORDERED: WARFARIN 2 MG TABLET. PO ONE (16:00)
--- NOTE | 2019-01-12 16:57 | PDOC ---
PROGRESS NOTES Assessment Assessment Left side face and tongue numbness x 2 days, then resolved. Large hiatal hernia. Cholelithiasis. Ileus? AFib on Coumadin. COPD. UTI. HLD. UTI. Cardiomegaly. Cognitive impairment. No evidence of acute CVA this time. RECOMMENDATIONS/PLAN: She has been on Coumadin. Continue medical and surgical treatment. Discussed with her son at bedside on 01/09/19. HISTORY OF THE PRESENT ILLNESS: This is an 88-y-old female patient with above medical and surgical diseases for admission this time. She complained symptoms of numbness in her left side face and tongue on 01/08 for a while, then recurred on 01/09/19. No motor deficits. Neurology was requested for consultation on 01/09/19. She stated on 01/10/19 that she did not know if she still had numbness in her left side of face and tongue, but she guess she did not have symptoms anymore. Past Medical History Cardiovascular: AFIB, HTN, Hyperlipidemia Pulmonary: Other CENTRAL NERVOUS SYSTEM: TIA GI: GERD, Gastritis, Other Heme/Onc: No pertinent hx Hepatobiliary: No pertinent hx Psych: Anxiety, Depression Musculoskeletal: Osteoarthritis Rheumatologic: No pertinent hx Infectious disease: No pertinent hx Renal/: UTI Endocrine: No pertinent hx, Hypothyroidism, Osteopenia Past Surgical History No pertinent history Family History Hypertension Social History ALCOHOL: none Drugs: None Lives: [facility] Domestic Violence: Neg Allergies Coded Allergies: Iodinated Contrast- Oral and IV Dye (Verified Allergy, Intermediate, SWELLING, 04/19/16) Penicillins (Verified Allergy, Intermediate, Rash, 04/19/16) adhesive (Verified Allergy, Intermediate, rash, 04/19/16) iodine (Verified Allergy, Intermediate, Rash, 04/19/16) PT HAS NEVER BEEN PREMEDICATED tramadol (Verified Allergy, Intermediate, 11/09/16) Tolerates hydrocodone I S O L A T I O N *CONTACT* (Verified Allergy, Unknown, 01/12/18) mrsa latex (Verified Adverse Reaction, Intermediate, Rash, 01/09/18) MEDICATIONS: Refer to [facility] REVIEW OF SYSTEMS: Constitutional: No malnutrition, weight loss, cachexia. Head: No traumatic brain or head injury. Skin: No edema, or rash. Ear: No infection. Eyes: No vision loss or color blindness. Nose: No bleeding or purulent discharges. Hearing: Hearing decrease. Neck: No injury. Breast: No history of cancer, masses,or discharges. Cardiac: AFib. Pulmonary: COPD. GI: GERD. Urinary/genital: UTI. Endocrinologic: No cousin face, craniofacial dysmorphism, polydactyly. Skeletomuscular: No muscular atrophy, deformity. Neurological: see HP. Psychiatric: Denies drug use/abuse. Otherwise, not [id number] review of systems. PHYSICAL EXAMINATION: General appearance is in subacute distress. HEENT: Normocephalic and nontraumatic. Eyes, nose, ears, and throat are unremarkable. Neck is supple. No lymphadenopathy. No bruits are heard over the carotid artery. No crepitus. Cardiovascular: S1, S2, irregular rate and rhythm. Pulmonary: Clear to auscultation bilaterally. Abdomen: Bowel sounds are positive. Extremities: No rash, lesions, or edema. No restriction of range of motion NEUROLOGICAL EXAMINATION: Awake. Partially oriented to time, knew place and person. PERRL. EOMI. CN: no focal findings. Muscle tone: within normal. Muscle strength: 5- DTR: 2 Plantar reflex: Flexor response bilaterally Gait: not examined while in bed. Sensory exam: no abnormal findings. No cerebellar signs elicited. F-T-N test sine. Objective Objective Vital Signs Date Time Temp Pulse Resp B/P (MAP) Pulse Ox O2 Delivery O2 Flow Rate FiO2 01/12/19 15:00 97.9 89 16 135/60 (85) 93 Room Air 97.9 01/12/19 11:00 2.0 Intake and Output 01/12/19 06:59 Intake Total 120 ml Balance 120 ml Intake Oral 120 ml # Voids 2 Vitals Signs Vitals VS - Last 72 Hours, by Label Date Time Temp Pulse Resp B/P (MAP) Pulse Ox O2 Delivery O2 Flow Rate FiO2 01/12/19 15:00 97.9 89 16 135/60 (85) 93 Room Air 97.9 01/12/19 11:00 98.1 67 16 107/52 (70) 93 Nasal Cannula 2.0 98.1 01/12/19 09:00 65 86/39 01/12/19 09:00 65 86/39 01/12/19 07:40 Nasal Cannula 2.0 01/12/19 07:00 97.9 65 16 86/39 (55) 91 Room Air 97.9 01/12/19 03:00 97.5 66 16 116/64 (81) 96 Nasal Cannula 97.5 01/11/19 23:00 97.4 57 16 118/92 (101) 98 Nasal Cannula 97.4 01/11/19 19:50 Nasal Cannula 2.0 01/11/19 19:00 97.5 65 16 127/65 (85) 93 Nasal Cannula 97.5 01/11/19 14:49 96.0 56 16 98/48 (65) 95 Nasal Cannula 96.0 01/11/19 12:50 96.6 61 17 115/54 (74) Nasal Cannula 2.0 96.6 01/11/19 10:46 98.2 54 17 120/51 (74) 89 Room Air 98.2 01/11/19 08:29 60 138/63 01/11/19 08:27 60 138/63 01/11/19 08:00 Nasal Cannula 2.0 01/11/19 07:00 97.4 60 18 138/63 (88) 96 Room Air 97.4 Laboratory Laboratory Laboratory Tests Test 01/12/19 04:30 White Blood Count 6.4 x10^3/uL (4.0-11.0) Red Blood Count 4.54 x10^6/uL (3.50-5.40) Hemoglobin 14.4 g/dL (12.0-15.5) Hematocrit 43.9 % (36.0-47.0) Mean Corpuscular Volume 97 fL (79-100) Mean Corpuscular Hemoglobin 32 pg (25-35) Mean Corpuscular Hemoglobin Concent 33 g/dL (31-37) Red Cell Distribution Width 14.8 % (11.5-14.5) Platelet Count 187 x10^3/uL (140-400) Neutrophils (%) (Auto) 48 % (31-73) Lymphocytes (%) (Auto) 38 % (24-48) Monocytes (%) (Auto) 8 % (0-9) Eosinophils (%) (Auto) 5 % (0-3) Basophils (%) (Auto) 1 % (0-3) Neutrophils # (Auto) 3.1 x10^3uL (1.8-7.7) Lymphocytes # (Auto) 2.4 x10^3/uL (1.0-4.8) Monocytes # (Auto) 0.5 x10^3/uL (0.0-1.1) Eosinophils # (Auto) 0.3 x10^3/uL (0.0-0.7) Basophils # (Auto) 0.0 x10^3/uL (0.0-0.2) Prothrombin Time 27.0 SEC (11.7-14.0) Prothromb Time International Ratio 2.5 (0.8-1.1) Sodium Level 144 mmol/L (136-145) Potassium Level 3.9 mmol/L (3.5-5.1) Chloride Level 108 mmol/L (98-107) Carbon Dioxide Level 26 mmol/L (21-32) Anion Gap 10 (6-14) Blood Urea Nitrogen 8 mg/dL (7-20) Creatinine 1.0 mg/dL (0.6-1.0) Estimated GFR (Cockcroft-Gault) 52.3 Glucose Level 107 mg/dL (70-99) Calcium Level 8.8 mg/dL (8.5-10.1) Microbiology 01/06/19 Urine Culture - Final, Complete 01/06/19 Urine Culture Result 1 (YODIT) - Final, Complete Medication Medications Current Medications Bisacodyl (Dulcolax Supp) 10 mg PRN DAILY PRN OK CONSTIPATION; Start 01/12/19 at 17:00 Senna/Docusate Sodium (Senna Plus) 2 tab PRN BID PRN PO CONSTIPATION; Start 01/12/19 at 17:00 Warfarin Sodium (Coumadin - No Dose Today) 1 each 1X WARF ONCE MC ; Start 01/12/19 at 16:00; Stop 01/12/19 at 16:00; Status DC Warfarin Sodium (Coumadin) 2 mg 1X WARF ONCE PO ; Start 01/12/19 at 16:00; Stop 01/12/19 at 16:01; Status DC Comment Review of Relevant I have reviewed the following items mignon (where applicable) has been applied. RUBI SERNA MD Jan 12, 2019 16:57
[2019-01-12] MEDS ORDERED: BISACODYL 10 MG SUPP.RECT. PR PRN (17:00)
[2019-01-12 19:00] VITALS: BP 124/54
[2019-01-12] MEDS: ATORVASTATIN CALCIUM 10 MG TABLET. PO SCH (21:49)
[2019-01-12 23:00] VITALS: BP 142/55
--- NOTE | 2019-01-13 02:24 | NUR ---
Patient has a small bowel movement during day shift and a second large loose bowel movement in the evening.
[2019-01-13 03:00] VITALS: BP 118/65
[2019-01-13 04:47] LABS: BASO % 1 % (0-3); EOS # 0.3 x10^3/uL (0.0-0.7); EOS % 5 % (0-3); HEMATOCRIT 40.7 % (36.0-47.0); HEMOGLOBIN 13.8 g/dL (12.0-15.5); LYMPH # 2.8 x10^3/uL (1.0-4.8); LYMPH % 38 % (24-48); MEAN CORPUSCULAR HEMOGLOBIN 33 pg (25-35); MEAN CORPUSCULAR HGB CONC 34 g/dL (31-37); MEAN CORPUSCULAR VOLUME 96 fL (79-100); MONO # 0.7 x10^3/uL (0.0-1.1); MONO % 9 % (0-9); NEUT # 3.5 x10^3uL (1.8-7.7); NEUT % 47 % (31-73); PLATELET COUNT 172 x10^3/uL (140-400); RED BLOOD COUNT 4.25 x10^6/uL (3.50-5.40); RED CELL DISTRIBUTION WIDTH 14.7 % (11.5-14.5); WHITE BLOOD COUNT 7.3 x10^3/uL (4.0-11.0)
[2019-01-13 04:56] LABS: PROTHROMBIN TIME PATIENT 23.5 SEC (11.7-14.0)
[2019-01-13 04:59] LABS: CALCIUM 8.8 mg/dL (8.5-10.1); GFR 52.3; POTASSIUM 3.9 mmol/L (3.5-5.1)
[2019-01-13] MEDS: LEVOTHYROXINE 75 MCG TABLET PO SCH (06:08)
[2019-01-13 07:00] VITALS: BP 117/62
[2019-01-13] MEDS: OLANZapine 5 MG TABLET PO SCH (09:00)
[2019-01-13] MEDS: SENNOSIDES 8.6 MG TABLET PO SCH (09:00)
[2019-01-13] MEDS: SENNOSIDES/DOCUSATE 8.6/50MG TABLET. PO PRN ×2 (09:09→09:18)
[2019-01-13] MEDS: CALCIUM POLYCARBOPHIL 625 MG TABLET PO SCH (09:09)
[2019-01-13] MEDS: CYANOCOBALAMIN (VITAMIN B-12) 1,000 MCG TABLET. PO SCH (09:10)
[2019-01-13] MEDS: PANTOPRAZOLE 40 MG TABLET.DR. PO SCH (09:10)
[2019-01-13] MEDS: CHOLECALCIFEROL (VITAMIN D3) 1,000 UNIT TABLET PO SCH (09:10)
[2019-01-13] MEDS: LACTOBACILLUS RHAMNOSUS GG 1 CAPSULE. PO SCH (09:10)
[2019-01-13] MEDS: SMZ/TMP 800/160MG TABLET. PO SCH (09:10)
[2019-01-13] MEDS: PREGABALIN 75 MG CAPSULE PO SCH (09:11)
[2019-01-13] MEDS: PARoxetine 20 MG TABLET PO SCH (09:11)
[2019-01-13] MEDS: FERROUS SULFATE 325 MG TABLET. PO SCH (09:11)
[2019-01-13] MEDS: DIGOXIN 125 MCG TABLET. PO SCH (09:12)
[2019-01-13] MEDS: ALPRAZolam 0.5 MG TABLET PO PRN ×2 (09:56→16:01)
--- NOTE | 2019-01-13 09:58 | PDOC ---
BHARTI ESCOTO SENIOR INSTRUCTOR 01/13/19 0958: SURGICAL PROGRESS NOTE Subjective tolerating diet had 2 stools, last one loose no n/v no pain Vital Signs Vital Signs Date Time Temp Pulse Resp B/P (MAP) Pulse Ox O2 Delivery O2 Flow Rate FiO2 01/13/19 09:12 63 117/62 01/13/19 08:09 Nasal Cannula 2.0 01/13/19 07:00 97.2 18 97 97.2 I&O Intake and Output 01/13/19 06:59 # Voids 6 # Bowel Movements 1 General: Alert, Oriented X3, Cooperative, No acute distress Abdomen: Soft, No tenderness Labs Laboratory Tests Test 01/12/19 04:30 01/13/19 04:15 White Blood Count 6.4 x10^3/uL (4.0-11.0) 7.3 x10^3/uL (4.0-11.0) Red Blood Count 4.54 x10^6/uL (3.50-5.40) 4.25 x10^6/uL (3.50-5.40) Hemoglobin 14.4 g/dL (12.0-15.5) 13.8 g/dL (12.0-15.5) Hematocrit 43.9 % (36.0-47.0) 40.7 % (36.0-47.0) Mean Corpuscular Volume 97 fL (79-100) 96 fL (79-100) Mean Corpuscular Hemoglobin 32 pg (25-35) 33 pg (25-35) Mean Corpuscular Hemoglobin Concent 33 g/dL (31-37) 34 g/dL (31-37) Red Cell Distribution Width 14.8 % (11.5-14.5) 14.7 % (11.5-14.5) Platelet Count 187 x10^3/uL (140-400) 172 x10^3/uL (140-400) Neutrophils (%) (Auto) 48 % (31-73) 47 % (31-73) Lymphocytes (%) (Auto) 38 % (24-48) 38 % (24-48) Monocytes (%) (Auto) 8 % (0-9) 9 % (0-9) Eosinophils (%) (Auto) 5 % (0-3) 5 % (0-3) Basophils (%) (Auto) 1 % (0-3) 1 % (0-3) Neutrophils # (Auto) 3.1 x10^3uL (1.8-7.7) 3.5 x10^3uL (1.8-7.7) Lymphocytes # (Auto) 2.4 x10^3/uL (1.0-4.8) 2.8 x10^3/uL (1.0-4.8) Monocytes # (Auto) 0.5 x10^3/uL (0.0-1.1) 0.7 x10^3/uL (0.0-1.1) Eosinophils # (Auto) 0.3 x10^3/uL (0.0-0.7) 0.3 x10^3/uL (0.0-0.7) Basophils # (Auto) 0.0 x10^3/uL (0.0-0.2) 0.0 x10^3/uL (0.0-0.2) Prothrombin Time 27.0 SEC (11.7-14.0) 23.5 SEC (11.7-14.0) Prothromb Time International Ratio 2.5 (0.8-1.1) 2.1 (0.8-1.1) Sodium Level 144 mmol/L (136-145) 144 mmol/L (136-145) Potassium Level 3.9 mmol/L (3.5-5.1) 3.9 mmol/L (3.5-5.1) Chloride Level 108 mmol/L (98-107) 109 mmol/L (98-107) Carbon Dioxide Level 26 mmol/L (21-32) 25 mmol/L (21-32) Anion Gap 10 (6-14) 10 (6-14) Blood Urea Nitrogen 8 mg/dL (7-20) 11 mg/dL (7-20) Creatinine 1.0 mg/dL (0.6-1.0) 1.0 mg/dL (0.6-1.0) Estimated GFR (Cockcroft-Gault) 52.3 52.3 Glucose Level 107 mg/dL (70-99) 91 mg/dL (70-99) Calcium Level 8.8 mg/dL (8.5-10.1) 8.8 mg/dL (8.5-10.1) Laboratory Tests Test 01/13/19 04:15 White Blood Count 7.3 x10^3/uL (4.0-11.0) Red Blood Count 4.25 x10^6/uL (3.50-5.40) Hemoglobin 13.8 g/dL (12.0-15.5) Hematocrit 40.7 % (36.0-47.0) Mean Corpuscular Volume 96 fL (79-100) Mean Corpuscular Hemoglobin 33 pg (25-35) Mean Corpuscular Hemoglobin Concent 34 g/dL (31-37) Red Cell Distribution Width 14.7 % (11.5-14.5) Platelet Count 172 x10^3/uL (140-400) Neutrophils (%) (Auto) 47 % (31-73) Lymphocytes (%) (Auto) 38 % (24-48) Monocytes (%) (Auto) 9 % (0-9) Eosinophils (%) (Auto) 5 % (0-3) Basophils (%) (Auto) 1 % (0-3) Neutrophils # (Auto) 3.5 x10^3uL (1.8-7.7) Lymphocytes # (Auto) 2.8 x10^3/uL (1.0-4.8) Monocytes # (Auto) 0.7 x10^3/uL (0.0-1.1) Eosinophils # (Auto) 0.3 x10^3/uL (0.0-0.7) Basophils # (Auto) 0.0 x10^3/uL (0.0-0.2) Prothrombin Time 23.5 SEC (11.7-14.0) Prothromb Time International Ratio 2.1 (0.8-1.1) Sodium Level 144 mmol/L (136-145) Potassium Level 3.9 mmol/L (3.5-5.1) Chloride Level 109 mmol/L (98-107) Carbon Dioxide Level 25 mmol/L (21-32) Anion Gap 10 (6-14) Blood Urea Nitrogen 11 mg/dL (7-20) Creatinine 1.0 mg/dL (0.6-1.0) Estimated GFR (Cockcroft-Gault) 52.3 Glucose Level 91 mg/dL (70-99) Calcium Level 8.8 mg/dL (8.5-10.1) Problem List Problems Medical Problems: (1) Epigastric abdominal pain Status: Acute (2) Urinary tract infection Status: Acute Assessment/Plan improved bowel function STEPHEN JENSEN MD 01/13/19 1426: SURGICAL PROGRESS NOTE Assessment/Plan Pt seen and examined. Agree with Ms. Escoto's note Pt feels better, passed multiple stools abd soft, NTTP d/w pt and pt's supportive family OK to d/c BHARTI ESCOTO SENIOR INSTRUCTOR Jan 13, 2019 09:58 STEPHEN JENSEN MD Jan 13, 2019 14:26
--- NOTE | 2019-01-13 10:08 | NUR ---
SW following. Discussed with RN. Pt has been accepted at [facility] awaiting discharge.
--- NOTE | 2019-01-13 10:57 | PDOC ---
Objective: Objective: Reviewed chart - has stooled. Vital Signs: Vital Signs Date Time Temp Pulse Resp B/P (MAP) Pulse Ox O2 Delivery O2 Flow Rate FiO2 01/13/19 09:12 63 117/62 01/13/19 08:09 Nasal Cannula 2.0 01/13/19 07:00 97.2 18 97 97.2 Labs: Laboratory Tests Test 01/13/19 04:15 White Blood Count 7.3 x10^3/uL Red Blood Count 4.25 x10^6/uL Hemoglobin 13.8 g/dL Hematocrit 40.7 % Mean Corpuscular Volume 96 fL Mean Corpuscular Hemoglobin 33 pg Mean Corpuscular Hemoglobin Concent 34 g/dL Red Cell Distribution Width 14.7 % Platelet Count 172 x10^3/uL Neutrophils (%) (Auto) 47 % Lymphocytes (%) (Auto) 38 % Monocytes (%) (Auto) 9 % Eosinophils (%) (Auto) 5 % Basophils (%) (Auto) 1 % Neutrophils # (Auto) 3.5 x10^3uL Lymphocytes # (Auto) 2.8 x10^3/uL Monocytes # (Auto) 0.7 x10^3/uL Eosinophils # (Auto) 0.3 x10^3/uL Basophils # (Auto) 0.0 x10^3/uL Prothrombin Time 23.5 SEC Prothromb Time International Ratio 2.1 Sodium Level 144 mmol/L Potassium Level 3.9 mmol/L Chloride Level 109 mmol/L Carbon Dioxide Level 25 mmol/L Anion Gap 10 Blood Urea Nitrogen 11 mg/dL Creatinine 1.0 mg/dL Estimated GFR (Cockcroft-Gault) 52.3 Glucose Level 91 mg/dL Calcium Level 8.8 mg/dL PE: GEN: NAD NEURO/PSYCH: sleeping, not awakened A/P: Possible ileus/PSBO - resolved, tolerating PO and stooling -- DC per primary - would send on fiber as started here, continue PPI, and follow- up w/ GI PRN re: chronic issues. SHELLI CORDERO Jan 13, 2019 10:57
[2019-01-13 11:00] VITALS: BP 125/65
--- NOTE | 2019-01-13 11:10 | NUR ---
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 Target range for this patient is: 2 -3 P: Warfarin dose: 2.5 mg Today at 1600 Bridge Therapy: None Next INR due 01/14/19 Pharmacy anticoagulation service will continue to follow. MEENAKSHI COOPER RPH, 01/13/19 8030
[2019-01-13] MEDS: SUCRALFATE 1 GM TABLET. PO SCH ×2 (12:07→16:01)
--- NOTE | 2019-01-13 12:36 | SNU/HH DC ---
DISCHARGE ORDERS DISCHARGE INFORMATION: FINAL DIAGNOSIS Problems Medical Problems: (1) Epigastric abdominal pain Status: Acute (2) Urinary tract infection Status: Acute CONDITION ON DISCHARGE: Stable CODE STATUS: Code Status: Full MCC: SNF STAY <30 DAYS: Yes HOSPICE: HOSPICE: No HOSPICE EVAL & TREAT: No LTAC: ADMIT TO LTAC: No POST DISCHARGE ORDERS: ACTIVITY ORDERS: Activity as tolerated WEIGHT BEARING STATUS: As tolerated DIET AFTER DISCHARGE: Cardiac CHECKS AFTER DISCHARGE: CHECKS AFTER DISCHARGE: Check blood press - daily, Weigh Yourself Daily TREATMENT/EQUIPMENT ORDERS: ADAPTIVE EQUIPMENT NEEDED: None Physical Therapy For: Evalulation/Treatment Occupational Therapy For: Evaluation/Treatment DISCHARGE MEDICATIONS: Home Meds Active Scripts Acyclovir (ACYCLOVIR) 800 Mg Tablet, 1 TAB PO 5XDAY for 7 Days, #35 TAB Prov:KAMI BARR HAIR SPECIALIST 07/13/18 Ondansetron (ZOFRAN ODT) 4 Mg Tab.rapdis, 1 TAB SL Q6HRS PRN for NAUSEA, #12 TAB Prov:FLORINDA ROMAN MD 09/13/17 Diltiazem Hcl (CARDIZEM CD) 360 Mg Cap.er.24h, 1 CAP PO DAILY, #30 CAP 5 Refills Prov:KAMALJIT AL MD 11/12/16 Furosemide (FUROSEMIDE) 40 Mg Tablet, 1 TAB PO DAILY, #30 TAB 5 Refills Prov:KAMALJIT AL MD 11/12/16 Alprazolam (XANAX) 0.5 Mg Tablet, 1 TAB PO TID PRN for ANXIETY, #6 TAB Prov:Latoya TENORIO MD 09/18/16 Reported Medications Pregabalin (LYRICA) 75 Mg Capsule, 1-2 CAP PO BID for shingles pain, #60 CAP 01/07/19 Paroxetine Hcl (PAROXETINE HCL) 20 Mg Tablet, 1 TAB PO DAILY for depression, #30 TAB 5 Refills 01/07/19 Levothyroxine Sodium (LEVOTHYROXINE SODIUM) 75 Mcg Tablet, 75 MCG PO DAILYAC for THYROID SUPPLEMENT, #30 TAB 0 Refills 01/07/19 Diltiazem Hcl (CARDIZEM CD) 180 Mg Cap.er.24h, 2 CAP PO DAILY for afib, #30 CAP 5 Refills 01/07/19 Digoxin (DIGOXIN) 125 Mcg Tablet, 125 MCG PO DAILY for AFIB/HEART FAILURE, TAB 01/07/19 Sucralfate (CARAFATE) 1 Gm Tablet, 1 TAB PO BIDACLD for GERD/Ulcers, #120 TAB 1 Refill 01/07/19 Acetaminophen (ACETAMINOPHEN) 500 Mg Tablet, 1 TAB PO Q4HRS PRN for PAIN, #60 TAB 01/07/19 Warfarin Sodium (WARFARIN SODIUM) 3 Mg Tablet, 3 MG PO QSA for anticoagulant, #30 TAB 01/07/19 Warfarin Sodium (WARFARIN SODIUM) 3 Mg Tablet, 3 MG PO QM-F for anticoagulant, #30 TAB 01/07/19 Warfarin Sodium (WARFARIN SODIUM) 6 Mg Tablet, 6 MG PO QSU for anticoagulant 01/07/19 Ferrous Sulfate (FERROUS SULFATE) 325 Mg Tablet, 1 TAB PO DAILY, TAB 04/11/18 Warfarin Sodium (WARFARIN SODIUM) 3 Mg Tablet, 1 TAB PO UD, TAB 04/11/18 Olanzapine (OLANZAPINE) 7.5 Mg Tablet, 7.5 MG PO DAILY, TAB 04/11/18 Albuterol Sulfate (PROAIR HFA INHALER) 8.5 Gm Hfa.aer.ad, 2 PUFF INH PRN Q4HRS PRN for SHORTNESS OF BREATH, INHALER 0 Refills 01/09/18 Bismuth Subsalicylate (PEPTO-BISMOL) 262 Mg/15 Ml Oral.susp, 30 ML PO PRN Q1HR PRN for DIARRHEA, MISC 01/09/18 Na Phos,M-B/Na Phos,Di-Ba (FLEET ENEMA) 133 Ml Enema, 1 EACH RC PRN DAILY PRN for CONSTIPATION, #1 BOTTLE 01/09/18 Mag Hydrox/Aluminum Hyd/Simeth (Maalox Advanced Suspension) 355 Ml Oral.susp, 30 ML PO PRN Q1HR PRN for DYSPEPSIA, MISC 01/09/18 Loperamide Hcl (LOPERAMIDE) 2 Mg Capsule, 4 MG PO UD PRN for DIARRHEA, CAP 01/09/18 Hydrocodone Bit/Acetaminophen (HYDROCODONE-APAP 7.5-325 ) 1 Each Tablet, 1 T AB PO PRN Q8HRS PRN for PAIN, TAB 0 Refills 01/09/18 Bisacodyl (DULCOLAX) 10 Mg Supp.rect, 10 MG RC PRN DAILY PRN for CONSTIPATION, SUPP.RECT 0 Refills 01/09/18 Cholecalciferol (Vitamin D3) (VITAMIN D3) 1,000 Unit Tablet, 2 TAB PO DAILY for supplement, #30 TAB 5 Refills 01/09/18 Cyanocobalamin (Vitamin B-12) (VITAMIN B-12) 1,000 Mcg Tablet, 1 TAB PO DAILY for supplement, #30 TAB 2 Refills 01/09/18 Sucralfate (CARAFATE) 1 Gm Tablet, 1 TAB PO BIDBFRMEAL for GERD, #120 TAB 1 Refill 01/09/18 Sennosides (SENNA) 8.6 Mg Tablet, 8.6 MG PO BID for constipation, TAB 01/09/18 Potassium Chloride (POTASSIUM CHLORIDE) 10 Meq Tab.sr.24h, 10 MEQ PO DAILY for replace potassium, TAB.SR 01/09/18 Magnesium Hydroxide (MILK OF MAGNESIA) 2,400 Mg/10 Ml Oral.susp, 30 ML PO PRN DAILY PRN for CONSTIPATION, MISC 01/09/18 Losartan Potassium (LOSARTAN POTASSIUM) 50 Mg Tablet, 50 MG PO DAILY for HTN, TAB 01/09/18 Digoxin (DIGOXIN) 125 Mcg Tablet, 1 TAB PO DAILY for heart med, #30 TAB 5 Refills 01/09/18 Acetaminophen (ACETAMINOPHEN) 500 Mg Tablet, 1 TAB PO Q6HRS for pain/temp, #60 TAB 11/08/16 Paroxetine Hcl (PAROXETINE HCL) 20 Mg Tablet, 1 TAB PO DAILY for depression, #30 TAB 5 Refills 11/08/16 Levothyroxine Sodium (SYNTHROID) 137 Mcg Tablet, 1 TAB PO DAILY for hypothyroid, #30 TAB 5 Refills 07/30/16 Atorvastatin Calcium (LIPITOR) 10 Mg Tablet, 1 TAB PO QHS for elevated cholesterol, #90 TAB 1 Refill 07/30/16 Pantoprazole Sodium (PROTONIX) 40 Mg Tablet., 1 TAB PO DAILY for GERD, #30 TAB 5 Refills 08/01/14 CATRACHITA SAVAGE III DO Jan 13, 2019 12:36
--- NOTE | 2019-01-13 13:02 | PDOC ---
PROGRESS NOTES Chief Complaint Chief Complaint CC: Abdominal pain History of Present Illness History of Present Illness Pt is a 88yo F who presented for abdominal pain. Pt seen and examined this morning, sitting upright in bed eating, tolerating diet 1 BM Charted but nursing note says two, one small during day shift and one larger looser one at night Per RN pt has been accepted at [facility] No new complaints Vitals Vitals Vital Signs Date Time Temp Pulse Resp B/P (MAP) Pulse Ox O2 Delivery O2 Flow Rate FiO2 01/13/19 11:00 97.7 78 17 125/65 (85) 94 Room Air 97.7 01/13/19 08:09 2.0 Physical Exam General: Alert, Oriented X3, Cooperative, No acute distress Heart: Regular rate, Normal S1, Normal S2, No murmurs Lungs: Clear, Other (No crackles or wheezes) Abdomen: Normal bowel sounds, Soft, No tenderness Extremities: No clubbing, No cyanosis, No edema, Normal pulses Skin: No rashes, No breakdown, No significant lesion Labs LABS Laboratory Tests Test 01/13/19 04:15 White Blood Count 7.3 x10^3/uL (4.0-11.0) Red Blood Count 4.25 x10^6/uL (3.50-5.40) Hemoglobin 13.8 g/dL (12.0-15.5) Hematocrit 40.7 % (36.0-47.0) Mean Corpuscular Volume 96 fL (79-100) Mean Corpuscular Hemoglobin 33 pg (25-35) Mean Corpuscular Hemoglobin Concent 34 g/dL (31-37) Red Cell Distribution Width 14.7 % (11.5-14.5) Platelet Count 172 x10^3/uL (140-400) Neutrophils (%) (Auto) 47 % (31-73) Lymphocytes (%) (Auto) 38 % (24-48) Monocytes (%) (Auto) 9 % (0-9) Eosinophils (%) (Auto) 5 % (0-3) Basophils (%) (Auto) 1 % (0-3) Neutrophils # (Auto) 3.5 x10^3uL (1.8-7.7) Lymphocytes # (Auto) 2.8 x10^3/uL (1.0-4.8) Monocytes # (Auto) 0.7 x10^3/uL (0.0-1.1) Eosinophils # (Auto) 0.3 x10^3/uL (0.0-0.7) Basophils # (Auto) 0.0 x10^3/uL (0.0-0.2) Prothrombin Time 23.5 SEC (11.7-14.0) Prothromb Time International Ratio 2.1 (0.8-1.1) Sodium Level 144 mmol/L (136-145) Potassium Level 3.9 mmol/L (3.5-5.1) Chloride Level 109 mmol/L (98-107) Carbon Dioxide Level 25 mmol/L (21-32) Anion Gap 10 (6-14) Blood Urea Nitrogen 11 mg/dL (7-20) Creatinine 1.0 mg/dL (0.6-1.0) Estimated GFR (Cockcroft-Gault) 52.3 Glucose Level 91 mg/dL (70-99) Calcium Level 8.8 mg/dL (8.5-10.1) Review of Systems Review of Systems Denies F/C Denies N/V Denies CP or SOA Assessment and Plan Assessmemt and Plan Assessment: Large hiatal hernia/pSBO/ileus?; Abdominal series: nonobstructing gas pattern; BM charted Presbyesophagus GERD UTI Hypothyroidism Osteopenia A-fib: on Coumadin Hx of TIA Anxiety Depression Hemorrhoids Diverticulosis Cholelithiasis Plan: BM charted, will D/C today to [facility] today, appreciates subspecialist recommendations Tolerating diet, improved bowel fxn, appreciate general surgery recommendations Recommended pt continue fiber per GI, continue PPI, and follow-up w/ GI PRN, appreciate recommendations Encourage PO intake, Tolerating diet, Ensure BID for calories/protein b/l fascial numbness resolved, MRI (-) for acute process, appreciate chema mmendations Cardizem dose reduced to 120 po Qd, 2/2 bradycardia Pharmacy to dose Warfarin, INR 2.1 Bactrim DS Pain management Recheck labs in am Home Rx PT/OT orders Problems Medical Problems: (1) Epigastric abdominal pain Status: Acute (2) Urinary tract infection Status: Acute Comment Review of Relevant I have reviewed the following items mignon (where applicable) has been applied. Labs Laboratory Tests Test 01/12/19 04:30 01/13/19 04:15 White Blood Count 6.4 x10^3/uL (4.0-11.0) 7.3 x10^3/uL (4.0-11.0) Red Blood Count 4.54 x10^6/uL (3.50-5.40) 4.25 x10^6/uL (3.50-5.40) Hemoglobin 14.4 g/dL (12.0-15.5) 13.8 g/dL (12.0-15.5) Hematocrit 43.9 % (36.0-47.0) 40.7 % (36.0-47.0) Mean Corpuscular Volume 97 fL (79-100) 96 fL (79-100) Mean Corpuscular Hemoglobin 32 pg (25-35) 33 pg (25-35) Mean Corpuscular Hemoglobin Concent 33 g/dL (31-37) 34 g/dL (31-37) Red Cell Distribution Width 14.8 % (11.5-14.5) 14.7 % (11.5-14.5) Platelet Count 187 x10^3/uL (140-400) 172 x10^3/uL (140-400) Neutrophils (%) (Auto) 48 % (31-73) 47 % (31-73) Lymphocytes (%) (Auto) 38 % (24-48) 38 % (24-48) Monocytes (%) (Auto) 8 % (0-9) 9 % (0-9) Eosinophils (%) (Auto) 5 % (0-3) 5 % (0-3) Basophils (%) (Auto) 1 % (0-3) 1 % (0-3) Neutrophils # (Auto) 3.1 x10^3uL (1.8-7.7) 3.5 x10^3uL (1.8-7.7) Lymphocytes # (Auto) 2.4 x10^3/uL (1.0-4.8) 2.8 x10^3/uL (1.0-4.8) Monocytes # (Auto) 0.5 x10^3/uL (0.0-1.1) 0.7 x10^3/uL (0.0-1.1) Eosinophils # (Auto) 0.3 x10^3/uL (0.0-0.7) 0.3 x10^3/uL (0.0-0.7) Basophils # (Auto) 0.0 x10^3/uL (0.0-0.2) 0.0 x10^3/uL (0.0-0.2) Prothrombin Time 27.0 SEC (11.7-14.0) 23.5 SEC (11.7-14.0) Prothromb Time International Ratio 2.5 (0.8-1.1) 2.1 (0.8-1.1) Sodium Level 144 mmol/L (136-145) 144 mmol/L (136-145) Potassium Level 3.9 mmol/L (3.5-5.1) 3.9 mmol/L (3.5-5.1) Chloride Level 108 mmol/L (98-107) 109 mmol/L (98-107) Carbon Dioxide Level 26 mmol/L (21-32) 25 mmol/L (21-32) Anion Gap 10 (6-14) 10 (6-14) Blood Urea Nitrogen 8 mg/dL (7-20) 11 mg/dL (7-20) Creatinine 1.0 mg/dL (0.6-1.0) 1.0 mg/dL (0.6-1.0) Estimated GFR (Cockcroft-Gault) 52.3 52.3 Glucose Level 107 mg/dL (70-99) 91 mg/dL (70-99) Calcium Level 8.8 mg/dL (8.5-10.1) 8.8 mg/dL (8.5-10.1) Laboratory Tests Test 01/13/19 04:15 White Blood Count 7.3 x10^3/uL (4.0-11.0) Red Blood Count 4.25 x10^6/uL (3.50-5.40) Hemoglobin 13.8 g/dL (12.0-15.5) Hematocrit 40.7 % (36.0-47.0) Mean Corpuscular Volume 96 fL (79-100) Mean Corpuscular Hemoglobin 33 pg (25-35) Mean Corpuscular Hemoglobin Concent 34 g/dL (31-37) Red Cell Distribution Width 14.7 % (11.5-14.5) Platelet Count 172 x10^3/uL (140-400) Neutrophils (%) (Auto) 47 % (31-73) Lymphocytes (%) (Auto) 38 % (24-48) Monocytes (%) (Auto) 9 % (0-9) Eosinophils (%) (Auto) 5 % (0-3) Basophils (%) (Auto) 1 % (0-3) Neutrophils # (Auto) 3.5 x10^3uL (1.8-7.7) Lymphocytes # (Auto) 2.8 x10^3/uL (1.0-4.8) Monocytes # (Auto) 0.7 x10^3/uL (0.0-1.1) Eosinophils # (Auto) 0.3 x10^3/uL (0.0-0.7) Basophils # (Auto) 0.0 x10^3/uL (0.0-0.2) Prothrombin Time 23.5 SEC (11.7-14.0) Prothromb Time International Ratio 2.1 (0.8-1.1) Sodium Level 144 mmol/L (136-145) Potassium Level 3.9 mmol/L (3.5-5.1) Chloride Level 109 mmol/L (98-107) Carbon Dioxide Level 25 mmol/L (21-32) Anion Gap 10 (6-14) Blood Urea Nitrogen 11 mg/dL (7-20) Creatinine 1.0 mg/dL (0.6-1.0) Estimated GFR (Cockcroft-Gault) 52.3 Glucose Level 91 mg/dL (70-99) Calcium Level 8.8 mg/dL (8.5-10.1) Microbiology 01/06/19 Urine Culture - Final, Complete 01/06/19 Urine Culture Result 1 (YODIT) - Final, Complete Medications Current Medications Famotidine (Pepcid Vial) 20 mg 1X ONCE IVP Last administered on 01/06/19at 18:46; Start 01/06/19 at 18:00; Stop 01/06/19 at 18:01; Status DC Ondansetron HCl (Zofran) 4 mg 1X ONCE IV Last administered on 01/06/19at 18:46; Start 01/06/19 at 18:15; Stop 01/06/19 at 18:16; Status DC Ciprofloxacin/ Dextrose 200 ml @ 200 mls/hr 1X ONCE IV Last administered on 01/06/19at 19:05; Start 01/06/19 at 18:30; Stop 01/06/19 at 19:29; Status DC Sodium Chloride 1,000 ml @ 1,000 mls/hr 1X ONCE IV Last administered on 01/06/19at 18:46; Start 01/06/19 at 18:30; Stop 01/06/19 at 19:29; Status DC Fentanyl Citrate (Fentanyl 2ml Vial) 25 mcg 1X ONCE IV ; Start 01/06/19 at 20:45; Stop 01/06/19 at 20:52; Status DC Ondansetron HCl (Zofran) 4 mg PRN Q8HRS PRN IV NAUSEA/VOMITING; Start 01/06/19 at 21:00; Stop 01/07/19 at 20:59; Status DC Fentanyl Citrate (Fentanyl 2ml Vial) 25 mcg PRN Q1HR PRN IV PAIN; Start 01/06/19 at 21:00; Stop 01/06/19 at 21:44; Status DC Acetaminophen/ Hydrocodone Bitart (Lortab 7.5/325) 1 tab PRN Q6HRS PRN PO PAIN Last administered on 01/07/19at 12:47; Start 01/06/19 at 21:45; Stop 01/07/19 at 18:30; Status DC Morphine Sulfate (Morphine Sulfate) 2 mg PRN Q4HRS PRN IV PAIN; Start 01/06/19 at 22:30 Sodium Chloride 1,000 ml @ 50 mls/hr Q20H IV Last administered on 01/06/19at 23:22; Start 01/07/19 at 00:00; Stop 01/08/19 at 18:39; Status DC Alprazolam (Xanax) 0.5 mg PRN TID PRN PO ANXIETY Last administered on 01/13/19at 09:56; Start 01/06/19 at 22:30 Atorvastatin Calcium (Lipitor) 10 mg QHS PO Last administered on 01/12/19at 21:49; Start 01/06/19 at 23:00 Pantoprazole Sodium (Protonix) 40 mg DAILYAC PO Last administered on 01/13/19at 09:10; Start 01/07/19 at 11:30 Albuterol Sulfate (Ventolin Neb Soln) 2.5 mg PRN Q4HRS PRN INH SHORTNESS OF BREATH; Start 01/07/19 at 12:45 Bismuth Subsalicylate (Pepto-Bismol) 524 mg PRN Q1HR PRN PO DIARRHEA; Start 01/07/19 at 12:45 Vitamin D (Vitamin D3) 2,000 unit DAILY PO Last administered on 01/13/19 09:10; Start 01/07/19 at 14:00 Cyanocobalamin (Vitamin B-12) 1,000 mcg DAILY PO Last administered on 01/13/19 09:10; Start 01/07/19 at 14:00 Digoxin (Lanoxin) 125 mcg DAILY PO ; Start 01/08/19 at 09:00; Stop 01/08/19 at 09:00; Status DC Digoxin (Lanoxin) 125 mcg DAILY PO Last administered on 01/13/19 09:12; Start 01/07/19 at 14:00 Ferrous Sulfate (Feosol) 325 mg DAILY08 PO Last administered on 01/13/19 09:11; Start 01/07/19 at 14:00 Acetaminophen/ Hydrocodone Bitart (Lortab 7.5/325) 1 tab PRN Q8HRS PRN PO MODERATE PAIN Last administered on 01/09/19 20:52; Start 01/07/19 at 12:45 Levothyroxine Sodium (Synthroid) 75 mcg DAILY06 PO Last administered on 01/13/19 06:08; Start 01/08/19 at 06:00 Levothyroxine Sodium (Synthroid) 137 mcg DAILY PO ; Start 01/08/19 at 09:00; Status UNV Ondansetron HCl (Zofran Odt) 4 mg PRN Q6HRS PRN PO NAUSEA; Start 01/07/19 at 12:45 Pantoprazole Sodium (Protonix) 40 mg DAILY PO Last administered on 01/07/19 16:05; Start 01/07/19 at 16:30; Stop 01/07/19 at 18:33; Status DC Pregabalin (Lyrica) 75 mg BID PO Last administered on 01/13/19 09:11; Start 01/07/19 at 21:00 Diltiazem HCl (Cardizem 24hr Cd) 360 mg DAILY PO ; Start 01/08/19 at 14:15; Stop 01/08/19 at 14:15; Status DC Magnesium Hydroxide (Milk Of Magnesia) 2,400 mg PRN DAILY PRN PO CONSTIPATION 2ND CHOICE Last administered on 01/09/19 16:24; Start 01/07/19 at 14:15 Olanzapine (ZyPREXA) 7.5 mg DAILY PO Last administered on 01/11/19 08:26; Start 01/07/19 at 14:15 Paroxetine HCl (Paxil) 20 mg DAILY PO Last administered on 01/13/19 09:11; Start 01/07/19 at 14:15 Sennosides (Senna) 8.6 mg BID PO Last administered on 01/13/19 09:00; Start 01/07/19 at 21:00 Sucralfate (Carafate) 1 gm BIDACLD PO Last administered on 01/13/19 12:07; Start 01/07/19 at 16:30 Non-Formulary Medication (Sucralfate (Carafate)) 1 tab BIDBFRMEAL PO ; Start 01/07/19 at 16:30; Status UNV Non-Formulary Medication (Warfarin Sodium ) 1 tab UD PO ; Start 01/07/19 at 12:41; Status UNV Warfarin Sodium (Coumadin) 3 mg MoTuWeThFrSa PO Last administered on 01/07/19 16:06; Start 01/07/19 at 16:00; Stop 01/08/19 at 14:33; Status DC Non-Formulary Medication (Warfarin Sodium ) 3 mg QSA PO ; Start 01/07/19 at 12:41; Status UNV Warfarin Sodium (Coumadin) 6 mg Suero PO ; Start 01/10/19 at 16:00; Stop 01/10/19 at 16:00; Status DC Warfarin Sodium (Coumadin Per Physician) 1 each PRN DAILY PRN MC SEE COMMENTS Last administered on 01/07/19 18:38; Start 01/07/19 at 14:00; Stop 01/08/19 at 14:33; Status DC Trimethoprim/ Sulfamethoxazole (Bactrim Ds) 1 tab BID PO Last administered on 01/13/19 09:10; Start 01/07/19 at 21:00 Calcium Polycarbophil (Fibercon) 625 mg BID PO Last administered on 01/13/19 09:09; Start 01/07/19 at 21:00 Diltiazem HCl (Cardizem 24hr Cd) 120 mg DAILY PO Last administered on 01/13/19 09:11; Start 01/08/19 at 13:00 Warfarin Sodium (Coumadin Per Pharmacy) 1 each PRN DAILY PRN MC SEE COMMENTS Last administered on 01/13/19 11:10; Start 01/08/19 at 14:45 Warfarin Sodium (Coumadin) 2.5 mg 1X WARF ONCE PO Last administered on 01/08/19 18:55; Start 01/08/19 at 16:00; Stop 01/08/19 at 16:01; Status DC Warfarin Sodium (Coumadin) 2.5 mg 1X WARF ONCE PO Last administered on 01/09/19 16:21; Start 01/09/19 at 16:00; Stop 01/09/19 at 16:01; Status DC Lactobacillus Rhamnosus (Culturelle) 1 cap BID PO Last administered on 01/13/19 09:10; Start 01/09/19 at 14:00 Potassium Chloride (KCl Oral Soln) 40 meq 1X ONCE PO Last administered on 01/10/19 08:55; Start 01/10/19 at 08:30; Stop 01/10/19 at 08:31; Status DC Warfarin Sodium (Coumadin - No Dose Today) 1 each 1X WARF ONCE MC Last administered on 01/10/19 16:00; Start 01/10/19 at 16:00; Stop 01/10/19 at 16:01; Status DC Warfarin Sodium (Coumadin - No Dose Today) 1 each 1X WARF ONCE MC ; Start 01/12/19 at 16:00; Stop 01/12/19 at 16:00; Status DC Warfarin Sodium (Coumadin) 2 mg 1X WARF ONCE PO Last administered on 01/12/19 18:34; Start 01/12/19 at 16:00; Stop 01/12/19 at 16:01; Status DC Bisacodyl (Dulcolax Supp) 10 mg PRN DAILY PRN NM CONSTIPATION; Start 01/12/19 at 17:00 Senna/Docusate Sodium (Senna Plus) 2 tab PRN BID PRN PO CONSTIPATION 1ST CHOICE Last administered on 4/24/19at 09:18; Start 01/12/19 at 17:00 Sodium Chloride 500 ml @ 500 mls/hr 1X ONCE IV Last administered on 01/12/19at 10:00; Start 01/12/19 at 10:00; Stop 01/12/19 at 21:55; Status DC Warfarin Sodium (Coumadin) 2.5 mg 1X WARF ONCE PO ; Start 01/13/19 at 16:00; Stop 01/13/19 at 16:01 Active Scripts Active Acyclovir 800 Mg Tablet 1 Tab PO 5XDAY 7 Days Zofran Odt (Ondansetron) 4 Mg Tab.rapdis 1 Tab SL Q6HRS PRN Cardizem Cd (Diltiazem Hcl) 360 Mg Cap.er.24h 1 Cap PO DAILY Furosemide 40 Mg Tablet 1 Tab PO DAILY Xanax (Alprazolam) 0.5 Mg Tablet 1 Tab PO TID PRN Reported Lyrica (Pregabalin) 75 Mg Capsule 1-2 Cap PO BID Paroxetine Hcl 20 Mg Tablet 1 Tab PO DAILY Levothyroxine Sodium 75 Mcg Tablet 75 Mcg PO DAILYAC Cardizem Cd (Diltiazem Hcl) 180 Mg Cap.er.24h 2 Cap PO DAILY Digoxin 125 Mcg Tablet 125 Mcg PO DAILY Carafate (Sucralfate) 1 Gm Tablet 1 Tab PO BIDACLD Acetaminophen 500 Mg Tablet 1 Tab PO Q4HRS PRN Warfarin Sodium 3 Mg Tablet 3 Mg PO QSA Warfarin Sodium 3 Mg Tablet 3 Mg PO QM-F Warfarin Sodium 6 Mg Tablet 6 Mg PO QSU Ferrous Sulfate 325 Mg Tablet 1 Tab PO DAILY Warfarin Sodium 3 Mg Tablet 1 Tab PO UD Olanzapine 7.5 Mg Tablet 7.5 Mg PO DAILY Proair Hfa Inhaler (Albuterol Sulfate) 8.5 Gm Hfa.aer.ad 2 Puff INH PRN Q4HRS PRN Pepto-Bismol (Bismuth Subsalicylate) 262 Mg/15 Ml Oral.susp 30 Ml PO PRN Q1HR PRN Fleet Enema (Na Phos,M-B/Na Phos,Di-Ba) 133 Ml Enema 1 Each RC PRN DAILY PRN Maalox Advanced Suspension (Mag Hydrox/Aluminum Hyd/Simeth) 355 Ml Oral.susp 30 Ml PO PRN Q1HR PRN Loperamide (Loperamide Hcl) 2 Mg Capsule 4 Mg PO UD PRN Hydrocodone-Apap 7.5-325 (Hydrocodone Bit/Acetaminophen) 1 Each Tablet 1 Tab PO PRN Q8HRS PRN Dulcolax (Bisacodyl) 10 Mg Supp.rect 10 Mg RC PRN DAILY PRN Vitamin D3 (Cholecalciferol (Vitamin D3)) 1,000 Unit Tablet 2 Tab PO DAILY Vitamin B-12 (Cyanocobalamin (Vitamin B-12)) 1,000 Mcg Tablet 1 Tab PO DAILY Carafate (Sucralfate) 1 Gm Tablet 1 Tab PO BIDBFRMEAL Senna (Sennosides) 8.6 Mg Tablet 8.6 Mg PO BID Potassium Chloride 10 Meq Tab.sr.24h 10 Meq PO DAILY Milk Of Magnesia (Magnesium Hydroxide) 2,400 Mg/10 Ml Oral.susp 30 Ml PO PRN DAILY PRN Losartan Potassium 50 Mg Tablet 50 Mg PO DAILY Digoxin 125 Mcg Tablet 1 Tab PO DAILY Acetaminophen 500 Mg Tablet 1 Tab PO Q6HRS Paroxetine Hcl 20 Mg Tablet 1 Tab PO DAILY Synthroid (Levothyroxine Sodium) 137 Mcg Tablet 1 Tab PO DAILY Lipitor (Atorvastatin Calcium) 10 Mg Tablet 1 Tab PO QHS Protonix (Pantoprazole Sodium) 40 Mg Tablet. 1 Tab PO DAILY Vitals/I & O Vital Sign - Last 24 Hours 01/12/19 01/12/19 01/12/19 01/12/19 15:00 19:00 20:00 23:00 Temp 97.9 98.3 98.1 97.9 98.3 98.1 Pulse 89 87 83 Resp 18 18 B/P (MAP) 135/60 (85) 124/54 (77) 142/55 (84) Pulse Ox 93 92 91 O2 Delivery Room Air Room Air Nasal Cannula Room Air O2 Flow Rate 2.0 01/13/19 01/13/19 01/13/19 01/13/19 03:00 07:00 08:09 09:11 Temp 98.0 97.2 98.0 97.2 Pulse 75 63 63 Resp 18 18 B/P (MAP) 118/65 (82) 117/62 (80) 117/62 Pulse Ox 96 97 O2 Delivery Nasal Cannula Nasal Cannula Nasal Cannula O2 Flow Rate 2.0 2.0 2.0 01/13/19 01/13/19 09:12 11:00 Temp 97.7 97.7 Pulse 63 78 Resp 17 B/P (MAP) 117/62 125/65 (85) Pulse Ox 94 O2 Delivery Room Air Nutrition Consultation Dietary Evaluation: Recommendations by RD: Increase Calorie Intake, Protein supplementation Comments: Recommend advance diet as tolerated Recommend Ensure clear BID for added calories/protein while on CLD Once diet advances, encourage P.O. intake-provide snack on unit when requested Expected Outcomes/Goals: P.O. intake to meet >75% estimated energy needs Malnutrition Findings: Food and Nutrition Intake (Sev: <50% est energy req 5days Body Fat Depletion (Non Severe: Mild Depletion Weight Status: Overweight CATRACHITA SAVAGE III DO Jan 13, 2019 13:02
--- NOTE | 2019-01-13 13:10 | PDOC ---
PROGRESS NOTES Assessment Assessment Left side face and tongue numbness x 2 days, then resolved. Large hiatal hernia. Cholelithiasis. Ileus? AFib on Coumadin. COPD. UTI. HLD. UTI. Cardiomegaly. Cognitive impairment. No evidence of acute CVA this time. RECOMMENDATIONS/PLAN: She has been on Coumadin. Continue medical and surgical treatment. Discussed with her son at bedside on 01/09/19. HISTORY OF THE PRESENT ILLNESS: This is an 88-y-old female patient with above medical and surgical diseases for admission this time. She complained symptoms of numbness in her left side face and tongue on 01/08 for a while, then recurred on 01/09/19. No motor deficits. Neurology was requested for consultation on 01/09/19. She stated on 01/10/19 that she did not know if she still had numbness in her left side of face and tongue, but she guess she did not have symptoms anymore. Past Medical History Cardiovascular: AFIB, HTN, Hyperlipidemia Pulmonary: Other CENTRAL NERVOUS SYSTEM: TIA GI: GERD, Gastritis, Other Heme/Onc: No pertinent hx Hepatobiliary: No pertinent hx Psych: Anxiety, Depression Musculoskeletal: Osteoarthritis Rheumatologic: No pertinent hx Infectious disease: No pertinent hx Renal/: UTI Endocrine: No pertinent hx, Hypothyroidism, Osteopenia Past Surgical History No pertinent history Family History Hypertension Social History ALCOHOL: none Drugs: None Lives: Long-Term Domestic Violence: Neg Allergies Coded Allergies: Iodinated Contrast- Oral and IV Dye (Verified Allergy, Intermediate, SWELLING, 04/19/16) Penicillins (Verified Allergy, Intermediate, Rash, 04/19/16) adhesive (Verified Allergy, Intermediate, rash, 04/19/16) iodine (Verified Allergy, Intermediate, Rash, 04/19/16) PT HAS NEVER BEEN PREMEDICATED tramadol (Verified Allergy, Intermediate, 11/09/16) Tolerates hydrocodone I S O L A T I O N *CONTACT* (Verified Allergy, Unknown, 01/12/18) mrsa latex (Verified Adverse Reaction, Intermediate, Rash, 01/09/18) MEDICATIONS: Refer to [facility] REVIEW OF SYSTEMS: Constitutional: No malnutrition, weight loss, cachexia. Head: No traumatic brain or head injury. Skin: No edema, or rash. Ear: No infection. Eyes: No vision loss or color blindness. Nose: No bleeding or purulent discharges. Hearing: Hearing decrease. Neck: No injury. Breast: No history of cancer, masses,or discharges. Cardiac: AFib. Pulmonary: COPD. GI: GERD. Urinary/genital: UTI. Endocrinologic: No cousin face, craniofacial dysmorphism, polydactyly. Skeletomuscular: No muscular atrophy, deformity. Neurological: see HP. Psychiatric: Denies drug use/abuse. Otherwise, not [id number] review of systems. PHYSICAL EXAMINATION: General appearance is in no acute distress. HEENT: Normocephalic and nontraumatic. Eyes, nose, ears, and throat are unremarkable. Neck is supple. No lymphadenopathy. No bruits are heard over the carotid artery. No crepitus. Cardiovascular: S1, S2, irregular rate and rhythm. Pulmonary: Clear to auscultation bilaterally. Abdomen: Bowel sounds are positive. Extremities: No rash, lesions, or edema. No restriction of range of motion NEUROLOGICAL EXAMINATION: Awake. Partially oriented to time, knew place and person. PERRL. EOMI. CN: no focal findings. Muscle tone: within normal. Muscle strength: 5- DTR: 2 Plantar reflex: Flexor response bilaterally Gait: not examined while in bed. Sensory exam: no abnormal findings. No cerebellar signs elicited. F-T-N test sine. Objective Objective Vital Signs Date Time Temp Pulse Resp B/P (MAP) Pulse Ox O2 Delivery O2 Flow Rate FiO2 01/13/19 11:00 97.7 78 17 125/65 (85) 94 Room Air 97.7 01/13/19 08:09 2.0 Intake and Output 01/13/19 07:00 # Voids 6 # Bowel Movements 1 Vitals Signs Vitals VS - Last 72 Hours, by Label Date Time Temp Pulse Resp B/P (MAP) Pulse Ox O2 Delivery O2 Flow Rate FiO2 01/13/19 11:00 97.7 78 17 125/65 (85) 94 Room Air 97.7 01/13/19 09:12 63 117/62 01/13/19 09:11 63 117/62 01/13/19 08:09 Nasal Cannula 2.0 01/13/19 07:00 97.2 63 18 117/62 (80) 97 Nasal Cannula 2.0 97.2 01/13/19 03:00 98.0 75 18 118/65 (82) 96 Nasal Cannula 2.0 98.0 01/12/19 23:00 98.1 83 18 142/55 (84) 91 Room Air 98.1 01/12/19 20:00 Nasal Cannula 2.0 01/12/19 19:00 98.3 87 18 124/54 (77) 92 Room Air 98.3 01/12/19 15:00 97.9 89 16 135/60 (85) 93 Room Air 97.9 01/12/19 11:00 98.1 67 16 107/52 (70) 93 Nasal Cannula 2.0 98.1 01/12/19 09:00 65 86/39 01/12/19 09:00 65 86/39 01/12/19 07:40 Nasal Cannula 2.0 01/12/19 07:00 97.9 65 16 86/39 (55) 91 Room Air 97.9 Laboratory Laboratory Laboratory Tests Test 01/13/19 04:15 White Blood Count 7.3 x10^3/uL (4.0-11.0) Red Blood Count 4.25 x10^6/uL (3.50-5.40) Hemoglobin 13.8 g/dL (12.0-15.5) Hematocrit 40.7 % (36.0-47.0) Mean Corpuscular Volume 96 fL (79-100) Mean Corpuscular Hemoglobin 33 pg (25-35) Mean Corpuscular Hemoglobin Concent 34 g/dL (31-37) Red Cell Distribution Width 14.7 % (11.5-14.5) Platelet Count 172 x10^3/uL (140-400) Neutrophils (%) (Auto) 47 % (31-73) Lymphocytes (%) (Auto) 38 % (24-48) Monocytes (%) (Auto) 9 % (0-9) Eosinophils (%) (Auto) 5 % (0-3) Basophils (%) (Auto) 1 % (0-3) Neutrophils # (Auto) 3.5 x10^3uL (1.8-7.7) Lymphocytes # (Auto) 2.8 x10^3/uL (1.0-4.8) Monocytes # (Auto) 0.7 x10^3/uL (0.0-1.1) Eosinophils # (Auto) 0.3 x10^3/uL (0.0-0.7) Basophils # (Auto) 0.0 x10^3/uL (0.0-0.2) Prothrombin Time 23.5 SEC (11.7-14.0) Prothromb Time International Ratio 2.1 (0.8-1.1) Sodium Level 144 mmol/L (136-145) Potassium Level 3.9 mmol/L (3.5-5.1) Chloride Level 109 mmol/L (98-107) Carbon Dioxide Level 25 mmol/L (21-32) Anion Gap 10 (6-14) Blood Urea Nitrogen 11 mg/dL (7-20) Creatinine 1.0 mg/dL (0.6-1.0) Estimated GFR (Cockcroft-Gault) 52.3 Glucose Level 91 mg/dL (70-99) Calcium Level 8.8 mg/dL (8.5-10.1) Microbiology 01/06/19 Urine Culture - Final, Complete 01/06/19 Urine Culture Result 1 (YODIT) - Final, Complete Medication Medications Current Medications Bisacodyl (Dulcolax Supp) 10 mg PRN DAILY PRN DC CONSTIPATION; Start 01/12/19 at 17:00 Senna/Docusate Sodium (Senna Plus) 2 tab PRN BID PRN PO CONSTIPATION 1ST CHOICE Last administered on 01/13/19at 09:18; Start 01/12/19 at 17:00 Warfarin Sodium (Coumadin - No Dose Today) 1 each 1X WARF ONCE MC ; Start 01/12/19 at 16:00; Stop 01/12/19 at 16:00; Status DC Warfarin Sodium (Coumadin) 2 mg 1X WARF ONCE PO Last administered on 01/12/19at 18:34; Start 01/12/19 at 16:00; Stop 01/12/19 at 16:01; Status DC Warfarin Sodium (Coumadin) 2.5 mg 1X WARF ONCE PO ; Start 01/13/19 at 16:00; Stop 01/13/19 at 16:01 Comment Review of Relevant I have reviewed the following items mignon (where applicable) has been applied. RUBI SERNA MD Jan 13, 2019 13:10
[2019-01-13 15:00] VITALS: BP 132/71
--- NOTE | 2019-01-13 15:29 | NUR ---
REPORT CALLED TO [facility] AT [facility], QUESTIONS AND CONCERNS ANSWERED, PATIENTS' SON AND DAUGHTER REMAIN AT THE BEDSIDE, PATIENT SCHEDULED FOR [facility] AT [id number], WILL MONITOR.
[2019-01-13] MEDS ORDERED: WARFARIN 2.5 MG TABLET. PO ONE (16:00)
--- NOTE | 2019-01-13 16:30 | NUR ---
PATIENT LEAVES THE UNIT PER W/C [facility] AND [employer]CH[employer], EMOTIONAL SUPPORT GIVEN, FOLLOW UP APPOINTMENTS ENCOURAGED.
--- NOTE | 2019-02-04 13:38 | DS ---
DATE OF DISCHARGE: 01/13/2019 ADMISSION DIAGNOSES: Left lower quadrant pain with large hiatal hernia, possible ileus and urinary tract infection. DISCHARGE DIAGNOSES: Resolving abdominal pain; resolving urinary tract infection; chronic gastroesophageal reflux disease; history of peptic ulcer disease; gallstones; history of atrial fibrillation, on Coumadin; chronic pain; hypothyroidism; history of congestive heart failure and hyperlipidemia. CONSULTS: Dr. Casas, Dr. Barahona and Dr. Meng. PROCEDURES: None. HOSPITAL COURSE: The patient is a pleasant elderly female who presented with left lower quadrant pain. She was noted to have a possible ileus and UTI. She was admitted. The above consults were obtained. We gave her antiemetics and IV fluids. No procedures had to be performed. Over the next few days, she felt better. We were able to advance her diet and [facility] to [facility]. DISPOSITION: [facility]. ACTIVITY: As tolerated. DIET: Low sodium. MEDICATIONS: We have resumed her previous home medications. TOTAL TIME: 31 minutes. CATRACHITA SAVAGE DO DR: KELSEA/radha JOB#: [id number] / [id number]
== END 2019-01-13 16:30 | DRG 389 ==
LOC: ER 17:08 → 4 NORTH 21:23
PROVIDERS: ADMIT Internal Medicine; ATTEND Internal Medicine
DX: K56.7 Ileus, unspecified (principal); N39.0 Urinary tract infection, site not specified; I11.0 Hypertensive heart disease with heart failure; I50.9 Heart failure, unspecified; I48.91 Unspecified atrial fibrillation; E78.5 Hyperlipidemia, unspecified; G89.29 Other chronic pain; K80.20 Calculus of gallbladder without cholecystitis without obstruction; M19.90 Unspecified osteoarthritis, unspecified site; D64.9 Anemia, unspecified; E89.0 Postprocedural hypothyroidism; F32.9 Major depressive disorder, single episode, unspecified; F41.9 Anxiety disorder, unspecified; I27.20 Pulmonary hypertension, unspecified; J44.9 Chronic obstructive pulmonary disease, unspecified; K21.9 Gastro-esophageal reflux disease without esophagitis; K22.8 Other specified diseases of esophagus; K44.9 Diaphragmatic hernia without obstruction or gangrene; K57.90 Diverticulosis of intestine, part unspecified, without perforation or abscess without bleeding; M85.80 Other specified disorders of bone density and structure, unspecified site; T45.515A Adverse effect of anticoagulants, initial encounter; Z79.899 Other long term (current) drug therapy; Y92.89 Other specified places as the place of occurrence of the external cause; Z79.01 Long term (current) use of anticoagulants; Z82.49 Family history of ischemic heart disease and other diseases of the circulatory system; Z86.73 Personal history of transient ischemic attack (TIA), and cerebral infarction without residual deficits; Z87.11 Personal history of peptic ulcer disease; Z88.0 Allergy status to penicillin; Z88.8 Allergy status to other drugs, medicaments and biological substances; Z91.041 Radiographic dye allergy status; Z91.040 Latex allergy status; Z80.9 Family history of malignant neoplasm, unspecified
CPT/HCPCS: 36415; 70551; 74022; 74176; 80048; 80053; 81001; 82553; 83735; 83880; 84439; 84443; 84481; 84484; 85025; 85610; 85730; 87086; 87641; 93005; 93306; 96365; 96366; 96375; J0744; J2405; J3490; J7030; J7040; 97110; 97116; 97530; 97535; 99285-25

== ENCOUNTER → 2019-03-22 | Outpatient (CLI) | payer MEDICARE, BC, OTHER ==
[~2019-03-22] MED LIST changes: +LEVO75TA5 PO; -PANT40TA3 PO; +PANT40TA77 PO; +PREG75CA PO; +WARF6TAB47 PO
--- NOTE | 2019-03-22 14:16 | CARD ---
MR#: [id number] Date of Study: 03/22/2019 Ordering Physician: AMY WHITE, Referring Physician: AMY WHITE, Tech: Sailaja Collins [facility] APPROVED REPORT EXAM: Two-dimensional and M-mode echocardiogram with Doppler and color Doppler. Other Information Quality : GoodHR: 48bpm Rhythm : Atrial Flutter INDICATION TR 2D DIMENSIONS RVDd3.2 (2.9-3.5cm)Left Atrium(2D)5.9 (1.6-4.0cm) IVSd0.9 (0.7-1.1cm)Aortic Root(2D)2.9 (2.0-3.7cm) LVDd4.7 (3.9-5.9cm)LVOT Diameter2.1 (1.8-2.4cm) PWd0.8 (0.7-1.1cm)LVDs2.5 (2.5-4.0cm) FS (%) 46.8 %SV80.9 ml LVEF(%)75.0 (>50%) M-Mode DIMENSIONS Left Atrium(MM)4.60 (2.5-4.0cm)Aortic Root2.65 (2.2-3.7cm) Aortic Valve AoV Peak Yahir.153.7cm/sAoV VTI25.1cm AO Peak GR.9.2mmHgLVOT Peak Yahir.111.5cm/s AO Mean GR.4mmHgAVA (VMAX)2.52cm2 CHAMP (VTI)2.27wj3HI P 1/2 Gvyu612ll Mitral Valve MV E Bluhyxqs909.9cm/sMV DECEL [id number] MV A Prpkzpoy99.8cm/sE/A Ratio8.1 Pulmonary Valve PV Peak Puoxxhcm14.5cm/s Tricuspid Valve TR P. Vyvddjon858he/sRAP PONHCHIM9rbDi TR Peak Gr.16ixTjDJQO72ufOd LEFT VENTRICLE The left ventricle is normal size. There is mild to moderate concentric left ventricular hypertrophy. The left ventricular systolic function is normal and the ejection fraction is within normal range. T he Ejection Fraction is 65-70%. There is normal LV segmental wall motion. Transmitral Doppler flow pa ttern is Grade III-reversible restrictive diastolic dysfunction. RIGHT VENTRICLE The right ventricle is mildly dilated. There is normal right ventricular wall thickness. The right ve ntricular systolic function is normal. ATRIA The left atrium is severely dilated. The right atrium is severely dilated. The interatrial septum is intact with no evidence for an atrial septal defect or patent foramen ovale as noted on 2-D or Dopple r imaging. AORTIC VALVE The aortic valve is normal in structure and function. The aortic valve is trileaflet. Doppler and Col or Flow revealed moderate aortic regurgitation. There is no significant aortic valvular stenosis. MITRAL VALVE The mitral valve is thickened but opens well. The anterior mitral valve leaflet appears myxomatous. T here is no evidence of mitral valve prolapse. There is no mitral valve stenosis. Doppler and Color-fl ow revealed moderate mitral regurgitation. TRICUSPID VALVE The tricuspid valve is normal in structure and function. Doppler and Color Flow revealed moderate tri cuspid regurgitation. There is moderate pulmonary hypertension. The PA pressure was estimated at 41 m mHg. There is no tricuspid valve prolapse or vegetation. There is no tricuspid valve stenosis. PULMONIC VALVE The pulmonary valve is normal in structure and function. Doppler and Color Flow revealed trace pulmon ic valvular regurgitation. There is no pulmonic valvular stenosis. GREAT VESSELS The aortic root is normal in size. The ascending aorta is normal in size. The IVC is normal in size a nd collapses >50% with inspiration. PERICARDIAL EFFUSION There is no evidence of significant pericardial effusion. Critical Notification Critical Value: No <Conclusion> The left ventricular systolic function is normal and the ejection fraction is within normal range. Th e Ejection Fraction is 65-70%. There is normal LV segmental wall motion. Transmitral Doppler flow pattern is Grade III-reversible restrictive diastolic dysfunction. The left atrium is severely dilated. The right atrium is severely dilated. Doppler and Color Flow revealed moderate aortic regurgitation. Doppler and Color-flow revealed moderate mitral regurgitation. Doppler and Color Flow revealed moderate tricuspid regurgitation. There is moderate pulmonary hyperte nsion. The PA pressure was estimated at 41 mmHg. Signed by : Andrea Guzman, Electronically Approved : 03/22/2019 14:15:41
== END | disposition home or self-care (01) ==
LOC: ECHO 13:09
PROVIDERS: ATTEND Internal Medicine Cardiovascular Disease
DX: I08.3 Combined rheumatic disorders of mitral, aortic and tricuspid valves (principal); I27.20 Pulmonary hypertension, unspecified
CPT/HCPCS: 93306

== ENCOUNTER 2019-04-02 13:41 | Inpatient (IN) | payer MEDICARE, BC, MEDICAID ==
[~2019-04-02] VITALS: Ht 160 cm; Wt 56.5 kg
[2019-04-02 16:39] VITALS: BP 119/60
[2019-04-02] MEDS ORDERED: WARF4TAB64 PO (16:52)
[2019-04-02] MEDS ORDERED: ONDANSETRON ODT 4 MG TAB.RAPDIS. PO PRN (17:00)
[2019-04-02] MEDS ORDERED: ALBUTEROL SULFATE 2.5 MG/3 ML NEBU. INH PRN (17:00)
--- NOTE | 2019-04-02 17:16 | PDOC2 ---
EMILY OCHOA MANAGED CARE COORDINATOR 04/02/19 1716: CARDIAC CONSULT DATE OF CONSULT Date of Consult DATE: 04/02/19 TIME: 16:56 REASON FOR CONSULT Reason for Consult: bradycardia REFERRING PHYSICIAN Referring Physician: Peña SOURCE Source: Chart review, Patient HISTORY OF PRESENT ILLNESS HISTORY OF PRESENT ILLNESS This is a pleasant 88 yo female admitted for complains of being tired, slow hear rate. Today she went to her PCP for routine appt and was noted with low O2 sat but not SOA at that time and also noted that her HR was slow. Upon admission she was noted with HR in the 30s but no pauses so far. Reports that lately she has been more tired that usual. No chest pain, SOA, palpiations, dizziness, or any recent passing out. She lives in an assisted living facility and has been compliant with her medications. PAST MEDICAL HISTORY Past Medical History Cardiovascular: AFIB (chronic), CHF, HTN, Hyperlipidemia, valvular insufficiency Pulmonary: Other (home oxygen), moderate pulmonary HTN CENTRAL NERVOUS SYSTEM: TIA, CVA GI: Other (hiatal hernia - large), GERD Heme/Onc: No pertinent hx Hepatobiliary: No pertinent hx Psych: Anxiety, Depression Musculoskeletal: Osteoarthritis, back pain Rheumatologic: No pertinent hx Infectious disease: No pertinent hx ENT: No pertinent hx Renal/: No pertinent hx Endocrine: hypothyroidism Dermatology: No pertinent hx PAST SURGICAL HISTORY Past Surgical History: Other (thyroidectomy) FAMILY HISTORY Family History: Hypertension SOCIAL HISTORY Smoke: No ALCOHOL: none Drugs: None Lives: Intermediate (assisted living) ALLERGIES ALLERGIES: Coded Allergies: Iodinated Contrast- Oral and IV Dye (Verified Allergy, Intermediate, SWELLING, 04/19/16) Penicillins (Verified Allergy, Intermediate, Rash, 04/19/16) adhesive (Verified Allergy, Intermediate, rash, 04/19/16) iodine (Verified Allergy, Intermediate, Rash, 04/19/16) PT HAS NEVER BEEN PREMEDICATED tramadol (Verified Allergy, Intermediate, 11/09/16) Tolerates hydrocodone I S O L A T I O N *CONTACT* (Verified Allergy, Unknown, 01/12/18) mrsa latex (Verified Adverse Reaction, Intermediate, Rash, 01/09/18) ROS Review of System 14 point ROS evaluated with pertinent positives noted per HPI PHYSICAL EXAM General: Alert, Oriented X3, Cooperative, No acute distress HEENT: Atraumatic, Mucous membr. moist/pink Lungs: Clear to auscultation, Normal air movement Heart: Other (slow AFIB; 3/6 diastolic murmur to erb) Abdomen: Soft, No tenderness Extremities: No cyanosis, No edema Skin: No breakdown, No significant lesion Neuro: Normal speech, Sensation intact Psych/Mental Status: Mental status NL, Mood NL, Other (flat) MUSCULOSKELETAL: Osteoarthritic changes both hands VITALS/I&O VITALS/I&O: Vital Signs Date Time Temp Pulse Resp B/P (MAP) Pulse Ox O2 Delivery O2 Flow Rate FiO2 04/02/19 16:39 97.9 40 18 119/60 (79) 96 Nasal Cannula 2.0 97.9 ECHOCARDIOGRAM ECHOCARDIOGRAM <Conclusion> The left ventricular systolic function is normal and the ejection fraction is within normal range. The Ejection Fraction is 65-70%. There is normal LV segmental wall motion. Transmitral Doppler flow pattern is Grade III-reversible restrictive diastolic dysfunction. The left atrium is severely dilated. The right atrium is severely dilated. Doppler and Color Flow revealed moderate aortic regurgitation. Doppler and Color-flow revealed moderate mitral regurgitation. Doppler and Color Flow revealed moderate tricuspid regurgitation. There is moderate pulmonary hypertension. The PA pressure was estimated at 41 mmHg. DATE: 03/22/19 1415 STRESS TEST STRESS TEST Conclusion 1. Regadenoson cardioisotope stress test did not show any evidence of ischemia or infarct. 2. Normal left ventricular systolic function with ejection fraction calculated at 85%. 3. Low risk for cardiac events. DATE: 01/10/18 1731 ASSESSMENT/PLAN ASSESSMENT/PLAN 1. Slow AFIB: 30-40s. partly med induced, likely inducing her fatigue and hypoxia. 2. Hypoxia: noted with O2 sat in the 80s at PCPs office but denies SOA 3. Fatigue 4. Hx of Chronic AFIB 3. Chronic diastolic CHF: compensated. last EF 65% 4. HTN: controlled 5. HLP 6. Chronic anticoagulation: on Coumadin Recommendations 1. Stop digoxin . It does not appears that her cardizem has been DCd previously. Monitor over the weekend for any tachyarrhythmias or any signs of tachy tyrone syndrome for any need of PPM 2. CXR, TSH, lipids, Mg, CMP, CBC, EKG and check Dig level 3. Check INR and may need to hold coumadin and switch later to lovenox pending INR for any possibility of PPM 4. Continue secondary prevention measures 5. O2 to titrate LORRI MILLS MD 04/03/19 1641: CARDIAC CONSULT ASSESSMENT/PLAN ASSESSMENT/PLAN Late entry for 04/02/2019 Patient seen and examined. Agree with above nurse practitioner note 88-year-old woman with atrial fibrillation with a slow ventricular response in the setting of significant medications. Given her age and multiple comorbidities would prefer to treat conservatively and decreased medications and see if she tolerates this and had her heart rates improved. If she has issues with tachybradycardia or does not have significant improvement at that time consider a pacemaker placement. Will defer to primary ticket chopper assembler Dr. Lozano when he returns on 713 for evaluation of the patient EMILY OCHOA APRN Apr 02, 2019 17:16 LORRI MILLS MD Apr 03, 2019 16:41
[2019-04-02 18:25] LABS: BASO # 0.1 x10^3/uL (0.0-0.2); BASO % 1 % (0-3); EOS # 0.2 x10^3/uL (0.0-0.7); EOS % 2 % (0-3); HEMATOCRIT 41.5 % (36.0-47.0); HEMOGLOBIN 14.2 g/dL (12.0-15.5); LYMPH # 2.2 x10^3/uL (1.0-4.8); LYMPH % 28 % (24-48); MEAN CORPUSCULAR HEMOGLOBIN 33 pg (25-35); MEAN CORPUSCULAR HGB CONC 34 g/dL (31-37); MEAN CORPUSCULAR VOLUME 97 fL (79-100); MONO # 0.5 x10^3/uL (0.0-1.1); MONO % 7 % (0-9); NEUT # 4.7 x10^3/uL (1.8-7.7); NEUT % 62 % (31-73); PLATELET COUNT 201 x10^3/uL (140-400); RED BLOOD COUNT 4.28 x10^6/uL (3.50-5.40); RED CELL DISTRIBUTION WIDTH 14.2 % (11.5-14.5); WHITE BLOOD COUNT 7.7 x10^3/uL (4.0-11.0)
--- NOTE | 2019-04-02 18:30 | EKG ---
[facility] [address] [place] [address] Test Date: 2019-04-02 Test Time: 18:19:05 Pat Name: SHANNAN DENNIS Department: Room: 200 1 Gender: F Transfusion Nurse: : 1930 Requested By: EMILY OCHOA Order Number: [id number] Reading MD: Measurements Intervals [place] Rate: 48 P: WA: QRS: 28 QRSD: 100 T: -44 QT: 446 QTc: 402 Interpretive Statements IRREGULAR RHYTHM, NO P-WAVE FOUND R-S TRANSITION ZONE IN V LEADS DISPLACED TO THE LEFT ST & T ABNORMALITY, CONSIDER INFERIOR ISCHEMIA OR LEFT VENTRICULAR STRAIN ABNORMAL ECG RI6.01 Compared to ECG 01/06/2019 18:32:56 Atrial fibrillation no longer present T-wave abnormality still present Possible ischemia still present
[2019-04-02 18:35] LABS: PROTHROMBIN TIME PATIENT 34.9 SEC (11.7-14.0)
[2019-04-02 18:56] LABS: ALBUMIN 3.8 g/dL (3.4-5.0); ALBUMIN/GLOBULIN RATIO 1.4 (1.0-1.7); ALK PHOS 34 U/L (46-116); ALT (SGPT) 16 U/L (14-59); ANION GAP 7 (6-14); AST (SGOT) 14 U/L (15-37); BLOOD UREA NITROGEN 14 mg/dL (7-20); BUN/CREATININE RATIO 13 (6-20); CALCIUM 8.6 mg/dL (8.5-10.1); CARBON DIOXIDE 30 mmol/L (21-32); CHLORIDE 102 mmol/L (98-107); CREATININE 1.1 mg/dL (0.6-1.0); DIG 1.2 ng/mL (0.9-2.0); GFR 46.9; GLUCOSE 129 mg/dL (70-99); MAGNESIUM 2.1 mg/dL (1.8-2.4); POTASSIUM 3.6 mmol/L (3.5-5.1); SODIUM 139 mmol/L (136-145); TOTAL BILIRUBIN 0.5 mg/dL (0.2-1.0); TOTAL PROTEIN 6.5 g/dL (6.4-8.2)
[2019-04-02 19:05] VITALS: BP 115/54
[2019-04-02] MEDS: PREGABALIN 75 MG CAPSULE PO SCH (20:55)
[2019-04-02] MEDS: ATORVASTATIN CALCIUM 10 MG TABLET. PO SCH (20:55)
[2019-04-02] MEDS: ALPRAZolam 0.5 MG TABLET PO PRN (20:56)
[2019-04-02 23:27] VITALS: BP 113/48
[2019-04-03 03:00] VITALS: BP 125/50
[2019-04-03 04:53] LABS: PROTHROMBIN TIME PATIENT 32.8 SEC (11.7-14.0)
[2019-04-03 05:22] LABS: CHOLESTEROL/HDL RATIO 2.4
[2019-04-03 07:00] VITALS: BP 132/58
[2019-04-03] MEDS: LEVOTHYROXINE 75 MCG TABLET PO SCH (07:59)
[2019-04-03] MEDS: PREGABALIN 75 MG CAPSULE PO SCH ×2 (09:00→20:09)
[2019-04-03] MEDS ORDERED: DIGOXIN 125 MCG TABLET. PO SCH (09:00)
[2019-04-03] MEDS ORDERED: NON FORMULARY ITEM (Warfarin Sodium 4 MG) PO SCH (09:00)
--- NOTE | 2019-04-03 09:11 | PDOC1 ---
History and Physical Date of Admission Date of Admission 04/02/19 Identification/Chief Complaint Chief Complaint Hypoxia and bradycardia Source Source: Patient History of Present Illness History of Present Illness Pt presented to clinic yesterday to establish care. She was found to be hypoxic around 88%. In reviewing her previous records it appears she was hypoxic at her previous office visit with [facility] but was treated for pneumonia. Pt states that she had a cough at that time that has since improved. She says that she has had to be on oxygen in the past, but only at night. She denies being symptomatic. A 6 minute walk was performed and it was found that pt was bradycardic with heart rate in the 40s. She says that she has been tired, but otherwise has no complaints. This morning she is tired but thinks it could be from her xanax last night. Past Medical History Cardiovascular: AFIB, CHF, HTN, Hyperlipidemia, Valve insufficiency, Pulmonary hypertension Pulmonary: Other CENTRAL NERVOUS SYSTEM: CVA, TIA GI: GERD, Gastritis, Other Heme/Onc: No pertinent hx Hepatobiliary: No pertinent hx Psych: Anxiety, Depression Rheumatologic: No pertinent hx Infectious disease: No pertinent hx ENT: No pertinent hx Renal/: UTI Endocrine: Hypothyroidism, Osteopenia Dermatology: No pertinent hx Past Surgical History Past Surgical History: Other (thyroidectomy) Family History Family History: Hypertension Social History Smoke: No ALCOHOL: none Drugs: None Current Medications Current Medications Current Medications Medications (Trade) Dose Ordered Sig/Dori Start Time Stop Time Status Last Admin Dose Admin Acetaminophen/ Hydrocodone Bitart (Lortab 7.5/325) 1 tab PRN Q8HRS PRN 04/02/19 17:00 Albuterol Sulfate (Ventolin Neb Soln) 8.5 mg PRN Q4HRS PRN 04/02/19 17:00 04/02/19 19:36 8.5 MG Alprazolam (Xanax) 0.5 mg PRN TID PRN 04/02/19 17:00 04/02/19 20:56 0.5 MG Atorvastatin Calcium (Lipitor) 10 mg QHS 04/02/19 21:00 04/02/19 20:55 10 MG Cyanocobalamin (Vitamin B-12) 1,000 mcg DAILY 04/03/19 09:00 Digoxin (Lanoxin) 125 mcg DAILY 7/13/19 09:00 04/03/19 09:00 DC Ferrous Sulfate (Feosol) 325 mg DAILY 04/03/19 09:00 Furosemide (Lasix) 40 mg DAILY 04/03/19 09:00 Levothyroxine Sodium (Synthroid) 75 mcg DAILYAC 04/03/19 07:30 04/03/19 07:59 75 MCG Losartan Potassium (Cozaar) 50 mg DAILY 04/03/19 09:00 Non-Formulary Medication (Warfarin Sodium ) 4 mg DAILY 04/03/19 09:00 UNV Ondansetron HCl (Zofran Odt) 4 mg PRN Q6HRS PRN 04/02/19 17:00 Paroxetine HCl (Paxil) 20 mg DAILY 04/03/19 09:00 Potassium Chloride (Klor-Con) 10 meq DAILY 04/03/19 09:00 Pregabalin (Lyrica) 75 mg BID 04/02/19 21:00 04/02/19 20:55 75 MG Vitamin D (Vitamin D3) 2,000 unit DAILY 04/03/19 09:00 Warfarin Sodium (Coumadin Per Physician) 1 each PRN DAILY PRN 04/02/19 19:00 Allergies Allergies Allergies Coded Allergies Type Severity Reaction Last Updated Verified Iodinated Contrast- Oral and IV Dye Allergy Intermediate SWELLING 04/19/16 Yes Penicillins Allergy Intermediate Rash 04/19/16 Yes adhesive Allergy Intermediate rash 04/19/16 Yes iodine Allergy Intermediate Rash 04/19/16 Yes tramadol Allergy Intermediate 11/09/16 Yes I S O L A T I O N *CONTACT* Allergy Unknown 01/12/18 Yes latex Adverse Reaction Intermediate Rash 01/09/18 Yes ROS Review of System CONSTITUTIONAL: No fever or chills EYES: No recent changes SKIN: No rash or itching CARDIOVASCULAR: No chest pain, syncope, palpitations, or edema RESPIRATORY: No SOB or cough GASTROINTESTINAL: No nausea, vomiting or abdominal pain NEUROLOGICAL: No headaches or weakness ENDOCRINE: No cold or heat intolerance GENITOURINARY: No urgency or frequency of urination MUSCULOSKELETAL: No back pain or joint pain LYMPHATICS: No enlarged lymph nodes PSYCHIATRIC: No anxiety or depression Physical Exam Physical Exam GEN.: No apparent distress. Alert and oriented. HEENT: Head is normocephalic, atraumatic NECK: Supple. LUNGS: Clear to auscultation. HEART: irregular rhythm, bradycardic, S1, S2 present. Peripheral pulses int act ABDOMEN: Soft, nontender. Positive bowel sounds. EXTREMITIES: Without any cyanosis. NEUROLOGIC: Normal speech, normal tone PSYCHIATRIC: Normal affect, normal mood. SKIN: No ulcerations Vitals Vitals Vital Signs Date Time Temp Pulse Resp B/P (MAP) Pulse Ox O2 Delivery O2 Flow Rate FiO2 04/03/19 08:09 Room Air 2.0 04/03/19 07:00 97.4 57 16 132/58 (82) 97 97.4 Labs Labs Laboratory Tests Test 04/02/19 18:00 04/03/19 04:45 White Blood Count 7.7 x10^3/uL (4.0-11.0) Red Blood Count 4.28 x10^6/uL (3.50-5.40) Hemoglobin 14.2 g/dL (12.0-15.5) Hematocrit 41.5 % (36.0-47.0) Mean Corpuscular Volume 97 fL (79-100) Mean Corpuscular Hemoglobin 33 pg (25-35) Mean Corpuscular Hemoglobin Concent 34 g/dL (31-37) Red Cell Distribution Width 14.2 % (11.5-14.5) Platelet Count 201 x10^3/uL (140-400) Neutrophils (%) (Auto) 62 % (31-73) Lymphocytes (%) (Auto) 28 % (24-48) Monocytes (%) (Auto) 7 % (0-9) Eosinophils (%) (Auto) 2 % (0-3) Basophils (%) (Auto) 1 % (0-3) Neutrophils # (Auto) 4.7 x10^3/uL (1.8-7.7) Lymphocytes # (Auto) 2.2 x10^3/uL (1.0-4.8) Monocytes # (Auto) 0.5 x10^3/uL (0.0-1.1) Eosinophils # (Auto) 0.2 x10^3/uL (0.0-0.7) Basophils # (Auto) 0.1 x10^3/uL (0.0-0.2) Prothrombin Time 34.9 SEC (11.7-14.0) 32.8 SEC (11.7-14.0) Prothromb Time International Ratio 3.5 (0.8-1.1) 3.2 (0.8-1.1) Sodium Level 139 mmol/L (136-145) Potassium Level 3.6 mmol/L (3.5-5.1) Chloride Level 102 mmol/L (98-107) Carbon Dioxide Level 30 mmol/L (21-32) Anion Gap 7 (6-14) Blood Urea Nitrogen 14 mg/dL (7-20) Creatinine 1.1 mg/dL (0.6-1.0) Estimated GFR (Cockcroft-Gault) 46.9 BUN/Creatinine Ratio 13 (6-20) Glucose Level 129 mg/dL (70-99) Calcium Level 8.6 mg/dL (8.5-10.1) Magnesium Level 2.1 mg/dL (1.8-2.4) Total Bilirubin 0.5 mg/dL (0.2-1.0) Aspartate Amino Transf (AST/SGOT) 14 U/L (15-37) Alanine Aminotransferase (ALT/SGPT) 16 U/L (14-59) Alkaline Phosphatase 34 U/L (46-116) Troponin I Quantitative < 0.017 ng/mL (0.000-0.055) RW-Mpi-H-Type Natriuretic Peptide 4313 pg/mL (0-449) Total Protein 6.5 g/dL (6.4-8.2) Albumin 3.8 g/dL (3.4-5.0) Albumin/Globulin Ratio 1.4 (1.0-1.7) Thyroid Stimulating Hormone (TSH) 4.396 uIU/mL (0.358-3.74) Digoxin Level 1.2 ng/mL (0.9-2.0) Digoxin Last Dose Date 04/02/19 Digoxin Last Dose Time 0900 Triglycerides Level 62 mg/dL (0-150) Cholesterol Level 119 mg/dL (0-200) LDL Cholesterol, Calculated 58 mg/dL (0-100) VLDL Cholesterol, Calculated 12 mg/dL (0-40) Non-HDL Cholesterol Calculated 70 mg/dL (0-129) HDL Cholesterol 49 mg/dL (40-60) Cholesterol/HDL Ratio 2.4 Laboratory Tests Test 04/02/19 18:00 04/03/19 04:45 White Blood Count 7.7 x10^3/uL (4.0-11.0) Red Blood Count 4.28 x10^6/uL (3.50-5.40) Hemoglobin 14.2 g/dL (12.0-15.5) Hematocrit 41.5 % (36.0-47.0) Mean Corpuscular Volume 97 fL (79-100) Mean Corpuscular Hemoglobin 33 pg (25-35) Mean Corpuscular Hemoglobin Concent 34 g/dL (31-37) Red Cell Distribution Width 14.2 % (11.5-14.5) Platelet Count 201 x10^3/uL (140-400) Neutrophils (%) (Auto) 62 % (31-73) Lymphocytes (%) (Auto) 28 % (24-48) Monocytes (%) (Auto) 7 % (0-9) Eosinophils (%) (Auto) 2 % (0-3) Basophils (%) (Auto) 1 % (0-3) Neutrophils # (Auto) 4.7 x10^3/uL (1.8-7.7) Lymphocytes # (Auto) 2.2 x10^3/uL (1.0-4.8) Monocytes # (Auto) 0.5 x10^3/uL (0.0-1.1) Eosinophils # (Auto) 0.2 x10^3/uL (0.0-0.7) Basophils # (Auto) 0.1 x10^3/uL (0.0-0.2) Prothrombin Time 34.9 SEC (11.7-14.0) 32.8 SEC (11.7-14.0) Prothromb Time International Ratio 3.5 (0.8-1.1) 3.2 (0.8-1.1) Sodium Level 139 mmol/L (136-145) Potassium Level 3.6 mmol/L (3.5-5.1) Chloride Level 102 mmol/L (98-107) Carbon Dioxide Level 30 mmol/L (21-32) Anion Gap 7 (6-14) Blood Urea Nitrogen 14 mg/dL (7-20) Creatinine 1.1 mg/dL (0.6-1.0) Estimated GFR (Cockcroft-Gault) 46.9 BUN/Creatinine Ratio 13 (6-20) Glucose Level 129 mg/dL (70-99) Calcium Level 8.6 mg/dL (8.5-10.1) Magnesium Level 2.1 mg/dL (1.8-2.4) Total Bilirubin 0.5 mg/dL (0.2-1.0) Aspartate Amino Transf (AST/SGOT) 14 U/L (15-37) Alanine Aminotransferase (ALT/SGPT) 16 U/L (14-59) Alkaline Phosphatase 34 U/L (46-116) Troponin I Quantitative < 0.017 ng/mL (0.000-0.055) NG-Emg-G-Type Natriuretic Peptide 4313 pg/mL (0-449) Total Protein 6.5 g/dL (6.4-8.2) Albumin 3.8 g/dL (3.4-5.0) Albumin/Globulin Ratio 1.4 (1.0-1.7) Thyroid Stimulating Hormone (TSH) 4.396 uIU/mL (0.358-3.74) Digoxin Level 1.2 ng/mL (0.9-2.0) Digoxin Last Dose Date 04/02/19 Digoxin Last Dose Time 0900 Triglycerides Level 62 mg/dL (0-150) Cholesterol Level 119 mg/dL (0-200) LDL Cholesterol, Calculated 58 mg/dL (0-100) VLDL Cholesterol, Calculated 12 mg/dL (0-40) Non-HDL Cholesterol Calculated 70 mg/dL (0-129) HDL Cholesterol 49 mg/dL (40-60) Cholesterol/HDL Ratio 2.4 VTE Prophylaxis Ordered VTE Prophylaxis Devices: Yes VTE Pharmacological Prophylaxi: Yes Assessment/Plan Assessment/Plan Pt is a 88yo CF admitted for hypoxia and bradycardia 1)Hypoxia- likely multifactorial and likely chronic in nature. Pt has been on oxygen previously but only in the evenings. She does not have portable oxygen at home. Discussed that since she was seen on Friday, would be easier to get her oxygen set up during her hospital stay as opposed to trying to do it outpatient. Pt was agreeable. Pt has history of diastolic CHF and pulmonary hypertension. Recently treated for pneumonia. 2)Atrial fibrillation with Bradycardia- Cardiology following. Pt's digoxin has been stopped. Consideration for possible pacemaker placement. Pt is on Coumadin. INR currently 3.2. 3)CHF- diastolic compensated. Pt continued on Lasix 40mg 4)HTN- well controlled on above medications and Losartan 50mg 5)HLD- well controlled on atorvastatin 10mg 6)Hypothyroidism- moderately controlled on Levothyroxine 75mcg 7)Depression/Anxiety- pt continued on paroxetine 20mg and xanax 8)Hyperglycemia- HbA1C pending 9)Pulmonary HTN MEGHA PETERSEN MD Apr 03, 2019 09:11
[2019-04-03] MEDS: CHOLECALCIFEROL (VITAMIN D3) 1,000 UNIT TABLET PO SCH (10:48)
[2019-04-03] MEDS: CYANOCOBALAMIN (VITAMIN B-12) 1,000 MCG TABLET. PO SCH (10:48)
[2019-04-03] MEDS: POTASSIUM CHLORIDE 10 MEQ TABLET.ER. PO SCH (10:49)
[2019-04-03] MEDS: FERROUS SULFATE 325 MG TABLET. PO SCH (10:49)
[2019-04-03] MEDS: PARoxetine 20 MG TABLET PO SCH (10:49)
[2019-04-03] MEDS: FUROSEMIDE 40 MG TABLET. PO SCH (10:51)
[2019-04-03] MEDS: LOSARTAN POTASSIUM 50 MG TABLET. PO SCH (10:51)
[2019-04-03 11:00] VITALS: BP 142/61
--- NOTE | 2019-04-03 12:43 | PDOC ---
PROGRESS NOTES Subjective Subjective Patient seen and examined Objective Objective Vital Signs Date Time Temp Pulse Resp B/P (MAP) Pulse Ox O2 Delivery O2 Flow Rate FiO2 04/03/19 11:00 97.4 47 18 142/61 (88) 94 Nasal Cannula 2.0 97.4 Intake and Output0 04/03/19 07:00 Output Total 800 ml Balance -800 ml Output Urine Total 800 ml # Voids 1 Physical Exam Abdomen: Normal bowel sounds Heart: Other (irregular. Rate 52) General: mild distress Lungs: Clear to auscultation Assessment Assessment 1. Slow AFIB: Digoxin. Rate improved to the 50s. We'll continue to monitor. 2. Hypoxia: noted with O2 sat in the 80s at PCPs office but denies SOA 3. Fatigue 4. Hx of Chronic AFIB 3. Chronic diastolic CHF: compensated. last EF 65% 4. HTN: controlled 5. HLP 6. Chronic anticoagulation: on Coumadin Comment Review of Relevant I have reviewed the following items mignon (where applicable) has been applied. Labs Laboratory Tests Test 04/02/19 18:00 04/03/19 04:45 White Blood Count 7.7 x10^3/uL (4.0-11.0) Red Blood Count 4.28 x10^6/uL (3.50-5.40) Hemoglobin 14.2 g/dL (12.0-15.5) Hematocrit 41.5 % (36.0-47.0) Mean Corpuscular Volume 97 fL (79-100) Mean Corpuscular Hemoglobin 33 pg (25-35) Mean Corpuscular Hemoglobin Concent 34 g/dL (31-37) Red Cell Distribution Width 14.2 % (11.5-14.5) Platelet Count 201 x10^3/uL (140-400) Neutrophils (%) (Auto) 62 % (31-73) Lymphocytes (%) (Auto) 28 % (24-48) Monocytes (%) (Auto) 7 % (0-9) Eosinophils (%) (Auto) 2 % (0-3) Basophils (%) (Auto) 1 % (0-3) Neutrophils # (Auto) 4.7 x10^3/uL (1.8-7.7) Lymphocytes # (Auto) 2.2 x10^3/uL (1.0-4.8) Monocytes # (Auto) 0.5 x10^3/uL (0.0-1.1) Eosinophils # (Auto) 0.2 x10^3/uL (0.0-0.7) Basophils # (Auto) 0.1 x10^3/uL (0.0-0.2) Prothrombin Time 34.9 SEC (11.7-14.0) 32.8 SEC (11.7-14.0) Prothromb Time International Ratio 3.5 (0.8-1.1) 3.2 (0.8-1.1) Sodium Level 139 mmol/L (136-145) Potassium Level 3.6 mmol/L (3.5-5.1) Chloride Level 102 mmol/L (98-107) Carbon Dioxide Level 30 mmol/L (21-32) Anion Gap 7 (6-14) Blood Urea Nitrogen 14 mg/dL (7-20) Creatinine 1.1 mg/dL (0.6-1.0) Estimated GFR (Cockcroft-Gault) 46.9 BUN/Creatinine Ratio 13 (6-20) Glucose Level 129 mg/dL (70-99) Calcium Level 8.6 mg/dL (8.5-10.1) Magnesium Level 2.1 mg/dL (1.8-2.4) Total Bilirubin 0.5 mg/dL (0.2-1.0) Aspartate Amino Transf (AST/SGOT) 14 U/L (15-37) Alanine Aminotransferase (ALT/SGPT) 16 U/L (14-59) Alkaline Phosphatase 34 U/L (46-116) Troponin I Quantitative < 0.017 ng/mL (0.000-0.055) [id number]-Type Natriuretic Peptide 4313 pg/mL (0-449) Total Protein 6.5 g/dL (6.4-8.2) Albumin 3.8 g/dL (3.4-5.0) Albumin/Globulin Ratio 1.4 (1.0-1.7) Thyroid Stimulating Hormone (TSH) 4.396 uIU/mL (0.358-3.74) Digoxin Level 1.2 ng/mL (0.9-2.0) Digoxin Last Dose Date 04/02/19 Digoxin Last Dose Time 0900 Triglycerides Level 62 mg/dL (0-150) Cholesterol Level 119 mg/dL (0-200) LDL Cholesterol, Calculated 58 mg/dL (0-100) VLDL Cholesterol, Calculated 12 mg/dL (0-40) Non-HDL Cholesterol Calculated 70 mg/dL (0-129) HDL Cholesterol 49 mg/dL (40-60) Cholesterol/HDL Ratio 2.4 Laboratory Tests Test 04/02/19 18:00 04/03/19 04:45 White Blood Count 7.7 x10^3/uL (4.0-11.0) Red Blood Count 4.28 x10^6/uL (3.50-5.40) Hemoglobin 14.2 g/dL (12.0-15.5) Hematocrit 41.5 % (36.0-47.0) Mean Corpuscular Volume 97 fL (79-100) Mean Corpuscular Hemoglobin 33 pg (25-35) Mean Corpuscular Hemoglobin Concent 34 g/dL (31-37) Red Cell Distribution Width 14.2 % (11.5-14.5) Platelet Count 201 x10^3/uL (140-400) Neutrophils (%) (Auto) 62 % (31-73) Lymphocytes (%) (Auto) 28 % (24-48) Monocytes (%) (Auto) 7 % (0-9) Eosinophils (%) (Auto) 2 % (0-3) Basophils (%) (Auto) 1 % (0-3) Neutrophils # (Auto) 4.7 x10^3/uL (1.8-7.7) Lymphocytes # (Auto) 2.2 x10^3/uL (1.0-4.8) Monocytes # (Auto) 0.5 x10^3/uL (0.0-1.1) Eosinophils # (Auto) 0.2 x10^3/uL (0.0-0.7) Basophils # (Auto) 0.1 x10^3/uL (0.0-0.2) Prothrombin Time 34.9 SEC (11.7-14.0) 32.8 SEC (11.7-14.0) Prothromb Time International Ratio 3.5 (0.8-1.1) 3.2 (0.8-1.1) Sodium Level 139 mmol/L (136-145) Potassium Level 3.6 mmol/L (3.5-5.1) Chloride Level 102 mmol/L (98-107) Carbon Dioxide Level 30 mmol/L (21-32) Anion Gap 7 (6-14) Blood Urea Nitrogen 14 mg/dL (7-20) Creatinine 1.1 mg/dL (0.6-1.0) Estimated GFR (Cockcroft-Gault) 46.9 BUN/Creatinine Ratio 13 (6-20) Glucose Level 129 mg/dL (70-99) Calcium Level 8.6 mg/dL (8.5-10.1) Magnesium Level 2.1 mg/dL (1.8-2.4) Total Bilirubin 0.5 mg/dL (0.2-1.0) Aspartate Amino Transf (AST/SGOT) 14 U/L (15-37) Alanine Aminotransferase (ALT/SGPT) 16 U/L (14-59) Alkaline Phosphatase 34 U/L (46-116) Troponin I Quantitative < 0.017 ng/mL (0.000-0.055) KR-[id number]-Type Natriuretic Peptide 4313 pg/mL (0-449) Total Protein 6.5 g/dL (6.4-8.2) Albumin 3.8 g/dL (3.4-5.0) Albumin/Globulin Ratio 1.4 (1.0-1.7) Thyroid Stimulating Hormone (TSH) 4.396 uIU/mL (0.358-3.74) Digoxin Level 1.2 ng/mL (0.9-2.0) Digoxin Last Dose Date 04/02/19 Digoxin Last Dose Time 0900 Triglycerides Level 62 mg/dL (0-150) Cholesterol Level 119 mg/dL (0-200) LDL Cholesterol, Calculated 58 mg/dL (0-100) VLDL Cholesterol, Calculated 12 mg/dL (0-40) Non-HDL Cholesterol Calculated 70 mg/dL (0-129) HDL Cholesterol 49 mg/dL (40-60) Cholesterol/HDL Ratio 2.4 Medications Current Medications Albuterol Sulfate (Ventolin Neb Soln) 8.5 mg PRN Q4HRS PRN INH SHORTNESS OF BREATH Last administered on 04/02/19at 19:36; Start 04/02/19 at 17:00 Alprazolam (Xanax) 0.5 mg PRN TID PRN PO ANXIETY Last administered on 04/02/19at 20:56; Start 04/02/19 at 17:00 Atorvastatin Calcium (Lipitor) 10 mg QHS PO Last administered on 04/02/19 20:55; Start 04/02/19 at 21:00 Vitamin D (Vitamin D3) 2,000 unit DAILY PO Last administered on 04/03/19 10:48; Start 04/03/19 at 09:00 Cyanocobalamin (Vitamin B-12) 1,000 mcg DAILY PO Last administered on 04/03/19 10:48; Start 04/03/19 at 09:00 Digoxin (Lanoxin) 125 mcg DAILY PO ; Start 04/03/19 at 09:00; Stop 04/03/19 at 09:00; Status DC Ferrous Sulfate (Feosol) 325 mg DAILY PO Last administered on 04/03/19 10:49; Start 04/03/19 at 09:00 Furosemide (Lasix) 40 mg DAILY PO Last administered on 04/03/19 10:51; Start 04/03/19 at 09:00 Acetaminophen/ Hydrocodone Bitart (Lortab 7.5/325) 1 tab PRN Q8HRS PRN PO PAIN; Start 04/02/19 at 17:00 Levothyroxine Sodium (Synthroid) 75 mcg DAILYAC PO Last administered on 04/03/19 07:59; Start 04/03/19 at 07:30 Losartan Potassium (Cozaar) 50 mg DAILY PO Last administered on 04/03/19 10:51; Start 04/03/19 at 09:00 Ondansetron HCl (Zofran Odt) 4 mg PRN Q6HRS PRN PO NAUSEA; Start 04/02/19 at 17:00 Potassium Chloride (Klor-Con) 10 meq DAILY PO Last administered on 04/03/19 10:49; Start 04/03/19 at 09:00 Pregabalin (Lyrica) 75 mg BID PO Last administered on 04/02/19 20:55; Start 04/02/19 at 21:00 Paroxetine HCl (Paxil) 20 mg DAILY PO Last administered on 04/03/19 10:49; Start 04/03/19 at 09:00 Non-Formulary Medication (Warfarin Sodium ) 4 mg DAILY PO ; Start 04/03/19 at 09:00; Status UNV Warfarin Sodium (Coumadin Per Physician) 1 each PRN DAILY PRN MC SEE COMMENTS; Start 04/02/19 at 19:00; Stop 04/03/19 at 09:08; Status DC Warfarin Sodium (Coumadin Per Pharmacy) 1 each PRN DAILY PRN MC SEE COMMENTS Last administered on 04/03/19at 09:32; Start 04/03/19 at 09:30 Warfarin Sodium (Coumadin) 1 mg 1X WARF ONCE PO ; Start 04/03/19 at 16:00; Stop 04/03/19 at 16:01 Active Scripts Active Zofran Odt (Ondansetron) 4 Mg Tab.rapdis 1 Tab SL Q6HRS PRN Cardizem Cd (Diltiazem Hcl) 360 Mg Cap.er.24h 1 Cap PO DAILY Furosemide 40 Mg Tablet 1 Tab PO DAILY Xanax (Alprazolam) 0.5 Mg Tablet 1 Tab PO TID PRN Reported Warfarin Sodium 4 Mg Tablet 4 Mg PO DAILY Lyrica (Pregabalin) 75 Mg Capsule 1-2 Cap PO BID Levothyroxine Sodium 75 Mcg Tablet 75 Mcg PO DAILYAC Acetaminophen 500 Mg Tablet 1 Tab PO Q4HRS PRN Ferrous Sulfate 325 Mg Tablet 1 Tab PO DAILY Proair Hfa Inhaler (Albuterol Sulfate) 8.5 Gm Hfa.aer.ad 2 Puff INH PRN Q4HRS PRN Loperamide (Loperamide Hcl) 2 Mg Capsule 4 Mg PO UD PRN Hydrocodone-Apap 7.5-325 (Hydrocodone Bit/Acetaminophen) 1 Each Tablet 1 Tab PO PRN Q8HRS PRN Vitamin D3 (Cholecalciferol (Vitamin D3)) 1,000 Unit Tablet 2 Tab PO DAILY Vitamin B-12 (Cyanocobalamin (Vitamin B-12)) 1,000 Mcg Tablet 1 Tab PO DAILY Carafate (Sucralfate) 1 Gm Tablet 1 Tab PO BIDBFRMEAL Senna (Sennosides) 8.6 Mg Tablet 8.6 Mg PO BID Potassium Chloride 10 Meq Tab.sr.24h 10 Meq PO DAILY Milk Of Magnesia (Magnesium Hydroxide) 2,400 Mg/10 Ml Oral.susp 30 Ml PO PRN DAILY PRN Losartan Potassium 50 Mg Tablet 50 Mg PO DAILY Digoxin 125 Mcg Tablet 1 Tab PO DAILY Paroxetine Hcl 20 Mg Tablet 1 Tab PO DAILY Lipitor (Atorvastatin Calcium) 10 Mg Tablet 1 Tab PO QHS Vitals/I & O Vital Sign - Last 24 Hours 04/02/19 04/02/19 04/02/19 04/02/19 16:39 16:40 19:05 19:25 Temp 97.9 98.2 97.9 98.2 Pulse 40 48 Resp 18 18 B/P (MAP) 119/60 (79) 115/54 (74) Pulse Ox 96 94 94 O2 Delivery Nasal Cannula Room Air Nasal Cannula O2 Flow Rate 2.0 2.0 2.0 04/02/19 04/02/19 04/03/19 04/03/19 19:32 23:27 03:00 07:00 Temp 98.3 98.3 97.4 98.3 98.3 97.4 Pulse 52 44 57 Resp 16 18 16 B/P (MAP) 113/48 (69) 125/50 (75) 132/58 (82) Pulse Ox 95 95 97 O2 Delivery Nasal Cannula Nasal Cannula Nasal Cannula Nasal Cannula O2 Flow Rate 2.0 2.0 2.0 2.0 04/03/19 04/03/19 04/03/19 08:09 10:51 11:00 Temp 97.4 97.4 Pulse 53 47 Resp 18 B/P (MAP) 142/61 142/61 (88) Pulse Ox 94 O2 Delivery Room Air Nasal Cannula O2 Flow Rate 2.0 2.0 Intake and Output 04/02/19 04/02/19 04/03/19 15:00 23:00 07:00 Output Total 800 ml Balance -800 ml AMY WHITE MD Apr 03, 2019 12:43
--- NOTE | 2019-04-03 13:18 | RAD ---
CHEST PA LATERAL Clinical indications: Hypoxia COMPARISON: March 05, 2019. . Findings: The previously seen bibasilar lung infiltrates have resolved. No acute lung infiltrate is seen today. No pleural effusion or pneumothorax is seen. Heart size is enlarged but stable. A prominent hiatal hernia is seen. Mediastinum and pulmonary vasculature and both mat are unchanged. Vertebroplastiess are again evident. IMPRESSION: Resolution of previously seen lung infiltrates. No acute lung infiltrate today. Cardiomegaly and prominent hiatal hernia. Electronically signed by: Myron Bass MD (04/03/2019 1:15 PM) [facility]
[2019-04-03 15:00] VITALS: BP 138/61
[2019-04-03] MEDS ORDERED: WARFARIN 1 MG TABLET. PO ONE (16:00)
[2019-04-03] MEDS: HYDROcodone/APAP 7.5/325MG 1 TAB TABLET PO PRN (16:30)
[2019-04-03 19:05] VITALS: BP 141/63
[2019-04-03] MEDS: ATORVASTATIN CALCIUM 10 MG TABLET. PO SCH (20:01)
[2019-04-03] MEDS: ALPRAZolam 0.5 MG TABLET PO PRN (20:09)
[2019-04-03 23:33] VITALS: BP 121/53
[2019-04-04 02:08] LABS: HEMOGLOBIN A1C 5.5 % (4.8-5.6)
[2019-04-04] MEDS: HYDROcodone/APAP 7.5/325MG 1 TAB TABLET PO PRN ×2 (02:36→11:07)
[2019-04-04 03:14] VITALS: BP 169/64
[2019-04-04] MEDS: LEVOTHYROXINE 75 MCG TABLET PO SCH (06:23)
[2019-04-04 07:00] VITALS: BP 135/65
[2019-04-04] MEDS: PREGABALIN 75 MG CAPSULE PO SCH ×2 (09:00→20:23)
[2019-04-04] MEDS: POTASSIUM CHLORIDE 10 MEQ TABLET.ER. PO SCH (09:07)
[2019-04-04] MEDS: CYANOCOBALAMIN (VITAMIN B-12) 1,000 MCG TABLET. PO SCH (09:07)
[2019-04-04] MEDS: CHOLECALCIFEROL (VITAMIN D3) 1,000 UNIT TABLET PO SCH (09:07)
[2019-04-04] MEDS: FUROSEMIDE 40 MG TABLET. PO SCH (09:08)
[2019-04-04] MEDS: LOSARTAN POTASSIUM 50 MG TABLET. PO SCH (09:08)
[2019-04-04] MEDS: FERROUS SULFATE 325 MG TABLET. PO SCH (09:08)
[2019-04-04] MEDS: PARoxetine 20 MG TABLET PO SCH (09:08)
[2019-04-04 11:00] VITALS: BP 150/70
--- NOTE | 2019-04-04 11:15 | PDOC ---
SUBJECTIVE Subjective Pt states that she is having some "indigestion". C/o pain in her back and pain in the middle of her stomach and in her chest. Pt has had a reaction to the tele stickers and her chest is irritated there. OBJECTIVE Vital Signs Vital Signs Date Time Temp Pulse Resp B/P (MAP) Pulse Ox O2 Delivery O2 Flow Rate FiO2 04/04/19 11:07 Nasal Cannula 2.0 04/04/19 09:08 61 135/65 04/04/19 07:38 Room Air 2.0 04/04/19 07:00 97.8 50 18 135/65 (88) 97 Nasal Cannula 2.0 97.8 04/04/19 03:36 Nasal Cannula 2.0 04/04/19 03:14 97.8 54 18 169/64 (99) 96 Nasal Cannula 2.0 97.8 04/04/19 02:36 97 Nasal Cannula 2.0 04/03/19 23:33 98.1 53 20 121/53 (75) 96 Nasal Cannula 2.0 98.1 04/03/19 20:23 Room Air 2.0 04/03/19 19:05 98.1 58 18 141/63 (89) 95 Nasal Cannula 2.0 98.1 04/03/19 16:30 Nasal Cannula 2.0 04/03/19 15:00 98.3 65 18 138/61 (86) 94 Nasal Cannula 2.0 98.3 I & O Intake and Output 04/04/19 06:59 Intake Total 760 ml Output Total 1900 ml Balance -1140 ml Intake Oral 760 ml Output Urine Total 1900 ml # Bowel Movements 1 PHYSICAL EXAM Physical Exam GEN.: No apparent distress. Alert and oriented. HEENT: Head is normocephalic, atraumatic NECK: Supple. LUNGS: Clear to auscultation. HEART: irregular rhythm, bradycardic, S1, S2 present. Peripheral pulses intact ABDOMEN: Soft, nontender. Positive bowel sounds. EXTREMITIES: Without any cyanosis. NEUROLOGIC: Normal speech, normal tone PSYCHIATRIC: Normal affect, normal mood. SKIN: No ulcerations ASSESSMENT/PLAN Assessment/Plan Pt is a 88yo CF admitted for hypoxia and bradycardia 1)Hypoxia- likely multifactorial and likely chronic in nature. Pt has been on oxygen previously but only in the evenings. She does not have portable oxygen at home. Discussed that since she was seen on Friday in clinic, would be easier to get her oxygen set up during her hospital stay as opposed to trying to do it outpatient. Pt was agreeable. Pt has history of diastolic CHF and pulmonary hypertension. Recently treated for pneumonia. CXR shows resolved infiltrates. Will do 6 minute walk prior to D/C home 2)Atrial fibrillation with Bradycardia- Cardiology following. Pt's digoxin has been stopped. Consideration for possible pacemaker placement. Pt is on Coumadin. INR currently 3.2. 3)CHF- diastolic compensated. Pt continued on Lasix 40mg 4)HTN- well controlled on above medications and Losartan 50mg 5)HLD- well controlled on atorvastatin 10mg 6)Hypothyroidism- moderately controlled on Levothyroxine 75mcg 7)Depression/Anxiety- pt continued on paroxetine 20mg and xanax 8)Hyperglycemia- HbA1C 5.5 9)Pulmonary HTN MEGHA PETERSEN MD Apr 04, 2019 11:15
[2019-04-04] MEDS: PANTOPRAZOLE 40 MG TABLET.DR. PO SCH (11:54)
--- NOTE | 2019-04-04 12:57 | PDOC ---
PROGRESS NOTES Subjective Subjective Patient seen and examined The patient is more comfortable today. Objective Objective Vital Signs Date Time Temp Pulse Resp B/P (MAP) Pulse Ox O2 Delivery O2 Flow Rate FiO2 04/04/19 11:07 Nasal Cannula 2.0 04/04/19 11:00 98.2 63 18 150/70 (96) 96 98.2 Intake and Output 04/04/19 07:00 Intake Total 760 ml Output Total 1900 ml Balance -1140 ml Intake Oral 760 ml Output Urine Total 1900 ml # Bowel Movements 1 Physical Exam Abdomen: Normal bowel sounds Heart: Other (irregularly irregular) General: mild distress Lungs: Other (mildly decreased breath sounds) Assessment Assessment 1. Slow AFIB: Weight has improved and is now in the 50s and 60s. We'll continue to monitor. Patient probably will not require a pacemaker at this time. Discussed with the patient. 2. Hypoxia: Continuing present treatment. 3. Fatigue 4. Hx of Chronic AFIB 3. Chronic diastolic CHF: compensated. last EF 65% 4. HTN: controlled 5. HLP 6. Chronic anticoagulation: on Coumadin Comment Review of Relevant I have reviewed the following items mignon (where applicable) has been applied. Labs Laboratory Tests Test 04/02/19 18:00 04/03/19 04:45 White Blood Count 7.7 x10^3/uL (4.0-11.0) Red Blood Count 4.28 x10^6/uL (3.50-5.40) Hemoglobin 14.2 g/dL (12.0-15.5) Hematocrit 41.5 % (36.0-47.0) Mean Corpuscular Volume 97 fL (79-100) Mean Corpuscular Hemoglobin 33 pg (25-35) Mean Corpuscular Hemoglobin Concent 34 g/dL (31-37) Red Cell Distribution Width 14.2 % (11.5-14.5) Platelet Count 201 x10^3/uL (140-400) Neutrophils (%) (Auto) 62 % (31-73) Lymphocytes (%) (Auto) 28 % (24-48) Monocytes (%) (Auto) 7 % (0-9) Eosinophils (%) (Auto) 2 % (0-3) Basophils (%) (Auto) 1 % (0-3) Neutrophils # (Auto) 4.7 x10^3/uL (1.8-7.7) Lymphocytes # (Auto) 2.2 x10^3/uL (1.0-4.8) Monocytes # (Auto) 0.5 x10^3/uL (0.0-1.1) Eosinophils # (Auto) 0.2 x10^3/uL (0.0-0.7) Basophils # (Auto) 0.1 x10^3/uL (0.0-0.2) Prothrombin Time 34.9 SEC (11.7-14.0) 32.8 SEC (11.7-14.0) Prothromb Time International Ratio 3.5 (0.8-1.1) 3.2 (0.8-1.1) Sodium Level 139 mmol/L (136-145) Potassium Level 3.6 mmol/L (3.5-5.1) Chloride Level 102 mmol/L (98-107) Carbon Dioxide Level 30 mmol/L (21-32) Anion Gap 7 (6-14) Blood Urea Nitrogen 14 mg/dL (7-20) Creatinine 1.1 mg/dL (0.6-1.0) Estimated GFR (Cockcroft-Gault) 46.9 BUN/Creatinine Ratio 13 (6-20) Glucose Level 129 mg/dL (70-99) Calcium Level 8.6 mg/dL (8.5-10.1) Magnesium Level 2.1 mg/dL (1.8-2.4) Total Bilirubin 0.5 mg/dL (0.2-1.0) Aspartate Amino Transf (AST/SGOT) 14 U/L (15-37) Alanine Aminotransferase (ALT/SGPT) 16 U/L (14-59) Alkaline Phosphatase 34 U/L (46-116) Troponin I Quantitative < 0.017 ng/mL (0.000-0.055) [id number]-Qhn-S-Type Natriuretic Peptide 4313 pg/mL (0-449) Total Protein 6.5 g/dL (6.4-8.2) Albumin 3.8 g/dL (3.4-5.0) Albumin/Globulin Ratio 1.4 (1.0-1.7) Thyroid Stimulating Hormone (TSH) 4.396 uIU/mL (0.358-3.74) Digoxin Level 1.2 ng/mL (0.9-2.0) Digoxin Last Dose Date 04/02/19 Digoxin Last Dose Time 0900 Hemoglobin A1c 5.5 % (4.8-5.6) Triglycerides Level 62 mg/dL (0-150) Cholesterol Level 119 mg/dL (0-200) LDL Cholesterol, Calculated 58 mg/dL (0-100) VLDL Cholesterol, Calculated 12 mg/dL (0-40) Non-HDL Cholesterol Calculated 70 mg/dL (0-129) HDL Cholesterol 49 mg/dL (40-60) Cholesterol/HDL Ratio 2.4 Medications Current Medications Albuterol Sulfate (Ventolin Neb Soln) 8.5 mg PRN Q4HRS PRN INH SHORTNESS OF BREATH Last administered on 04/02/19 19:36; Start 04/02/19 at 17:00 Alprazolam (Xanax) 0.5 mg PRN TID PRN PO ANXIETY Last administered on 04/03/19 20:09; Start 04/02/19 at 17:00 Atorvastatin Calcium (Lipitor) 10 mg QHS PO Last administered on 04/03/19 20:01; Start 04/02/19 at 21:00 Vitamin D (Vitamin D3) 2,000 unit DAILY PO Last administered on 04/04/19 09:07; Start 04/03/19 at 09:00 Cyanocobalamin (Vitamin B-12) 1,000 mcg DAILY PO Last administered on 04/04/19 09:07; Start 04/03/19 at 09:00 Digoxin (Lanoxin) 125 mcg DAILY PO ; Start 04/03/19 at 09:00; Stop 04/03/19 at 09:00; Status DC Ferrous Sulfate (Feosol) 325 mg DAILY PO Last administered on 04/04/19 09:08; Start 04/03/19 at 09:00 Furosemide (Lasix) 40 mg DAILY PO Last administered on 04/04/19 09:08; Start 04/03/19 at 09:00 Acetaminophen/ Hydrocodone Bitart (Lortab 7.5/325) 1 tab PRN Q8HRS PRN PO PAIN Last administered on 04/04/19 11:07; Start 04/02/19 at 17:00 Levothyroxine Sodium (Synthroid) 75 mcg DAILYAC PO Last administered on 04/04/19 06:23; Start 04/03/19 at 07:30 Losartan Potassium (Cozaar) 50 mg DAILY PO Last administered on 04/04/19 09:08; Start 04/03/19 at 09:00 Ondansetron HCl (Zofran Odt) 4 mg PRN Q6HRS PRN PO NAUSEA; Start 04/02/19 at 17:00 Potassium Chloride (Klor-Con) 10 meq DAILY PO Last administered on 04/04/19 09:07; Start 04/03/19 at 09:00 Pregabalin (Lyrica) 75 mg BID PO Last administered on 04/02/19at 20:55; Start 04/02/19 at 21:00 Paroxetine HCl (Paxil) 20 mg DAILY PO Last administered on 04/04/19 09:08; Start 04/03/19 at 09:00 Non-Formulary Medication (Warfarin Sodium ) 4 mg DAILY PO ; Start 04/03/19 at 09:00; Status UNV Warfarin Sodium (Coumadin Per Physician) 1 each PRN DAILY PRN MC SEE COMMENTS; Start 04/02/19 at 19:00; Stop 04/03/19 at 09:08; Status DC Warfarin Sodium (Coumadin Per Pharmacy) 1 each PRN DAILY PRN MC SEE COMMENTS Last administered on 04/03/19at 09:32; Start 04/03/19 at 09:30 Warfarin Sodium (Coumadin) 1 mg 1X WARF ONCE PO Last administered on 04/03/19at 16:30; Start 04/03/19 at 16:00; Stop 04/03/19 at 16:01; Status DC Pantoprazole Sodium (Protonix) 40 mg DAILYAC PO Last administered on 04/04/19at 11:54; Start 04/04/19 at 11:15 Active Scripts Active Zofran Odt (Ondansetron) 4 Mg Tab.rapdis 1 Tab SL Q6HRS PRN Cardizem Cd (Diltiazem Hcl) 360 Mg Cap.er.24h 1 Cap PO DAILY Furosemide 40 Mg Tablet 1 Tab PO DAILY Xanax (Alprazolam) 0.5 Mg Tablet 1 Tab PO TID PRN Reported Warfarin Sodium 4 Mg Tablet 4 Mg PO DAILY Lyrica (Pregabalin) 75 Mg Capsule 1-2 Cap PO BID Levothyroxine Sodium 75 Mcg Tablet 75 Mcg PO DAILYAC Acetaminophen 500 Mg Tablet 1 Tab PO Q4HRS PRN Ferrous Sulfate 325 Mg Tablet 1 Tab PO DAILY Proair Hfa Inhaler (Albuterol Sulfate) 8.5 Gm Hfa.aer.ad 2 Puff INH PRN Q4HRS PRN Loperamide (Loperamide Hcl) 2 Mg Capsule 4 Mg PO UD PRN Hydrocodone-Apap 7.5-325 (Hydrocodone Bit/Acetaminophen) 1 Each Tablet 1 Tab PO PRN Q8HRS PRN Vitamin D3 (Cholecalciferol (Vitamin D3)) 1,000 Unit Tablet 2 Tab PO DAILY Vitamin B-12 (Cyanocobalamin (Vitamin B-12)) 1,000 Mcg Tablet 1 Tab PO DAILY Carafate (Sucralfate) 1 Gm Tablet 1 Tab PO BIDBFRMEAL Senna (Sennosides) 8.6 Mg Tablet 8.6 Mg PO BID Potassium Chloride 10 Meq Tab.sr.24h 10 Meq PO DAILY Milk Of Magnesia (Magnesium Hydroxide) 2,400 Mg/10 Ml Oral.susp 30 Ml PO PRN DAILY PRN Losartan Potassium 50 Mg Tablet 50 Mg PO DAILY Digoxin 125 Mcg Tablet 1 Tab PO DAILY Paroxetine Hcl 20 Mg Tablet 1 Tab PO DAILY Lipitor (Atorvastatin Calcium) 10 Mg Tablet 1 Tab PO QHS Vitals/I & O Vital Sign - Last 24 Hours 04/03/19 04/03/19 04/03/19 04/03/19 15:00 16:30 19:05 20:23 Temp 98.3 98.1 98.3 98.1 Pulse 65 58 Resp 18 18 B/P (MAP) 138/61 (86) 141/63 (89) Pulse Ox 94 95 O2 Delivery Nasal Cannula Nasal Cannula Nasal Cannula Room Air O2 Flow Rate 2.0 2.0 2.0 2.0 04/03/19 04/04/19 04/04/19 04/04/19 23:33 02:36 03:14 03:36 Temp 98.1 97.8 98.1 97.8 Pulse 53 54 Resp 20 18 B/P (MAP) 121/53 (75) 169/64 (99) Pulse Ox 96 97 96 O2 Delivery Nasal Cannula Nasal Cannula Nasal Cannula Nasal Cannula O2 Flow Rate 2.0 2.0 2.0 2.0 04/04/19 04/04/19 04/04/19 04/04/19 07:00 07:38 09:08 11:00 Temp 97.8 98.2 97.8 98.2 Pulse 50 61 63 Resp 18 18 B/P (MAP) 135/65 (88) 135/65 150/70 (96) Pulse Ox 97 96 O2 Delivery Nasal Cannula Room Air Nasal Cannula O2 Flow Rate 2.0 2.0 2.0 04/04/19 11:07 O2 Delivery Nasal Cannula O2 Flow Rate 2.0 Intake and Output 04/03/19 04/03/19 04/04/19 15:00 23:00 07:00 Intake Total 180 ml 240 ml 340 ml Output Total 900 ml 750 ml 250 ml Balance -720 ml -510 ml 90 ml AMY WHITE MD Apr 04, 2019 12:57
[2019-04-04] MEDS ORDERED: ALBUTEROL SULFATE 2.5 MG/3 ML NEBU. INH PRN (13:26)
--- NOTE | 2019-04-04 13:36 | NUR ---
Pharmacy Warfarin Dosing Note S:Pharmacy consulted to assist with anticoagulation therapy started with target INR: 2 -3 O:SHANNAN DENNIS is a 88 year old F with Atrial Fibrillation LABS: Last INR: 3.2 04/03 Last HGB: 14.2 Last HCT: 41.5 Last PLT: 201 Last dose of 1 mg given on 04/02/19 at 1630 Previous Regimen: WARFARIN 4MG DAILY Vitamin K given: Drug Interaction Changes: Ongoing Drug Interactions: A:INR of 3.2 04/03 is above desired range. Target range for this patient is: 2 -3 P: Warfarin dose: 1 mg Today at 1600 SINCE PT DIURESING WELL, INR FALLING, HOME DOSE IS 4 MG/D. Bridge Therapy: Next INR due TOMORROW. Pharmacy anticoagulation service will continue to follow. CLARISA HAND RPH, 04/04/19 1352
[2019-04-04] MEDS: ALPRAZolam 0.5 MG TABLET PO PRN ×2 (14:00→20:23)
[2019-04-04 15:00] VITALS: BP 120/55
[2019-04-04] MEDS ORDERED: WARFARIN 1 MG TABLET. PO ONE (16:00)
[2019-04-04 19:40] VITALS: BP 141/66
[2019-04-04] MEDS: ATORVASTATIN CALCIUM 10 MG TABLET. PO SCH (20:23)
[2019-04-04 22:50] VITALS: BP 143/65
[2019-04-05 03:05] VITALS: BP 136/61
[2019-04-05 04:18] LABS: PROTHROMBIN TIME PATIENT 20.7 SEC (11.7-14.0)
[2019-04-05 04:22] LABS: CALCIUM 9.1 mg/dL (8.5-10.1); CREATININE 0.7 mg/dL (0.6-1.0); POTASSIUM 3.3 mmol/L (3.5-5.1)
[2019-04-05] MEDS ORDERED: POTASSIUM CHLORIDE 20 MEQ TABLET.ER. PO ONE (06:15)
[2019-04-05] MEDS: PANTOPRAZOLE 40 MG TABLET.DR. PO SCH (06:20)
[2019-04-05] MEDS: LEVOTHYROXINE 75 MCG TABLET PO SCH (06:20)
[2019-04-05 07:00] VITALS: BP 144/66
--- NOTE | 2019-04-05 08:21 | PDOC ---
SUBJECTIVE Subjective Pt's indigestion has improved. Heart rate has improved. If pt not getting pacemaker, she is ready to go home. Will get 6 minute walk to qualify her for home O2. OBJECTIVE Vital Signs Vital Signs Date Time Temp Pulse Resp B/P (MAP) Pulse Ox O2 Delivery O2 Flow Rate FiO2 04/05/19 07:00 98.2 60 18 144/66 (92) 93 Nasal Cannula 2.0 98.2 04/05/19 03:05 98.3 59 18 136/61 (86) 97 Nasal Cannula 2.0 98.3 04/04/19 22:50 98.2 58 18 143/65 (91) 95 Nasal Cannula 2.0 98.2 04/04/19 20:07 Room Air 2.0 04/04/19 19:40 98.5 65 20 141/66 (91) 95 Nasal Cannula 98.5 04/04/19 15:00 98.4 58 18 120/55 (76) 95 Nasal Cannula 2.0 98.4 04/04/19 11:07 Nasal Cannula 2.0 04/04/19 11:00 98.2 63 18 150/70 (96) 96 Nasal Cannula 2.0 98.2 04/04/19 09:08 61 135/65 I & O Intake and Output 04/05/19 07:00 Intake Total 798 ml Output Total 1450 ml Balance -652 ml Intake Oral 798 ml Output Urine Total 1450 ml # Bowel Movements 2 PHYSICAL EXAM Physical Exam GEN.: No apparent distress. Alert and oriented. HEENT: Head is normocephalic, atraumatic NECK: Supple. LUNGS: Clear to auscultation. HEART: irregular rhythm, S1, S2 present. Peripheral pulses intact ABDOMEN: Soft, nontender. Positive bowel sounds. EXTREMITIES: Without any cyanosis. NEUROLOGIC: Normal speech, normal tone PSYCHIATRIC: Normal affect, normal mood. SKIN: No ulcerations ASSESSMENT/PLAN Assessment/Plan Pt is a 88yo CF admitted for hypoxia and bradycardia 1)Hypoxia- likely multifactorial and likely chronic in nature. Pt has been on oxygen previously but only in the evenings. She does not have portable oxygen at home. Discussed that since she was seen on Friday in clinic, would be easier to get her oxygen set up during her hospital stay as opposed to trying to do it outpatient. Pt was agreeable. Pt has history of diastolic CHF and pulmonary hypertension. Recently treated for pneumonia. CXR shows resolved infiltrates. Will do 6 minute walk prior to D/C home 2)Atrial fibrillation with Bradycardia- Cardiology following. Pt's digoxin has been stopped. Bradycardia has improved. Consideration for possible pacemaker placement. Pt is on Coumadin. INR currently 3.2. 3)CHF- diastolic compensated. Pt continued on Lasix 40mg 4)HTN- well controlled on above medications and Losartan 50mg 5)HLD- well controlled on atorvastatin 10mg 6)Hypothyroidism- moderately controlled on Levothyroxine 75mcg 7)Depression/Anxiety- pt continued on paroxetine 20mg and xanax 8)Hyperglycemia- HbA1C 5.5 9)Pulmonary HTN COMMENT Lab Laboratory Tests Test 04/04/19 12:55 04/05/19 02:50 Troponin I Quantitative < 0.017 ng/mL (0.000-0.055) Prothrombin Time 20.7 SEC (11.7-14.0) Prothromb Time International Ratio 1.8 (0.8-1.1) Sodium Level 141 mmol/L (136-145) Potassium Level 3.3 mmol/L (3.5-5.1) Chloride Level 103 mmol/L (98-107) Carbon Dioxide Level 31 mmol/L (21-32) Anion Gap 7 (6-14) Blood Urea Nitrogen 7 mg/dL (7-20) Creatinine 0.7 mg/dL (0.6-1.0) Estimated GFR (Cockcroft-Gault) 79.0 Glucose Level 92 mg/dL (70-99) Calcium Level 9.1 mg/dL (8.5-10.1) MEGHA PETERSEN MD Apr 05, 2019 08:21
[2019-04-05] MEDS: PREGABALIN 75 MG CAPSULE PO SCH (09:00)
--- NOTE | 2019-04-05 09:57 | NUR ---
IP: Pt has a hx of + mrsa screen since 12/2017 with most recent on 01/06/19. Pt to be in contact precautions until there are 2 negative screens 7 days apart.
[2019-04-05] MEDS: FUROSEMIDE 40 MG TABLET. PO SCH (10:38)
[2019-04-05] MEDS: CYANOCOBALAMIN (VITAMIN B-12) 1,000 MCG TABLET. PO SCH (10:39)
[2019-04-05] MEDS: CHOLECALCIFEROL (VITAMIN D3) 1,000 UNIT TABLET PO SCH (10:39)
[2019-04-05] MEDS: LOSARTAN POTASSIUM 50 MG TABLET. PO SCH (10:39)
[2019-04-05] MEDS: FERROUS SULFATE 325 MG TABLET. PO SCH (10:40)
[2019-04-05] MEDS: HYDROcodone/APAP 7.5/325MG 1 TAB TABLET PO PRN (10:43)
[2019-04-05] MEDS: ALPRAZolam 0.5 MG TABLET PO PRN ×2 (10:43→17:46)
[2019-04-05] MEDS: POTASSIUM CHLORIDE 10 MEQ TABLET.ER. PO SCH (10:44)
[2019-04-05] MEDS: PARoxetine 20 MG TABLET PO SCH (10:44)
[2019-04-05 10:48] VITALS: BP 139/76
--- NOTE | 2019-04-05 11:25 | NUR ---
Pharmacy Warfarin Dosing Note S:Pharmacy consulted to assist with anticoagulation therapy started with target INR: 2 -3 O:SHANNAN DENNIS is a 88 year old F with Atrial Fibrillation LABS: Last INR: 1.8 Last HGB: 14.2 Last HCT: 41.5 Last PLT: 201 Last dose of 1 mg given on 04/04/19 at 1630 Previous Regimen: WARFARIN 4MG DAILY Vitamin K given: Drug Interaction Changes: Ongoing Drug Interactions: A:INR of 1.8 is BELOW desired range. Target range for this patient is: 2 -3 P: Warfarin dose: 2.5 mg Today at 1600 Bridge Therapy: Next INR due IN AM Pharmacy anticoagulation service will continue to follow. TOBY WEI [facility], 04/05/19 [id number]
--- NOTE | 2019-04-05 13:20 | NUR ---
SS following for discharge planning. SS reviewed pt chart. Pt is from [facility], ; fax [phone]. SS phoned and faxed clinical to [facility]. Oxygen order received. SS phoned and faxed oxygen order to [facility], ; fax [phone]. Pt's RN notified.
[2019-04-05 14:36] VITALS: BP 113/59
--- NOTE | 2019-04-05 15:35 | PDOC ---
CARDIO Progress Notes Date and Time Date of Service 04/05/19 Time of Evaluation 1140 Subjective Subjective: No Chest Pain, No shortness of breath Vitals Vitals Vital Signs Date Time Temp Pulse Resp B/P (MAP) Pulse Ox O2 Delivery O2 Flow Rate FiO2 04/05/19 14:36 98.4 75 14 113/59 (77) 96 Nasal Cannula 2.0 98.4 Weight Weight [ ] Input and Output Intake and Output Intake and Output 04/05/19 07:00 Intake Total 798 ml Output Total 1450 ml Balance -652 ml Intake Oral 798 ml Output Urine Total 1450 ml # Bowel Movements 2 Laboratory Labs Laboratory Tests Test 04/05/19 02:50 Prothrombin Time 20.7 SEC (11.7-14.0) Prothromb Time International Ratio 1.8 (0.8-1.1) Sodium Level 141 mmol/L (136-145) Potassium Level 3.3 mmol/L (3.5-5.1) Chloride Level 103 mmol/L (98-107) Carbon Dioxide Level 31 mmol/L (21-32) Anion Gap 7 (6-14) Blood Urea Nitrogen 7 mg/dL (7-20) Creatinine 0.7 mg/dL (0.6-1.0) Estimated GFR (Cockcroft-Gault) 79.0 Glucose Level 92 mg/dL (70-99) Calcium Level 9.1 mg/dL (8.5-10.1) Physical Exam HEENT: Neck Supple W Full Motion Chest: Symmetric LUNGS: Clear to Auscultation Heart: murmurs (2/6 murmur ), irregularly irregular (rate 66) Extremities: No Calf Tenderness Neurology: alert, follow commands Assessment Assessment 1. AFIB, bradycardia; HR has improved. No further bradycardia overnight. Appropriate chronotropic response. No acute indication for PPM at this time. . 2. Hypoxia: Continuing present treatment. 3. Fatigue 4. Chronic diastolic CHF: compensated. last EF 65% 4. HTN: controlled 5. HLP 6. Chronic anticoagulation: on Coumadin Recommendations Avoid AV ross blocking agents Consider outpatient event monitor to r/o tachybrady May discharge from a CV standpoint and f/u in our office with Dr. Lozano in 4 weeks MEENAKSHI LIMON APRN Apr 05, 2019 15:35
[2019-04-05] MEDS ORDERED: WARFARIN 2.5 MG TABLET. PO ONE (16:00)
--- NOTE | 2019-04-05 16:03 | PDOC3 ---
Discharge Summary FINAL DIAGNOSIS Problems Medical Problems: (1) Hypoxia Status: Acute Brief Hospital Course Ms. Soriano is a 88 old [sex] who presented with [ ] Discharge Medications Current Medications Albuterol Sulfate (Ventolin Neb Soln) 8.5 mg PRN Q4HRS PRN INH SHORTNESS OF BREATH Last administered on 04/02/19 19:36; Start 04/02/19 at 17:00; Stop 04/04/19 at 13:26; Status DC Alprazolam (Xanax) 0.5 mg PRN TID PRN PO ANXIETY Last administered on 04/05/19 10:43; Start 04/02/19 at 17:00 Atorvastatin Calcium (Lipitor) 10 mg QHS PO Last administered on 04/04/19 20:23; Start 04/02/19 at 21:00 Vitamin D (Vitamin D3) 2,000 unit DAILY PO Last administered on 04/05/19 10:39; Start 04/03/19 at 09:00 Cyanocobalamin (Vitamin B-12) 1,000 mcg DAILY PO Last administered on 04/05/19 10:39; Start 04/03/19 at 09:00 Digoxin (Lanoxin) 125 mcg DAILY PO ; Start 04/03/19 at 09:00; Stop 04/03/19 at 09:00; Status DC Ferrous Sulfate (Feosol) 325 mg DAILY PO Last administered on 04/05/19 10:40; Start 04/03/19 at 09:00 Furosemide (Lasix) 40 mg DAILY PO Last administered on 04/05/19 10:38; Start 04/03/19 at 09:00 Acetaminophen/ Hydrocodone Bitart (Lortab 7.5/325) 1 tab PRN Q8HRS PRN PO PAIN Last administered on 04/05/19 10:43; Start 04/02/19 at 17:00 Levothyroxine Sodium (Synthroid) 75 mcg DAILYAC PO Last administered on 04/05/19 06:20; Start 04/03/19 at 07:30 Losartan Potassium (Cozaar) 50 mg DAILY PO Last administered on 04/05/19 10:39; Start 04/03/19 at 09:00 Ondansetron HCl (Zofran Odt) 4 mg PRN Q6HRS PRN PO NAUSEA; Start 04/02/19 at 17:00 Potassium Chloride (Klor-Con) 10 meq DAILY PO Last administered on 04/05/19at 10:44; Start 04/03/19 at 09:00 Pregabalin (Lyrica) 75 mg BID PO Last administered on 04/02/19at 20:55; Start 04/02/19 at 21:00 Paroxetine HCl (Paxil) 20 mg DAILY PO Last administered on 04/05/19at 10:44; Start 04/03/19 at 09:00 Non-Formulary Medication (Warfarin Sodium ) 4 mg DAILY PO ; Start 04/03/19 at 09:00; Status UNV Warfarin Sodium (Coumadin Per Physician) 1 each PRN DAILY PRN MC SEE COMMENTS; Start 04/02/19 at 19:00; Stop 04/03/19 at 09:08; Status DC Warfarin Sodium (Coumadin Per Pharmacy) 1 each PRN DAILY PRN MC SEE COMMENTS Last administered on 04/05/19at 11:24; Start 04/03/19 at 09:30 Warfarin Sodium (Coumadin) 1 mg 1X WARF ONCE PO Last administered on 04/03/19at 16:30; Start 04/03/19 at 16:00; Stop 04/03/19 at 16:01; Status DC Pantoprazole Sodium (Protonix) 40 mg DAILYAC PO Last administered on 04/05/19at 06:20; Start 04/04/19 at 11:15 Warfarin Sodium (Coumadin) 1 mg 1X WARF ONCE PO Last administered on 04/04/19at 17:03; Start 04/04/19 at 16:00; Stop 04/04/19 at 16:01; Status DC Albuterol Sulfate (Ventolin Neb Soln) 2.5 mg PRN Q4HRS PRN INH SHORTNESS OF BREATH; Start 04/04/19 at 13:26 Potassium Chloride (Klor-Con) 40 meq 1X ONCE PO Last administered on 04/05/19at 06:20; Start 04/05/19 at 06:15; Stop 04/05/19 at 06:16; Status DC Warfarin Sodium (Coumadin) 2.5 mg 1X WARF ONCE PO ; Start 04/05/19 at 16:00; Stop 04/05/19 at 16:01; Status DC Active Scripts Active Zofran Odt (Ondansetron) 4 Mg Tab.rapdis 1 Tab SL Q6HRS PRN Cardizem Cd (Diltiazem Hcl) 360 Mg Cap.er.24h 1 Cap PO DAILY Furosemide 40 Mg Tablet 1 Tab PO DAILY Xanax (Alprazolam) 0.5 Mg Tablet 1 Tab PO TID PRN Reported Warfarin Sodium 4 Mg Tablet 4 Mg PO DAILY Lyrica (Pregabalin) 75 Mg Capsule 1-2 Cap PO BID Levothyroxine Sodium 75 Mcg Tablet 75 Mcg PO DAILYAC Acetaminophen 500 Mg Tablet 1 Tab PO Q4HRS PRN Ferrous Sulfate 325 Mg Tablet 1 Tab PO DAILY Proair Hfa Inhaler (Albuterol Sulfate) 8.5 Gm Hfa.aer.ad 2 Puff INH PRN Q4HRS PRN Loperamide (Loperamide Hcl) 2 Mg Capsule 4 Mg PO UD PRN Hydrocodone-Apap 7.5-325 (Hydrocodone Bit/Acetaminophen) 1 Each Tablet 1 Tab PO PRN Q8HRS PRN Vitamin D3 (Cholecalciferol (Vitamin D3)) 1,000 Unit Tablet 2 Tab PO DAILY Vitamin B-12 (Cyanocobalamin (Vitamin B-12)) 1,000 Mcg Tablet 1 Tab PO DAILY Carafate (Sucralfate) 1 Gm Tablet 1 Tab PO BIDBFRMEAL Senna (Sennosides) 8.6 Mg Tablet 8.6 Mg PO BID Potassium Chloride 10 Meq Tab.sr.24h 10 Meq PO DAILY Milk Of Magnesia (Magnesium Hydroxide) 2,400 Mg/10 Ml Oral.susp 30 Ml PO PRN DAILY PRN Losartan Potassium 50 Mg Tablet 50 Mg PO DAILY Digoxin 125 Mcg Tablet 1 Tab PO DAILY Paroxetine Hcl 20 Mg Tablet 1 Tab PO DAILY Lipitor (Atorvastatin Calcium) 10 Mg Tablet 1 Tab PO QHS Vital Signs Vital Signs Date Time Temp Pulse Resp B/P (MAP) Pulse Ox O2 Delivery O2 Flow Rate FiO2 04/05/19 14:36 98.4 75 14 113/59 (77) 96 Nasal Cannula 2.0 98.4 Labs Laboratory Tests Test 04/04/19 12:55 04/05/19 02:50 Troponin I Quantitative < 0.017 ng/mL (0.000-0.055) Prothrombin Time 20.7 SEC (11.7-14.0) Prothromb Time International Ratio 1.8 (0.8-1.1) Sodium Level 141 mmol/L (136-145) Potassium Level 3.3 mmol/L (3.5-5.1) Chloride Level 103 mmol/L (98-107) Carbon Dioxide Level 31 mmol/L (21-32) Anion Gap 7 (6-14) Blood Urea Nitrogen 7 mg/dL (7-20) Creatinine 0.7 mg/dL (0.6-1.0) Estimated GFR (Cockcroft-Gault) 79.0 Glucose Level 92 mg/dL (70-99) Calcium Level 9.1 mg/dL (8.5-10.1) Laboratory Tests Test 04/05/19 02:50 Prothrombin Time 20.7 SEC (11.7-14.0) Prothromb Time International Ratio 1.8 (0.8-1.1) Sodium Level 141 mmol/L (136-145) Potassium Level 3.3 mmol/L (3.5-5.1) Chloride Level 103 mmol/L (98-107) Carbon Dioxide Level 31 mmol/L (21-32) Anion Gap 7 (6-14) Blood Urea Nitrogen 7 mg/dL (7-20) Creatinine 0.7 mg/dL (0.6-1.0) Estimated GFR (Cockcroft-Gault) 79.0 Glucose Level 92 mg/dL (70-99) Calcium Level 9.1 mg/dL (8.5-10.1) Allergies Allergies Coded Allergies Type Severity Reaction Last Updated Verified Iodinated Contrast- Oral and IV Dye Allergy Intermediate SWELLING 04/19/16 Yes Penicillins Allergy Intermediate Rash 04/19/16 Yes adhesive Allergy Intermediate rash 04/19/16 Yes iodine Allergy Intermediate Rash 04/19/16 Yes tramadol Allergy Intermediate 11/09/16 Yes I S O L A T I O N *CONTACT* Allergy Unknown 01/12/18 Yes latex Adverse Reaction Intermediate Rash 01/09/18 Yes MEGHA PETERSEN MD Apr 05, 2019 16:03
--- NOTE | 2019-04-05 18:00 | NUR ---
Report called to Emanuel at [facility], patient will be picked up by son and taken to assisted living.
== END 2019-04-05 18:00 | disposition home or self-care (01) | DRG 309 ==
LOC: 2 NORTH 15:03
PROVIDERS: ADMIT Family Medicine; ATTEND Family Medicine
DX: I48.91 Unspecified atrial fibrillation (principal); I50.32 Chronic diastolic (congestive) heart failure; R09.02 Hypoxemia; E78.5 Hyperlipidemia, unspecified; E89.0 Postprocedural hypothyroidism; F32.9 Major depressive disorder, single episode, unspecified; F41.9 Anxiety disorder, unspecified; I11.0 Hypertensive heart disease with heart failure; R73.9 Hyperglycemia, unspecified; K21.9 Gastro-esophageal reflux disease without esophagitis; Z79.01 Long term (current) use of anticoagulants; Z82.49 Family history of ischemic heart disease and other diseases of the circulatory system; Z86.73 Personal history of transient ischemic attack (TIA), and cerebral infarction without residual deficits; Z87.440 Personal history of urinary (tract) infections; Z88.0 Allergy status to penicillin; Z88.8 Allergy status to other drugs, medicaments and biological substances; Z91.040 Latex allergy status; I27.20 Pulmonary hypertension, unspecified
CPT/HCPCS: 36415; 71046; 80048; 80053; 80061; 80162; 83036; 83735; 83880; 84443; 84484; 85025; 85610; 93005; 94618; 94640; J7613

== ENCOUNTER 2019-07-27 11:43 | Emergency (ER) | payer MEDICARE, BC, MEDICAID ==
[~2019-07-27] VITALS: Ht 160 cm; Wt 55.8 kg
[~2019-07-27 11:43] MED LIST changes: +CLON-77 PO; -CLON0.5T11 PO; +CYAN-25 PO; -CYAN10005 PO
[2019-07-27] MEDS ORDERED: IV NORMAL SALINE 1000ML BAG 1,000 ML IV SCH (12:13)
[2019-07-27] MEDS ORDERED: ALPRAZolam 0.5 MG TABLET PO ONE (12:15)
[2019-07-27] MEDS ORDERED: ONDANSETRON PF 4 MG/2 ML VIAL. IVP ONE (12:15)
--- NOTE | 2019-07-27 12:17 | PHYS DOC ---
Past Medical History Past Medical History: A-Fib, Anxiety, CHF, COPD, CVA, Depression, GERD, Hypertension, Hypothyroid, TIA, Unknown Additional Past Medical Histor: HOME O2 AT NIGHT, OSTEOPEROSIS Past Surgical History: No Surgical History Additional Past Surgical Histo: Thyroid Alcohol Use: None Drug Use: None Adult General Chief Complaint Chief Complaint: ABDOMINAL PAIN HPI HPI Patient is an 88-year-old female who arrives in the emergency department from her assisted living facility, along with her daughter. The patient was complaining of nausea and some generalized abdominal pain earlier in the day today, but states that her symptoms have completely resolved at this time. The patient currently denies any pain. She has not had any vomiting, although she states she did have one episode of loose stool earlier in the day today. She denies any chest pain, shortness of breath, headache, dizziness, or lightheadedness. She has a history of anxiety, and has been out of her Xanax, which she takes 0.5 mg 3 times daily, for the past several days. She does report feeling somewhat anxious. There are no alleviating or exacerbating factors to her symptoms. Review of Systems Review of Systems Constitutional: Denies fever or chills [] Eyes: Denies change in visual acuity, redness, or eye pain [] HENT: Denies nasal congestion or sore throat [] Respiratory: Denies cough or shortness of breath [] Cardiovascular: The patient denies any shortness of breath, chest pain, palpitations, or orthopnea [] GI: Denies current abdominal pain, nausea, vomiting, bloody stools or diarrhea [] : Denies dysuria or hematuria [] Musculoskeletal: Denies back pain or joint pain [] Integument: Denies rash or skin lesions [] Neurologic: Denies headache, focal weakness or sensory changes [] Endocrine: Denies polyuria or polydipsia [] All other systems were reviewed and found to be within normal limits, except as documented in this note. Current Medications Current Medications Current Medications Medications (Trade) Dose Ordered Sig/Dori Start Time Stop Time Status Last Admin Dose Admin Alprazolam (Xanax) 0.5 mg 1X ONCE 07/27/19 12:15 07/27/19 12:16 DC 07/27/19 12:49 0.5 MG Ondansetron HCl (Zofran) 4 mg 1X ONCE 07/27/19 12:15 07/27/19 12:16 DC 07/27/19 12:49 4 MG Sodium Chloride 1,000 ml @ 100 mls/hr Q10H 07/27/19 12:13 07/27/19 22:12 07/27/19 12:50 100 MLS/HR Allergies Allergies Allergies Coded Allergies Type Severity Reaction Last Updated Verified Iodinated Contrast- Oral and IV Dye Allergy Intermediate SWELLING 04/19/16 Yes Penicillins Allergy Intermediate Rash 04/19/16 Yes adhesive Allergy Intermediate rash 04/19/16 Yes iodine Allergy Intermediate Rash 04/19/16 Yes tramadol Allergy Intermediate 11/09/16 Yes I S O L A T I O N *CONTACT* Allergy Unknown 01/12/18 Yes latex Adverse Reaction Intermediate Rash 01/09/18 Yes Physical Exam Physical Exam PHYSICAL EXAM: CONSTITUTIONAL: Well developed, well nourished HEAD: normocephalic, atraumatic EENT: PERRL, EOMI. Conjunctivae normal color, sclerae non-icteric; moist mucous membranes. NECK: Supple, non-tender; no meningismus. LUNGS: Lungs CTA, breathing even and unlabored. Normal air movement. HEART: Irregularly irregular rhythm, no murmur CHEST: No deformity; non-tender ABDOMEN: The abdomen is soft, there is mild diffuse tenderness to palpation of the abdomen, most prominent in the right lower quadrant, without rebound or guarding, the remainder of the abdomen is soft and non-tender, no masses or bruits. EXTREM: Normal ROM; no deformity, no calf tenderness. Normal pulses palpable in all extremities. There is no pedal edema. SKIN: No rash; no diaphoresis NEURO: Alert; normal speech and cognition; CN's grossly intact; strength grossly intact without focal deficit. BACK: No CVA TTP. Current Patient Data Vital Signs Vital Signs Date Time Temp Pulse Resp B/P (MAP) Pulse Ox O2 Delivery O2 Flow Rate FiO2 07/27/19 12:00 98.1 104 20 134/75 (94) 94 Room Air 98.1 Lab Values Laboratory Tests Test 07/27/19 12:04 07/27/19 12:35 Urine Collection Type Unknown Urine Color Yellow Urine Clarity Clear Urine pH 8.0 Urine Specific [place] 1.015 Urine Protein 100 mg/dL (NEG-TRACE) Urine Glucose (UA) Negative mg/dL (NEG) Urine Ketones (Stick) Negative mg/dL (NEG) Urine Blood Small (NEG) Urine Nitrite Negative (NEG) Urine Bilirubin Negative (NEG) Urine Urobilinogen Dipstick 0.2 mg/dL (0.2 mg/dL) Urine Leukocyte Esterase Moderate (NEG) Urine RBC 6-10 /HPF (0-2) Urine WBC 1-4 /HPF (0-4) Urine Bacteria Few /HPF (0-FEW) Urine Hyaline Casts Few /HPF Urine Mucus Slight /LPF White Blood Count 6.6 x10^3/uL (4.0-11.0) Red Blood Count 4.45 x10^6/uL (3.50-5.40) Hemoglobin 14.4 g/dL (12.0-15.5) Hematocrit 42.7 % (36.0-47.0) Mean Corpuscular Volume 96 fL (79-100) Mean Corpuscular Hemoglobin 32 pg (25-35) Mean Corpuscular Hemoglobin Concent 34 g/dL (31-37) Red Cell Distribution Width 14.1 % (11.5-14.5) Platelet Count 220 x10^3/uL (140-400) Neutrophils (%) (Auto) 70 % (31-73) Lymphocytes (%) (Auto) 22 % (24-48) L Monocytes (%) (Auto) 6 % (0-9) Eosinophils (%) (Auto) 1 % (0-3) Basophils (%) (Auto) 1 % (0-3) Neutrophils # (Auto) 4.6 x10^3/uL (1.8-7.7) Lymphocytes # (Auto) 1.5 x10^3/uL (1.0-4.8) Monocytes # (Auto) 0.4 x10^3/uL (0.0-1.1) Eosinophils # (Auto) 0.0 x10^3/uL (0.0-0.7) Basophils # (Auto) 0.1 x10^3/uL (0.0-0.2) Prothrombin Time 17.4 SEC (11.7-14.0) H Prothrombin Time INR 1.5 (0.8-1.1) H Activated Partial Thromboplast Time 36 SEC (24-38) Sodium Level 145 mmol/L (136-145) Potassium Level 4.0 mmol/L (3.5-5.1) Chloride Level 107 mmol/L (98-107) Carbon Dioxide Level 29 mmol/L (21-32) Anion Gap 9 (6-14) Blood Urea Nitrogen 8 mg/dL (7-20) Creatinine 0.7 mg/dL (0.6-1.0) Estimated GFR (Cockcroft-Gault) 79.0 BUN/Creatinine Ratio 11 (6-20) Glucose Level 111 mg/dL (70-99) H Lactic Acid Level 1.0 mmol/L (0.4-2.0) Calcium Level 9.2 mg/dL (8.5-10.1) Total Bilirubin 0.8 mg/dL (0.2-1.0) Aspartate Amino Transferase (AST) 16 U/L (15-37) Alanine Aminotransferase (ALT) 16 U/L (14-59) Alkaline Phosphatase 36 U/L (46-116) L Troponin I Quantitative < 0.017 ng/mL (0.000-0.055) Total Protein 6.7 g/dL (6.4-8.2) Albumin 3.7 g/dL (3.4-5.0) Albumin/Globulin Ratio 1.2 (1.0-1.7) Lipase 109 U/L (73-393) Laboratory Tests 07/27/19 12:35 Laboratory Tests 07/27/19 12:35 EKG EKG Atrial fibrillation at a rate of 102 bpm, normal axis, normal intervals, there are no acute ischemic ST/T changes. Radiology/Procedures Radiology/Procedures PROCEDURE: CT ABDOMEN PELVIS WO CONTRAST Examination: CT of the abdomen pelvis without contrast HISTORY: History of abdominal pain COMPARISON: 04/15/2019 TECHNIQUE: Axial CT images of the abdomen pelvis were performed without contrast. Coronal and sagittal reformats are performed Exposure: One or more of the following individualized dose reduction techniques were utilized for this examination: 1. Automated exposure control 2. Adjustment of the mA and/or kV according to patient size 3. Use of iterative reconstruction technique FINDINGS: Large right sided hiatal hernia again identified. Mild right lung base airspace opacity likely atelectasis or infiltrate. No evidence of free air identified. The evaluation of the solid organs is limited due to lack of IV contrast. The evaluation of bowel is limited due to lack of oral contrast. The visualized noncontrasted liver, spleen, adrenals grossly appears unremarkable. The gallbladder is mildly distended. The visualized pancreas grossly appears unremarkable. The small bowel is nondilated. The appendix is normal. Feces and gas noted in the colon. Few sigmoid colon diverticulosis. Moderate aortic atherosclerosis Compression changes of L1, L3 vertebral bodies with kyphoplasty changes. Mild compression change of L3 vertebral body Moderate degenerative changes lumbar spine. IMPRESSION: 1. No acute abdominal findings. [] Course & Med Decision Making Course & Med Decision Making Pertinent Labs and Imaging studies reviewed. (See chart for details) [] 3:20 PM: The patient's condition remains stable. She is feeling significantly better at this time. She states her PCP is in the process of calling and a refill for her Xanax to the nursing facility pharmacy, she will be given a te mporary prescription to hold her over until that time. I discussed importance of close PCP follow-up and return precautions in detail. I discussed the importance of close outpatient follow-up for microscopic hematuria. Dragon Disclaimer Dragon Disclaimer This electronic medical record was generated, in whole or in part, using a voice recognition dictation system. Departure Departure Impression: Primary Impression: Nausea Additional Impressions: Abdominal pain Anxiety Disposition: HOME, SELF-CARE Condition: STABLE Referrals: KALINA GARCIA MD (PCP) Patient Instructions: Abdominal Pain (Nonspecific), Anxiety and Panic Attacks, Nausea, Adult Problem Qualifiers MARTHA LOVE MD Jul 27, 2019 12:17
[2019-07-27 12:29] LABS: BILIRUBIN,URINE NEGATIVE (NEG); CLARITY,URINE CLEAR; COLOR,URINE YELLOW; NITRITE,URINE NEGATIVE (NEG); PROTEIN,URINE 100 mg/dL (NEG-TRACE); UROBILINOGEN,URINE 0.2 mg/dL (0.2 mg/dL)
[2019-07-27 12:36] LABS: HYALINE CASTS, URINE FEW /HPF
[2019-07-27 12:37] LABS: BACTERIA,URINE FEW /HPF (0-FEW)
[2019-07-27 12:47] LABS: BASO # 0.1 x10^3/uL (0.0-0.2); BASO % 1 % (0-3); EOS % 1 % (0-3); HEMATOCRIT 42.7 % (36.0-47.0); HEMOGLOBIN 14.4 g/dL (12.0-15.5); LYMPH # 1.5 x10^3/uL (1.0-4.8); LYMPH % 22 % (24-48); MEAN CORPUSCULAR HEMOGLOBIN 32 pg (25-35); MEAN CORPUSCULAR HGB CONC 34 g/dL (31-37); MEAN CORPUSCULAR VOLUME 96 fL (79-100); MONO # 0.4 x10^3/uL (0.0-1.1); MONO % 6 % (0-9); NEUT # 4.6 x10^3/uL (1.8-7.7); NEUT % 70 % (31-73); PLATELET COUNT 220 x10^3/uL (140-400); RED BLOOD COUNT 4.45 x10^6/uL (3.50-5.40); RED CELL DISTRIBUTION WIDTH 14.1 % (11.5-14.5); WHITE BLOOD COUNT 6.6 x10^3/uL (4.0-11.0)
[2019-07-27 12:55] LABS: PROTHROMBIN TIME PATIENT 17.4 SEC (11.7-14.0)
[2019-07-27 13:04] LABS: CALCIUM 9.2 mg/dL (8.5-10.1); CREATININE 0.7 mg/dL (0.6-1.0)
[2019-07-27 13:14] LABS: ALBUMIN 3.7 g/dL (3.4-5.0); ALBUMIN/GLOBULIN RATIO 1.2 (1.0-1.7); TOTAL BILIRUBIN 0.8 mg/dL (0.2-1.0); TOTAL PROTEIN 6.7 g/dL (6.4-8.2)
--- NOTE | 2019-07-27 15:07 | RAD ---
Examination: CT of the abdomen pelvis without contrast HISTORY: History of abdominal pain COMPARISON: 04/15/2019 TECHNIQUE: Axial CT images of the abdomen pelvis were performed without contrast. Coronal and sagittal reformats are performed Exposure: One or more of the following individualized dose reduction techniques were utilized for this examination: 1. Automated exposure control 2. Adjustment of the mA and/or kV according to patient size 3. Use of iterative reconstruction technique FINDINGS: Large right sided hiatal hernia again identified. Mild right lung base airspace opacity likely atelectasis or infiltrate. No evidence of free air identified. The evaluation of the solid organs is limited due to lack of IV contrast. The evaluation of bowel is limited due to lack of oral contrast. The visualized noncontrasted liver, spleen, adrenals grossly appears unremarkable. The gallbladder is mildly distended. The visualized pancreas grossly appears unremarkable. The small bowel is nondilated. The appendix is normal. Feces and gas noted in the colon. Few sigmoid colon diverticulosis. Moderate aortic atherosclerosis Compression changes of L1, L3 vertebral bodies with kyphoplasty changes. Mild compression change of L3 vertebral body Moderate degenerative changes lumbar spine. IMPRESSION: 1. No acute abdominal findings. Electronically signed by: Prosper Robin MD (07/27/2019 3:04 PM) [id number]
[2019-07-27 15:17] VITALS: BP 116/63
[2019-07-27] MEDS ORDERED: ALPR0.5T PO (15:23)
--- NOTE | 2019-07-27 16:07 | EKG ---
[facility] [address] [place] [address] Test Date: 2019-07-27 Test Time: 12:50:16 Pat Name: SHANNAN DENNIS Department: Room: Gender: F Offset Printer: [id number] : 1930 Requested By: MARTHA LOVE Order Number: [id number] Reading MD: Measurements Intervals [place] Rate: 101 P: SD: QRS: 47 QRSD: 90 T: 5 QT: 376 QTc: 494 Interpretive Statements ATRIAL FIB./FLUTTER WITH RAPID VENTRICULAR RESPONSE NON SPECIFIC T ABNORMALITY ABNORMAL ECG No previous ECG available for comparison
== END 2019-07-27 15:56 | disposition home or self-care (01) ==
LOC: ER 11:43
DX: R10.84 Generalized abdominal pain (principal); R11.0 Nausea; R19.7 Diarrhea, unspecified; I48.91 Unspecified atrial fibrillation; F41.9 Anxiety disorder, unspecified; I11.0 Hypertensive heart disease with heart failure; I50.9 Heart failure, unspecified; J44.9 Chronic obstructive pulmonary disease, unspecified; F32.9 Major depressive disorder, single episode, unspecified; K21.9 Gastro-esophageal reflux disease without esophagitis; E03.9 Hypothyroidism, unspecified; Z86.73 Personal history of transient ischemic attack (TIA), and cerebral infarction without residual deficits; Z91.041 Radiographic dye allergy status; Z88.0 Allergy status to penicillin; Z88.8 Allergy status to other drugs, medicaments and biological substances; Z88.6 Allergy status to analgesic agent; Z91.040 Latex allergy status
CPT/HCPCS: 36415; 74176; 80053; 81001; 83605; 83690; 84484; 85025; 85610; 85730; 87086; 93005; 96361; 96374; 99285; J2405; J7030